=== PATIENT | male | born 1930 | race Caucasian/White ===

== ENCOUNTER → 2016-11-01 | Outpatient (CLI) | payer OTHER ==
[~2016-11-01] MED LIST: ADVIN10/60 INH; ALBUAER2 INH; AMOX1TAB43 PO; ASPI-435 PO; BACL10TA PO; BACL20TA PO; CHOL2000 PO; CLR/5 PO; CRD200 PO; CYCL10TA6 PO; DOCU-94 PO; FEXO3TAB PO; FIBER PO; FLM4 PO; FLUT0.15 NAE; FLUT1INH INH; FLX5 PO; FURO-85 PO; FURO40TA3 PO; GABA-112 PO; GABA-113 PO; GUAI1TAB75 PO; HYDR-5688 PO; LACT1TAB4 PO; LDDP5 TD; LIDO1PAD2 TD; LRS10 PO; MISCCAP80 PO; MOMLX PO; MULT-55 PO; NRN100 PO; OMEP40CA41 PO; OXYC1CAP5 PO; RXC5 PO; SENN-65 PO; SENN8.6T9 PO; SPRIN/30 INH; TIOTCAP INH; TRAM-10 PO; ULT50 PO; ULT50HP PO; VLTG EXT; VNTHFA/IN INH; WARF1TAB6 PO
--- NOTE | 2016-11-01 12:06 | DIAGNOSTIC IMAGING REPORT ---
BILATERAL LOWER EXTREMITY ARTERIAL DOPPLER STUDY CLINICAL HISTORY: Cold feet and legs. Smoking history COMPARISON STUDY: None. FINDINGS: The right ankle-brachial index measured with the posterior tibial artery was 1.25 and the dorsalis pedis artery was 1.14. The left ankle-brachial index measured with the posterior tibial artery was 1.14 and the dorsalis pedis artery was 1.13. Normal biphasic waveforms seen throughout the bilateral lower extremity arterial systems. No elevated velocities to suggest stenosis. No evidence for arterial occlusion. Mild calcified plaque within the right common femoral artery. IMPRESSION: No hemodynamically significant stenosis or arterial occlusion within the bilateral lower extremities. Electronically signed by: Tristen Kirkland M.D. 11/01/2016 12:05 PM Dictated Date/Time: 11/01/2016 12:01 PM
== END | disposition home or self-care (01) ==
LOC: C.ULTR 10:19
PROVIDERS: ATTEND Podiatrist
DX: I70.293 Other atherosclerosis of native arteries of extremities, bilateral legs (principal); M20.42 Other hammer toe(s) (acquired), left foot

== ENCOUNTER 2016-12-02 09:08 | Emergency (ER) | payer OTHER ==
[~2016-12-02] VITALS: Ht 177.8 cm; Wt 89.2 kg
[~2016-12-02 09:08] MED LIST changes: -ADVIN10/60 INH; -AMOX1TAB43 PO; -BACL10TA PO; -BACL20TA PO; -CHOL2000 PO; -CLR/5 PO; -CYCL10TA6 PO; -FIBER PO; -FLUT1INH INH; -FLX5 PO; -FURO-85 PO; -GABA-112 PO; -GABA-113 PO; -HYDR-5688 PO; -LDDP5 TD; -LIDO1PAD2 TD; -LRS10 PO; -MISCCAP80 PO; -MOMLX PO; -MULT-55 PO; -NRN100 PO; -OXYC1CAP5 PO; -RXC5 PO; -SENN8.6T9 PO; -SPRIN/30 INH; -TRAM-10 PO; -ULT50 PO; -VNTHFA/IN INH
[2016-12-02 09:11] VITALS: TEMP 36.5; Ht 177.8 cm; Wt 89.2 kg
[2016-12-02] MEDS ORDERED: VNTHFA/IN INH (09:34)
[2016-12-02] MEDS ORDERED: SPRIN/30 INH (09:34)
[2016-12-02] MEDS ORDERED: ULT50 PO (09:34)
[2016-12-02 10:40] LABS: BASO % 0.6 %; BASO ABS # 0.03 K/uL (0-0.2); COMPLETE YES; EOS % 4.8 %; HEMATOCRIT 37.9 % (42-52); IG% 0.2 %; LYMPH % 28.2 %; LYMPH ABS # 1.41 K/uL (1.2-3.4); MEAN CELL VOLUME 92.7 fL (80-100); MEAN CORPUSCULAR HEMOGLOBIN 30.3 pg (25-34); MEAN CORPUSCULAR HGB CONC 32.7 g/dl (32-36); MEAN PLATELET VOLUME 12.1 fL (7.4-10.4); MONO % 15.8 %; NEUT % 50.4 %; PLATELET COUNT 150 K/uL (130-400); RED BLOOD COUNT 4.09 M/uL (4.7-6.1)
[2016-12-02 10:53] LABS: INR 1.8 (0.9-1.1); PARTIAL THROMBOPLASTIN RATIO 1.5; PROTHROMBIN TIME (PATIENT) 19.3 SECONDS (9.0-12.0)
[2016-12-02 10:59] LABS: CALCIUM 8.7 mg/dl (8.5-10.1); CREATININE 1.1 mg/dl (0.60-1.40); POTASSIUM 4.2 mmol/L (3.5-5.1)
--- NOTE | 2016-12-02 11:04 | DIAGNOSTIC IMAGING REPORT ---
RIGHT RIBS UNILATERAL WITH PA CHEST CLINICAL HISTORY: eval for fx Right pain COMPARISON STUDY: 11/15/2015 FINDINGS: Old fractures anterior right 10th and 11th ribs. No acute bony abnormality. No evidence pneumothorax. IMPRESSION: Several old fractures. No acute bony abnormality. Negative chest. The above report was generated using voice recognition software. It may contain grammatical, syntax or spelling errors. Electronically signed by: Abelino Solis M.D. 12/02/2016 11:03 AM Dictated Date/Time: 12/02/2016 11:02 AM
[2016-12-02 11:09] VITALS: BP 131/65; PULSE 53; O2SAT 95
--- NOTE | 2016-12-02 16:24 | EMERGENCY ROOM VISIT NOTE ---
History Report prepared by Polly: Jessica Yoder Under the Supervision of: Dr. Pernell Arguello M.D. First contact with patient: 09:59 Chief Complaint: FALL Stated Complaint: FALL,HEAD INJURY History of Present Illness The patient is an 86 year old male who presents to the Emergency Room with complaints of a sudden fall that occurred . He currently rates his discomfort as a 10/10 in severity. The patient states that he missed a step going off of his back porch, stating that he fell onto his right shoulder. He states that he has been experiencing pain in his right chest since the fall. He denies any head trauma and denies any headache. The patient states that his pain is worsened with deep breathing and movement. He denies any abdominal pain, hematochezia, melena, or hematuria. The patient states that he is on Coumadin for a valve replacement and atrial fibrillation. He denies any abnormal weakness. Source of History: patient Onset: Position: other (global) Symptom Intensity: 10/10 Quality: other (fall) Timing: other (sudden) Modifying Factors (Worsening): breathing, movement Associated Symptoms: + chest pain (right sided), No abdominal pain, No melena, No hematochezia, No urinary symptoms, No weakness Review of Systems See HPI for pertinent positives & negatives. A total of 10 systems reviewed and were otherwise negative. Past Medical & Surgical Medical Problems: (1) A-fib (2) Arthritis (3) Asthma (4) Conductive hearing loss (5) COPD (chronic obstructive pulmonary disease) (6) GERD (gastroesophageal reflux disease) (7) Heart failure, diastolic (8) History of left heart catheterization (9) long-term current use of anticoagulant (10) Osteoarthritis (11) Peptic ulcer disease Surgical Problems: (1) H/O foot surgery (2) H/O mitral valve replacement (3) H/O removal of cyst (4) H/O tricuspid valve repair (5) Hx of total knee arthroplasty (6) S/P MVR (mitral valve replacement) Family History Cancer FH: heart disease Hypertension Stroke Social History Smoking Status: Never Smoker Alcohol Use: none Drug Use: none Marital Status: Housing Status: lives with family Occupation Status: retired Current/Historical Medications Scheduled Amiodarone HCl (Amiodarone HCl), 200 MG PO DAILY Docusate Sodium (Colace), 100 MG PO BID Furosemide (Lasix), 40 MG PO BID Lactobacillus (Floranex), 200 MG PO DAILY Omeprazole (Prilosec), 40 MG PO DAILY Senna/Docusate Sod (Senokot S), 1 TAB PO BID Tamsulosin HCl (Tamsulosin HCl), 0.4 MG PO HS Tiotropium [place] (Spiriva Handihaler), 1 CAP INH DAILY Warfarin Sod (Jantoven), 2 MG PO 5XWK Warfarin Sod (Jantoven), 3 MG PO 2XWK Scheduled PRN Albuterol Hfa (Ventolin Hfa), 2-4 PUFFS INH Q6H PRN for Wheezing Fluticasone Propionate (Nasal) (Flonase Allergy Relief), 2 SPRAY ALEJANDRO DAILY PRN for congestion Tramadol HCl (Tramadol HCl), 50 MG PO Q4H PRN for Pain Allergies Coded Allergies: Lansoprazole (Verified Allergy, Unknown, didn't work/dr determined pt was allergic, 12/02/16) Physical Exam Vital Signs Date Time Temp Pulse Resp B/P (MAP) Pulse Ox O2 Delivery O2 Flow Rate FiO2 12/02/16 11:09 53 20 131/65 95 Room Air 12/02/16 10:38 52 12/02/16 09:11 36.5 66 18 104/66 93 Room Air Physical Exam Constitutional: Vital signs reviewed. Eyes: Pupils are equal round reactive to light. Conjunctiva are noninjected. ENT: Pharynx is clear without erythema or exudate. Mucous membranes are moist. Neck supple without meningeal signs. No midline tenderness to cervical spine. Respiratory: Clear to auscultation bilaterally. Breath sounds are equal bilaterally. Cardiovascular: Regular rate and rhythm. No rubs or gallops. GI: Soft, nondistended and nontender. Bowel sounds are present. Musculoskeletal: Tenderness to the anterior right ribs without crepitus or flail segment. No tenderness to extremities, scattered abrasions to right leg. No peripheral edema. Integumentary: No cyanosis. Neurological: The patient is awake and alert. No focal deficits. Psychiatric: Normal affect. Medical Decision & Procedures ER Provider Diagnostic Interpretation: X-ray results as stated below per interpretation by me and the radiologist: RIGHT RIBS UNILATERAL WITH PA CHEST CLINICAL HISTORY: eval for fx Right pain COMPARISON STUDY: 11/15/2015 FINDINGS: Old fractures anterior right 10th and 11th ribs. No acute bony abnormality. No evidence pneumothorax. IMPRESSION: Several old fractures. No acute bony abnormality. Negative chest. The above report was generated using voice recognition software. It may contain grammatical, syntax or spelling errors. Electronically signed by: Abelino Solis M.D. 12/02/2016 11:03 AM Dictated Date/Time: 12/02/2016 11:02 AM Laboratory Results 12/02/16 10:20 Red Blood Count 4.09, Mean Corpuscular Volume 92.7, Mean Corpuscular Hemoglobin 30.3, Mean Corpuscular Hemoglobin Concent 32.7, Mean Platelet Volume 12.1, Neutrophils (%) (Auto) 50.4, Lymphocytes (%) (Auto) 28.2, Monocytes (%) (Auto) 15.8, Eosinophils (%) (Auto) 4.8, Basophils (%) (Auto) 0.6, Neutrophils # (Auto ) 2.52, Lymphocytes # (Auto) 1.41, Monocytes # (Auto) 0.79, Eosinophils # (Auto ) 0.24, Basophils # (Auto) 0.03 12/02/16 10:20 Test 12/02/16 10:20 White Blood Count 5.00 K/uL (4.8-10.8) Red Blood Count 4.09 M/uL (4.7-6.1) Hemoglobin 12.4 g/dL (14.0-18.0) Hematocrit 37.9 % (42-52) Mean Corpuscular Volume 92.7 fL (80-100) Mean Corpuscular Hemoglobin 30.3 pg (25-34) Mean Corpuscular Hemoglobin Concent 32.7 g/dl (32-36) Platelet Count 150 K/uL (130-400) Mean Platelet Volume 12.1 fL (7.4-10.4) Neutrophils (%) (Auto) 50.4 % Lymphocytes (%) (Auto) 28.2 % Monocytes (%) (Auto) 15.8 % Eosinophils (%) (Auto) 4.8 % Basophils (%) (Auto) 0.6 % Neutrophils # (Auto) 2.52 K/uL (1.4-6.5) Lymphocytes # (Auto) 1.41 K/uL (1.2-3.4) Monocytes # (Auto) 0.79 K/uL (0.11-0.59) Eosinophils # (Auto) 0.24 K/uL (0-0.5) Basophils # (Auto) 0.03 K/uL (0-0.2) RDW Standard Deviation 51.1 fL (36.4-46.3) RDW Coefficient of Variation 14.9 % (11.5-14.5) Immature Granulocyte % (Auto) 0.2 % Immature Granulocyte # (Auto) 0.01 K/uL (0.00-0.02) Prothrombin Time 19.3 SECONDS (9.0-12.0) Prothromb Time International Ratio 1.8 (0.9-1.1) Activated Partial Thromboplast Time 37.8 SECONDS (21.0-31.0) Partial Thromboplastin Ratio 1.5 Anion Gap 3.0 mmol/L (3-11) Est Creatinine Clear Calc Drug Dose 53.2 ml/min Estimated GFR () 69.6 Estimated GFR (Non- 60.0 BUN/Creatinine Ratio 14.0 (10-20) Calcium Level 8.7 mg/dl (8.5-10.1) Laboratory results as reviewed by me. ECG Indication: chest pain Rate (beats per minute): 50 Rhythm: sinus bradycardia Findings: 1st degree AV block, no acute ischemic change, no ectopy ED Course 1002: The patient was evaluated in room A11B. A complete history and physical exam was performed. 1130: I reevaluated the patient and he is resting comfortably. I discussed the exam findings with him and I discussed the treatment plan. He verbalized complete understanding and agreement. He is ready to go home. Medical Decision This is an 86-year-old male who presents with rib pain after a fall. Differential diagnosis includes rib fracture, contusion, pneumothorax, hemothorax, strain. I did perform a limited focused review of portions of the patient's old chart on the electronic medical record. The patient has had no recent pertinent visits to this hospital. Blood Pressure Screening: Patient was found to have normal blood pressure on screening and does not require follow-up. Medication Reconciliation: I attest that I have personally reviewed the patient' s current medication list. I did evaluate the patient as noted above. Patient developed right-sided rib pain after a mechanical fall several days ago. He is significantly tender over the right anterior chest in the lower ribs. There is no crepitus or flail segment. IV access was established. I did order and review the patient's blood work as noted in the electronic medical record. I did order x-rays of the chest and ribs. I did review the images myself as well as the radiology report as described above. The radiologist stated that he has old fractures but he is acutely tender over those ribs and denies having any prior fractures or falls. He likely has an acute fracture in the posterior ribs. He was given a incentive spirometer and states he will take his tramadol for pain. He states that his steel erector told him he could not take anything stronger. He does have a subtherapeutic INR and was told to take an extra Coumadin tonight and have his INR rechecked next week. He was discharged in good condition. He was given return instructions as outlined below. Impression Primary Impression: Fracture of rib of right side Additional Impressions: Fall Subtherapeutic international normalized ratio (INR) Scribe Attestation The scribe's documentation has been prepared under my direct and personally reviewed by me in its entirety. I confirm that the note above accurately reflects all work, treatment, procedures, and medical decision making performed by me. Departure Information Dispostion Home / Self-Care Referrals Frank Mahoney D.O. (PCP) Forms HOME CARE DOCUMENTATION FORM, IMPORTANT VISIT INFORMATION Patient Instructions Fx Rib, My [facility] Additional Instructions You have been examined and treated today on an emergency basis only. This is not a substitute for, or an effort to provide, complete comprehensive medical care. It is impossible to recognize and treat all injuries or illnesses in a single emergency department visit. It is therefore important that you follow up closely with your physician. Call as soon as possible for an appointment. Return immediately for worsening symptoms or if you develop shortness of breath , fever, vomiting, or any other concerning symptoms. Problem Qualifiers Primary Impression: Fracture of rib of right side Encounter type: initial encounter Rib fracture type: multiple ribs Fracture type: closed Qualified Codes: S22.41XA - Multiple fractures of ribs , right side, initial encounter for closed fracture Additional Impressions: Fall Encounter type: initial encounter Qualified Codes: W19.XXXA - Unspecified fall, initial encounter
== END 2016-12-02 11:38 | disposition home or self-care (01) ==
LOC: C.EDB 09:10 → C.EDA 11:38
DX: S22.41XA Multiple fractures of ribs, right side, initial encounter for closed fracture (principal); W10.9XXA Fall (on) (from) unspecified stairs and steps, initial encounter; W22.8XXA Striking against or struck by other objects, initial encounter; R79.1 Abnormal coagulation profile; M19.90 Unspecified osteoarthritis, unspecified site; J45.909 Unspecified asthma, uncomplicated; J44.9 Chronic obstructive pulmonary disease, unspecified; I48.91 Unspecified atrial fibrillation; I50.32 Chronic diastolic (congestive) heart failure; K21.9 Gastro-esophageal reflux disease without esophagitis; K27.7 Chronic peptic ulcer, site unspecified, without hemorrhage or perforation; Z95.2 Presence of prosthetic heart valve; Z96.659 Presence of unspecified artificial knee joint; Z98.890 Other specified postprocedural states; Z82.49 Family history of ischemic heart disease and other diseases of the circulatory system; Z82.3 Family history of stroke; Z79.01 Long term (current) use of anticoagulants; Z79.899 Other long term (current) drug therapy

== ENCOUNTER 2017-02-16 16:18 | Inpatient (IN) | payer OTHER ==
[~2017-02-16] VITALS: Ht 177.8 cm; Wt 86.7 kg
[~2017-02-16 16:18] MED LIST changes: -ALBUAER2 INH; -ASPI-435 PO; -FEXO3TAB PO; -GUAI1TAB75 PO; +SPRIN/30 INH; -TIOTCAP INH; +ULT50 PO; -ULT50HP PO; -VLTG EXT; +VNTHFA/IN INH
[2017-02-16] MEDS ORDERED: FENTANYL CITRATE INJ 50 MCG/1 ML 2 ML VIAL IV STA (17:18)
[2017-02-16 18:06] LABS: BASO % 0.3 %; BASO ABS # 0.03 K/uL (0-0.2); COMPLETE YES; EOS % 1.9 %; HEMATOCRIT 41.3 % (42-52); IG% 0.6 %; LYMPH ABS # 1.95 K/uL (1.2-3.4); MEAN CELL VOLUME 93.4 fL (80-100); MEAN CORPUSCULAR HGB CONC 33.2 g/dl (32-36); MONO % 12.4 %; NEUT % 66.8 %; PLATELET COUNT 197 K/uL (130-400); RED BLOOD COUNT 4.42 M/uL (4.7-6.1); WHITE BLOOD COUNT 10.81 K/uL (4.8-10.8)
[2017-02-16 18:28] LABS: CALCIUM 8.7 mg/dl (8.5-10.1); CREATININE 0.91 mg/dl (0.60-1.40); POTASSIUM 4.1 mmol/L (3.5-5.1)
--- NOTE | 2017-02-16 18:53 | DIAGNOSTIC IMAGING REPORT ---
ORBITS FOR MRI HISTORY: 86 years-old Male MRI clearance for MRI. 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 COMPARISON: CT head 04/16/2015 TECHNIQUE: 4 views of the orbits. FINDINGS: No opaque foreign body identified. The imaged paranasal sinuses appear generally clear. No acute fracture identified. IMPRESSION: No opaque foreign body identified. The above report was generated using voice recognition software. It may contain grammatical, syntax or spelling errors. Electronically signed by: Alireza Anand M.D. 02/16/2017 6:51 PM Dictated Date/Time: 02/16/2017 6:50 PM
[2017-02-16] MEDS ORDERED: FLUT1INH INH (19:41)
[2017-02-16] MEDS ORDERED: CLR/5 PO (19:41)
--- NOTE | 2017-02-16 20:14 | DIAGNOSTIC IMAGING REPORT ---
LUMBAR SPINE W/O CONTRAST CLINICAL HISTORY: 86 years-old Male with low back pain, urinary incontinence, left leg weakness/numbness. Acute left leg weakness with low back pain. No reported trauma. COMPARISON: None. TECHNIQUE: Multiplanar, multi sequence MRI of the lumbar spine was performed without intravenous contrast. FINDINGS: Large field view industrial education teacher localizer images demonstrate no gross abnormality of the abdomen, pelvis were paraspinal structures. Prostate appears enlarged. There is mild convex right curvature of the lumbar spine. There is severe bone marrow edema involving the entire L5 vertebral body with moderate bone marrow edema noted extending into the left pedicle at this level. There is a linear fracture line involving superior endplate with approximately 25% anterior endplate compression. No significant retropulsion. Additionally, there is linear fracture line involving the superior endplate of L4 as seen on image 11 of the sagittal T1 series with moderate associated bone marrow edema. No significant loss of vertebral body height. No retropulsion. Chronic compression deformity at L3 with multiple Schmorl nodes of the lumbar spine. Multilevel intervertebral disc space narrowing, facet arthropathy and spondylitic spurring as below. Signal within the cord is within normal limits. Conus medullaris terminates at L1. T12-L1: Mild intervertebral disc space narrowing and severe facet arthropathy without central canal or neural foraminal stenosis. L1-L2: Mild intervertebral disc space narrowing and severe facet arthropathy without central canal or neural foraminal stenosis. L2-L3: Moderate intervertebral disc space narrowing with posterior spondylitic spurring and circumferential annular disc bulge and severe facet arthropathy. There is moderate central canal, mild left and mild right foraminal narrowing. L3-L4: Moderate intervertebral disc space narrowing with posterior spondylitic spurring and small broad-based posterior disc bulge with severe facet arthropathy and ligamentum flavum thickening. There is mild central canal, moderate left and moderate to severe right foraminal narrowing. L4-L5: Moderate to severe intervertebral disc space narrowing with posterior spondylitic spurring and circumferential annular disc bulge along with severe facet arthropathy and ligamentum flavum redundancy. There is effacement of the ventral thecal sac without significant central canal narrowing. There is moderate right and mild to moderate left foraminal narrowing. Acute bony findings as above. L5-S1: Moderate posterior intervertebral disc space narrowing with posterior spondylitic spurring and broad-based posterior disc bulge with severe facet arthropathy. There is no significant central canal or foraminal narrowing IMPRESSION: 1. Acute 25% anterior endplate compression deformity of L5 without significant retropulsion. Extensive bone marrow edema seen within the L5 vertebral body extending into the left pedicle. There is no associated mass identified to suggest pathologic fracture, however intravenous contrast was not administered. This is likely secondary to insufficiency fracture. 2. Additional acute fracture involves the superior endplate L4 with moderate associated bone marrow edema. No significant endplate collapse or retropulsion. 3. Multilevel discogenic degenerative changes, spondylitic spurring and facet arthropathy as above, most pronounced at L2-L3 where there is moderate central canal and mild bilateral foraminal narrowing. The above report was generated using voice recognition software. It may contain grammatical, syntax or spelling errors. Electronically signed by: Alireza Anand M.D. 02/16/2017 8:12 PM Dictated Date/Time: 02/16/2017 8:03 PM
[2017-02-16 20:47] LABS: URINE APPEARANCE CLEAR (CLEAR); URINE BILIRUBIN NEG (NEG); URINE COLOR YELLOW; URINE NITRITE NEG (NEG); URINE PH 7.5 (4.5-7.5); URINE SPECIFIC GRAVITY 1.015 (1.000-1.030); UROBILINOGEN NEG (NEG); ZZUR CULT IF INDIC CLEAN CATCH NO
[2017-02-16 20:51] LABS: MANUAL MICROSCOPIC REQUIRED? NO; REVIEW REQ? NO
[2017-02-16] MEDS ORDERED: MoRPHine SULFATE 4 MG/ML 1 ML CARP\\VIAL IV STA (20:54)
--- NOTE | 2017-02-16 20:54 | EMERGENCY ROOM VISIT NOTE ---
ED Visit Note First contact with patient: 20:42 This Patient was discussed with the physician [place], Sheron Navarro PA-C. The pertinent historical and physical exam findings were confirmed. I agree with the studies ordered and with the interpretations of these studies. I agree with the disposition and care plan.
--- NOTE | 2017-02-16 22:04 | EMERGENCY ROOM VISIT NOTE ---
History First contact with patient: 16:59 Chief Complaint: BACK PAIN Stated Complaint: SEVERE BACK PAIN History of Present Illness The patient is a 86 year old male who presents to the Emergency Room with complaints of severe back pain. The patient states that he has had pain in the low back for greater than 1 month. He states that the pain began 01/08/17. At that time, he was standing up from a chair when he developed acute pain in the low back. He was seen by his primary care provider and had negative x-rays. He was prescribed a muscle relaxer and prednisone. He states that he had no improvement after one week and return to see his primary care provider again. They increased his prednisone dose and scheduled him with physical therapy. He was seeing a physical therapist 3 times a week and states this was initially helping. He reports that his pain increased significantly yesterday and he has had a hard time moving due to the pain. He reports the discomfort a 10/10 and is "unbearable." He has had some weakness of the legs, left greater than right. He reports intermittent numbness of the left leg as well. The patient has had some difficulties with his urinary stream for the past 2 months and is unsure if this is related. He states he is scheduled for an MRI on February 27. He denies any bowel/bladder incontinence or fevers. He denies any history of cancer. The patient reports a history of a valve replacement but states he is otherwise fairly healthy. Review of Systems A complete 10 point review of systems was reviewed with the patient with pertinent positives and negatives as per history of present illness. All else were negative. Past Medical/Surgical History Medical Problems: (1) A-fib (2) Arthritis (3) Asthma (4) Back pain (5) Conductive hearing loss (6) COPD (chronic obstructive pulmonary disease) (7) GERD (gastroesophageal reflux disease) (8) Heart failure, diastolic (9) History of left heart catheterization (10) correction current use of anticoagulant (11) Osteoarthritis (12) Peptic ulcer disease Surgical Problems: (1) H/O foot surgery (2) H/O mitral valve replacement (3) H/O removal of cyst (4) H/O tricuspid valve repair (5) Hx of total knee arthroplasty (6) S/P MVR (mitral valve replacement) Family History Cancer FH: heart disease Hypertension Stroke Social History Smoking Status: Former Smoker Alcohol Use: none Drug Use: none Marital Status: Housing Status: lives with family Occupation Status: retired Current/Historical Medications Scheduled Amiodarone HCl (Amiodarone HCl), 200 MG PO DAILY Desloratadine (Clarinex), 5 MG PO DAILY Docusate Sodium (Colace), 100 MG PO BID Fluticasone Furoate-Vilanterol (Breo Ellipta), 1 PUFF INH UD Furosemide (Lasix), 40 MG PO BID Lactobacillus (Floranex), 200 MG PO DAILY Omeprazole (Prilosec), 40 MG PO DAILY Senna/Docusate Sod (Senokot S), 1 TAB PO BID Tamsulosin HCl (Tamsulosin HCl), 0.4 MG PO HS Tiotropium [place] (Spiriva Handihaler), 1 CAP INH DAILY Warfarin Sod (Jantoven), 2 MG PO 5XWK Warfarin Sod (Jantoven), 3 MG PO 2XWK Scheduled PRN Albuterol Hfa (Ventolin Hfa), 2-4 PUFFS INH Q6H PRN for Wheezing Fluticasone Propionate (Nasal) (Flonase Allergy Relief), 2 SPRAY ALEJANDRO DAILY PRN for congestion Tramadol HCl (Tramadol HCl), 50 MG PO Q4H PRN for Pain Physical Exam Vital Signs Date Time Temp Pulse Resp B/P (MAP) Pulse Ox O2 Delivery O2 Flow Rate FiO2 02/16/17 21:17 70 18 131/69 93 Room Air 02/16/17 20:30 73 20 145/67 95 Room Air 02/16/17 16:28 36.5 78 18 117/65 94 Room Air Physical Exam VITALS: Vitals are noted on the nurse's note and reviewed by myself. Vital signs stable. GENERAL: This is an 86-year-old male, in no acute distress, nondiaphoretic, well -developed well-nourished. HEART: Regular rate and rhythm without murmurs gallops or rubs. LUNGS: Clear to auscultation bilaterally without wheezes, rales or rhonchi. ABDOMEN: Soft, nontender. MUSCULOSKELETAL: There is tenderness to palpation along the lumbar spine and of the right lumbar paraspinous muscles. NEURO: Patient was alert and oriented to person place and time. Normal sensation to light and sharp touch. Patellar reflexes decreased bilaterally. Medical Decision & Procedures ER Provider Diagnostic Interpretation: LUMBAR SPINE W/O CONTRAST CLINICAL HISTORY: 86 years-old Male with low back pain, urinary incontinence, left leg weakness/numbness. Acute left leg weakness with low back pain. No reported trauma. COMPARISON: None. TECHNIQUE: Multiplanar, multi sequence MRI of the lumbar spine was performed without intravenous contrast. FINDINGS: Large field view locomotive oiler localizer images demonstrate no gross abnormality of the abdomen, pelvis were paraspinal structures. Prostate appears enlarged. There is mild convex right curvature of the lumbar spine. There is severe bone marrow edema involving the entire L5 vertebral body with moderate bone marrow edema noted extending into the left pedicle at this level. There is a linear fracture line involving superior endplate with approximately 25% anterior endplate compression. No significant retropulsion. Additionally, there is linear fracture line involving the superior endplate of L4 as seen on image 11 of the sagittal T1 series with moderate associated bone marrow edema. No significant loss of vertebral body height. No retropulsion. Chronic compression deformity at L3 with multiple Schmorl nodes of the lumbar spine. Multilevel intervertebral disc space narrowing, facet arthropathy and spondylitic spurring as below. Signal within the cord is within normal limits. Conus medullaris terminates at L1. T12-L1: Mild intervertebral disc space narrowing and severe facet arthropathy without central canal or neural foraminal stenosis. L1-L2: Mild intervertebral disc space narrowing and severe facet arthropathy without central canal or neural foraminal stenosis. L2-L3: Moderate intervertebral disc space narrowing with posterior spondylitic spurring and circumferential annular disc bulge and severe facet arthropathy. There is moderate central canal, mild left and mild right foraminal narrowing. L3-L4: Moderate intervertebral disc space narrowing with posterior spondylitic spurring and small broad-based posterior disc bulge with severe facet arthropathy and ligamentum flavum thickening. There is mild central canal, moderate left and moderate to severe right foraminal narrowing. L4-L5: Moderate to severe intervertebral disc space narrowing with posterior spondylitic spurring and circumferential annular disc bulge along with severe facet arthropathy and ligamentum flavum redundancy. There is effacement of the ventral thecal sac without significant central canal narrowing. There is moderate right and mild to moderate left foraminal narrowing. Acute bony findings as above. L5-S1: Moderate posterior intervertebral disc space narrowing with posterior spondylitic spurring and broad-based posterior disc bulge with severe facet arthropathy. There is no significant central canal or foraminal narrowing IMPRESSION: 1. Acute 25% anterior endplate compression deformity of L5 without significant retropulsion. Extensive bone marrow edema seen within the L5 vertebral body extending into the left pedicle. There is no associated mass identified to suggest pathologic fracture, however intravenous contrast was not administered. This is likely secondary to insufficiency fracture. 2. Additional acute fracture involves the superior endplate L4 with moderate associated bone marrow edema. No significant endplate collapse or retropulsion. 3. Multilevel discogenic degenerative changes, spondylitic spurring and facet arthropathy as above, most pronounced at L2-L3 where there is moderate central canal and mild bilateral foraminal narrowing. Laboratory Results 02/16/17 17:30 Test 02/16/17 17:30 02/16/17 20:30 Anion Gap 5.0 mmol/L (3-11) Est Creatinine Clear Calc Drug Dose 59.1 ml/min Estimated GFR () 87.5 Estimated GFR (Non- 75.5 BUN/Creatinine Ratio 18.0 (10-20) Calcium Level 8.7 mg/dl (8.5-10.1) Magnesium Level 2.2 mg/dl (1.8-2.4) Total Bilirubin 0.4 mg/dl (0.2-1) Direct Bilirubin 0.1 mg/dl (0-0.2) Aspartate Amino Transf (AST/SGOT) 13 U/L (15-37) Alanine Aminotransferase (ALT/SGPT) 19 U/L (12-78) Alkaline Phosphatase 103 U/L (45-117) Total Protein 7.1 gm/dl (6.4-8.2) Albumin 3.6 gm/dl (3.4-5.0) Lipase 191 U/L (73-393) Urine Color YELLOW Urine Appearance CLEAR (CLEAR) Urine pH 7.5 (4.5-7.5) Urine Specific [place] 1.015 (1.000-1.030) Urine Protein NEG (NEG) Urine Glucose (UA) NEG (NEG) Urine Ketones NEG (NEG) Urine Occult Blood NEG (NEG) Urine Nitrite NEG (NEG) Urine Bilirubin NEG (NEG) Urine Urobilinogen NEG (NEG) Urine Leukocyte Esterase NEG (NEG) Medications Administered Medications (Trade) Dose Ordered Sig/Baldomero Route Start Time Stop Time Status Last Admin Dose Admin Fentanyl Citrate (Fentanyl Inj) 50 mcg NOW STAT IV 02/16/17 17:18 02/16/17 17:20 DC 02/16/17 17:39 50 MCG Morphine Sulfate (MoRPHine SULFATE INJ) 4 mg NOW STAT IV 02/16/17 20:54 02/16/17 20:55 DC 02/16/17 21:16 4 MG ED Course The patient was evaluated as above. Labs were drawn and IV access was obtained. Patient was medicated with 50 g fentanyl for pain. MRI of the lumbar spine was performed and read by radiology as above. Patient was reevaluated and findings were discussed. He was given 4 mg morphine for pain. Patient was reevaluated and states that he does feel somewhat better after the morphine, however when he attempts to move or pull himself up he has excruciating pain. [facility]. They agreed to evaluate the patient for admission. Medical Decision Differential diagnosis includes cauda equina syndrome, cord compression, disc herniation, muscle spasm, lumbar strain, epidural abscess, malignancy, transverse myelitis, urinary tract infection, colitis, diverticulitis, kidney stone, among others. The patient is a 86-year-old male who presents today complaining of progressively worsening back pain. His pain has now progressed to include some intermittent left leg numbness and weakness. An MRI of the lumbar spine was performed and showed an acute compression fracture with findings concerning for possible underlying malignancy. Labs revealed a mild leukocytosis and were otherwise unremarkable. Patient does not have a history of malignancy. Patient was given 2 doses of pain medication but was still having significant pain and I do not feel he is safe to be discharged home, as his is not comfortable taking care of him. I feel that the best plan of care is to admit the patient so that he can have evaluation by an orthopedic spine surgeon and possible placement in a rehabilitation facility if needed. The patient and his are both agreeable to this plan. [facility] and care. The patient was independently evaluated by Dr. Kim, ED attending physician, who agreed with my assessment and treatment plan. Medication Reconcilliation Current Medication List: was personally reviewed by me Blood Pressure Screening Patient's blood pressure: Elevated blood pressure Blood pressure disposition: Elevated BP felt to be situational Impression Primary Impression: Lumbar compression fracture Departure Information Referrals Frank Mahoney D.O. (PCP) Patient Instructions My [facility]
[2017-02-16 22:29] LABS: INR 2.4 (0.9-1.1); PROTHROMBIN TIME (PATIENT) 26.7 SECONDS (9.0-12.0)
[2017-02-16] MEDS ORDERED: IV FLUIDS COMPLETED PRN (22:45)
[2017-02-16] MEDS ORDERED: LIDODERM (LIDOCAINE) PATCH 5% TD STA (22:58)
[2017-02-16] MEDS ORDERED: ACETAMINOPHEN 325 MG TAB PO PRN (23:00)
[2017-02-16] MEDS ORDERED: TRAMADOL HCL 50 MG TAB PO PRN (23:00)
[2017-02-16] MEDS ORDERED: POLYETHYLENE (MIRALAX) 17 GM PACK PO PRN (23:00)
[2017-02-16] MEDS ORDERED: IBUPROFEN 200 MG TAB PO PRN (23:00)
[2017-02-16] MEDS ORDERED: ONDANSETRON INJ 2 MG/ML 2 ML VIAL IV PRN ×2 (23:00)
[2017-02-16 23:01] LABS: MAGNESIUM 2.2 mg/dl (1.8-2.4)
[2017-02-17 00:15] VITALS: BP 134/71; PULSE 74; TEMP 36.9; Ht 177.8 cm; Wt 86.7 kg
--- NOTE | 2017-02-17 03:17 | HISTORY & PHYSICAL EXAMINATION ---
DATE OF ADMISSION: 02/16/2017 PRIMARY CARE DOCTOR: Dr. Mahoney. CHIEF COMPLAINT: Back pain. HISTORY OF PRESENT ILLNESS: History obtained from patient and records. Medical history significant for chronic diastolic heart failure, paroxysmal AFib on anticoagulation, hx severe MR status post MVR, severe TR status post tricuspid repair (2016) COPD, past tobacco abuse, GERD, chronic anemia (baseline hemoglobin of 13), BPH Recent confinement August 2015 for right-sided hydropneumothorax. Last month, patient got up from a chair, subsequently fell fell down after experiencing sudden jolt of achy localized low back pain worsened with falling down. Over the next few days, patient noted occasional numbness on the L lower extremity, worse with walking. No bowel, no bladder incontinence. No fever, no chills. Seen at PCP's office. Impression was low back pain. Patient was prescribed prednisone course and muscle relaxant, analgesics. No improvement. Had PCP followup 2 weeks ago. Concern for sciatica. LS spine x-ray showed : Nonacute L3 vertebral compression deformity, grossly unchanged compared to earlier (2006) study. Additional slight vertebral height loss at the remaining visualized lower thoracic and lumbar vertebral levels, also grossly unchanged. Multilevel thoracolumbosacral spine degenerative disc disease, with some progression compared to earlier (2006) study. MRI contemplated next week. Patient was put on new course of prednisone, additional pain medicine prescribed. Outpatient PT recommended. Patient actually felt some improvement with back pain over the next few weeks. Yesterday he was at a picnic, some lifting done . He noted worsening of achy back pain, trouble walking. Px came to the Emergency Room with intractable pain. MEDICAL HISTORY: As above. SURGICAL HISTORY: MVR, tricuspid valve repair, cataract surgery, skin cancer surgery. HOME MEDICATIONS: Include Ventolin, amiodarone, Clarinex, Colace, Lipitor, Lasix, Flonase, Floranex, Prilosec, Senokot, Spiriva, tamsulosin, tramadol, Coumadin. ALLERGIES: LANSOPRAZOLE. FAMILY HISTORY: Heart disease, hypertension, stroke. PERSONAL AND SOCIAL HISTORY: Past tobacco use. No chronic intake of alcoholic beverages. REVIEW OF SYSTEMS: As per HPI, all other ROS negative. PHYSICAL EXAMINATION: VITAL SIGNS: Blood pressure was noted to be 130/67, pulse rate 70, RR 18, temperature 36.5, and sats 98 on room air. GENERAL: Slightly uncomfortable, no respiratory distress. SKIN: Pallor, dry. HEENT: Pale palpebral conjunctivae. Dry mucosa. Partial alopecia. NECK: Supple, midline trachea, nontender. CHEST: Decreased effort. No anterior chest tenderness. CV: Regular rate and rhythm. Palpable lower extremity pulses. ABDOMEN: Some distention, nontender. BACK: Tenderness on the low back. Straight leg raise test abnormal (left greater than right.) NEUROLOGIC: No gross focality, coherent. Gait and stance not assessed. LABORATORY DATA: Hemoglobin was noted to be 13.7, hematocrit 41.0, white cells 9.8, platelets 197. Sodium 142, potassium 4.1, chloride 105, CO2 of 29, BUN 16, creatinine 0.9, glucose was noted to be 90. LFTs: Lipase normal. INR was 2.4. Lumbar spine MRI showed 25% anterior endplate compression deformity of L5 without significant retropulsion, extensive bone marrow edema . No associated mass identified. Acute fracture superior endplate L4 with moderate associated bone marrow edema. Multilevel degenerative changes, most pronounced at L2-L3. Moderate central canal and mild bilateral foraminal narrowing. ASSESSMENT: 1. Intractable back pain compression deformities, degenerative changes with bone marrow edema on MRI month long duration symptoms with worsening yesterday ff exertion 2. Hypertension, stable 3. Chronic diastolic heart failure, patient euvolemic 4. paroxysmal atrial fibrillation, normal sinus rhythm. INR therapeutic. 5. History of mitral valve replacement and tricuspid valve repair. 6. COPD, past tobacco abuse pulmo status at baseline 7. Chronic anemia, hemoglobin baseline. PLAN: OBS GMF analgesia. Lidoderm patch trial. Orthopedics Spine consult. PT/OT evaluation. DVT prophylaxis, Coumadin, INR 2-3, if no intervention from Orthopedics. Full code. MTDD
[2017-02-17] MEDS: HYDROmorphone INJ 0.5 MG/0.5 ML SYR IV PRN ×3 (04:40→23:43)
[2017-02-17] MEDS: CLARINEX~ORDER AWAITING ACTION SCH ×3 (07:07→23:44)
[2017-02-17 07:10] LABS: BASO % 0.5 %; BASO ABS # 0.04 K/uL (0-0.2); COMPLETE YES; EOS % 2.7 %; HEMATOCRIT 40.4 % (42-52); IG% 0.5 %; LYMPH % 24.7 %; MEAN CELL VOLUME 93.1 fL (80-100); MEAN CORPUSCULAR HGB CONC 31.2 g/dl (32-36); MEAN PLATELET VOLUME 11.7 fL (7.4-10.4); MONO % 13.8 %; NEUT % 57.8 %; PLATELET COUNT 159 K/uL (130-400); RED BLOOD COUNT 4.34 M/uL (4.7-6.1)
[2017-02-17 07:20] LABS: INR 1.9 (0.9-1.1)
[2017-02-17 08:05] VITALS: BP 134/71; PULSE 61; TEMP 36.7; O2SAT 97
[2017-02-17] MEDS: KETOROLAC TROMETHAMINE 15 MG/ML VIAL IV. PRN (08:40)
[2017-02-17] MEDS: OXYCODONE/ACETAMINOPHEN 5-325 TAB PO PRN ×3 (08:41→21:52)
[2017-02-17] MEDS: TIOTROPIUM BROMIDE 5 PUFF/90 MCG INH INH SCH (08:42)
[2017-02-17] MEDS: PANTOprazole SOD 40 MG TAB PO SCH (08:43)
[2017-02-17] MEDS: DOCUSATE SODIUM/SENNA 50/8.6MG TAB PO SCH ×2 (08:43→21:34)
[2017-02-17] MEDS: AMIODARONE 200 MG TAB PO SCH (08:43)
--- NOTE | 2017-02-17 09:25 | Orthopedic Consultation ---
Orthopedic Consultation Date of Consultation: Feb 17, 2017. Attending Physician: Ivory Cruz M.D. Reason for Consultation: Back pain History of Present Illness This is a very pleasant 86-year-old male that presents with a marked decline in status secondary to acute severe back pain. He states he symptoms began approximately 2 weeks ago. Denies any specific trauma fall or event. He had been treated with oral steroids and a course of physical therapy but unfortunately declined rapidly on . The pain is described as involving the lumbosacral junction. He denies any radicular component of his pain describes some modest sensory deficits or numbness to left lower extremity with weightbearing. This is very modest in nature. Past Medical/Surgical History Medical Problems: (1) Bilateral pleural effusion Status: Acute (2) CHF (congestive heart failure) Status: Acute (3) Congestive heart failure Status: Acute (4) COPD exacerbation Status: Acute (5) COPD exacerbation Status: Acute (6) New onset atrial fibrillation Status: Acute (7) Pleural effusion Status: Acute (8) Pleuritic chest pain Status: Acute (9) Pneumothorax, right Status: Acute Family History Cancer FH: heart disease Hypertension Stroke Social History Smoking Status: Never Smoker Drug Use: none Marital Status: Housing Status: lives with family Occupation Status: retired Allergies Coded Allergies: Lansoprazole (Verified Allergy, Unknown, didn't work/dr determined pt was allergic, 02/16/17) Home Medications Scheduled Amiodarone HCl (Amiodarone HCl), 200 MG PO DAILY Desloratadine (Clarinex), 5 MG PO DAILY Docusate Sodium (Colace), 100 MG PO BID Fluticasone Furoate-Vilanterol (Breo Ellipta), 1 PUFF INH UD Furosemide (Lasix), 40 MG PO BID Lactobacillus (Floranex), 200 MG PO DAILY Omeprazole (Prilosec), 40 MG PO DAILY Senna/Docusate Sod (Senokot S), 1 TAB PO BID Tamsulosin HCl (Tamsulosin HCl), 0.4 MG PO HS Tiotropium [place] (Spiriva Handihaler), 1 CAP INH DAILY Warfarin Sod (Jantoven), 2 MG PO 5XWK Warfarin Sod (Jantoven), 3 MG PO 2XWK Scheduled PRN Albuterol Hfa (Ventolin Hfa), 2-4 PUFFS INH Q6H PRN for Wheezing Fluticasone Propionate (Nasal) (Flonase Allergy Relief), 2 SPRAY ALEJANDRO DAILY PRN for congestion Tramadol HCl (Tramadol HCl), 50 MG PO Q4H PRN for Pain Current Inpatient Medications Current Inpatient Medications Medications (Trade) Dose Ordered Sig/Baldomero Route Start Time Stop Time Status Last Admin Dose Admin Lidocaine (Lidoderm Patch 5%) 1 patch HS TD 02/17/17 21:00 03/19/17 20:59 Miscellaneous (Remove Lidoderm Patch) 1 ea DAILY@0900 N/A 02/17/17 11:00 03/19/17 10:59 Miscellaneous (Iv Fluids Completed) 1 ea PRN PRN N/A 02/16/17 22:45 02/16/18 22:44 Acetaminophen (Tylenol Tab) 650 mg Q4H PRN PO 02/16/17 23:00 03/18/17 22:59 Hydromorphone HCl (Dilaudid Inj) 0.5 mg Q3H PRN IV 02/16/17 23:00 03/02/17 22:59 02/17/17 04:40 0.5 MG Ketorolac Tromethamine (Toradol Inj) 15 mg Q6H PRN IV. 02/16/17 23:00 02/21/17 22:59 02/17/17 08:40 15 MG Ibuprofen (Advil Tab) 400 mg Q6H PRN PO 02/16/17 23:00 03/18/17 22:59 Ondansetron HCl (Zofran Inj) 4 mg Q6H PRN IV 02/16/17 23:00 03/18/17 22:59 Tramadol HCl (Ultram Tab) not relieved by tylenol @ Q6H PRN PO 02/16/17 23:00 03/18/17 22:59 Oxycodone/ Acetaminophen (Percocet 5-325mg Tab) 1 tab Q6H PRN PO 02/16/17 23:00 03/02/17 22:59 02/17/17 08:41 1 TAB Amiodarone HCl (Cordarone Tab) 200 mg DAILY PO 02/17/17 09:00 03/19/17 08:59 02/17/17 08:43 200 MG Senna/Docusate Sodium (Senokot S Tab) 2 tab BID PO 02/17/17 09:00 03/19/17 08:59 02/17/17 08:43 2 TAB Tamsulosin HCl (Flomax Cap) 0.4 mg HS PO 02/17/17 21:00 03/19/17 20:59 Tiotropium [place] (Spiriva Handihaler Inhaler) 1 puff DAILY INH 02/17/17 09:00 03/19/17 08:59 02/17/17 08:42 1 PUFF Miscellaneous Information (Order Awaiting Action) 1 ea QS N/A 02/17/17 08:00 03/19/17 07:59 Miscellaneous Information (Order Awaiting Action) 1 ea QS N/A 02/17/17 08:00 03/19/17 07:59 Pantoprazole Sodium (Protonix Tab) 40 mg QAM PO 02/17/17 09:00 03/19/17 08:59 02/17/17 08:43 40 MG Polyethylene (Miralax Powder Packet) 17 gm DAILY PRN PO 02/16/17 23:00 03/18/17 22:59 Physical Exam Date Time Temp Pulse Resp B/P (MAP) Pulse Ox O2 Delivery O2 Flow Rate FiO2 02/17/17 08:05 36.7 61 16 134/71 (92) 97 Room Air 02/17/17 00:15 Room Air 02/17/17 00:15 36.9 74 16 134/71 Room Air 02/16/17 23:37 68 18 147/82 93 02/16/17 21:17 70 18 131/69 93 Room Air 02/16/17 20:30 73 20 145/67 95 Room Air 02/16/17 16:28 36.5 78 18 117/65 94 Room Air On physical exam he exhibits excellent strength plantar flexion dorsiflexion quadriceps bilaterally. Sensory is intact. He does have difficulty with motion in the bed rolling over sitting up secondary to excruciating low back pain. Laboratory Results Last 24 Hours Test 02/16/17 17:30 02/16/17 20:30 02/17/17 06:37 White Blood Count 10.81 K/uL 7.70 K/uL Red Blood Count 4.42 M/uL 4.34 M/uL Hemoglobin 13.7 g/dL 12.6 g/dL Hematocrit 41.3 % 40.4 % Mean Corpuscular Volume 93.4 fL 93.1 fL Mean Corpuscular Hemoglobin 31.0 pg 29.0 pg Mean Corpuscular Hemoglobin Concent 33.2 g/dl 31.2 g/dl Platelet Count 197 K/uL 159 K/uL Mean Platelet Volume 12.0 fL 11.7 fL Neutrophils (%) (Auto) 66.8 % 57.8 % Lymphocytes (%) (Auto) 18.0 % 24.7 % Monocytes (%) (Auto) 12.4 % 13.8 % Eosinophils (%) (Auto) 1.9 % 2.7 % Basophils (%) (Auto) 0.3 % 0.5 % Neutrophils # (Auto) 7.22 K/uL 4.45 K/uL Lymphocytes # (Auto) 1.95 K/uL 1.90 K/uL Monocytes # (Auto) 1.34 K/uL 1.06 K/uL Eosinophils # (Auto) 0.21 K/uL 0.21 K/uL Basophils # (Auto) 0.03 K/uL 0.04 K/uL RDW Standard Deviation 54.4 fL 53.8 fL RDW Coefficient of Variation 15.8 % 15.7 % Immature Granulocyte % (Auto) 0.6 % 0.5 % Immature Granulocyte # (Auto) 0.06 K/uL 0.04 K/uL Prothrombin Time 26.7 SECONDS 21.0 SECONDS Prothromb Time International Ratio 2.4 1.9 Sodium Level 139 mmol/L Potassium Level 4.1 mmol/L Chloride Level 105 mmol/L Carbon Dioxide Level 29 mmol/L Anion Gap 5.0 mmol/L Blood Urea Nitrogen 16 mg/dl Creatinine 0.91 mg/dl Est Creatinine Clear Calc Drug Dose 59.1 ml/min Estimated GFR () 87.5 Estimated GFR (Non- 75.5 BUN/Creatinine Ratio 18.0 Random Glucose 90 mg/dl Calcium Level 8.7 mg/dl Magnesium Level 2.2 mg/dl Total Bilirubin 0.4 mg/dl Direct Bilirubin 0.1 mg/dl Aspartate Amino Transf (AST/SGOT) 13 U/L Alanine Aminotransferase (ALT/SGPT) 19 U/L Alkaline Phosphatase 103 U/L Total Protein 7.1 gm/dl Albumin 3.6 gm/dl Lipase 191 U/L Urine Color YELLOW Urine Appearance CLEAR Urine pH 7.5 Urine Specific [place] 1.015 Urine Protein NEG Urine Glucose (UA) NEG Urine Ketones NEG Urine Occult Blood NEG Urine Nitrite NEG Urine Bilirubin NEG Urine Urobilinogen NEG Urine Leukocyte Esterase NEG Assessment & Plan Assessment L4 and L5 compression fractures that appear to be nonpathologic in nature. Plan at this time in light of the findings at the L4 and L5 vertebral bodies consistent with acute compression fracture I would recommend continued pain management and LSO brace. We did discuss possible kyphoplasty. If he fails to improve the next 24-48 hours this may be very reasonable. Surgery would of course allow us to obtain a bone biopsy and rule out any pathologic process... Would also hope that kyphoplasty provides significant relief of his back pain. We will assess on a daily basis. However he does express interest in surgery if he fails to improve in the near future. We most likely medial to do something as soon as Sunday.
--- NOTE | 2017-02-17 11:31 | DIAGNOSTIC IMAGING REPORT ---
LUMBAR SPINE 2 OR 3 VIEWS CLINICAL HISTORY: 86 years-old Male presenting with back pain . TECHNIQUE: Frontal, lateral, and coned in lateral views of the lumbar spine were obtained in standing position. COMPARISON: MR of the lumbar spine performed the previous day. FINDINGS: Osteopenia noted. Slight straightening of normal lumbar lordosis. Superior and incompletely inferior endplate concavity of L3. Mild concavity of the superior endplate of L4 correlates with the acute fracture noted on MR. The acute compression fracture of L5 with anterior vertebral body height loss is not appreciated on this radiograph possibly due to positioning. No gross evidence of retropulsion of fracture fragments. Mild stool burden. Atherosclerosis.. IMPRESSION: 1. Osteopenia. 2. Acute compression deformity of L5 seen on MR from yesterday is not appreciated on the current radiograph. 3. Acute fracture of the superior endplate of L4 correlates to the concavity noted on radiograph. 4. Chronic compression deformity of L3. Electronically signed by: Mil Summers M.D. 02/17/2017 11:30 AM Dictated Date/Time: 02/17/2017 11:26 AM
[2017-02-17 15:00] VITALS: BP 131/65; PULSE 59; TEMP 36.9; O2SAT 95
--- NOTE | 2017-02-17 18:10 | Progress Note ---
Internal Med Progress Note Date of Service: Feb 17, 2017. Provider Documentation: SUBJECTIVE: mentions of minimum pain at rest , back pain gets progressively worse with movement at present comfortable with current pain regimen OBJECTIVE: Vital Signs-as noted below Exam: General-pleasant , no sign of distress Eyes-sclera non icteric ENT-NAD Neck-no JVD Lungs-CTA Heart-regular S1/S2 Abdomen-soft,. non tender Extremities- no lower ext edema Neuro-AAO x3, no focal deficit Lab data as noted below. ASSESSMENT & PLAN: LOW BACK PAIN /COMPRESSION FX OF LUMBER L4/L5 : presented with severe low back pain MRI of lumber spine shows L4 and L5 compression fractures appreciate input form Spinal surgery Dr Walker recommend continued pain management and LSO brace. may need kyphoplasty. If he fails to improve the next 24-48 hours . 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) stable ECHO ordered as pre op eval COPD -respiratory status at baseline no wheeze or SOB Cxray ordered for Pre op anesthesia DVT PROPHYLAXIS scd and teds DISPOSITION to be determined Vital Signs: Date Time Temp Pulse Resp B/P (MAP) Pulse Ox O2 Delivery O2 Flow Rate FiO2 02/17/17 16:00 Room Air 02/17/17 15:00 36.9 59 20 131/65 (87) 95 Room Air 02/17/17 08:05 36.7 61 16 134/71 (92) 97 Room Air 02/17/17 08:00 Room Air 02/17/17 00:15 Room Air 02/17/17 00:15 36.9 74 16 134/71 Room Air 02/16/17 23:37 68 18 147/82 93 02/16/17 21:17 70 18 131/69 93 Room Air 02/16/17 20:30 73 20 145/67 95 Room Air Lab Results: Results Past 24 Hours Test 02/16/17 20:30 02/17/17 06:37 Range/Units Urine Color YELLOW Urine Appearance CLEAR CLEAR Urine pH 7.5 4.5-7.5 Urine Specific [place] 1.015 1.000-1.030 Urine Protein NEG NEG Urine Glucose (UA) NEG NEG Urine Ketones NEG NEG Urine Occult Blood NEG NEG Urine Nitrite NEG NEG Urine Bilirubin NEG NEG Urine Urobilinogen NEG NEG Urine Leukocyte Esterase NEG NEG White Blood Count 7.70 4.8-10.8 K/uL Red Blood Count 4.34 4.7-6.1 M/uL Hemoglobin 12.6 14.0-18.0 g/dL Hematocrit 40.4 42-52 % Mean Corpuscular Volume 93.1 80-100 fL Mean Corpuscular Hemoglobin 29.0 25-34 pg Mean Corpuscular Hemoglobin Concent 31.2 32-36 g/dl Platelet Count 159 130-400 K/uL Mean Platelet Volume 11.7 7.4-10.4 fL Neutrophils (%) (Auto) 57.8 % Lymphocytes (%) (Auto) 24.7 % Monocytes (%) (Auto) 13.8 % Eosinophils (%) (Auto) 2.7 % Basophils (%) (Auto) 0.5 % Neutrophils # (Auto) 4.45 1.4-6.5 K/uL Lymphocytes # (Auto) 1.90 1.2-3.4 K/uL Monocytes # (Auto) 1.06 0.11-0.59 K/uL Eosinophils # (Auto) 0.21 0-0.5 K/uL Basophils # (Auto) 0.04 0-0.2 K/uL RDW Standard Deviation 53.8 36.4-46.3 fL RDW Coefficient of Variation 15.7 11.5-14.5 % Immature Granulocyte % (Auto) 0.5 % Immature Granulocyte # (Auto) 0.04 0.00-0.02 K/uL Prothrombin Time 21.0 9.0-12.0 SECONDS Prothromb Time International Ratio 1.9 0.9-1.1
[2017-02-17] MEDS: TAMSULOSIN HCL 0.4 MG CAP PO SCH (21:34)
[2017-02-17] MEDS: LIDODERM (LIDOCAINE) PATCH 5% TD SCH (21:34)
[2017-02-17 23:21] VITALS: BP 146/75; PULSE 60; TEMP 36.4; O2SAT 94
[2017-02-18] MEDS: OXYCODONE/ACETAMINOPHEN 5-325 TAB PO PRN (04:21)
[2017-02-18 06:07] LABS: INR 1.5 (0.9-1.1); PROTHROMBIN TIME (PATIENT) 16.3 SECONDS (9.0-12.0)
[2017-02-18] MEDS: CLARINEX~ORDER AWAITING ACTION SCH ×2 (07:11→16:00)
--- NOTE | 2017-02-18 07:25 | DIAGNOSTIC IMAGING REPORT ---
CHEST ONE VIEW PORTABLE HISTORY: 86 years-old Male pre op preoperative exam without acute chest complaints. Initial exam. COMPARISON: Chest radiograph 11/15/2015 TECHNIQUE: Portable upright AP view of the chest FINDINGS: Cardiomediastinal and hilar silhouettes are within normal limits. Prior median sternotomy. There is a calcified granuloma of the left midlung, unchanged. Biapical pleural-parenchymal scarring is noted without pneumothorax or pleural effusion. Subsegmental right basilar opacities are noted with mild blunting of the right costophrenic angle, new from prior. Background emphysema. The bones are grossly intact. IMPRESSION: 1. Subsegmental right basilar opacities suggest atelectasis or pneumonia. 2. Background emphysema. The above report was generated using voice recognition software. It may contain grammatical, syntax or spelling errors. Electronically signed by: Alireza Anand M.D. 02/18/2017 7:23 AM Dictated Date/Time: 02/18/2017 7:22 AM
[2017-02-18] MEDS ORDERED: PERFLUTREN LIPID MICROSPHERE (DEFINITY) IV ONE (08:19)
[2017-02-18 08:25] VITALS: BP 117/69; PULSE 61; TEMP 36.6; O2SAT 93
[2017-02-18] MEDS: AMIODARONE 200 MG TAB PO SCH (08:35)
[2017-02-18] MEDS: PANTOprazole SOD 40 MG TAB PO SCH (08:35)
[2017-02-18] MEDS: TIOTROPIUM BROMIDE 5 PUFF/90 MCG INH INH SCH (08:35)
[2017-02-18] MEDS: DOCUSATE SODIUM/SENNA 50/8.6MG TAB PO SCH ×2 (08:35→20:48)
[2017-02-18] MEDS: LORATADINE 10 MG TAB PO SCH (08:38)
--- NOTE | 2017-02-18 09:30 | ECHOCARDIOGRAM REPORT ---
*NOTICE TO RECEIVING REPUBLICAN AGENCY This information is strictly Confidential and protected under [place] law. [place] law prohibits you from making any further disclosure of this information unless further disclosure is expressly permitted by the written consent of the person to whom it pertains or is authorized by law. A general authorization for the release of medical or other information is not sufficient for this purpose. Hospital accepts no responsibility if the information is made available to any other person, INCLUDING THE PATIENT. Interpretation Summary * Name: JOHNNY ESCOBAR Study Date: 02/18/2017 07:24 AM BP: 146/75 mmHg * Patient Location: C.MSN\S\N386\S\2 HR: 60 * : 1930 (M/d/yyyy) Gender: Male Height: 70 in * Age: 86 yrs Ethnicity: [place] Weight: 191 lb * Ordering Physician: Ivory Cruz * Referring Physician: UNKNOWN * Performed By: Eduardo Perkins RDCS * * Reason For Study: CHF, Pre-Op * BSA: 2.0 m2 * -- Conclusions -- * The study was technically difficult. * The left ventricle is normal in size. * There is borderline concentric left ventricular hypertrophy. * Septal motion is consistent with post-operative state. * No regional wall motion abnormalities noted. * Ejection Fraction = 60-65%. * Aortic valve sclerosis moderate, without significant aortic valvular stenosis. * There is a bioprosthetic mitral valve. * The prosthetic mitral valve is well-seated. * Prosthetic mitral valve peak and/or mean gradients are normal. * There is mild to moderate tricuspid regurgitation. * Right ventricular systolic pressure is elevated at 30-40mmHg. Procedure Details * A complete two-dimensional transthoracic echocardiogram was performed (2D, M-mode, Doppler and color flow Doppler). * The study was technically difficult. * The study was technically difficult, but visualization was adequate with the administration of Definity ultrasound contrast. * A contrast injection of Definity was performed to improve assessment of LV function. * Contrast was injected into an intravenous site in the right arm. * One vial of Definity ultrasound contrast was diluted in normal saline to a total volume of 10 ml. A total of '5' ml of solution was administered during imaging. * Lot # [id number] of Definity utilized for procedure. * Expiration date . * The attending nurse who injected the contrast agent was PASTORA Collazo. Left Ventricle * The left ventricle is normal in size. * There is borderline concentric left ventricular hypertrophy. * Left ventricular systolic function is normal. * Ejection Fraction = 60-65%. * Septal motion is consistent with post-operative state. * No regional wall motion abnormalities noted. Right Ventricle * The right ventricle is normal in size and function. Atria * The left atrium is mildly dilated. * Borderline right atrial enlargement. * No ASD detected; PFO is not assessed. Mitral Valve * There is no mitral valve stenosis. * There is trace mitral regurgitation. * There is a bioprosthetic mitral valve. * The prosthetic mitral valve is well-seated. * Prosthetic mitral valve peak and/or mean gradients are normal. Tricuspid Valve * The tricuspid valve anatomy is normal. * There is no tricuspid stenosis. * There is mild to moderate tricuspid regurgitation. * Right ventricular systolic pressure is elevated at 30-40mmHg. Aortic Valve * The aortic valve is trileaflet. * Aortic valve sclerosis moderate, without significant aortic valvular stenosis. * No aortic regurgitation is present. Pulmonic Valve * The pulmonic valve is not well visualized. Great Vessels * The aortic root is normal size. Pericardium/Pleural * There is no pericardial effusion. Great Vessels * Normal inferior vena cava diameter and respiratory variation suggests normal central venous pressure. Left Ventricular Diastolic Function * Grade I diastolic dysfunction, (abnormal relaxation pattern). MMode 2D Measurements and Calculations IVSd 1.1 cm IVSs 1.4 cm LVIDd 4.7 cm LVIDs 2.5 cm LVPWd 0.99 cm LVPWs 1.3 cm IVS/LVPW 1.1 FS 47.5 % EDV(Teich) 102.3 ml ESV(Teich) 21.6 ml EF(Teich) 78.9 % EDV(cubed) 103.7 ml ESV(cubed) 15.0 ml EF(cubed) 85.5 % % IVS thick 33.2 % % LVPW thick 32.5 % LV mass(C)d 172.8 grams LV mass(C)dI 84.4 grams/m\S\2 LV mass(C)s 106.8 grams LV mass(C)sI 52.2 grams/m\S\2 SV(Teich) 80.6 ml SI(Teich) 39.4 ml/m\S\2 SV(cubed) 88.7 ml SI(cubed) 43.3 ml/m\S\2 Ao root diam 3.1 cm Ao root area 7.4 cm\S\2 ACS 1.6 cm LA dimension 4.5 cm asc Aorta Diam 4.1 cm LA/Ao 1.5 LVOT diam 1.9 cm LVOT area 2.8 cm\S\2 LVAd ap4 34.1 cm\S\2 LVLd ap4 8.7 cm EDV(MOD-sp4) 108.0 ml LVAs ap4 16.1 cm\S\2 LVLs ap4 6.3 cm ESV(MOD-sp4) 33.4 ml EF(MOD-sp4) 69.1 % LVAd ap2 27.4 cm\S\2 LVLd ap2 7.5 cm EDV(MOD-sp2) 83.0 ml LVAs ap2 13.1 cm\S\2 LVLs ap2 6.0 cm ESV(MOD-sp2) 23.7 ml EF(MOD-sp2) 71.4 % SV(MOD-sp4) 74.6 ml SI(MOD-sp4) 36.4 ml/m\S\2 SV(MOD-sp2) 59.3 ml SI(MOD-sp2) 29.0 ml/m\S\2 Doppler Measurements and Calculations MV E max shan 125.9 cm/sec MV A max shan 147.0 cm/sec MV E/A 0.86 MV V2 max 162.9 cm/sec MV max PG 10.6 mmHg MV V2 mean 96.8 cm/sec MV mean PG 4.2 mmHg MV V2 VTI 52.8 cm MVA(VTI) 1.8 cm\S\2 MV dec time 0.34 sec Ao V2 max 190.0 cm/sec Ao max PG 14.4 mmHg Ao max PG (full) 4.0 mmHg SAM(V,A) 2.3 cm\S\2 SAM(V,D) 2.3 cm\S\2 LV V1 max PG 10.4 mmHg LV V1 mean PG 5.8 mmHg LV V1 max 161.3 cm/sec LV V1 mean 111.8 cm/sec LV V1 VTI 33.9 cm SV(LVOT) 93.2 ml SI(LVOT) 45.5 ml/m\S\2 PA V2 max 149.3 cm/sec PA max PG 8.9 mmHg PA acc slope 783.8 cm/sec\S\2 PA acc time 0.10 sec PI end-d shan 97.7 cm/sec PA pr(Accel) 33.1 mmHg
[2017-02-18] MEDS: KETOROLAC TROMETHAMINE 15 MG/ML VIAL IV. PRN (10:56)
[2017-02-18] MEDS: HYDROmorphone INJ 0.5 MG/0.5 ML SYR IV PRN ×2 (10:56→18:21)
[2017-02-18 15:00] VITALS: BP 121/72; PULSE 61; TEMP 36.5; O2SAT 94
--- NOTE | 2017-02-18 18:20 | Progress Note ---
Internal Med Progress Note Date of Service: Feb 18, 2017. Provider Documentation: SUBJECTIVE: has back pain no complain of SOB , no chest discomfort no fever or chills OBJECTIVE: Vital Signs-as noted below Exam: General-pleasant , no sign of distress Eyes-sclera non icteric ENT-NAD Neck-no JVD Lungs-CTA Heart-regular S1/S2 Abdomen-soft,. non tender Extremities- no lower ext edema Neuro-AAO x3, no focal deficit Lab data as noted below. ASSESSMENT & PLAN: LOW BACK PAIN /COMPRESSION FX OF LUMBER L4/L5 : presented with severe low back pain MRI of lumber spine shows L4 and L5 compression fractures appreciate input form Spinal surgery Dr Walker recommend continued pain management and LSO brace. will need kyphoplasty. pt's INR needs to be drifted down prior to surgery Coumadin on hold Cardiology consulted for per op eval -appreciate input no medical contra indication for spinal surgery ECHO shows stable finding , no new changes no further cardiac work up needed ok to hold Coumadin to allow INR to drift down for spinal decompression surgery pt remains high risk for stroke -chronic Afib /valvular heart disease pt may need IV heparin bridge if spinal surgery is not planned in next 2 days cont pain control CHRONIC DIASTOLIC HEART FAILURE stable no evidence of vol overload ECHO : The left ventricle is normal in size. There is borderline concentric left ventricular hypertrophy. Septal motion is consistent with post-operative state. No regional wall motion abnormalities noted. Ejection Fraction = 60-65%. PAROXYSMAL AFIB : on Amiodarone Coumadin on hold for possible spinal surgery pt follows with [facility] Cardiology Abelino Ramirez PA-C Cardiology consulted for pre op oval and risk stratification-appreciate input stable for spinal surgery VALVULAR HEART DISEASE : hx severe MR status post MVR severe TR status post tricuspid repair (2016) stable ECHO : The left ventricle is normal in size. There is borderline concentric left ventricular hypertrophy. Septal motion is consistent with post-operative state. No regional wall motion abnormalities noted. Ejection Fraction = 60-65%. Aortic valve sclerosis moderate, without significant aortic valvular stenosis. There is a bioprosthetic mitral valve. The prosthetic mitral valve is well-seated. Prosthetic mitral valve peak and/or mean gradients are normal. There is mild to moderate tricuspid regurgitation. Right ventricular systolic pressure is elevated at 30-40mmHg. COPD -respiratory status at baseline no wheeze or SOB Cxray ordered for Pre op anesthesia DVT PROPHYLAXIS scd and teds Coumadin on hold for possible spinal surgery DISPOSITION to be determined may need rehab post spinal surgery social service consulted for discharge planning Vital Signs: Date Time Temp Pulse Resp B/P (MAP) Pulse Ox O2 Delivery O2 Flow Rate FiO2 02/19/17 07:15 36.5 63 17 126/67 (86) 93 Room Air 02/19/17 00:05 Room Air 02/18/17 23:33 36.7 64 16 131/71 (91) 95 Room Air 02/18/17 16:00 Room Air 02/18/17 15:00 36.5 61 20 121/72 (88) 94 Room Air 02/18/17 08:25 36.6 61 16 117/69 (85) 93 Room Air Lab Results: Results Past 24 Hours Test 02/19/17 06:12 Range/Units Prothrombin Time 12.9 9.0-12.0 SECONDS Prothromb Time International Ratio 1.2 0.9-1.1
[2017-02-18] MEDS: TAMSULOSIN HCL 0.4 MG CAP PO SCH (20:48)
[2017-02-18] MEDS: TRAMADOL HCL 50 MG TAB PO PRN (20:48)
[2017-02-18] MEDS: LIDODERM (LIDOCAINE) PATCH 5% TD SCH (20:49)
[2017-02-18 23:33] VITALS: BP 131/71; PULSE 64; TEMP 36.7; O2SAT 95
[2017-02-19] VITALS (7 sets, daily range): BP systolic 102–132; BP diastolic 58–74; PULSE 63–83; TEMP 34.7–36.8; O2SAT 93–96
[2017-02-19] MEDS: OXYCODONE/ACETAMINOPHEN 5-325 TAB PO PRN (00:11)
--- NOTE | 2017-02-19 00:43 | CARDIOLOGY CONSULTATION ---
DATE OF CONSULTATION: 02/18/2017 REFERRING: Dr. Cruz and Dr. Walker. INDICATIONS: Severe back pain, history of cardiac disease. HISTORY OF PRESENT ILLNESS: The patient is an 86-year-old male whose cardiac history is notable for hospitalization with acute pulmonary edema in March 2015 with subsequent evaluation demonstrating flail mitral valve leaflet. He ultimately underwent diagnostic cardiac catheterization with normal coronaries in May 2015 and subsequent mitral valve replacement with a [address] [employer] bioprosthesis and tricuspid valve repair with a 34 mm Medtronic triad ring, without complication other than atrial fibrillation. He remains in chronic atrial fibrillation. Underlying medical problems include dyslipidemia, history of peptic ulcer disease, and chronic obstructive lung disease presents now having had severe back pain since January 08 without specific inciting cause. He is anticipating possible surgical fixation and is referred now for preoperative assessment. He remains on chronic anticoagulation for atrial fibrillation. No medications have been held and INR is trending downward. He denies any fevers, chills or productive cough. Notes no melena, hematochezia, dysuria or hematuria. Notes no rash or arthritic complaint other than as described severe back pain and now with some "clumsiness" of his left leg since back pain began. He notes no sleep disruption, does wear oxygen occasionally at night. Weight and appetite have been stable. REVIEW OF SYSTEMS: Otherwise negative. ALLERGIES: NOTED TO BE PREVACID WITH GI UPSET AND DIARRHEA. MEDICATIONS: Prior to hospitalization were albuterol 2 puffs q. 6 hours, amiodarone 200 mg p.o. daily, Clarinex 5 mg p.o. daily, Colace 100 mg b.i.d., furosemide 40 mg b.i.d., omeprazole 40 mg daily, tamsulosin 0.4 mg at bedtime, Senokot 1 tablet b.i.d.; tramadol p.r.n. pain, warfarin 2 mg all days, but Sunday and Fridays when he takes 3 mg. PAST SURGICAL HISTORY: Notable as described for mitral valve replacement and tricuspid valve repair in May 2015, past inguinal herniorrhaphy, and cataract extraction. FAMILY HISTORY: Noncontributory. SOCIAL HISTORY: The patient is a prior history of tobacco user. discontinued in the remote past 1962. Uses no significant alcoholic beverages. 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 PHYSICAL EXAMINATION: GENERAL: The patient is a pleasant, age appropriate male, lying supine in bed. Notes pain with movement. VITAL SIGNS: Reveal a heart rate of 61, blood pressure is 117/69. HEENT: Normocephalic, atraumatic. Nares without discharge. Throat was clear. NECK: Supple without thyromegaly, lymphadenopathy, JVD or bruit. LUNGS: Clear to auscultation. CARDIOVASCULAR: Regular. There is a less than right over 2/6 systolic murmur. There is no diastolic murmur. ABDOMEN: Soft, nontender, without hepatosplenomegaly. EXTREMITIES: Without cyanosis or clubbing. There is no peripheral edema. There are intact distal pulses. LABORATORY DATA: Echocardiogram performed today demonstrates normal left ventricular size, borderline left ventricular hypertrophy with septal motion consistent with postoperative state, EF 60-65%. There is normally functioning bioprosthesis in the mitral valve position. There is mild elevation in right heart pressures. INR on presentation was 2.4, this morning is 1.5. IMAGING DATA: Chest x-ray reveals no infiltrate or edema. Background emphysematous changes. IMPRESSION AND PLAN: An 86-year-old male referred for preoperative evaluation prior to planned potential back surgery of uncertain type, has no absolute contraindications to proceeding with surgery as planned. Valve structures are functioning normal, left ventricular systolic function is normal. He is known to have no coronary disease by prior histories and sinus rhythm and he is maintaining sinus rhythm with use of chronic amiodarone dose therapy. Would continue all medications perioperatively and the Coumadin has been held. If surgery is significantly delayed, would consider resumption of anticoagulation. I discussed this in detail with the patient and specifically notes no history of angina, congestive heart failure, ongoing valvular heart disease or uncontrolled hypertension, diabetes, or arrhythmias. AIRAM
[2017-02-19 06:55] LABS: INR 1.2 (0.9-1.1); PROTHROMBIN TIME (PATIENT) 12.9 SECONDS (9.0-12.0)
[2017-02-19] MEDS: CLARINEX~ORDER AWAITING ACTION SCH ×3 (07:48→15:35)
[2017-02-19] MEDS: HYDROmorphone INJ 0.5 MG/0.5 ML SYR IV PRN (08:46)
[2017-02-19] MEDS: TIOTROPIUM BROMIDE 5 PUFF/90 MCG INH INH SCH (08:49)
[2017-02-19] MEDS: AMIODARONE 200 MG TAB PO SCH (08:50)
[2017-02-19] MEDS: LORATADINE 10 MG TAB PO SCH (08:50)
[2017-02-19] MEDS: DOCUSATE SODIUM/SENNA 50/8.6MG TAB PO SCH (08:50)
[2017-02-19] MEDS: PANTOprazole SOD 40 MG TAB PO SCH (08:50)
--- NOTE | 2017-02-19 09:30 | Cardiology Follow-Up ---
Subjective General Date of Service: Feb 19, 2017. Chief Complaint: Preop Pt evaluation today including: conversation w/ patient, physical exam, chart review, lab review, review of studies, review of inpatient medication list History of Present Illness Patient seen and examined. Four weeks of intractable back pain, progressive on . L4 and L5 compression fractures For OR by Dr. Walker this afternoon February 18, 2017 TTE Interpretation Summary ([facility], Dr. Williamson): The study was technically difficult. The left ventricle is normal in size. There is borderline concentric left ventricular hypertrophy. Septal motion is consistent with post-operative state. No regional wall motion abnormalities noted. Ejection Fraction = 60-65%. Aortic valve sclerosis moderate, without significant aortic valvular stenosis. There is a bioprosthetic mitral valve. The prosthetic mitral valve is well-seated. Prosthetic mitral valve peak and/or mean gradients are normal.There is mild to moderate tricuspid regurgitation. Right ventricular systolic pressure is elevated at 30-40mmHg. Telemetry: Nonmonitored bed. EKG dated and timed 17-FEB-2017 @ 19:58:09: Sinus bradycardia with 1st degree A- V block (274 ms). When compared with ECG of 02-DEC-2016 10:18, no significant change was found. QTc: 416 ms. Allergies Coded Allergies: Lansoprazole (Verified Allergy, Unknown, didn't work/dr determined pt was allergic, 02/16/17) Social History Smoking Status: Never Smoker Hx Tobacco Use In Past Year?: No Hx Alcohol Use - Type And Amou: No Hx Substance Use - Type And Am: No Problem List Medical Problems: (1) Bilateral pleural effusion Status: Acute (2) CHF (congestive heart failure) Status: Acute (3) Congestive heart failure Status: Acute (4) COPD exacerbation Status: Acute (5) COPD exacerbation Status: Acute (6) Lumbar compression fracture Status: Acute (7) New onset atrial fibrillation Status: Acute (8) Pleural effusion Status: Acute (9) Pleuritic chest pain Status: Acute (10) Pneumothorax, right Status: Acute Physical Exam Vital Signs Last Vital Signs Documentation Date Time Temp Pulse Resp B/P (MAP) Pulse Ox O2 Delivery O2 Flow Rate FiO2 02/19/17 08:00 Room Air 02/19/17 07:15 36.5 63 17 126/67 (86) 93 Physical Exam Constitutional: Level of Distress: NAD (Examined nearl supine in bed) Psychiatric: Mental Status: active & alert Orientation: to time, to place, to person Memory: recent memory normal, remote memory normal Head: normocephalic, atraumatic Eyes: Pupils: PERRLA Neck: pertinent finding (No JVD. ) Lungs: Auscultation: no wheezing, no rales/crackles, no rhonchi, deminished air movement, decreased breath sounds Cardiovascular: Heart Auscultation: RRR (60 bpm), normal S1, normal S2, no rubs, murmur ( soft systolic ejection murmur) Peripheral Pulses: Dorsalis Pedis Pulse: decreased on the left, decreased on the right Extremities: no cyanosis, no edema Neurologic: Cranial Nerves: grossly intact Assessment and Plan Assessment and Plan 86-year-old male admitted with severe intractable back pain. Imaging demonstrates L4 & L5 compression fractures with plans for kyphoplasty later today. Perioperative risks discussed. I see no overt cardiac contraindications to surgery as planned. He is aware of the increased risk of perioperative atrial arrhythmias. Amiodarone should be continued without perioperative interruption. Coumadin anticoagulation to be resumed when safe. Will follow. Patient seen and examined preoperatively. Note as above Nito Williamson MD Laboratory Results Last 24 Hours Test 02/19/17 06:12 Prothrombin Time 12.9 SECONDS Prothromb Time International Ratio 1.2
[2017-02-19] MEDS ORDERED: ONDANSETRON INJ 2 MG/ML 2 ML VIAL IV PRN (13:30)
[2017-02-19] MEDS ORDERED: EpHEDrine SULFATE INJ 50 MG/ML AMP IV PRN (13:30)
[2017-02-19] MEDS ORDERED: PHENYLEPHRINE 100MCG/ML 5ML SYR IV PRN (13:30)
[2017-02-19] MEDS ORDERED: ATROPINE SULFATE 0.1 MG/ML 5ML SYR IV PRN (13:30)
--- NOTE | 2017-02-19 13:55 | History & Physical Bridge Note ---
H&P Re-Evaluation Bridge Note: I have examined the patient, reviewed the History & Physical and in the interval since the performance of the History & Physical I have noted the following changes of clinical significance: No changes noted
[2017-02-19] MEDS ORDERED: FENTANYL CITRATE INJ 50 MCG/1 ML 2 ML VIAL ONE (14:10)
[2017-02-19] MEDS ORDERED: MIDAZOLAM HCL 1 MG/ML 2ML VIAL ONE (14:10)
[2017-02-19] MEDS ORDERED: BUPIVACAINE/EPINEPHRINE 0.5% MPF 1:200,000 30 ML VIAL ONE (14:19)
[2017-02-19] MEDS ORDERED: CONRAY 60% 50 ML VIAL ONE (14:20)
[2017-02-19] MEDS ORDERED: HYDROmorphone INJ 2 MG/ML SYR/VIAL ONE (15:07)
[2017-02-19] MEDS ORDERED: ROCURONIUM BROMIDE 10 MG/ML 5 ML VIAL IV ONE (15:08)
[2017-02-19] MEDS ORDERED: NEOSTIGMINE METHYLSULFATE 1 MG/ML 10ML VIAL ONE (15:08)
[2017-02-19] MEDS ORDERED: EpHEDrine SULFATE 50MG/5ML SYR ONE (15:08)
[2017-02-19] MEDS ORDERED: LIDOCAINE HCL 2% 2 ML VIAL (20MG/ML) ONE (15:08)
[2017-02-19] MEDS ORDERED: PROPOFOL IV EMULSION 10 MG/ML 20 ML VIAL IV ONE (15:08)
[2017-02-19] MEDS ORDERED: PHENYLEPHRINE 100MCG/ML 5ML SYR ONE (15:08)
[2017-02-19] MEDS ORDERED: GLYCOPYRROLATE INJ 0.2 MG/ML VIAL ONE (15:08)
[2017-02-19] MEDS ORDERED: KETOROLAC TROMETHAMINE 30 MG/ML VIAL ONE (15:08)
[2017-02-19] MEDS ORDERED: DEXAMETHASONE SOD INJ 4 MG/ML VIAL ONE (15:08)
[2017-02-19] MEDS ORDERED: ONDANSETRON INJ 2 MG/ML 2 ML VIAL ONE (15:08)
--- NOTE | 2017-02-19 15:42 | [facility] Operative Report ---
Operative Report Operative Date Feb 19, 2017. Pre-Operative Diagnosis L4-L5 Compression Fractures Post-Operative Diagnosis Same as preoperative Procedure(s) Performed L4-L5 Kyphoplasty with Biopsy Surgeon Dr. Manuel Walker Screwhead Stoner And Polisher Surgeon(s) None per surgeon Estimated Blood Loss 15ML Findings None Specimens A.) L5 Vertebral Body B.) L4 Vertebral Body Description of Procedure Patient was met with preoperatively case discussed all questions are dressed. After informed consent was obtained patient was taken to the operative suite and intubated and placed in a prone position the Darron table with chest pads and hip bolsters. The thoracal lumbar spines and prepped and draped sterile fashion. With the assistance of fluoroscopy in AP and lateral planes and identified the L5 sacral body. 2 small incisions were placed just lateral to the pedicles. Kyphon working cannulas were then placed by way of a transpedicular approach into the L5 vertebral body. 2 core biopsies were then obtained. Then placed 20 mm Kyphon balloons within the vertebral body. These were sequentially inflated. They were removed and a partially 6 mL of Kyphon cement was injected under fluoroscopic visualization. A demonstrated excellent interdigitation placement. Then removed the working cannulas proceeded to the L4 vertebral body. 2 small incisions were created working cannulas were then placed by way of a transpedicular approach into the L4 vertebral body. A core biopsies were obtained. 20 mm balloons were then inserted. There were sequentially inflated. This after removal of balloons approximately 9 mL of Kyphon cement was injected under fluoroscopic visualization. Again a demonstrated excellent interdigitation and fill of the vertebral body. They working cannulas were removed. The small incisions were closed with subcutaneous Vicryl and a sterile dressing was placed. The patient was then awakened and taken to PACU in stable condition. I attest to the content of the Intraoperative Record and any orders documented therein. Any exceptions are noted below.
[2017-02-19] MEDS ORDERED: HYDROmorphone INJ 1 MG/ML SYR IV PRN (15:45)
[2017-02-19] MEDS ORDERED: MAGNESIUM HYDROXIDE SUSP 30 ML UDC PO PRN (15:45)
[2017-02-19] MEDS ORDERED: ACETAMINOPHEN 500 MG TAB PO PRN (15:45)
[2017-02-19] MEDS: HYDROmorphone INJ 2 MG/ML SYR/VIAL IV PRN ×2 (16:01→16:06)
--- NOTE | 2017-02-19 16:12 | DIAGNOSTIC IMAGING REPORT ---
LUMBAR SPINE 2 OR 3 VIEW HISTORY: 86 years-old Male L4-L5 KYPHOPLASTY status post L4-L5 surgery. COMPARISON: Lumbar spine radiographs 02/17/2017 TECHNIQUE: 2 spot fluoroscopic images of the lumbar spine were obtained utilizing a total of 259.8 seconds of fluoroscopy time. FINDINGS: There has been interval placement of radiopaque cement material into the L4 and L5 vertebral bodies status post vertebroplasty. No significant change in vertebral body height. Chronic L3 compression deformity noted with background bone demineralization. No comp location identified on these images. IMPRESSION: Status post L4 and L5 vertebroplasty. Please see procedural report for further details. The above report was generated using voice recognition software. It may contain grammatical, syntax or spelling errors. Electronically signed by: Alireza Anand M.D. 02/19/2017 4:10 PM Dictated Date/Time: 02/19/2017 4:07 PM
--- NOTE | 2017-02-19 16:26 | Anesthesiology Progress Note ---
Anesthesia Post Op Note Date & Time Feb 19, 2017 at 16:25 Vital Signs Pain Intensity: 2 Vital Signs Past 12 Hours Date Time Temp Pulse Resp B/P (MAP) Pulse Ox O2 Delivery O2 Flow Rate FiO2 02/19/17 16:20 36.6 69 16 123/56 97 Nasal Cannula 2 02/19/17 16:10 68 16 131/59 97 Oxymask 3 02/19/17 16:00 81 16 122/52 97 Oxymask 5 02/19/17 15:50 36.7 81 16 137/78 97 Oxymask 10 02/19/17 12:57 36.8 73 20 132/61 (84) 94 Room Air 02/19/17 08:00 Room Air 02/19/17 07:15 36.5 63 17 126/67 (86) 93 Room Air Notes Mental Status: alert / awake / arousable, participated in evaluation Pt Amnestic to Procedure: Yes Nausea / Vomiting: adequately controlled Pain: adequately controlled Airway Patency, RR, SpO2: stable & adequate BP & HR: stable & adequate Hydration State: stable & adequate Anesthetic Complications: no major complications apparent
[2017-02-19] MEDS: SODIUM CHLORIDE 0.9% 1000ML 1,000 ML IV SCH (16:47)
[2017-02-19] MEDS: OXYCODONE HCL IR 5 MG TAB (IMMEDIATE RELEASE) PO PRN (16:50)
[2017-02-19] MEDS ORDERED: NURSING DECISION MEDICATION ORDER SCH (19:00)
[2017-02-19] MEDS ORDERED: COUGH DROP (SUGAR FREE) LOZ 24 LOZ/1 BOX PO PRN (19:15)
[2017-02-19] MEDS: DOCUSATE SODIUM 100 MG CAP PO SCH (20:53)
[2017-02-19] MEDS: LIDODERM (LIDOCAINE) PATCH 5% TD SCH (20:53)
[2017-02-19] MEDS: TAMSULOSIN HCL 0.4 MG CAP PO SCH (20:54)
--- NOTE | 2017-02-19 21:38 | Progress Note ---
Internal Med Progress Note Date of Service: Feb 19, 2017. Provider Documentation: SUBJECTIVE: s/p spinal decompression surgery no complain of chest pain or SOB OBJECTIVE: Vital Signs-as noted below Exam: General-pleasant , no sign of distress Eyes-sclera non icteric ENT-NAD Neck-no JVD Lungs-CTA Heart-regular S1/S2 Abdomen-soft,. non tender Extremities- no lower ext edema ; s/p lumber spinal decompression surgery ; drain present Neuro-AAO x3, no focal deficit Lab data as noted below. ASSESSMENT & PLAN: LOW BACK PAIN /COMPRESSION FX OF LUMBER L4/L5 : s/p spinal decompression /kyphoplasty today presented with severe low back pain MRI of lumber spine shows L4 and L5 compression fractures appreciate input form Spinal surgery Dr Walker CHRONIC DIASTOLIC HEART FAILURE stable no evidence of vol overload ECHO : The left ventricle is normal in size. There is borderline concentric left ventricular hypertrophy. Septal motion is consistent with post-operative state. No regional wall motion abnormalities noted. Ejection Fraction = 60-65%. 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 There is borderline concentric left ventricular hypertrophy. Septal motion is consistent with post-operative state. No regional wall motion abnormalities noted. Ejection Fraction = 60-65%. Aortic valve sclerosis moderate, without significant aortic valvular stenosis. There is a bioprosthetic mitral valve. The prosthetic mitral valve is well-seated. Prosthetic mitral valve peak and/or mean gradients are normal. There is mild to moderate tricuspid regurgitation. Right ventricular systolic pressure is elevated at 30-40mmHg. COPD -respiratory status at baseline no wheeze or SOB DVT PROPHYLAXIS scd and teds Coumadin on hold for spinal surgery DISPOSITION may need rehab post spinal surgery social service consulted for discharge planning Vital Signs: Date Time Temp Pulse Resp B/P (MAP) Pulse Ox O2 Delivery O2 Flow Rate FiO2 02/19/17 19:44 75 16 110/61 (77) 93 Nasal Cannula 2.0 02/19/17 18:43 36.3 83 16 128/74 (92) 94 Room Air 02/19/17 17:40 34.8 72 18 132/61 (84) 93 Nasal Cannula 2.0 02/19/17 17:11 34.7 66 18 126/63 (84) 96 Nasal Cannula 3.0 02/19/17 16:40 93 Nasal Cannula 2.0 02/19/17 16:40 36.8 68 16 117/67 (84) 93 Nasal Cannula 2.0 02/19/17 16:40 93 Nasal Cannula 2.0 02/19/17 16:30 61 16 121/57 98 Nasal Cannula 2 02/19/17 16:20 36.6 69 16 123/56 97 Nasal Cannula 2 02/19/17 16:10 68 16 131/59 97 Oxymask 3 02/19/17 16:00 81 16 122/52 97 Oxymask 5 02/19/17 15:50 36.7 81 16 137/78 97 Oxymask 10 02/19/17 12:57 36.8 73 20 132/61 (84) 94 Room Air 02/19/17 08:00 Room Air 02/19/17 07:15 36.5 63 17 126/67 (86) 93 Room Air 02/19/17 00:05 Room Air 02/18/17 23:33 36.7 64 16 131/71 (91) 95 Room Air Lab Results: Results Past 24 Hours Test 02/19/17 06:12 Range/Units Prothrombin Time 12.9 9.0-12.0 SECONDS Prothromb Time International Ratio 1.2 0.9-1.1
[2017-02-19] MEDS: CEFAZOLIN IV 1,000 MG in DEXTROSE 5% 50ML 50 ML IV SCH (21:47)
[2017-02-20 03:33] VITALS: BP 108/64; PULSE 60; TEMP 36.4; O2SAT 95
[2017-02-20] MEDS: SODIUM CHLORIDE 0.9% 1000ML 1,000 ML IV SCH (03:34)
[2017-02-20] MEDS: OXYCODONE HCL IR 5 MG TAB (IMMEDIATE RELEASE) PO PRN ×5 (03:44→21:27)
[2017-02-20 06:08] LABS: HEMATOCRIT 36.1 % (42-52); MEAN CELL VOLUME 92.1 fL (80-100); MEAN CORPUSCULAR HEMOGLOBIN 29.8 pg (25-34); MEAN CORPUSCULAR HGB CONC 32.4 g/dl (32-36); MEAN PLATELET VOLUME 11.7 fL (7.4-10.4); PLATELET COUNT 150 K/uL (130-400); RED BLOOD COUNT 3.92 M/uL (4.7-6.1)
[2017-02-20] MEDS: CEFAZOLIN IV 1,000 MG in DEXTROSE 5% 50ML 50 ML IV SCH ×2 (06:11→14:48)
[2017-02-20 06:15] LABS: INR 1.1 (0.9-1.1); PROTHROMBIN TIME (PATIENT) 11.5 SECONDS (9.0-12.0)
[2017-02-20 06:46] LABS: BUN/CREATININE RATIO 16.8 (10-20); CALCIUM 8.3 mg/dl (8.5-10.1); CREATININE 0.96 mg/dl (0.60-1.40); POTASSIUM 4.3 mmol/L (3.5-5.1)
[2017-02-20 06:56] VITALS: BP 107/60; PULSE 62; TEMP 36.4; O2SAT 92
[2017-02-20 08:00] VITALS: BP 106/62; PULSE 62; TEMP 36.4; O2SAT 92
[2017-02-20] MEDS: CLARINEX~ORDER AWAITING ACTION SCH ×4 (08:56→23:30)
[2017-02-20] MEDS: TIOTROPIUM BROMIDE 5 PUFF/90 MCG INH INH SCH (09:01)
[2017-02-20] MEDS: DOCUSATE SODIUM 100 MG CAP PO SCH ×2 (09:09→21:29)
[2017-02-20] MEDS: LORATADINE 10 MG TAB PO SCH (09:09)
[2017-02-20] MEDS: PANTOprazole SOD 40 MG TAB PO SCH (09:12)
[2017-02-20] MEDS: AMIODARONE 200 MG TAB PO SCH (09:12)
--- NOTE | 2017-02-20 09:43 | Progress Note ---
Progress Note Date of Service Feb 20, 2017. Progress Note Patient is up and amatory today. He does over continued complaining of back pain with certain motions. He is overall more comfortable certainly when sitting in a chair. On exam he is ambulating with a walker. His good strength testing lower extremity's. Assessment status post kyphoplasty. Plan at this time he certainly has component of muscular pain in association with fracture pain. Would be accounting for his continued pain patterns. We will move forward with an LSO brace to be worn when up and ambulatory.
--- NOTE | 2017-02-20 09:44 | Cardiology Follow-Up ---
Subjective General Date of Service: Feb 20, 2017. Chief Complaint: Preop Pt evaluation today including: conversation w/ patient, physical exam, chart review, lab review, review of studies, review of inpatient medication list History of Present Illness Status post 02/19/2017 L4-L5 Kyphoplasty with biopsy by Dr. Walker Patient seen and examined in the midst of Physical Therapy + Sore throat, cough, chest congestion No subjective fevers or chills. No chest pain, palpitations, or dyspnea. No orthopnea, PND, or peripheral edema. Allergies Coded Allergies: Lansoprazole (Verified Allergy, Unknown, didn't work/dr determined pt was allergic, 02/16/17) Social History Smoking Status: Never Smoker Hx Tobacco Use In Past Year?: No Hx Alcohol Use - Type And Amou: No Hx Substance Use - Type And Am: No Problem List Medical Problems: (1) Bilateral pleural effusion Status: Acute (2) CHF (congestive heart failure) Status: Acute (3) Congestive heart failure Status: Acute (4) COPD exacerbation Status: Acute (5) COPD exacerbation Status: Acute (6) Lumbar compression fracture Status: Acute (7) New onset atrial fibrillation Status: Acute (8) Pleural effusion Status: Acute (9) Pleuritic chest pain Status: Acute (10) Pneumothorax, right Status: Acute Physical Exam Vital Signs Last Vital Signs Documentation Date Time Temp Pulse Resp B/P (MAP) Pulse Ox O2 Delivery O2 Flow Rate FiO2 02/20/17 08:00 36.4 62 16 02/20/17 08:00 106/62 (77) 92 Room Air 02/19/17 19:44 2.0 Physical Exam Constitutional: Level of Distress: NAD Psychiatric: Mental Status: active & alert Orientation: to time, to place, to person Memory: recent memory normal, remote memory normal Head: normocephalic, atraumatic Eyes: Pupils: PERRLA Neck: pertinent finding (No JVD. ) Lungs: Auscultation: deminished air movement, decreased breath sounds, rhonchi, rales/crackles on the left, rales/crackles on the right Cardiovascular: Heart Auscultation: RRR (60 bpm), normal S1, normal S2, no rubs, murmur ( soft systolic ejection murmur) Peripheral Pulses: Dorsalis Pedis Pulse: decreased on the left, decreased on the right Extremities: no cyanosis, no edema Neurologic: Cranial Nerves: grossly intact Assessment and Plan Assessment and Plan 86-year-old male admitted with severe intractable back pain, status post 2016 L4-L5 Kyphoplasty with biopsy by Dr. Walker without cardiac complication(s) . RECOMMENDATIONS/PLAN: Chest x-ray Pulmonary hygiene Continue Amiodarone Resume Coumadin when safe. Activity/Therapy as per Spine Surgery Patient seen and examined. Cough mild dyshagia this am now improved. No fever , WBC elevation CXRY noted Full PA and LT study ordered Nito Williamson MD Laboratory Results Last 24 Hours Test 02/20/17 05:33 White Blood Count 9.70 K/uL Red Blood Count 3.92 M/uL Hemoglobin 11.7 g/dL Hematocrit 36.1 % Mean Corpuscular Volume 92.1 fL Mean Corpuscular Hemoglobin 29.8 pg Mean Corpuscular Hemoglobin Concent 32.4 g/dl RDW Standard Deviation 51.9 fL RDW Coefficient of Variation 15.6 % Platelet Count 150 K/uL Mean Platelet Volume 11.7 fL Prothrombin Time 11.5 SECONDS Prothromb Time International Ratio 1.1 Sodium Level 137 mmol/L Potassium Level 4.3 mmol/L Chloride Level 105 mmol/L Carbon Dioxide Level 27 mmol/L Anion Gap 5.0 mmol/L Blood Urea Nitrogen 16 mg/dl Creatinine 0.96 mg/dl Est Creatinine Clear Calc Drug Dose 56.0 ml/min Estimated GFR () 82.0 Estimated GFR (Non- 70.8 BUN/Creatinine Ratio 16.8 Random Glucose 114 mg/dl Calcium Level 8.3 mg/dl
--- NOTE | 2017-02-20 10:56 | DIAGNOSTIC IMAGING REPORT ---
CHEST ONE VIEW PORTABLE CLINICAL HISTORY: 86 years-old Male presenting with chest congestion. TECHNIQUE: Portable upright AP view of the chest was obtained. COMPARISON: 02/18/2017. FINDINGS: Median sternotomy wires intact. Prosthetic tricuspid valve again noted. Atherosclerosis of aortic arch. Hyperinflation. Calcified granuloma in the left mid lung. Lungs otherwise clear. No large effusion. Displacement of the pleura along the right superior mediastinal contour could suggest pneumomediastinum versus anterior right pneumothorax. Osseous structures normal. IMPRESSION: 1. Hyperinflation could suggest underlying emphysema. No focal infiltrate. 2. Displacement of the pleura along the right superior mediastinal contour could suggest small pneumomediastinum versus anterior right pneumothorax. Electronically signed by: Mil Summers M.D. 02/20/2017 10:55 AM Dictated Date/Time: 02/20/2017 10:51 AM
[2017-02-20 11:07] VITALS: BP 114/57; PULSE 64; TEMP 36.7; O2SAT 93
[2017-02-20] MEDS: KETOROLAC TROMETHAMINE 15 MG/ML VIAL IV. PRN (12:04)
--- NOTE | 2017-02-20 14:52 | DIAGNOSTIC IMAGING REPORT ---
CHEST 2 VIEWS ROUTINE HISTORY: 86 years-old Male abnormal portable study follow-up study to assess possible pneumothorax or pneumomediastinum. COMPARISON: Chest radiograph of same day at 10:45 AM TECHNIQUE: Frontal and lateral views of the chest. FINDINGS: Cardiac silhouette is within normal limits. Prior median sternotomy. There is atherosclerosis of the aorta. Cardiac valvular prosthesis noted. There is mild biapical pleural parenchymal scarring. Calcified granuloma the left midlung is noted. There is chronic blunting of the costophrenic angles. No pneumothorax, pleural effusion or focal airspace consolidation. There is mild biapical and bibasilar fibrotic change redemonstrated. No evidence of pneumomediastinum. Lungs are hyperinflated with emphysematous changes. The bones are grossly intact. Small hiatal hernia with partially intrathoracic stomach. IMPRESSION: 1. No evidence of pneumothorax or pneumomediastinum. 2. Emphysema with mild fibrotic changes of the upper lobes. 3. Small hiatal hernia with partially intrathoracic stomach. The above report was generated using voice recognition software. It may contain grammatical, syntax or spelling errors. Electronically signed by: Alireza Anand M.D. 02/20/2017 2:50 PM Dictated Date/Time: 02/20/2017 2:47 PM
[2017-02-20 15:00] VITALS: BP 121/69; PULSE 63; TEMP 36.5; O2SAT 93
[2017-02-20] MEDS ORDERED: FLUTICASONE PROPIONATE NA SPR 16 GM BTL NAE PRN (17:15)
[2017-02-20] MEDS ORDERED: ALBUTEROL HFA 8 GM INHALER INH PRN (17:15)
--- NOTE | 2017-02-20 17:43 | Progress Note ---
Internal Med Progress Note Date of Service: Feb 20, 2017. Provider Documentation: SUBJECTIVE: continues to have intractable back pain , getting muscle spasm with minimum movement no pain if stays still disappointed with the out come of spinal surgery thought his pain will be much better mentions yesterday after surgery -his back pain was almost resolved today this AM pain back pain returned 10/10 with some movements having pain radiating to sacral area with numbness on left leg Brace placed , pt mentions of no improvement of symptoms OBJECTIVE: Vital Signs-as noted below Exam: General-in distress due to pain Eyes-sclera non icteric ENT-NAD Neck-no JVD Lungs-CTA Heart-regular S1/S2 Abdomen-soft,. non tender Extremities- no lower ext edema ; s/p lumber kyphoplasty , Neuro-AAO x3, no focal deficit Lab data as noted below. ASSESSMENT & PLAN: LOW BACK PAIN /COMPRESSION FX OF LUMBER L4/L5 : s/p lumber spinal kyphoplasty by Dr Walker POD #1 pt mentions of having back pain with movement and intermittent spasm ordered for Flexeril /muscle relaxant TLSO lumber brace applied by Orthotics pt does not feel any improvement Ortho -Dr Walker following -will update him CHRONIC DIASTOLIC HEART FAILURE stable no evidence of vol overload ECHO : The left ventricle is normal in size. There is borderline concentric left ventricular hypertrophy. Septal motion is consistent with post-operative state. No regional wall motion abnormalities noted. Ejection Fraction = 60-65%. 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 There is borderline concentric left ventricular hypertrophy. Septal motion is consistent with post-operative state. No regional wall motion abnormalities noted. Ejection Fraction = 60-65%. Aortic valve sclerosis moderate, without significant aortic valvular stenosis. There is a bioprosthetic mitral valve. The prosthetic mitral valve is well-seated. Prosthetic mitral valve peak and/or mean gradients are normal. There is mild to moderate tricuspid regurgitation. Right ventricular systolic pressure is elevated at 30-40mmHg. Coumadin resumed follow Daily INR COPD -respiratory status at baseline no wheeze or SOB Cxray shows emphysematous change DVT PROPHYLAXIS scd and teds Coumadin resumed DISPOSITION may need rehab post spinal surgery as pt still having significant pain with ambulation social service consulted for discharge planning Daughter updated at bedside Vital Signs: Date Time Temp Pulse Resp B/P (MAP) Pulse Ox O2 Delivery O2 Flow Rate FiO2 02/20/17 15:00 36.5 63 18 121/69 (86) 93 Room Air 02/20/17 11:07 36.7 64 16 114/57 (76) 93 Room Air 02/20/17 08:00 Room Air 02/20/17 08:00 36.4 62 16 02/20/17 08:00 36.4 62 16 106/62 (77) 92 Room Air 02/20/17 06:56 36.4 62 16 107/60 (76) 92 Room Air 02/20/17 03:33 36.4 60 18 108/64 (79) 95 Room Air 02/20/17 00:20 Room Air 02/19/17 23:11 36.2 66 18 102/58 (73) 93 Room Air 02/19/17 19:44 75 16 110/61 (77) 93 Nasal Cannula 2.0 02/19/17 18:43 36.3 83 16 128/74 (92) 94 Room Air Lab Results: Results Past 24 Hours Test 02/20/17 05:33 Range/Units White Blood Count 9.70 4.8-10.8 K/uL Red Blood Count 3.92 4.7-6.1 M/uL Hemoglobin 11.7 14.0-18.0 g/dL Hematocrit 36.1 42-52 % Mean Corpuscular Volume 92.1 80-100 fL Mean Corpuscular Hemoglobin 29.8 25-34 pg Mean Corpuscular Hemoglobin Concent 32.4 32-36 g/dl RDW Standard Deviation 51.9 36.4-46.3 fL RDW Coefficient of Variation 15.6 11.5-14.5 % Platelet Count 150 130-400 K/uL Mean Platelet Volume 11.7 7.4-10.4 fL Prothrombin Time 11.5 9.0-12.0 SECONDS Prothromb Time International Ratio 1.1 0.9-1.1 Sodium Level 137 136-145 mmol/L Potassium Level 4.3 3.5-5.1 mmol/L Chloride Level 105 98-107 mmol/L Carbon Dioxide Level 27 21-32 mmol/L Anion Gap 5.0 3-11 mmol/L Blood Urea Nitrogen 16 7-18 mg/dl Creatinine 0.96 0.60-1.40 mg/dl Est Creatinine Clear Calc Drug Dose 56.0 ml/min Estimated GFR () 82.0 Estimated GFR (Non- 70.8 BUN/Creatinine Ratio 16.8 10-20 Random Glucose 114 70-99 mg/dl Calcium Level 8.3 8.5-10.1 mg/dl
[2017-02-20] MEDS: POLYETHYLENE (MIRALAX) 17 GM PACK PO SCH ×2 (18:12→21:27)
[2017-02-20] MEDS: FUROSEMIDE 40 MG TAB PO SCH (18:14)
[2017-02-20] MEDS: WARFARIN SOD 2 MG TAB PO SCH (18:14)
[2017-02-20] MEDS: BISACODYL 5 MG TABEC PO SCH (18:17)
[2017-02-20] MEDS ORDERED: NURSING VERBAL MED ORDER ONE ×2 (18:30→18:45)
[2017-02-20] MEDS: CYCLOBENZAPRINE HCL 5 MG TAB PO SCH ×2 (18:47→22:29)
[2017-02-20] MEDS ORDERED: DOCUSATE SODIUM 100 MG CAP PO SCH (21:00)
[2017-02-20] MEDS: TAMSULOSIN HCL 0.4 MG CAP PO SCH (21:28)
[2017-02-20] MEDS: LIDODERM (LIDOCAINE) PATCH 5% TD SCH (21:29)
[2017-02-20 22:57] VITALS: BP 136/72; PULSE 64; TEMP 36.8; O2SAT 94
[2017-02-21] MEDS: KETOROLAC TROMETHAMINE 15 MG/ML VIAL IV. PRN ×3 (01:43→20:24)
[2017-02-21] MEDS ORDERED: BISACODYL 5 MG TABEC PO PRN (06:00)
[2017-02-21] MEDS ORDERED: BISACODYL 10 MG SUPP PR PRN (06:00)
[2017-02-21 06:49] VITALS: BP 115/67; PULSE 65; TEMP 36.5; O2SAT 93
[2017-02-21 07:04] LABS: INR 1.1 (0.9-1.1); PROTHROMBIN TIME (PATIENT) 11.4 SECONDS (9.0-12.0)
[2017-02-21] MEDS: CLARINEX~ORDER AWAITING ACTION SCH ×3 (08:00→23:13)
[2017-02-21] MEDS: TIOTROPIUM BROMIDE 5 PUFF/90 MCG INH INH SCH (08:11)
[2017-02-21] MEDS: LORATADINE 10 MG TAB PO SCH (08:12)
[2017-02-21] MEDS: DOCUSATE SODIUM 100 MG CAP PO SCH ×2 (08:12→20:36)
[2017-02-21] MEDS: PANTOprazole SOD 40 MG TAB PO SCH (08:12)
[2017-02-21] MEDS: AMIODARONE 200 MG TAB PO SCH (08:12)
[2017-02-21] MEDS: CYCLOBENZAPRINE HCL 5 MG TAB PO SCH ×3 (08:13→20:36)
[2017-02-21] MEDS: POLYETHYLENE (MIRALAX) 17 GM PACK PO SCH ×4 (08:13→20:36)
[2017-02-21] MEDS: LACTOBACILLUS ACIDOPHILUS (FLORANEX) TAB PO SCH (08:14)
[2017-02-21] MEDS: FUROSEMIDE 40 MG TAB PO SCH ×2 (08:14→16:18)
[2017-02-21] MEDS: BISACODYL 5 MG TABEC PO SCH (08:37)
--- NOTE | 2017-02-21 09:05 | Cardiology Follow-Up ---
Subjective General Date of Service: Feb 21, 2017. Chief Complaint: Follow-up Pt evaluation today including: conversation w/ patient, physical exam, chart review, lab review, review of studies, review of inpatient medication list History of Present Illness Patient seen and examined. Ongoing back pain "when I move east or west." Mild sore throat. Constipation Denies cardiac complaints, "I have no concerns with my heart." Denies chest pain , palpitations, dyspnea, orthopnea or PND. Coumadin restarted 02/20/2017. Allergies Coded Allergies: Lansoprazole (Verified Allergy, Unknown, didn't work/dr determined pt was allergic, 02/16/17) Social History Smoking Status: Never Smoker Hx Tobacco Use In Past Year?: No Hx Alcohol Use - Type And Amou: No Hx Substance Use - Type And Am: No Problem List Medical Problems: (1) Bilateral pleural effusion Status: Acute (2) CHF (congestive heart failure) Status: Acute (3) Congestive heart failure Status: Acute (4) COPD exacerbation Status: Acute (5) COPD exacerbation Status: Acute (6) Lumbar compression fracture Status: Acute (7) New onset atrial fibrillation Status: Acute (8) Pleural effusion Status: Acute (9) Pleuritic chest pain Status: Acute (10) Pneumothorax, right Status: Acute Physical Exam Vital Signs Last Vital Signs Documentation Date Time Temp Pulse Resp B/P (MAP) Pulse Ox O2 Delivery O2 Flow Rate FiO2 02/21/17 08:00 Room Air 02/21/17 06:49 36.5 65 16 115/67 (83) 93 02/19/17 19:44 2.0 Physical Exam Constitutional: Level of Distress: NAD Psychiatric: Mental Status: active & alert Orientation: to time, to place, to person Memory: recent memory normal, remote memory normal Head: normocephalic, atraumatic Eyes: Pupils: PERRLA Neck: pertinent finding (No JVD. ) Lungs: Auscultation: no wheezing, no rales/crackles, no rhonchi, deminished air movement, decreased breath sounds Cardiovascular: Heart Auscultation: RRR (60 bpm), normal S1, normal S2, no rubs, murmur ( soft systolic ejection murmur) Peripheral Pulses: Dorsalis Pedis Pulse: decreased on the left, decreased on the right Extremities: no cyanosis, no edema Neurologic: Cranial Nerves: grossly intact Assessment and Plan Assessment and Plan 86-year-old male admitted with severe intractable back pain, status post 2016 L4-L5 Kyphoplasty with biopsy by Dr. Walker No cardiac complication(s). No evidence of cardiac decompensation. Sinus rhythm maintained with amiodarone Anticoagulation resumed 02/20/2017. Will sign off. Please call with any questions or concerns. Laboratory Results Last 24 Hours Test 02/21/17 06:16 Prothrombin Time 11.4 SECONDS Prothromb Time International Ratio 1.1
--- NOTE | 2017-02-21 13:41 | Progress Note ---
Progress Note Date of Service Feb 21, 2017. Progress Note Patient still complaining of back pain with rotation or side bending. He states that in standing straight or lie supine and sitting is relatively tolerable and improved. On exam is inflating halls of the very brisk steady gait. Assessment status post kyphoplasty. Planned this time is clearly a candidate for rehabilitation. Hopefully we'll have this arranged and plan for discharge tomorrow.
[2017-02-21 15:47] VITALS: BP 102/61; PULSE 73; TEMP 36.8; O2SAT 94
[2017-02-21] MEDS: WARFARIN SOD 2 MG TAB PO SCH (16:17)
--- NOTE | 2017-02-21 16:20 | Progress Note ---
Internal Med Progress Note Date of Service: Feb 21, 2017. Provider Documentation: SUBJECTIVE: feels frustrated as back pain seems the same does not have any discomfort while standing or lying still but movement , turning make it worse fitted with LSO Brace yesterday does not feel it is giving any benefit OBJECTIVE: Vital Signs-as noted below Exam: General-in distress due to pain Eyes-sclera non icteric ENT-NAD Neck-no JVD Lungs-CTA Heart-regular S1/S2 Abdomen-soft,. non tender Extremities- no lower ext edema ; s/p lumber kyphoplasty , incisions healing well Neuro-AAO x3, no focal deficit Lab data as noted below. ASSESSMENT & PLAN: LOW BACK PAIN /COMPRESSION FX OF LUMBER L4/L5 : s/p lumber spinal kyphoplasty by Dr aWlker POD #2 pt mentions of having back pain with movement and intermittent spasm cont for Flexeril /muscle relaxant TLSO lumber brace applied by Orthotics pt does not feel any improvement Ortho -Dr Walker following closely cont PT/OT and pain control pt will benefit with Rehab after discharge from Hospital CHRONIC DIASTOLIC HEART FAILURE stable no evidence of vol overload ECHO : The left ventricle is normal in size. There is borderline concentric left ventricular hypertrophy. Septal motion is consistent with post-operative state. No regional wall motion abnormalities noted. Ejection Fraction = 60-65%. 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 There is borderline concentric left ventricular hypertrophy. Septal motion is consistent with post-operative state. No regional wall motion abnormalities noted. Ejection Fraction = 60-65%. Aortic valve sclerosis moderate, without significant aortic valvular stenosis. There is a bioprosthetic mitral valve. The prosthetic mitral valve is well-seated. Prosthetic mitral valve peak and/or mean gradients are normal. There is mild to moderate tricuspid regurgitation. Right ventricular systolic pressure is elevated at 30-40mmHg. Coumadin resumed follow Daily INR COPD -respiratory status at baseline no wheeze or SOB Cxray shows emphysematous change DVT PROPHYLAXIS scd and teds Coumadin resumed DISPOSITION will benefit form rehab post spinal surgery as pt still having significant pain with ambulation social service consulted for discharge planning Vital Signs: Date Time Temp Pulse Resp B/P (MAP) Pulse Ox O2 Delivery O2 Flow Rate FiO2 02/21/17 15:47 36.8 73 16 102/61 (75) 94 Room Air 02/21/17 15:45 Room Air 02/21/17 08:00 Room Air 02/21/17 06:49 36.5 65 16 115/67 (83) 93 Room Air 02/21/17 00:15 Room Air 02/20/17 22:57 36.8 64 18 136/72 (93) 94 Room Air Lab Results: Results Past 24 Hours Test 02/21/17 06:16 Range/Units Prothrombin Time 11.4 9.0-12.0 SECONDS Prothromb Time International Ratio 1.1 0.9-1.1
[2017-02-21] MEDS: TAMSULOSIN HCL 0.4 MG CAP PO SCH (20:36)
[2017-02-21] MEDS: LIDODERM (LIDOCAINE) PATCH 5% TD SCH (20:37)
[2017-02-22 00:04] VITALS: BP 121/69; PULSE 66; TEMP 36.7; O2SAT 95
[2017-02-22] MEDS: TRAMADOL HCL 50 MG TAB PO PRN (04:12)
[2017-02-22 06:43] LABS: INR 1.1 (0.9-1.1); PROTHROMBIN TIME (PATIENT) 11.4 SECONDS (9.0-12.0)
[2017-02-22 07:30] VITALS: BP 129/68; PULSE 63; TEMP 36.5; O2SAT 92
[2017-02-22] MEDS: CLARINEX~ORDER AWAITING ACTION SCH ×3 (08:00→23:14)
[2017-02-22] MEDS: DOCUSATE SODIUM 100 MG CAP PO SCH ×2 (08:47→21:39)
[2017-02-22] MEDS: FUROSEMIDE 40 MG TAB PO SCH ×2 (08:48→17:40)
[2017-02-22] MEDS: AMIODARONE 200 MG TAB PO SCH (08:48)
[2017-02-22] MEDS: LORATADINE 10 MG TAB PO SCH (08:48)
[2017-02-22] MEDS: POLYETHYLENE (MIRALAX) 17 GM PACK PO SCH ×2 (08:48→14:01)
[2017-02-22] MEDS: PANTOprazole SOD 40 MG TAB PO SCH (08:48)
[2017-02-22] MEDS: CYCLOBENZAPRINE HCL 5 MG TAB PO SCH ×3 (08:49→21:40)
[2017-02-22] MEDS: LACTOBACILLUS ACIDOPHILUS (FLORANEX) TAB PO SCH (08:49)
[2017-02-22] MEDS: BISACODYL 5 MG TABEC PO SCH (08:52)
--- NOTE | 2017-02-22 08:59 | Discharge Instructions ---
Discharge Instructions Date of Service Feb 22, 2017. Admission Reason for Admission: Back Pain Discharge Discharge Diagnosis / Problem: compression fractures L4 and L5 Discharge Goals Goal(s): Improve function Activity Recommendations Activity Limitations: per Instructions/Follow-up section Patient is to avoid lifting greater than 5-10 pounds. May ambulate as tolerated. Wear the LSO brace for pain control only. The brace is not mandatory. . Instructions / Follow-Up Instructions / Follow-Up Follow-up in the office in 2 weeks for updated x-rays lumbar spine. Current Hospital Diet Patient's current hospital diet: AHA Diet (Heart Healthy) Discharge Diet Recommended Diet: Regular Diet Procedures Procedures Performed: L4-L5 Kyphoplasty with Biopsy Pending Studies Studies pending at discharge: no Medical Emergencies . Who to Call and When: Medical Emergencies: If at any time you feel your situation is an emergency, please call 911 immediately. . Non-Emergent Contact Non-Emergency issues call your: Primary Care Provider . "Provider Documentation" section prepared by Manuel Walker. . VTE Core Measure Inpt VTE Proph given/why not?: Esteban Alvarenga, SCD's
[2017-02-22] MEDS ORDERED: POLYETHYLENE (MIRALAX) 17 GM PACK PO SCH (09:00)
[2017-02-22] MEDS: TIOTROPIUM BROMIDE 5 PUFF/90 MCG INH INH SCH (09:00)
[2017-02-22] MEDS: OXYCODONE HCL IR 5 MG TAB (IMMEDIATE RELEASE) PO PRN ×2 (11:38→22:17)
[2017-02-22] MEDS ORDERED: POLYETHYLENE (MIRALAX) 17 GM PACK PO ONE (13:30)
[2017-02-22 15:00] VITALS: BP 119/71; PULSE 68; TEMP 36.5; O2SAT 93
[2017-02-22] MEDS: GABAPENTIN 100 MG CAP PO SCH ×2 (15:12→21:40)
[2017-02-22] MEDS: WARFARIN SOD 2 MG TAB PO SCH (17:41)
[2017-02-22] MEDS ORDERED: NURSING VERBAL MED ORDER ONE (18:00)
--- NOTE | 2017-02-22 18:28 | Progress Note ---
Internal Med Progress Note Date of Service: Feb 22, 2017. Provider Documentation: SUBJECTIVE: having ongoing back pain with movement , turning no pain at rest , or walking straight OBJECTIVE: Vital Signs-as noted below Exam: General-in distress due to pain Eyes-sclera non icteric ENT-NAD Neck-no JVD Lungs-CTA Heart-regular S1/S2 Abdomen-soft,. non tender Extremities- no lower ext edema ; s/p lumber kyphoplasty , incisions healing well Neuro-AAO x3, no focal deficit Lab data as noted below. ASSESSMENT & PLAN: LOW BACK PAIN /COMPRESSION FX OF LUMBER L4/L5 : s/p lumber spinal kyphoplasty by Dr Walker POD # 3 pt mentions of having back pain with movement and intermittent spasm cont for Flexeril /muscle relaxant TLSO lumber brace applied by Orthotics pt does not feel any improvement Ortho -Dr Walker updated recommend possible rehab social service consulted, referral made for [facility] CHRONIC DIASTOLIC HEART FAILURE stable no evidence of vol overload ECHO : The left ventricle is normal in size. There is borderline concentric left ventricular hypertrophy. Septal motion is consistent with post-operative state. No regional wall motion abnormalities noted. Ejection Fraction = 60-65%. 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 There is borderline concentric left ventricular hypertrophy. Septal motion is consistent with post-operative state. No regional wall motion abnormalities noted. Ejection Fraction = 60-65%. Aortic valve sclerosis moderate, without significant aortic valvular stenosis. There is a bioprosthetic mitral valve. The prosthetic mitral valve is well-seated. Prosthetic mitral valve peak and/or mean gradients are normal. There is mild to moderate tricuspid regurgitation. Right ventricular systolic pressure is elevated at 30-40mmHg. Coumadin resumed follow Daily INR COPD -respiratory status at baseline no wheeze or SOB Cxray shows emphysematous change DVT PROPHYLAXIS scd and teds Coumadin resumed DISPOSITION will benefit form rehab post spinal surgery as pt still having significant pain with ambulation referral made to [facility] updated at bedside social service consulted for discharge planning Vital Signs: Date Time Temp Pulse Resp B/P (MAP) Pulse Ox O2 Delivery O2 Flow Rate FiO2 02/23/17 08:59 78 02/23/17 08:23 Room Air 02/23/17 07:35 36.4 64 16 115/68 (84) 91 Room Air 02/23/17 03:42 36.7 70 15 124/68 (86) 95 Room Air 02/22/17 23:45 Room Air 02/22/17 23:40 36.5 77 20 135/66 (89) 92 Room Air 02/22/17 16:00 Room Air 02/22/17 15:00 36.5 68 20 119/71 (87) 93 Room Air Lab Results: Results Past 24 Hours Test 02/23/17 06:33 Range/Units Prothrombin Time 11.7 9.0-12.0 SECONDS Prothromb Time International Ratio 1.1 0.9-1.1
[2017-02-22] MEDS: TAMSULOSIN HCL 0.4 MG CAP PO SCH (21:40)
[2017-02-22] MEDS: LIDODERM (LIDOCAINE) PATCH 5% TD SCH (21:46)
[2017-02-22 23:40] VITALS: BP 135/66; PULSE 77; TEMP 36.5; O2SAT 92
[2017-02-23] MEDS: ACETAMINOPHEN 325 MG TAB PO PRN (01:11)
[2017-02-23 03:42] VITALS: BP 124/68; PULSE 70; TEMP 36.7; O2SAT 95
[2017-02-23] MEDS: CLARINEX~ORDER AWAITING ACTION SCH ×3 (07:09→23:38)
[2017-02-23 07:14] LABS: INR 1.1 (0.9-1.1); PROTHROMBIN TIME (PATIENT) 11.7 SECONDS (9.0-12.0)
[2017-02-23 07:35] VITALS: BP 115/68; PULSE 64; TEMP 36.4; O2SAT 91
[2017-02-23] MEDS: BISACODYL 5 MG TABEC PO SCH (08:52)
[2017-02-23] MEDS: DOCUSATE SODIUM 100 MG CAP PO SCH ×2 (08:52→21:00)
[2017-02-23] MEDS: CYCLOBENZAPRINE HCL 5 MG TAB PO SCH ×3 (08:55→21:28)
[2017-02-23] MEDS: GABAPENTIN 100 MG CAP PO SCH ×2 (08:55→21:29)
[2017-02-23] MEDS: LACTOBACILLUS ACIDOPHILUS (FLORANEX) TAB PO SCH (08:55)
[2017-02-23] MEDS: PANTOprazole SOD 40 MG TAB PO SCH (08:56)
[2017-02-23] MEDS: AMIODARONE 200 MG TAB PO SCH (08:56)
[2017-02-23] MEDS: OXYCODONE HCL IR 5 MG TAB (IMMEDIATE RELEASE) PO PRN ×2 (08:56→17:00)
[2017-02-23] MEDS: LORATADINE 10 MG TAB PO SCH (08:57)
[2017-02-23 08:59] VITALS: PULSE 78
[2017-02-23] MEDS: TIOTROPIUM BROMIDE 5 PUFF/90 MCG INH INH SCH (08:59)
[2017-02-23] MEDS: FUROSEMIDE 40 MG TAB PO SCH ×2 (09:41→16:59)
--- NOTE | 2017-02-23 14:02 | Progress Note ---
Internal Med Progress Note Date of Service: Feb 23, 2017. Provider Documentation: SUBJECTIVE: pt managed to walk on hallway with walker complains of having back pain with turning does not want to go to rehab until " the doctor figure out what is wrong in my back " willing to have a repeat surgery if needed but wants to feel better than this does not feel the back surgery made any improvement in his back pain OBJECTIVE: Vital Signs-as noted below Exam: General-sitting up on chair , no apparent distress Eyes-sclera non icteric ENT-NAD Neck-no JVD Lungs-CTA Heart-regular S1/S2 Abdomen-soft,. non tender Extremities- no lower ext edema ; s/p lumber kyphoplasty , incisions healing well Neuro-AAO x3, no focal deficit Lab data as noted below. ASSESSMENT & PLAN: LOW BACK PAIN /COMPRESSION FX OF LUMBER L4/L5 : MRI OF LUMBER SPINE: 1. Acute 25% anterior endplate compression deformity of L5 without significant retropulsion. Extensive bone marrow edema seen within the L5 vertebral body extending into the left pedicle. There is no associated mass identified to suggest pathologic fracture, however intravenous contrast was not administered. This is likely secondary to insufficiency fracture. 2. Additional acute fracture involves the superior endplate L4 with moderate associated bone marrow edema. No significant endplate collapse or retropulsion. 3. Multilevel discogenic degenerative changes, spondylitic spurring and facet arthropathy as above, most pronounced at L2-L3 where there is moderate central canal and mild bilateral foraminal narrowing. s/p lumber spinal kyphoplasty by Dr Walker POD # 4 pt mentions of having back pain with movement and intermittent spasm cont Flexeril /muscle relaxant TLSO lumber brace applied by Orthotics pt does not feel any improvement Ortho -Dr Walker updated ; had multiple d/w pt , does not require any further spinal intervention recommend possible rehab pain management consulted for ongoing back pain postop social service consulted, referral made for [facility] pt wants to hold off rehab , until he experiences better pain control CHRONIC DIASTOLIC HEART FAILURE stable no evidence of vol overload ECHO : The left ventricle is normal in size. There is borderline concentric left ventricular hypertrophy. Septal motion is consistent with post-operative state. No regional wall motion abnormalities noted. Ejection Fraction = 60-65%. resumed out pt dose of Lasix PAROXYSMAL AFIB : on Amiodarone Coumadin resumed post spinal surgery follow INR Goal 2-3 no need for IV heparin bridge therapy pt follows with [facility] Cardiology Abelino Ramirez PA-C Cardiology consulted -appreciate input VALVULAR HEART DISEASE : hx severe MR status post MVR severe TR status post tricuspid repair (2016) stable ECHO : The left ventricle is normal in size. There is borderline concentric left ventricular hypertrophy. Septal motion is consistent with post-operative state. No regional wall motion abnormalities noted. Ejection Fraction = 60-65%. Aortic valve sclerosis moderate, without significant aortic valvular stenosis. There is a bioprosthetic mitral valve. The prosthetic mitral valve is well-seated. Prosthetic mitral valve peak and/or mean gradients are normal. There is mild to moderate tricuspid regurgitation. Right ventricular systolic pressure is elevated at 30-40mmHg. Coumadin resumed follow Daily INR CONSTIPATION : due to post op -pain medication /Narcotic induced has chronic constipation usually take multiple stool softener at home ordered for increased Laxative -Miralax 119 gm had bowel movement with added Miralax cont daily stool softener COPD -respiratory status at baseline no wheeze or SOB Cxray shows emphysematous change DVT PROPHYLAXIS scd and teds Coumadin resumed DISPOSITION will benefit form rehab post spinal surgery as pt still having significant pain with ambulation referral made to [facility] -pt wants to hold off going to rehab till back pain much improved updated at bedside social service consulted for discharge planning Vital Signs: Date Time Temp Pulse Resp B/P (MAP) Pulse Ox O2 Delivery O2 Flow Rate FiO2 02/23/17 08:59 78 02/23/17 08:23 Room Air 02/23/17 07:35 36.4 64 16 115/68 (84) 91 Room Air 02/23/17 03:42 36.7 70 15 124/68 (86) 95 Room Air 02/22/17 23:45 Room Air 02/22/17 23:40 36.5 77 20 135/66 (89) 92 Room Air 02/22/17 16:00 Room Air 02/22/17 15:00 36.5 68 20 119/71 (87) 93 Room Air Lab Results: Results Past 24 Hours Test 02/23/17 06:33 Range/Units Prothrombin Time 11.7 9.0-12.0 SECONDS Prothromb Time International Ratio 1.1 0.9-1.1
[2017-02-23 16:00] VITALS: O2SAT 91
[2017-02-23] MEDS ORDERED: WARFARIN SOD 3 MG TAB PO SCH (16:00)
[2017-02-23] MEDS ORDERED: WARFARIN SOD 1 MG TAB PO SCH (16:00)
[2017-02-23 16:04] VITALS: BP 98/58; PULSE 69; TEMP 36.4; O2SAT 94
--- NOTE | 2017-02-23 16:25 | Pain Management Consultation ---
Pain Management Consultation Date of Consultation Feb 23, 2017. Reason for Consultation Assistance with pain management. Pain Location 1 - Pain over left SI joint. 2 - Radiation to distal thigh intermittently with ambulation. History Mr. Magallanes is a 86-year-old male admitted to [facility] for experiencing axial low back pain for 5 weeks duration. He reports that without any specific traumatic or inciting event, 5 weeks ago he started experiencing axial low back pain as he attempted to get up from a lawn chair. The pain persisted and despite physical therapy, oral prednisone, and use of muscle relaxant, continue to progressively get worse. He then underwent imaging and subsequent L4 and L5 kyphoplasty. Today, he reports continued left-sided distal lumbar spine pain. Pain is present when he attempts to move from supine position or with ambulation. He rates the pain as 8/10 when severe and 2/10 when minimal. He reports being packed with pain-free in supine, immobile position. Although he denies any true radicular pain, he does experience pain that radiates into the posterior aspect of his thigh with movement of his thoracolumbar spine. He denies any bowel bladder incontinence, saddle anesthesia, with a gross weakness in lower extremities. He is currently receiving oxycodone and is anticoagulated for history of stroke. He informs me that he is scheduled to go to [facility] discharge from [facility]. Past Surgical: Status post kyphoplasty. Past Medical/Surgical History (1) Asthma (2) Peptic ulcer disease (3) COPD (chronic obstructive pulmonary disease) (4) Osteoarthritis (5) detention current use of anticoagulant (6) Heart failure, diastolic (7) H/O removal of cyst (8) History of left heart catheterization Family History Cancer FH: heart disease Hypertension Stroke Social / Work History Marital Status: Occupation: retired Allergies Coded Allergies: Lansoprazole (Verified Allergy, Unknown, didn't work/dr determined pt was allergic, 02/16/17) Medications Current Inpatient Medications Medications (Trade) Dose Ordered Sig/Baldomero Route Start Time Stop Time Status Last Admin Dose Admin Lidocaine (Lidoderm Patch 5%) 1 patch HS TD 02/17/17 21:00 03/19/17 20:59 02/22/17 21:46 1 PATCH Miscellaneous (Remove Lidoderm Patch) 1 ea DAILY@0900 N/A 02/17/17 11:00 03/19/17 10:59 02/23/17 08:59 1 EA Miscellaneous (Iv Fluids Completed) 1 ea PRN PRN N/A 02/16/17 22:45 02/16/18 22:44 Ibuprofen (Advil Tab) 400 mg Q6H PRN PO 02/16/17 23:00 03/18/17 22:59 Ondansetron HCl (Zofran Inj) 4 mg Q6H PRN IV 02/16/17 23:00 03/18/17 22:59 Amiodarone HCl (Cordarone Tab) 200 mg DAILY PO 02/17/17 09:00 03/19/17 08:59 02/23/17 08:56 200 MG Tamsulosin HCl (Flomax Cap) 0.4 mg HS PO 02/17/17 21:00 03/19/17 20:59 02/22/17 21:40 0.4 MG Tiotropium [place] (Spiriva Handihaler Inhaler) 1 puff DAILY INH 02/17/17 09:00 03/19/17 08:59 02/21/17 08:11 1 PUFF Miscellaneous Information (Order Awaiting Action) 1 ea QS N/A 02/17/17 08:00 03/19/17 07:59 Miscellaneous Information (Order Awaiting Action) 1 ea QS N/A 02/17/17 08:00 03/19/17 07:59 Pantoprazole Sodium (Protonix Tab) 40 mg QAM PO 02/17/17 09:00 03/19/17 08:59 02/23/17 08:56 40 MG Loratadine (Claritin Tab) 10 mg QAM PO 02/18/17 09:00 03/20/17 08:59 02/23/17 08:57 10 MG Docusate Sodium (coLACE CAP) 100 mg BID PO 02/19/17 21:00 03/21/17 20:59 02/22/17 21:39 100 MG Acetaminophen (Tylenol Tab) 650 mg Q6H PRN PO 02/19/17 15:45 03/21/17 15:44 02/23/17 01:11 650 MG Oxycodone HCl (Roxicodone Immediate Rel Tab) 5 mg Q4H PRN PO 02/19/17 15:45 03/05/17 15:44 02/23/17 08:56 5 MG Bisacodyl (Dulcolax Supp) 10 mg DAILY PRN GA 02/21/17 06:00 03/23/17 05:59 Menthol (Nice Edvin) 1 edvin PRN PRN PO 02/19/17 19:15 03/21/17 19:14 Magnesium Hydroxide (Milk Of Magnesia Susp) 30 ml Q6 PRN PO 02/20/17 17:15 03/21/17 15:44 Albuterol (Ventolin Hfa Inhaler) 2 puffs Q6H PRN INH 02/20/17 17:15 03/22/17 17:14 Fluticasone Propionate (Flonase Nasal [place]) 2 sprays DAILY PRN ALEJANDRO 02/20/17 17:15 03/22/17 17:14 Furosemide (Lasix Tab) 40 mg BID17 PO 02/20/17 18:00 03/22/17 17:59 02/23/17 09:41 40 MG Lactobacillus Acidophilus (Floranex Tab) 4 tab DAILY PO 02/21/17 09:00 03/23/17 08:59 02/23/17 08:55 4 TAB Warfarin Sodium (Coumadin Tab) 2 mg SuTuWeThSa@1600 PO 02/20/17 18:00 03/22/17 17:59 02/22/17 17:41 2 MG Warfarin Sodium (Coumadin Tab) 3 mg MoFr@1600 PO 02/23/17 16:00 03/25/17 15:59 Cyclobenzaprine HCl (Flexeril Tab) 10 mg TID PO 02/20/17 18:00 03/22/17 17:59 02/23/17 14:03 10 MG Gabapentin (Neurontin Cap) 100 mg BID PO 02/22/17 14:30 03/24/17 14:29 02/23/17 08:55 100 MG Bisacodyl (Dulcolax Tab) 10 mg DAILY PRN PO 02/24/17 09:00 03/22/17 17:59 Review of Systems Denies any recent history of fever, night sweats, unexplained weight loss, or constitutional symptoms. Otherwise, 8 point review of system has been reported to be negative. Physical Exam Height & Weight: Height 5 feet, 10.00 inches. Weight 86.700 (Kilograms) 191 (Pounds) Last Vital Signs Documentation Date Time Temp Pulse Resp B/P (MAP) Pulse Ox O2 Delivery O2 Flow Rate FiO2 02/23/17 08:59 78 02/23/17 08:23 Room Air 02/23/17 07:35 36.4 16 115/68 (84) 91 02/19/17 19:44 2.0 Exam: Mr. Rogers is awake, alert, oriented times, place and person and demonstrates normal and clear sensorium. His cognition and his memory are intact. He appears to be pain free in supine, immobile position, but when he attempts to set up a log roll, he appears to be significant pain. Inspection lumbar spine demonstrated loss of lumbar lordosis with decreased range of motion in all planes due to pain. He has dressing over his distal lumbar spine bilaterally. Palpation over the SI joints bilaterally produces significant pain which is reproductive of his typical pain over the left SI joint. Provocative testing of the SI joint similar produces pain in the left side. There is moderate myofascial tightness over the entire distal lumbar spine. Neurologically, he demonstrates leg raising to be negative bilaterally past 45 and no changes noted with Achilles stretch. No pathologic reflexes noted lower extremity. Laboratory Laboratory Results (Last CBC): 02/20/17 05:33 Imaging MRI: non enhanced MRI Findings IMPRESSION: 1. Acute 25% anterior endplate compression deformity of L5 without significant retropulsion. Extensive bone marrow edema seen within the L5 vertebral body extending into the left pedicle. There is no associated mass identified to suggest pathologic fracture, however intravenous contrast was not administered. This is likely secondary to insufficiency fracture. 2. Additional acute fracture involves the superior endplate L4 with moderate associated bone marrow edema. No significant endplate collapse or retropulsion. 3. Multilevel discogenic degenerative changes, spondylitic spurring and facet arthropathy as above, most pronounced at L2-L3 where there is moderate central canal and mild bilateral foraminal narrowing. Assessment 1. Status post L4 and L5 kyphoplasty for vertebral fractures. 2. Left SI joint pain. 3. [] 4. [] 5. [] Recommendations 1. Recommend diagnostic/therapeutic SI joint injection fluoroscopic guidance. This requires Coumadin to be held and his INR normalized. This patient is being transferred to [facility], we will check with his health services administrator to make sure he can stop the Coumadin and then schedule him is an outpatient to undergo the injection at the [facility]. 2. In the meantime, recommend patient be continued on oxycodone as prescribed as he reports moderate efficacy from it.
[2017-02-23] MEDS: TAMSULOSIN HCL 0.4 MG CAP PO SCH (21:28)
[2017-02-23] MEDS: LIDODERM (LIDOCAINE) PATCH 5% TD SCH (21:44)
[2017-02-23 23:39] VITALS: BP 115/68; PULSE 67; TEMP 36.3; O2SAT 91
[2017-02-24] MEDS: CLARINEX~ORDER AWAITING ACTION SCH ×2 (07:35→15:31)
[2017-02-24 07:41] VITALS: BP 103/68; PULSE 72; TEMP 36.6; O2SAT 91
[2017-02-24] MEDS ORDERED: BISACODYL 5 MG TABEC PO PRN (09:00)
[2017-02-24] MEDS: DOCUSATE SODIUM 100 MG CAP PO SCH ×2 (09:03→21:27)
[2017-02-24] MEDS: AMIODARONE 200 MG TAB PO SCH (09:03)
[2017-02-24] MEDS: TIOTROPIUM BROMIDE 5 PUFF/90 MCG INH INH SCH (09:03)
[2017-02-24] MEDS: CYCLOBENZAPRINE HCL 5 MG TAB PO SCH ×3 (09:04→21:27)
[2017-02-24] MEDS: LORATADINE 10 MG TAB PO SCH (09:04)
[2017-02-24] MEDS: GABAPENTIN 100 MG CAP PO SCH ×2 (09:04→21:27)
[2017-02-24] MEDS: PANTOprazole SOD 40 MG TAB PO SCH (09:05)
[2017-02-24] MEDS: LACTOBACILLUS ACIDOPHILUS (FLORANEX) TAB PO SCH (09:05)
[2017-02-24] MEDS: FUROSEMIDE 40 MG TAB PO SCH ×2 (09:05→17:19)
[2017-02-24] MEDS: OXYCODONE HCL IR 5 MG TAB (IMMEDIATE RELEASE) PO PRN ×3 (13:17→21:38)
[2017-02-24] MEDS: WARFARIN SOD 2 MG TAB PO SCH (15:33)
[2017-02-24 15:49] VITALS: BP 109/65; PULSE 67; TEMP 36.5; O2SAT 92
--- NOTE | 2017-02-24 17:02 | Progress Note ---
Internal Med Progress Note Date of Service: Feb 24, 2017. Provider Documentation: SUBJECTIVE: mentions not much improvement of back pain although managed to ambulate in hallway with walker twice today evaluated by pain management plan to do SI joint as out pt OBJECTIVE: Vital Signs-as noted below Exam: General-no apparent distress Eyes-sclera non icteric ENT-NAD Neck-no JVD Lungs-CTA Heart-regular S1/S2 Abdomen-soft,. non tender Extremities- no lower ext edema ; s/p lumber kyphoplasty , incisions healing well Neuro-AAO x3, no focal deficit Lab data as noted below. ASSESSMENT & PLAN: LOW BACK PAIN /COMPRESSION FX OF LUMBER L4/L5 : MRI OF LUMBER SPINE: 1. Acute 25% anterior endplate compression deformity of L5 without significant retropulsion. Extensive bone marrow edema seen within the L5 vertebral body extending into the left pedicle. There is no associated mass identified to suggest pathologic fracture, however intravenous contrast was not administered. This is likely secondary to insufficiency fracture. 2. Additional acute fracture involves the superior endplate L4 with moderate associated bone marrow edema. No significant endplate collapse or retropulsion. 3. Multilevel discogenic degenerative changes, spondylitic spurring and facet arthropathy as above, most pronounced at L2-L3 where there is moderate central canal and mild bilateral foraminal narrowing. s/p lumber spinal kyphoplasty by Dr Walker POD # 5 pt mentions of having back pain with movement and intermittent spasm cont Flexeril /muscle relaxant TLSO lumber brace applied by Orthotics pt does not feel any improvement Ortho -Dr Walker updated ; had multiple d/w pt , does not require any further spinal intervention recommend possible rehab pain management consulted for ongoing back pain postop social service consulted, referral made for [facility] input form pain management pt's pain is on lower region to the sacroiliac joint possible sacroiliitis causing ongoing discomfort will benefit form SI joint steroid injection -preferably as out pt pt will need Coumadin to be on hold prior to steroid injection need to co ordinate with Cardiology to safely with hold anticoagulation CHRONIC DIASTOLIC HEART FAILURE stable no evidence of vol overload ECHO : The left ventricle is normal in size. There is borderline concentric left ventricular hypertrophy. Septal motion is consistent with post-operative state. No regional wall motion abnormalities noted. Ejection Fraction = 60-65%. cont out pt dose of Lasix PAROXYSMAL AFIB : on Amiodarone Coumadin resumed post spinal surgery follow INR Goal 2-3 no need for IV heparin bridge therapy pt follows with [facility] Cardiology Abelino Ramirez PA-C Cardiology consulted -appreciate input VALVULAR HEART DISEASE : hx severe MR status post MVR severe TR status post tricuspid repair (2016) stable ECHO : The left ventricle is normal in size. There is borderline concentric left ventricular hypertrophy. Septal motion is consistent with post-operative state. No regional wall motion abnormalities noted. Ejection Fraction = 60-65%. Aortic valve sclerosis moderate, without significant aortic valvular stenosis. There is a bioprosthetic mitral valve. The prosthetic mitral valve is well-seated. Prosthetic mitral valve peak and/or mean gradients are normal. There is mild to moderate tricuspid regurgitation. Right ventricular systolic pressure is elevated at 30-40mmHg. Coumadin resumed follow Daily INR CONSTIPATION : due to post op -pain medication /Narcotic induced has chronic constipation usually take multiple stool softener at home ordered for increased Laxative -Miralax 119 gm had bowel movement with added Miralax cont daily stool softener COPD -respiratory status at baseline no wheeze or SOB Cxray shows emphysematous change DVT PROPHYLAXIS scd and teds Coumadin resumed DISPOSITION will benefit form rehab post spinal surgery referral made to [facility] possible transfer to [facility] on Sunday will need out pt follow up with pain management Dr Fowler social service consulted for discharge planning Vital Signs: Date Time Temp Pulse Resp B/P (MAP) Pulse Ox O2 Delivery O2 Flow Rate FiO2 02/24/17 15:49 36.5 67 16 109/65 (80) 92 Room Air 02/24/17 15:40 Room Air 02/24/17 09:52 Room Air 02/24/17 07:41 36.6 72 19 103/68 (80) 91 Room Air 02/23/17 23:39 36.3 67 20 115/68 (84) 91 Room Air 02/23/17 19:30 Room Air
[2017-02-24] MEDS ORDERED: FLX5 PO (17:06)
[2017-02-24] MEDS ORDERED: NRN100 PO (17:06)
[2017-02-24] MEDS ORDERED: RXC5 PO (17:06)
[2017-02-24 17:18] VITALS: BP 112/68
[2017-02-24] MEDS: TAMSULOSIN HCL 0.4 MG CAP PO SCH (21:27)
[2017-02-24] MEDS: LIDODERM (LIDOCAINE) PATCH 5% TD SCH (21:28)
[2017-02-24 23:11] VITALS: BP 98/64; PULSE 69; TEMP 36.8; O2SAT 95
[2017-02-25 07:26] VITALS: BP 113/67; PULSE 66; TEMP 36.9; O2SAT 92
[2017-02-25] MEDS: CLARINEX~ORDER AWAITING ACTION SCH ×3 (07:34→16:56)
[2017-02-25] MEDS: OXYCODONE HCL IR 5 MG TAB (IMMEDIATE RELEASE) PO PRN ×2 (08:02→16:58)
[2017-02-25] MEDS: GABAPENTIN 100 MG CAP PO SCH ×2 (09:01→19:55)
[2017-02-25] MEDS: TIOTROPIUM BROMIDE 5 PUFF/90 MCG INH INH SCH (09:01)
[2017-02-25] MEDS: DOCUSATE SODIUM 100 MG CAP PO SCH ×2 (09:01→19:54)
[2017-02-25] MEDS: LACTOBACILLUS ACIDOPHILUS (FLORANEX) TAB PO SCH (09:01)
[2017-02-25] MEDS: PANTOprazole SOD 40 MG TAB PO SCH (09:01)
[2017-02-25] MEDS: LORATADINE 10 MG TAB PO SCH (09:01)
[2017-02-25] MEDS: AMIODARONE 200 MG TAB PO SCH (09:02)
[2017-02-25] MEDS: FUROSEMIDE 40 MG TAB PO SCH ×2 (09:02→16:55)
[2017-02-25] MEDS: CYCLOBENZAPRINE HCL 5 MG TAB PO SCH ×3 (09:02→19:55)
[2017-02-25 15:36] VITALS: BP 102/57; PULSE 61; TEMP 36.5; O2SAT 94
[2017-02-25] MEDS: WARFARIN SOD 2 MG TAB PO SCH (16:56)
[2017-02-25] MEDS: TAMSULOSIN HCL 0.4 MG CAP PO SCH (19:54)
[2017-02-25] MEDS: LIDODERM (LIDOCAINE) PATCH 5% TD SCH (19:56)
--- NOTE | 2017-02-25 19:59 | Progress Note ---
Medicine Progress Note Date & Time of Visit: Feb 25, 2017 at 19:59. Subjective Pt was seen and examined Sitting in chair with no distress Pt said that his back pain was doing better but he said that he was using the pulling to help himself get out of the bed he said that he is no longer using the puling and since them he is back pain seems to get worst Denies any chest pain, palpitation, dizziness and SOB Objective Last 8 Hrs Date Time Temp Pulse Resp B/P (MAP) Pulse Ox O2 Delivery O2 Flow Rate FiO2 02/25/17 15:44 Room Air 02/25/17 15:36 36.5 61 17 102/57 (72) 94 Room Air Physical Exam: General- No acute distress Head- atraumatic Eyes- PERRL, EOMI ENT- oropharynx clear Neck- supple, no JVD Lungs-No acute distress Heart- regular rhythm Abdomen- normal bowel sounds Extremities- no calf tenderness Neuro- alert, oriented x 3; PERRL, EOMI Skin- warm & dry Assessment & Plan LOW BACK PAIN /COMPRESSION FX OF LUMBER L4/L5 s/p day 6 lumber spinal kyphoplasty by Dr Walker continue to have back pain cont Flexeril /muscle relaxant TLSO lumber brace applied by Orthotics Pain management on board Plan to get SI joint steroid injection, but his coumadin need to be on hold will discuss that with cardiology Waiting for rehab MRI OF LUMBER SPINE: 1. Acute 25% anterior endplate compression deformity of L5 without significant retropulsion. Extensive bone marrow edema seen within the L5 vertebral body extending into the left pedicle. There is no associated mass identified to suggest pathologic fracture, however intravenous contrast was not administered. This is likely secondary to insufficiency fracture. 2. Additional acute fracture involves the superior endplate L4 with moderate associated bone marrow edema. No significant endplate collapse or retropulsion. 3. Multilevel discogenic degenerative changes, spondylitic spurring and facet arthropathy as above, most pronounced at L2-L3 where there is moderate central canal and mild bilateral foraminal narrowing. CHRONIC DIASTOLIC HEART FAILURE no evidence of vol overload Continue lasix ECHO done The left ventricle is normal in size. There is borderline concentric left ventricular hypertrophy. Septal motion is consistent with post-operative state. No regional wall motion abnormalities noted. Ejection Fraction = 60-65%. 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) On Coumadin Stable CONSTIPATION due to post op -pain medication /Narcotic induced has chronic constipation cont daily stool softener COPD respiratory status at baseline no wheeze or SOB stable DVT PROPHYLAXIS scd and teds On Coumadin DISPOSITION Referral made to [facility] will need out pt follow up with pain management Dr Fowler Current Inpatient Medications: Current Inpatient Medications Medications (Trade) Dose Ordered Sig/Baldomero Route Start Time Stop Time Status Last Admin Dose Admin Lidocaine (Lidoderm Patch 5%) 1 patch HS TD 02/17/17 21:00 03/19/17 20:59 02/24/17 21:28 1 PATCH Miscellaneous (Remove Lidoderm Patch) 1 ea DAILY@0900 N/A 02/17/17 11:00 03/19/17 10:59 02/25/17 07:40 1 EA Miscellaneous (Iv Fluids Completed) 1 ea PRN PRN N/A 02/16/17 22:45 02/16/18 22:44 Ibuprofen (Advil Tab) 400 mg Q6H PRN PO 02/16/17 23:00 03/18/17 22:59 Ondansetron HCl (Zofran Inj) 4 mg Q6H PRN IV 02/16/17 23:00 03/18/17 22:59 Amiodarone HCl (Cordarone Tab) 200 mg DAILY PO 02/17/17 09:00 03/19/17 08:59 02/25/17 09:02 200 MG Tamsulosin HCl (Flomax Cap) 0.4 mg HS PO 02/17/17 21:00 03/19/17 20:59 02/24/17 21:27 0.4 MG Tiotropium [place] (Spiriva Handihaler Inhaler) 1 puff DAILY INH 02/17/17 09:00 03/19/17 08:59 02/25/17 09:01 1 PUFF Miscellaneous Information (Order Awaiting Action) 1 ea QS N/A 02/17/17 08:00 03/19/17 07:59 Miscellaneous Information (Order Awaiting Action) 1 ea QS N/A 02/17/17 08:00 03/19/17 07:59 Pantoprazole Sodium (Protonix Tab) 40 mg QAM PO 02/17/17 09:00 03/19/17 08:59 02/25/17 09:01 40 MG Loratadine (Claritin Tab) 10 mg QAM PO 02/18/17 09:00 03/20/17 08:59 02/25/17 09:01 10 MG Docusate Sodium (coLACE CAP) 100 mg BID PO 02/19/17 21:00 03/21/17 20:59 02/25/17 09:01 100 MG Acetaminophen (Tylenol Tab) 650 mg Q6H PRN PO 02/19/17 15:45 03/21/17 15:44 02/23/17 01:11 650 MG Oxycodone HCl (Roxicodone Immediate Rel Tab) 5 mg Q4H PRN PO 02/19/17 15:45 03/05/17 15:44 02/25/17 16:58 5 MG Bisacodyl (Dulcolax Supp) 10 mg DAILY PRN [place] 02/21/17 06:00 03/23/17 05:59 Menthol (Nice Edvin) 1 edvin PRN PRN PO 02/19/17 19:15 03/21/17 19:14 Magnesium Hydroxide (Milk Of Magnesia Susp) 30 ml Q6 PRN PO 02/20/17 17:15 03/21/17 15:44 Albuterol (Ventolin Hfa Inhaler) 2 puffs Q6H PRN INH 02/20/17 17:15 03/22/17 17:14 Fluticasone Propionate (Flonase Nasal [place]) 2 sprays DAILY PRN ALEJANDRO 02/20/17 17:15 03/22/17 17:14 Furosemide (Lasix Tab) 40 mg BID17 PO 02/20/17 18:00 03/22/17 17:59 02/25/17 16:55 40 MG Lactobacillus Acidophilus (Floranex Tab) 4 tab DAILY PO 02/21/17 09:00 03/23/17 08:59 02/25/17 09:01 4 TAB Warfarin Sodium (Coumadin Tab) 2 mg SuTuWeThSa@1600 PO 02/20/17 18:00 03/22/17 17:59 02/25/17 16:56 2 MG Warfarin Sodium (Coumadin Tab) 3 mg MoFr@1600 PO 02/23/17 16:00 03/25/17 15:59 02/23/17 17:00 3 MG Cyclobenzaprine HCl (Flexeril Tab) 10 mg TID PO 02/20/17 18:00 03/22/17 17:59 02/25/17 13:39 10 MG Gabapentin (Neurontin Cap) 100 mg BID PO 02/22/17 14:30 03/24/17 14:29 02/25/17 09:01 100 MG Bisacodyl (Dulcolax Tab) 10 mg DAILY PRN PO 02/24/17 09:00 03/22/17 17:59
[2017-02-25] MEDS: MAGNESIUM HYDROXIDE SUSP 30 ML UDC PO PRN (20:05)
[2017-02-25 23:18] VITALS: BP 113/66; PULSE 63; TEMP 36.3; O2SAT 92
[2017-02-26] MEDS: OXYCODONE HCL IR 5 MG TAB (IMMEDIATE RELEASE) PO PRN ×4 (04:28→21:35)
[2017-02-26 07:04] VITALS: BP 108/68; PULSE 66; TEMP 36.5; O2SAT 93
[2017-02-26] MEDS: CLARINEX~ORDER AWAITING ACTION SCH ×3 (09:57→15:28)
[2017-02-26] MEDS: TIOTROPIUM BROMIDE 5 PUFF/90 MCG INH INH SCH (09:58)
[2017-02-26] MEDS: LORATADINE 10 MG TAB PO SCH (09:59)
[2017-02-26] MEDS: DOCUSATE SODIUM 100 MG CAP PO SCH ×2 (09:59→21:16)
[2017-02-26] MEDS: CYCLOBENZAPRINE HCL 5 MG TAB PO SCH ×3 (10:01→21:16)
[2017-02-26] MEDS: LACTOBACILLUS ACIDOPHILUS (FLORANEX) TAB PO SCH (10:01)
[2017-02-26 10:02] VITALS: BP 119/73; PULSE 71
[2017-02-26] MEDS: PANTOprazole SOD 40 MG TAB PO SCH (10:03)
[2017-02-26] MEDS: GABAPENTIN 100 MG CAP PO SCH ×2 (10:03→21:16)
--- NOTE | 2017-02-26 10:03 | Pain Management Progress Note ---
Pain Management Progress Note Date of Service Feb 26, 2017. Subjective Mr. Cuello continues experience his typical pain and left low back. Pain occurs with activity including lateral rotation of his lumbar spine. He is pain -free when he is supine position. He reports is awaiting transfer to [facility]. Pain Location 1 - Objective Vital Signs: Last Vital Signs Documentation Date Time Temp Pulse Resp B/P (MAP) Pulse Ox O2 Delivery O2 Flow Rate FiO2 02/26/17 07:04 36.5 66 17 108/68 (81) 93 Room Air 02/19/17 19:44 2.0 Physical Exam: Mr. Rogers is awake and alert and oriented times place and person. He is sitting in his recliner upright. He appears to be pain-free. Provocative testing of the left SI joint reproduces his pain. Laboratory Laboratory Findings 02/20/17 05:33 Assessment 1. Status post kyphoplasty for vertebral fractures. 2. Left SI joint pain. Recommendations 1. Recommend coordinating holding his Coumadin with cardiology and letting his INR go down to 1.4 below. He can then undergo a left SI joint injection whether he still an inpatient or if he gets transferred to [facility], as an outpatient in the pain clinic. Only did he cannot undergo injection as an outpatient at the clinic is not this Sunday.
[2017-02-26] MEDS: AMIODARONE 200 MG TAB PO SCH (10:04)
[2017-02-26] MEDS: FUROSEMIDE 40 MG TAB PO SCH ×2 (10:05→16:31)
[2017-02-26 10:40] LABS: INR 1.4 (0.9-1.1); PROTHROMBIN TIME (PATIENT) 15.5 SECONDS (9.0-12.0)
[2017-02-26] MEDS: MAGNESIUM HYDROXIDE SUSP 30 ML UDC PO PRN (11:15)
[2017-02-26 15:13] VITALS: BP 109/60; PULSE 65; TEMP 36.3; O2SAT 95
--- NOTE | 2017-02-26 17:57 | Progress Note ---
Medicine Progress Note Date & Time of Visit: Feb 26, 2017 at 17:42. Subjective Pt was seen and examined Sitting in chair with no distress with daughter present Pt said that he is still having back pain he said that his pain improves when sitting, but worst when lying on his back he said that he thinks he did ok with physical therapy denies any chest pain, palpitation, dizziness and sob Objective Last 8 Hrs Date Time Temp Pulse Resp B/P (MAP) Pulse Ox O2 Delivery O2 Flow Rate FiO2 02/26/17 15:13 36.3 65 18 109/60 (76) 95 Room Air 02/26/17 10:02 71 119/73 (88) Physical Exam: General- No acute distress Head- atraumatic Eyes- PERRL, EOMI ENT- oropharynx clear Neck- supple, no JVD Lungs-No acute distress Heart- regular rhythm Abdomen- normal bowel sounds Extremities- no calf tenderness Neuro- alert, oriented x 3; PERRL, EOMI Skin- warm & dry Laboratory Results: Last 24 Hours Test 02/26/17 10:11 Prothrombin Time 15.5 SECONDS Prothromb Time International Ratio 1.4 Assessment & Plan LOW BACK PAIN /COMPRESSION FX OF LUMBER L4/L5 s/p day 6 lumber spinal kyphoplasty by Dr Walker continue to have back pain cont Flexeril /muscle relaxant TLSO lumber brace applied by Orthotics Pain management on board Plan to get SI joint steroid injection, but his coumadin need to be on hold will discuss that with cardiology Waiting for rehab 02/26 Case discussed today with Dr. Fowler about the SI joint injection Case discussed with Cardiology, ok to hold coumadin for the SI joint injection as per cardio Dr. Fowler would like the coumadin to be less than 1.4 for the procedure Coumadin today 1.4 Will try to get it to schedule it for Wed for the SI Joint MRI OF LUMBER SPINE: 1. Acute 25% anterior endplate compression deformity of L5 without significant retropulsion. Extensive bone marrow edema seen within the L5 vertebral body extending into the left pedicle. There is no associated mass identified to suggest pathologic fracture, however intravenous contrast was not administered. This is likely secondary to insufficiency fracture. 2. Additional acute fracture involves the superior endplate L4 with moderate associated bone marrow edema. No significant endplate collapse or retropulsion. 3. Multilevel discogenic degenerative changes, spondylitic spurring and facet arthropathy as above, most pronounced at L2-L3 where there is moderate central canal and mild bilateral foraminal narrowing. CHRONIC DIASTOLIC HEART FAILURE no evidence of volume overload Continue lasix ECHO done The left ventricle is normal in size. There is borderline concentric left ventricular hypertrophy. Septal motion is consistent with post-operative state. No regional wall motion abnormalities noted. Ejection Fraction = 60-65%. 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) On Coumadin Stable CONSTIPATION due to post op -pain medication /Narcotic induced has chronic constipation cont daily stool softener COPD respiratory status at baseline no wheeze or SOB stable DVT PROPHYLAXIS scd and teds On Coumadin DISPOSITION Referral made to [facility] pending will need out pt follow up with pain management Dr Fowler Current Inpatient Medications: Current Inpatient Medications Medications (Trade) Dose Ordered Sig/Baldomero Route Start Time Stop Time Status Last Admin Dose Admin Lidocaine (Lidoderm Patch 5%) 1 patch HS TD 02/17/17 21:00 03/19/17 20:59 02/25/17 19:56 1 PATCH Miscellaneous (Remove Lidoderm Patch) 1 ea DAILY@0900 N/A 02/17/17 11:00 03/19/17 10:59 02/26/17 09:57 1 EA Miscellaneous (Iv Fluids Completed) 1 ea PRN PRN N/A 02/16/17 22:45 02/16/18 22:44 Ibuprofen (Advil Tab) 400 mg Q6H PRN PO 02/16/17 23:00 03/18/17 22:59 Ondansetron HCl (Zofran Inj) 4 mg Q6H PRN IV 02/16/17 23:00 03/18/17 22:59 Amiodarone HCl (Cordarone Tab) 200 mg DAILY PO 02/17/17 09:00 03/19/17 08:59 02/26/17 10:04 200 MG Tamsulosin HCl (Flomax Cap) 0.4 mg HS PO 02/17/17 21:00 03/19/17 20:59 02/25/17 19:54 0.4 MG Tiotropium [place] (Spiriva Handihaler Inhaler) 1 puff DAILY INH 02/17/17 09:00 03/19/17 08:59 02/26/17 09:58 1 PUFF Miscellaneous Information (Order Awaiting Action) 1 ea QS N/A 02/17/17 08:00 03/19/17 07:59 Miscellaneous Information (Order Awaiting Action) 1 ea QS N/A 02/17/17 08:00 03/19/17 07:59 Pantoprazole Sodium (Protonix Tab) 40 mg QAM PO 02/17/17 09:00 03/19/17 08:59 02/26/17 10:03 40 MG Loratadine (Claritin Tab) 10 mg QAM PO 02/18/17 09:00 03/20/17 08:59 02/26/17 09:59 10 MG Docusate Sodium (coLACE CAP) 100 mg BID PO 02/19/17 21:00 03/21/17 20:59 02/26/17 09:59 100 MG Acetaminophen (Tylenol Tab) 650 mg Q6H PRN PO 02/19/17 15:45 03/21/17 15:44 02/23/17 01:11 650 MG Oxycodone HCl (Roxicodone Immediate Rel Tab) 5 mg Q4H PRN PO 02/19/17 15:45 03/05/17 15:44 02/26/17 16:42 5 MG Bisacodyl (Dulcolax Supp) 10 mg DAILY PRN [place] 02/21/17 06:00 03/23/17 05:59 Menthol (Nice Edvin) 1 edvin PRN PRN PO 02/19/17 19:15 03/21/17 19:14 Magnesium Hydroxide (Milk Of Magnesia Susp) 30 ml Q6 PRN PO 02/20/17 17:15 03/21/17 15:44 02/26/17 11:15 30 ML Albuterol (Ventolin Hfa Inhaler) 2 puffs Q6H PRN INH 02/20/17 17:15 03/22/17 17:14 Fluticasone Propionate (Flonase Nasal [place]) 2 sprays DAILY PRN ALEJANDRO 02/20/17 17:15 03/22/17 17:14 Furosemide (Lasix Tab) 40 mg BID17 PO 02/20/17 18:00 03/22/17 17:59 02/26/17 16:31 40 MG Lactobacillus Acidophilus (Floranex Tab) 4 tab DAILY PO 02/21/17 09:00 03/23/17 08:59 02/26/17 10:01 4 TAB Warfarin Sodium (Coumadin Tab) 2 mg SuTuWeThSa@1600 PO 02/20/17 18:00 03/22/17 17:59 Future Hold 02/25/17 16:56 2 MG Warfarin Sodium (Coumadin Tab) 3 mg MoFr@1600 PO 02/23/17 16:00 03/25/17 15:59 Future Hold 02/23/17 17:00 3 MG Cyclobenzaprine HCl (Flexeril Tab) 10 mg TID PO 02/20/17 18:00 03/22/17 17:59 02/26/17 13:46 10 MG Gabapentin (Neurontin Cap) 100 mg BID PO 02/22/17 14:30 03/24/17 14:29 02/26/17 10:03 100 MG Bisacodyl (Dulcolax Tab) 10 mg DAILY PRN PO 02/24/17 09:00 03/22/17 17:59
[2017-02-26] MEDS: TAMSULOSIN HCL 0.4 MG CAP PO SCH (21:16)
[2017-02-26] MEDS: LIDODERM (LIDOCAINE) PATCH 5% TD SCH (21:17)
[2017-02-26 23:14] VITALS: BP 117/72; PULSE 64; TEMP 36.4; O2SAT 95
[2017-02-27] MEDS: OXYCODONE HCL IR 5 MG TAB (IMMEDIATE RELEASE) PO PRN ×3 (03:17→23:18)
[2017-02-27] MEDS: ACETAMINOPHEN 325 MG TAB PO PRN (05:53)
[2017-02-27 07:02] VITALS: BP 119/72; PULSE 64; TEMP 36.4; O2SAT 94
[2017-02-27 07:14] LABS: INR 1.5 (0.9-1.1); PROTHROMBIN TIME (PATIENT) 16.2 SECONDS (9.0-12.0)
[2017-02-27 07:45] VITALS: O2SAT 94
[2017-02-27 07:55] LABS: CALCIUM 8.5 mg/dl (8.5-10.1); CREATININE 0.93 mg/dl (0.60-1.40)
[2017-02-27] MEDS: CLARINEX~ORDER AWAITING ACTION SCH ×4 (08:00→23:14)
[2017-02-27] MEDS: TIOTROPIUM BROMIDE 5 PUFF/90 MCG INH INH SCH (09:54)
[2017-02-27] MEDS: DOCUSATE SODIUM 100 MG CAP PO SCH ×2 (09:55→21:31)
[2017-02-27] MEDS: AMIODARONE 200 MG TAB PO SCH (09:55)
[2017-02-27] MEDS: LORATADINE 10 MG TAB PO SCH (09:55)
[2017-02-27] MEDS: LACTOBACILLUS ACIDOPHILUS (FLORANEX) TAB PO SCH (09:55)
[2017-02-27] MEDS: FUROSEMIDE 40 MG TAB PO SCH ×2 (09:56→17:19)
[2017-02-27] MEDS: PANTOprazole SOD 40 MG TAB PO SCH (09:56)
[2017-02-27] MEDS: GABAPENTIN 100 MG CAP PO SCH ×2 (09:56→21:31)
[2017-02-27] MEDS: CYCLOBENZAPRINE HCL 5 MG TAB PO SCH ×3 (09:56→21:32)
[2017-02-27 15:29] VITALS: BP 124/64; PULSE 63; TEMP 36.3; O2SAT 92
--- NOTE | 2017-02-27 19:05 | Progress Note ---
Medicine Progress Note Date & Time of Visit: Feb 27, 2017 at 19:01. Subjective Pt was seen and examined Lying in bed with no distress continue to have back pain Objective Last 8 Hrs Date Time Temp Pulse Resp B/P (MAP) Pulse Ox O2 Delivery O2 Flow Rate FiO2 02/27/17 15:29 36.3 63 17 124/64 (84) 92 Room Air Physical Exam: General- No acute distress Head- atraumatic Eyes- PERRL, EOMI ENT- oropharynx clear Neck- supple, no JVD Lungs-No acute distress Heart- regular rhythm Abdomen- normal bowel sounds Extremities- no calf tenderness Neuro- alert, oriented x 3; PERRL, EOMI Skin- warm & dry Laboratory Results: Last 24 Hours Test 02/27/17 06:47 Prothrombin Time 16.2 SECONDS Prothromb Time International Ratio 1.5 Sodium Level 138 mmol/L Potassium Level 4.0 mmol/L Chloride Level 104 mmol/L Carbon Dioxide Level 27 mmol/L Anion Gap 7.0 mmol/L Blood Urea Nitrogen 24 mg/dl Creatinine 0.93 mg/dl Est Creatinine Clear Calc Drug Dose 57.8 ml/min Estimated GFR () 85.2 Estimated GFR (Non- 73.6 BUN/Creatinine Ratio 26.0 Random Glucose 89 mg/dl Calcium Level 8.5 mg/dl Assessment & Plan LOW BACK PAIN /COMPRESSION FX OF LUMBER L4/L5 s/p day 6 lumber spinal kyphoplasty by Dr Walker continue to have back pain cont Flexeril /muscle relaxant TLSO lumber brace applied by [facility] Pain management on board Plan to get SI joint steroid injection, but his coumadin need to be on hold will discuss that with cardiology Waiting for rehab 02/26 Case discussed today with Dr. Fowler about the SI joint injection Case discussed with Cardiology, ok to hold coumadin for the SI joint injection as per cardio Dr. Fowler would like the coumadin to be less than 1.4 for the procedure Coumadin today 1.4 Schedule for SI Joint injection NPO after midnight MRI OF LUMBER SPINE: 1. Acute 25% anterior endplate compression deformity of L5 without significant retropulsion. Extensive bone marrow edema seen within the L5 vertebral body extending into the left pedicle. There is no associated mass identified to suggest pathologic fracture, however intravenous contrast was not administered. This is likely secondary to insufficiency fracture. 2. Additional acute fracture involves the superior endplate L4 with moderate associated bone marrow edema. No significant endplate collapse or retropulsion. 3. Multilevel discogenic degenerative changes, spondylitic spurring and facet arthropathy as above, most pronounced at L2-L3 where there is moderate central canal and mild bilateral foraminal narrowing. CHRONIC DIASTOLIC HEART FAILURE no evidence of volume overload Continue lasix ECHO done The left ventricle is normal in size. There is borderline concentric left ventricular hypertrophy. Septal motion is consistent with post-operative state. No regional wall motion abnormalities noted. Ejection Fraction = 60-65%. PAROXYSMAL AFIB rate controlled on Amiodarone no need for IV heparin bridge therapy pt follows with [facility] Cardiology Abelino Ramirez PA-C cardio on board case discussed with cardiology, OK to hold the coumadin for the SI joint injection Coumadin on hold for the SI joint injection INR 1.5 today check INR in am VALVULAR HEART DISEASE : hx severe MR status post MVR severe TR status post tricuspid repair (2015) On Coumadin Stable CONSTIPATION due to post op -pain medication /Narcotic induced has chronic constipation cont daily stool softener COPD respiratory status at baseline no wheeze or SOB stable DVT PROPHYLAXIS scd and teds On Coumadin DISPOSITION Schedule for SI joint in am will need out pt follow up with pain management Dr Fowler Consultants: Pain management Current Inpatient Medications: Current Inpatient Medications Medications (Trade) Dose Ordered Sig/Baldomero Route Start Time Stop Time Status Last Admin Dose Admin Lidocaine (Lidoderm Patch 5%) 1 patch HS TD 02/17/17 21:00 03/19/17 20:59 02/26/17 21:17 1 PATCH Miscellaneous (Remove Lidoderm Patch) 1 ea DAILY@0900 N/A 02/17/17 11:00 03/19/17 10:59 02/27/17 09:54 1 EA Miscellaneous (Iv Fluids Completed) 1 ea PRN PRN N/A 02/16/17 22:45 02/16/18 22:44 Ibuprofen (Advil Tab) 400 mg Q6H PRN PO 02/16/17 23:00 03/18/17 22:59 Ondansetron HCl (Zofran Inj) 4 mg Q6H PRN IV 02/16/17 23:00 03/18/17 22:59 Amiodarone HCl (Cordarone Tab) 200 mg DAILY PO 02/17/17 09:00 03/19/17 08:59 02/27/17 09:55 200 MG Tamsulosin HCl (Flomax Cap) 0.4 mg HS PO 02/17/17 21:00 03/19/17 20:59 02/26/17 21:16 0.4 MG Tiotropium [place] (Spiriva Handihaler Inhaler) 1 puff DAILY INH 02/17/17 09:00 03/19/17 08:59 02/27/17 09:54 1 PUFF Miscellaneous Information (Order Awaiting Action) 1 ea QS N/A 02/17/17 08:00 03/19/17 07:59 Miscellaneous Information (Order Awaiting Action) 1 ea QS N/A 02/17/17 08:00 03/19/17 07:59 Pantoprazole Sodium (Protonix Tab) 40 mg QAM PO 02/17/17 09:00 03/19/17 08:59 02/27/17 09:56 40 MG Loratadine (Claritin Tab) 10 mg QAM PO 02/18/17 09:00 03/20/17 08:59 02/27/17 09:55 10 MG Docusate Sodium (coLACE CAP) 100 mg BID PO 02/19/17 21:00 03/21/17 20:59 02/27/17 09:55 100 MG Acetaminophen (Tylenol Tab) 650 mg Q6H PRN PO 02/19/17 15:45 03/21/17 15:44 02/27/17 05:53 650 MG Oxycodone HCl (Roxicodone Immediate Rel Tab) 5 mg Q4H PRN PO 02/19/17 15:45 03/05/17 15:44 02/27/17 17:45 5 MG Bisacodyl (Dulcolax Supp) 10 mg DAILY PRN [place] 02/21/17 06:00 03/23/17 05:59 Menthol (Nice Edvin) 1 edivn PRN PRN PO 02/19/17 19:15 03/21/17 19:14 Magnesium Hydroxide (Milk Of Magnesia Susp) 30 ml Q6 PRN PO 02/20/17 17:15 03/21/17 15:44 02/26/17 11:15 30 ML Albuterol (Ventolin Hfa Inhaler) 2 puffs Q6H PRN INH 02/20/17 17:15 03/22/17 17:14 Fluticasone Propionate (Flonase Nasal [place]) 2 sprays DAILY PRN ALEJANDRO 02/20/17 17:15 03/22/17 17:14 Furosemide (Lasix Tab) 40 mg BID17 PO 02/20/17 18:00 03/22/17 17:59 02/27/17 17:19 40 MG Lactobacillus Acidophilus (Floranex Tab) 4 tab DAILY PO 02/21/17 09:00 03/23/17 08:59 02/27/17 09:55 4 TAB Warfarin Sodium (Coumadin Tab) 2 mg SuTuWeThSa@1600 PO 02/20/17 18:00 03/22/17 17:59 Future Hold 02/25/17 16:56 2 MG Warfarin Sodium (Coumadin Tab) 3 mg MoFr@1600 PO 02/23/17 16:00 03/25/17 15:59 Future Hold 02/23/17 17:00 3 MG Cyclobenzaprine HCl (Flexeril Tab) 10 mg TID PO 02/20/17 18:00 03/22/17 17:59 02/27/17 14:01 10 MG Gabapentin (Neurontin Cap) 100 mg BID PO 02/22/17 14:30 03/24/17 14:29 02/27/17 09:56 100 MG Bisacodyl (Dulcolax Tab) 10 mg DAILY PRN PO 02/24/17 09:00 03/22/17 17:59
[2017-02-27] MEDS: TAMSULOSIN HCL 0.4 MG CAP PO SCH (21:31)
[2017-02-27] MEDS: LIDODERM (LIDOCAINE) PATCH 5% TD SCH (21:32)
[2017-02-27 22:54] VITALS: BP 99/62; PULSE 67; TEMP 36.4; O2SAT 94
[2017-02-28 06:27] LABS: INR 1.4 (0.9-1.1); PROTHROMBIN TIME (PATIENT) 15.7 SECONDS (9.0-12.0)
[2017-02-28 07:30] VITALS: BP 108/63; PULSE 64; TEMP 36.5; O2SAT 92
[2017-02-28] MEDS: CLARINEX~ORDER AWAITING ACTION SCH ×3 (08:00→23:07)
[2017-02-28] MEDS ORDERED: TRIAMCINOLONE ACET 40 MG/ML VIAL ONE (08:10)
[2017-02-28] MEDS ORDERED: BUPIVACAINE 0.5 % 5 MG/1 ML MPF 30ML VIAL ONE (08:10)
[2017-02-28] MEDS: LORATADINE 10 MG TAB PO SCH (09:02)
[2017-02-28] MEDS: TIOTROPIUM BROMIDE 5 PUFF/90 MCG INH INH SCH (09:02)
[2017-02-28] MEDS: AMIODARONE 200 MG TAB PO SCH (09:03)
[2017-02-28] MEDS: DOCUSATE SODIUM 100 MG CAP PO SCH ×2 (09:03→20:32)
[2017-02-28] MEDS: PANTOprazole SOD 40 MG TAB PO SCH (09:05)
[2017-02-28] MEDS: CYCLOBENZAPRINE HCL 5 MG TAB PO SCH ×3 (09:05→20:31)
[2017-02-28] MEDS: GABAPENTIN 100 MG CAP PO SCH ×2 (09:05→20:32)
[2017-02-28] MEDS: FUROSEMIDE 40 MG TAB PO SCH ×2 (09:05→17:26)
[2017-02-28] MEDS: LACTOBACILLUS ACIDOPHILUS (FLORANEX) TAB PO SCH (09:05)
[2017-02-28] MEDS: OXYCODONE HCL IR 5 MG TAB (IMMEDIATE RELEASE) PO PRN ×3 (09:10→22:47)
--- NOTE | 2017-02-28 09:45 | Pain Management Progress Note ---
Pain Management Progress Note Date of Service Feb 28, 2017. Subjective Still continues to experience left low back pain. Stopped Coumadin..INR 1.4 today. Objective Vital Signs: Last Vital Signs Documentation Date Time Temp Pulse Resp B/P (MAP) Pulse Ox O2 Delivery O2 Flow Rate FiO2 02/28/17 07:40 Room Air 02/28/17 07:30 36.5 64 18 108/63 (78) 92 02/19/17 19:44 2.0 Physical Exam: Pain with provocative testing of the left SIJ. Laboratory Laboratory Findings 02/20/17 05:33 Assessment 1. Left SIJ pain. Recommendations 1. SIJ injection performed this am. 2. Can resume Coumadin today. 3. Regular diet ordered.
[2017-02-28] MEDS: ACETAMINOPHEN 325 MG TAB PO PRN (12:43)
[2017-02-28 15:23] VITALS: BP 106/68; PULSE 69; TEMP 36.2; O2SAT 91
--- NOTE | 2017-02-28 16:39 | Progress Note ---
Medicine Progress Note Date & Time of Visit: Feb 28, 2017 at 16:24. Subjective Pt was seen and examined Lying in bed with no distress with at bedside Pt said that he continue to have pain in his back He had the SI joint done this morning He did not find any relief yet Pt said that he would like to go to [facility] for rehab denies any chest pain, palpitation, dizziness and SOB Objective Last 8 Hrs Date Time Temp Pulse Resp B/P (MAP) Pulse Ox O2 Delivery O2 Flow Rate FiO2 02/28/17 15:23 36.2 69 18 106/68 (81) 91 Room Air Physical Exam: General- No acute distress Head- atraumatic Eyes- PERRL, EOMI ENT- oropharynx clear Neck- supple, no JVD Lungs-No acute distress Heart- regular rhythm Abdomen- normal bowel sounds Extremities- no calf tenderness Neuro- alert, oriented x 3; PERRL, EOMI Skin- warm & dry Laboratory Results: Last 24 Hours Test 02/28/17 05:59 Prothrombin Time 15.7 SECONDS Prothromb Time International Ratio 1.4 Assessment & Plan LOW BACK PAIN /COMPRESSION FX OF LUMBER L4/L5 s/p day 9 lumber L4-L5 spinal kyphoplasty by Dr Walker continue to have back pain cont Flexeril /muscle relaxant TLSO lumber brace applied by [facility] Pain management on board Plan to get SI joint steroid injection, but his coumadin need to be on hold will discuss that with cardiology Waiting for rehab 02/27 Case discussed today with Dr. Fowler about the SI joint injection Case discussed with Cardiology, ok to hold coumadin for the SI joint injection as per cardio Dr. Fowler would like the coumadin to be less than 1.4 for the procedure Coumadin today 1.4 Schedule for SI Joint injection NPO after midnight 02/28 S/P SI joint injection done this morning Continue to have back pain has been denies placement to [facility] Will try to do a peer to peer review Continue pain control Pain management on board MRI OF LUMBER SPINE: 1. Acute 25% anterior endplate compression deformity of L5 without significant retropulsion. Extensive bone marrow edema seen within the L5 vertebral body extending into the left pedicle. There is no associated mass identified to suggest pathologic fracture, however intravenous contrast was not administered. This is likely secondary to insufficiency fracture. 2. Additional acute fracture involves the superior endplate L4 with moderate associated bone marrow edema. No significant endplate collapse or retropulsion. 3. Multilevel discogenic degenerative changes, spondylitic spurring and facet arthropathy as above, most pronounced at L2-L3 where there is moderate central canal and mild bilateral foraminal narrowing. CHRONIC DIASTOLIC HEART FAILURE no evidence of volume overload Continue lasix Stable ECHO done The left ventricle is normal in size. There is borderline concentric left ventricular hypertrophy. Septal motion is consistent with post-operative state. No regional wall motion abnormalities noted. Ejection Fraction = 60-65%. 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) On Coumadin Stable CONSTIPATION due to post op -pain medication /Narcotic induced has chronic constipation cont daily stool softener COPD respiratory status at baseline no wheeze or SOB stable DVT PROPHYLAXIS scd and teds On Coumadin DISPOSITION will need out pt follow up with pain management Dr Fowler Waiting for placement Consultants: Pain management Procedures: SI joint injection L4-L5 Kyphoplasty Current Inpatient Medications: Current Inpatient Medications Medications (Trade) Dose Ordered Sig/Baldomero Route Start Time Stop Time Status Last Admin Dose Admin Lidocaine (Lidoderm Patch 5%) 1 patch HS TD 02/17/17 21:00 03/19/17 20:59 02/27/17 21:32 1 PATCH Miscellaneous (Remove Lidoderm Patch) 1 ea DAILY@0900 N/A 02/17/17 11:00 03/19/17 10:59 02/28/17 09:02 1 EA Miscellaneous (Iv Fluids Completed) 1 ea PRN PRN N/A 02/16/17 22:45 02/16/18 22:44 Ibuprofen (Advil Tab) 400 mg Q6H PRN PO 02/16/17 23:00 03/18/17 22:59 Ondansetron HCl (Zofran Inj) 4 mg Q6H PRN IV 02/16/17 23:00 03/18/17 22:59 Amiodarone HCl (Cordarone Tab) 200 mg DAILY PO 02/17/17 09:00 03/19/17 08:59 02/28/17 09:03 200 MG Tamsulosin HCl (Flomax Cap) 0.4 mg HS PO 02/17/17 21:00 03/19/17 20:59 02/27/17 21:31 0.4 MG Tiotropium [place] (Spiriva Handihaler Inhaler) 1 puff DAILY INH 02/17/17 09:00 03/19/17 08:59 02/28/17 09:02 1 PUFF Miscellaneous Information (Order Awaiting Action) 1 ea QS N/A 02/17/17 08:00 03/19/17 07:59 Miscellaneous Information (Order Awaiting Action) 1 ea QS N/A 02/17/17 08:00 03/19/17 07:59 Pantoprazole Sodium (Protonix Tab) 40 mg QAM PO 02/17/17 09:00 03/19/17 08:59 02/28/17 09:05 40 MG Loratadine (Claritin Tab) 10 mg QAM PO 02/18/17 09:00 03/20/17 08:59 02/28/17 09:02 10 MG Docusate Sodium (coLACE CAP) 100 mg BID PO 02/19/17 21:00 03/21/17 20:59 02/28/17 09:03 100 MG Acetaminophen (Tylenol Tab) 650 mg Q6H PRN PO 02/19/17 15:45 03/21/17 15:44 02/28/17 12:43 650 MG Oxycodone HCl (Roxicodone Immediate Rel Tab) 5 mg Q4H PRN PO 02/19/17 15:45 03/05/17 15:44 02/28/17 14:34 5 MG Bisacodyl (Dulcolax Supp) 10 mg DAILY PRN [place] 02/21/17 06:00 03/23/17 05:59 Menthol (Nice Edvin) 1 edvin PRN PRN PO 02/19/17 19:15 03/21/17 19:14 Magnesium Hydroxide (Milk Of Magnesia Susp) 30 ml Q6 PRN PO 02/20/17 17:15 03/21/17 15:44 02/26/17 11:15 30 ML Albuterol (Ventolin Hfa Inhaler) 2 puffs Q6H PRN INH 02/20/17 17:15 03/22/17 17:14 Fluticasone Propionate (Flonase Nasal [place]) 2 sprays DAILY PRN ALEJANDRO 02/20/17 17:15 03/22/17 17:14 Furosemide (Lasix Tab) 40 mg BID17 PO 02/20/17 18:00 03/22/17 17:59 02/28/17 09:05 40 MG Lactobacillus Acidophilus (Floranex Tab) 4 tab DAILY PO 02/21/17 09:00 03/23/17 08:59 02/28/17 09:05 4 TAB Cyclobenzaprine HCl (Flexeril Tab) 10 mg TID PO 02/20/17 18:00 03/22/17 17:59 02/28/17 14:32 10 MG Gabapentin (Neurontin Cap) 100 mg BID PO 02/22/17 14:30 03/24/17 14:29 02/28/17 09:05 100 MG Bisacodyl (Dulcolax Tab) 10 mg DAILY PRN PO 02/24/17 09:00 03/22/17 17:59 Warfarin Sodium (Coumadin Tab) 3 mg DAILY@16 PO 02/28/17 16:00 03/30/17 15:59
[2017-02-28] MEDS: WARFARIN SOD 3 MG TAB PO SCH (19:04)
[2017-02-28] MEDS: TAMSULOSIN HCL 0.4 MG CAP PO SCH (20:32)
[2017-02-28] MEDS: LIDODERM (LIDOCAINE) PATCH 5% TD SCH (20:32)
[2017-02-28] MEDS: MAGNESIUM HYDROXIDE SUSP 30 ML UDC PO PRN (22:46)
[2017-02-28 23:07] VITALS: BP 116/67; PULSE 62; TEMP 36.3; O2SAT 94
[2017-03-01] MEDS: OXYCODONE HCL IR 5 MG TAB (IMMEDIATE RELEASE) PO PRN ×3 (07:08→20:50)
[2017-03-01 07:12] VITALS: BP 114/71; PULSE 64; TEMP 36.3; O2SAT 91
[2017-03-01 07:51] LABS: INR 1.4 (0.9-1.1); PROTHROMBIN TIME (PATIENT) 14.7 SECONDS (9.0-12.0)
[2017-03-01] MEDS: CLARINEX~ORDER AWAITING ACTION SCH ×2 (08:00→15:53)
[2017-03-01] MEDS: TIOTROPIUM BROMIDE 5 PUFF/90 MCG INH INH SCH (08:56)
[2017-03-01] MEDS: PANTOprazole SOD 40 MG TAB PO SCH (08:57)
[2017-03-01] MEDS: LACTOBACILLUS ACIDOPHILUS (FLORANEX) TAB PO SCH (08:57)
[2017-03-01] MEDS: LORATADINE 10 MG TAB PO SCH (08:57)
[2017-03-01] MEDS: DOCUSATE SODIUM 100 MG CAP PO SCH ×2 (08:57→20:47)
[2017-03-01] MEDS: AMIODARONE 200 MG TAB PO SCH (08:57)
[2017-03-01] MEDS: GABAPENTIN 100 MG CAP PO SCH ×2 (08:58→20:47)
[2017-03-01] MEDS: FUROSEMIDE 40 MG TAB PO SCH ×2 (08:58→17:10)
[2017-03-01] MEDS: CYCLOBENZAPRINE HCL 5 MG TAB PO SCH (08:58)
--- NOTE | 2017-03-01 09:59 | Pain Management Progress Note ---
Pain Management Progress Note Date of Service Mar 01, 2017. Subjective Mr. Rogers is an 86 year old white male that is status post L4, L5 kyphoplasty on 02/19/17 and a left SI joint injection which was performed on 02/28/17. Patient denies any relief from the left SI joint injection that was performed yesterday. He continues to report low back pain without radiation. Pain is rated 2/10 currently. Pain is increased when going from a sitting to standing position. He does continue physical therapy and reports improvement. Patient is tolerating Oxycodone 5mg x 4 hours PRN pain. He has been experiencing moderate constipation since starting the medication. No BM in 3 days. He is also taking Flexeril 10mg TID and unsure of it's efficacy. Case discussed with Dr. Fowler Objective Vital Signs: Last Vital Signs Documentation Date Time Temp Pulse Resp B/P (MAP) Pulse Ox O2 Delivery O2 Flow Rate FiO2 03/01/17 07:30 Room Air 03/01/17 07:12 36.3 64 17 114/71 (85) 91 02/19/17 19:44 2.0 Physical Exam: GENERAL: Mr. Rogers is an 86 y/o white male. Speech and cognition is intact. Mood and affect is appropriate. He is sitting quietly in a chair, in no acute distress. BACK: Loss of lumbar lordosis. There is mild diffuse lumbosacral tenderness. No focal SI joint tenderness. NEURO: Patient is able to ambulate with the use of a wheeled walker. Awake, alert, and oriented x 3. SKIN: No erythema, edema, or drainage of the injection site Laboratory Laboratory Findings 02/20/17 05:33 Assessment 1. Status post L4, L5 kyphoplasty 2. Status post Left SI joint injection 3. Lumbago Recommendations 1. Will change the Flexeril to Baclofen as the patient appears to be experiencing the anticholinergic effects from the medication including dry mouth and may be contributing to his constipation. 2. Current bowel regimen includes Colace, milk of magnesia, and Dulcolax. Should the regimen not be effective by tomorrow, would consider Relistor injection for opioid induced constipation. 3. Patient will continue with PT/OT.
--- NOTE | 2017-03-01 11:56 | Progress Note ---
Medicine Progress Note Date & Time of Visit: Mar 01, 2017 at 11:43. Subjective Pt was seen and examined continue to have back pain has not had a BM for about 3 days denies any chest pain, palpitation and sob Objective Last 8 Hrs Date Time Temp Pulse Resp B/P (MAP) Pulse Ox O2 Delivery O2 Flow Rate FiO2 03/01/17 07:30 Room Air 03/01/17 07:12 36.3 64 17 114/71 (85) 91 Room Air Physical Exam: General- No acute distress Head- atraumatic Eyes- PERRL, EOMI ENT- oropharynx clear Neck- supple, no JVD Lungs-No acute distress Heart- regular rhythm Abdomen- normal bowel sounds Extremities- no calf tenderness Neuro- alert, oriented x 3; PERRL, EOMI Skin- warm & dry Laboratory Results: Last 24 Hours Test 03/01/17 07:21 Prothrombin Time 14.7 SECONDS Prothromb Time International Ratio 1.4 Assessment & Plan LOW BACK PAIN /COMPRESSION FX OF LUMBER L4/L5 s/p day 9 lumber L4-L5 spinal kyphoplasty by Dr Walker continue to have back pain cont Flexeril /muscle relaxant TLSO lumber brace applied by [facility] Pain management on board Plan to get SI joint steroid injection, but his coumadin need to be on hold will discuss that with cardiology Waiting for rehab 02/27 Case discussed today with Dr. Fowler about the SI joint injection Case discussed with Cardiology, ok to hold coumadin for the SI joint injection as per cardio Dr. Fowler would like the coumadin to be less than 1.4 for the procedure Coumadin today 1.4 Schedule for SI Joint injection NPO after midnight 03/01 S/P SI joint injection done on 04/01 Continue to have back pain has been denies placement to [facility] Peer to peer review done today Pt is approved for subacute rehab business office manager was notified Continue pain control Pain management on board MRI OF LUMBER SPINE: 1. Acute 25% anterior endplate compression deformity of L5 without significant retropulsion. Extensive bone marrow edema seen within the L5 vertebral body extending into the left pedicle. There is no associated mass identified to suggest pathologic fracture, however intravenous contrast was not administered. This is likely secondary to insufficiency fracture. 2. Additional acute fracture involves the superior endplate L4 with moderate associated bone marrow edema. No significant endplate collapse or retropulsion. 3. Multilevel discogenic degenerative changes, spondylitic spurring and facet arthropathy as above, most pronounced at L2-L3 where there is moderate central canal and mild bilateral foraminal narrowing. CHRONIC DIASTOLIC HEART FAILURE no evidence of volume overload Continue lasix Stable ECHO done The left ventricle is normal in size. There is borderline concentric left ventricular hypertrophy. Septal motion is consistent with post-operative state. No regional wall motion abnormalities noted. Ejection Fraction = 60-65%. PAROXYSMAL AFIB rate controlled on Amiodarone no need for IV heparin bridge therapy pt follows with [facility] Cardiology Abelino Ramirez PA-C cardio on board case discussed with cardiology, OK to hold the coumadin for the SI joint injection Coumadin on hold for the SI joint injection INR 1.4 Coumadin resume check INR in am VALVULAR HEART DISEASE : hx severe MR status post MVR severe TR status post tricuspid repair (2015) On Coumadin Stable CONSTIPATION due to post op -pain medication /Narcotic induced has chronic constipation No cont daily stool softener COPD respiratory status at baseline no wheeze or SOB stable DVT PROPHYLAXIS scd and teds On Coumadin DISPOSITION will need out pt follow up with pain management Dr Fowler Waiting for placement for rehab Consultants: Pain management Procedures: SI joint injection L4-L5 Kyphoplasty Current Inpatient Medications: Current Inpatient Medications Medications (Trade) Dose Ordered Sig/Baldomero Route Start Time Stop Time Status Last Admin Dose Admin Lidocaine (Lidoderm Patch 5%) 1 patch HS TD 02/17/17 21:00 03/19/17 20:59 02/28/17 20:32 1 PATCH Miscellaneous (Remove Lidoderm Patch) 1 ea DAILY@0900 N/A 02/17/17 11:00 03/19/17 10:59 03/01/17 09:00 1 EA Miscellaneous (Iv Fluids Completed) 1 ea PRN PRN N/A 02/16/17 22:45 02/16/18 22:44 Ibuprofen (Advil Tab) 400 mg Q6H PRN PO 02/16/17 23:00 03/18/17 22:59 Ondansetron HCl (Zofran Inj) 4 mg Q6H PRN IV 02/16/17 23:00 03/18/17 22:59 Amiodarone HCl (Cordarone Tab) 200 mg DAILY PO 02/17/17 09:00 03/19/17 08:59 03/01/17 08:57 200 MG Tamsulosin HCl (Flomax Cap) 0.4 mg HS PO 02/17/17 21:00 03/19/17 20:59 02/28/17 20:32 0.4 MG Tiotropium [place] (Spiriva Handihaler Inhaler) 1 puff DAILY INH 02/17/17 09:00 03/19/17 08:59 03/01/17 08:56 1 PUFF Miscellaneous Information (Order Awaiting Action) 1 ea QS N/A 02/17/17 08:00 03/19/17 07:59 Miscellaneous Information (Order Awaiting Action) 1 ea QS N/A 02/17/17 08:00 03/19/17 07:59 Pantoprazole Sodium (Protonix Tab) 40 mg QAM PO 02/17/17 09:00 03/19/17 08:59 03/01/17 08:57 40 MG Loratadine (Claritin Tab) 10 mg QAM PO 02/18/17 09:00 03/20/17 08:59 03/01/17 08:57 10 MG Docusate Sodium (coLACE CAP) 100 mg BID PO 02/19/17 21:00 03/21/17 20:59 03/01/17 08:57 100 MG Acetaminophen (Tylenol Tab) 650 mg Q6H PRN PO 02/19/17 15:45 03/21/17 15:44 02/28/17 12:43 650 MG Oxycodone HCl (Roxicodone Immediate Rel Tab) 5 mg Q4H PRN PO 02/19/17 15:45 03/05/17 15:44 03/01/17 07:08 5 MG Bisacodyl (Dulcolax Supp) 10 mg DAILY PRN [place] 02/21/17 06:00 03/23/17 05:59 Menthol (Nice Edvin) 1 edvin PRN PRN PO 02/19/17 19:15 03/21/17 19:14 Magnesium Hydroxide (Milk Of Magnesia Susp) 30 ml Q6 PRN PO 02/20/17 17:15 03/21/17 15:44 02/28/17 22:46 30 ML Albuterol (Ventolin Hfa Inhaler) 2 puffs Q6H PRN INH 02/20/17 17:15 03/22/17 17:14 Fluticasone Propionate (Flonase Nasal [place]) 2 sprays DAILY PRN ALEJANDRO 02/20/17 17:15 03/22/17 17:14 Furosemide (Lasix Tab) 40 mg BID17 PO 02/20/17 18:00 03/22/17 17:59 03/01/17 08:58 40 MG Lactobacillus Acidophilus (Floranex Tab) 4 tab DAILY PO 02/21/17 09:00 03/23/17 08:59 03/01/17 08:57 4 TAB Gabapentin (Neurontin Cap) 100 mg BID PO 02/22/17 14:30 03/24/17 14:29 03/01/17 08:58 100 MG Bisacodyl (Dulcolax Tab) 10 mg DAILY PRN PO 02/24/17 09:00 03/22/17 17:59 Warfarin Sodium (Coumadin Tab) 3 mg DAILY@16 PO 02/28/17 16:00 03/30/17 15:59 02/28/17 19:04 3 MG Baclofen (Lioresal Tab) 5 mg TID PO 03/01/17 14:00 03/31/17 13:59
[2017-03-01] MEDS ORDERED: POLYETHYLENE (MIRALAX) 17 GM PACK PO ONE (12:45)
[2017-03-01] MEDS: BACLOFEN 10 MG TAB PO SCH ×2 (13:33→20:48)
[2017-03-01 15:00] VITALS: BP 113/70; PULSE 64; TEMP 36.5; O2SAT 93
[2017-03-01] MEDS: WARFARIN SOD 3 MG TAB PO SCH (15:52)
[2017-03-01] MEDS: LIDODERM (LIDOCAINE) PATCH 5% TD SCH (20:46)
[2017-03-01] MEDS: TAMSULOSIN HCL 0.4 MG CAP PO SCH (20:47)
[2017-03-01] MEDS: MAGNESIUM HYDROXIDE SUSP 30 ML UDC PO PRN (20:50)
[2017-03-01 23:20] VITALS: BP 114/65; PULSE 64; TEMP 36.4; O2SAT 93
[2017-03-02] MEDS: OXYCODONE HCL IR 5 MG TAB (IMMEDIATE RELEASE) PO PRN ×2 (01:24→12:56)
[2017-03-02 06:55] VITALS: BP 120/62; PULSE 73; TEMP 36.5; O2SAT 93
[2017-03-02 06:56] LABS: INR 1.7 (0.9-1.1); PROTHROMBIN TIME (PATIENT) 18.5 SECONDS (9.0-12.0)
[2017-03-02] MEDS: CLARINEX~ORDER AWAITING ACTION SCH ×2 (08:44)
[2017-03-02] MEDS: LORATADINE 10 MG TAB PO SCH (08:46)
[2017-03-02] MEDS: DOCUSATE SODIUM 100 MG CAP PO SCH (08:47)
[2017-03-02] MEDS: LACTOBACILLUS ACIDOPHILUS (FLORANEX) TAB PO SCH (08:47)
[2017-03-02] MEDS: GABAPENTIN 100 MG CAP PO SCH (08:47)
[2017-03-02] MEDS: PANTOprazole SOD 40 MG TAB PO SCH (08:47)
[2017-03-02] MEDS: AMIODARONE 200 MG TAB PO SCH (08:47)
[2017-03-02] MEDS: FUROSEMIDE 40 MG TAB PO SCH (08:47)
[2017-03-02] MEDS: BACLOFEN 10 MG TAB PO SCH (08:49)
--- NOTE | 2017-03-02 09:24 | Pain Management Progress Note ---
Pain Management Progress Note Date of Service Mar 02, 2017. Subjective Mr. Rogers reports mild improvement since yesterday. he does not have any low back pain when laying supine or sitting. Pain is only with positional changes. He is taking Oxycodone 5mg for pain which is effective but causing constipation. He did have a small BM last night and reports mild abdominal bloating. Patient is unsure if switching Flexeril to Baclofen was at all efficacious. Patient states that the LSO back brace is worsening his pain when he wears it. He does require assistance going from sitting to standing position but once he is standing, he can walk with a walker. Patient is ready to go to a rehab facility to continue to improve. Patient denies nay radicular symptoms, leg weakness, bowel/bladder incontinence, or saddle anesthesia. Case discussed with Dr. Fowler Objective Vital Signs: Last Vital Signs Documentation Date Time Temp Pulse Resp B/P (MAP) Pulse Ox O2 Delivery O2 Flow Rate FiO2 03/02/17 07:50 Room Air 03/02/17 06:55 36.5 73 20 120/62 (81) 93 02/19/17 19:44 2.0 Physical Exam: GENERAL: Mr. Rogers is an 86 y/o white male. Speech and cognition is intact. Mood and affect is appropriate. He is sitting quietly in a chair, in no acute distress. BACK: Loss of lumbar lordosis. There is mild diffuse lumbosacral tenderness. No focal SI joint tenderness. NEURO: Patient is able to ambulate with the use of a wheeled walker. Awake, alert, and oriented x 3. SKIN: No erythema, edema, or drainage of the injection site Laboratory Laboratory Findings 02/20/17 05:33 Assessment 1. Status post L4, L5 kyphoplasty 2. Status post Left SI joint injection 3. Lumbago Recommendations 1. Patient expresses his frustration as he has not improved as quickly as he would like to. He is understanding that there are compression fractures in the back and associated edema which will take time to heal. 2. He does with to be discharged to a rehab facility soon. 3. Continue Oxycodone, Baclofen, and Gabapentin.
--- NOTE | 2017-03-02 11:17 | Progress Note ---
Medicine Progress Note Date & Time of Visit: Mar 02, 2017 at 11:06. Subjective Pt was seen and examined Sitting in bed with no distress Pt said that there is no change in his pain He said that when he is lying flat he does not have any pain He requested the report of the imaging of his back He has no bowel or bladder loss Denies any chest pain, palpitation, dizziness and SOB Objective Last 8 Hrs Date Time Temp Pulse Resp B/P (MAP) Pulse Ox O2 Delivery O2 Flow Rate FiO2 03/02/17 07:50 Room Air 03/02/17 06:55 36.5 73 20 120/62 (81) 93 Room Air Physical Exam: General- No acute distress Head- atraumatic Eyes- PERRL, EOMI ENT- oropharynx clear Neck- supple, no JVD Lungs-No acute distress Heart- regular rhythm Abdomen- normal bowel sounds Extremities- no calf tenderness Neuro- alert, oriented x 3; PERRL, EOMI Skin- warm & dry Laboratory Results: Last 24 Hours Test 03/02/17 06:23 Prothrombin Time 18.5 SECONDS Prothromb Time International Ratio 1.7 Assessment & Plan LOW BACK PAIN /COMPRESSION FX OF LUMBER L4/L5 s/p day 9 lumber L4-L5 spinal kyphoplasty by Dr Walker continue to have back pain cont Flexeril /muscle relaxant TLSO lumber brace applied by Orthotics Pain management on board Plan to get SI joint steroid injection, but his coumadin need to be on hold will discuss that with cardiology Waiting for rehab 02/27 Case discussed today with Dr. Fowler about the SI joint injection Case discussed with Cardiology, ok to hold coumadin for the SI joint injection as per cardio Dr. Fowler would like the coumadin to be less than 1.4 for the procedure Coumadin today 1.4 Schedule for SI Joint injection NPO after midnight 03/02 S/P SI joint injection done on 04/01 Continue to have back pain has been denies placement to [facility] Peer to peer review done today Pt is approved for subacute rehab exhibitions and collections manager was notified Continue pain control Pain management on board continue oxycodone, baclofen, gabapentin has been accepted to [facility] follow up with pain management once discharge from rehab MRI OF LUMBER SPINE: 1. Acute 25% anterior endplate compression deformity of L5 without significant retropulsion. Extensive bone marrow edema seen within the L5 vertebral body extending into the left pedicle. There is no associated mass identified to suggest pathologic fracture, however intravenous contrast was not administered. This is likely secondary to insufficiency fracture. 2. Additional acute fracture involves the superior endplate L4 with moderate associated bone marrow edema. No significant endplate collapse or retropulsion. 3. Multilevel discogenic degenerative changes, spondylitic spurring and facet arthropathy as above, most pronounced at L2-L3 where there is moderate central canal and mild bilateral foraminal narrowing. CHRONIC DIASTOLIC HEART FAILURE no evidence of volume overload Continue lasix Stable ECHO done The left ventricle is normal in size. There is borderline concentric left ventricular hypertrophy. Septal motion is consistent with post-operative state. No regional wall motion abnormalities noted. Ejection Fraction = 60-65%. PAROXYSMAL AFIB rate controlled on Amiodarone no need for IV heparin bridge therapy pt follows with [facility] Cardiology Abelino Ramirez PA-C cardio on board case discussed with cardiologyLOREN to hold the coumadin for the SI joint injection Coumadin on hold for the SI joint injection INR 1.7 Continue coumadin Continue monitor INR VALVULAR HEART DISEASE : hx severe MR status post MVR severe TR status post tricuspid repair (2015) On Coumadin Stable CONSTIPATION due to post op -pain medication /Narcotic induced has chronic constipation cont daily stool softener has a BM yesterday COPD respiratory status at baseline no wheeze or SOB stable DVT PROPHYLAXIS scd and teds On Coumadin INR 1.7 today DISPOSITION Follow up appointment with pain management Dr Fowler once discharge from rehab Follow up with your PCP once discharge from rehab Discharge to [facility] today for rehab Consultants: Pain management Procedures: SI joint injection L4-L5 Kyphoplasty Current Inpatient Medications: Current Inpatient Medications Medications (Trade) Dose Ordered Sig/Baldomero Route Start Time Stop Time Status Last Admin Dose Admin Lidocaine (Lidoderm Patch 5%) 1 patch HS TD 02/17/17 21:00 03/19/17 20:59 03/01/17 20:46 1 PATCH Miscellaneous (Remove Lidoderm Patch) 1 ea DAILY@0900 N/A 02/17/17 11:00 03/19/17 10:59 03/02/17 08:44 1 EA Miscellaneous (Iv Fluids Completed) 1 ea PRN PRN N/A 02/16/17 22:45 02/16/18 22:44 Ibuprofen (Advil Tab) 400 mg Q6H PRN PO 02/16/17 23:00 03/18/17 22:59 Ondansetron HCl (Zofran Inj) 4 mg Q6H PRN IV 02/16/17 23:00 03/18/17 22:59 Amiodarone HCl (Cordarone Tab) 200 mg DAILY PO 02/17/17 09:00 03/19/17 08:59 03/02/17 08:47 200 MG Tamsulosin HCl (Flomax Cap) 0.4 mg HS PO 02/17/17 21:00 03/19/17 20:59 03/01/17 20:47 0.4 MG Tiotropium [place] (Spiriva Handihaler Inhaler) 1 puff DAILY INH 02/17/17 09:00 03/19/17 08:59 03/01/17 08:56 1 PUFF Miscellaneous Information (Order Awaiting Action) 1 ea QS N/A 02/17/17 08:00 03/19/17 07:59 Miscellaneous Information (Order Awaiting Action) 1 ea QS N/A 02/17/17 08:00 03/19/17 07:59 Pantoprazole Sodium (Protonix Tab) 40 mg QAM PO 02/17/17 09:00 03/19/17 08:59 03/02/17 08:47 40 MG Loratadine (Claritin Tab) 10 mg QAM PO 02/18/17 09:00 03/20/17 08:59 03/02/17 08:46 10 MG Docusate Sodium (coLACE CAP) 100 mg BID PO 02/19/17 21:00 03/21/17 20:59 03/02/17 08:47 100 MG Acetaminophen (Tylenol Tab) 650 mg Q6H PRN PO 02/19/17 15:45 03/21/17 15:44 02/28/17 12:43 650 MG Oxycodone HCl (Roxicodone Immediate Rel Tab) 5 mg Q4H PRN PO 02/19/17 15:45 03/05/17 15:44 03/02/17 01:24 5 MG Bisacodyl (Dulcolax Supp) 10 mg DAILY PRN IA 02/21/17 06:00 03/23/17 05:59 Menthol (Nice Edvin) 1 edvin PRN PRN PO 02/19/17 19:15 03/21/17 19:14 Magnesium Hydroxide (Milk Of Magnesia Susp) 30 ml Q6 PRN PO 02/20/17 17:15 03/21/17 15:44 03/01/17 20:50 30 ML Albuterol (Ventolin Hfa Inhaler) 2 puffs Q6H PRN INH 02/20/17 17:15 03/22/17 17:14 Fluticasone Propionate (Flonase Nasal [place]) 2 sprays DAILY PRN ALEJANDRO 02/20/17 17:15 03/22/17 17:14 Furosemide (Lasix Tab) 40 mg BID17 PO 02/20/17 18:00 03/22/17 17:59 03/02/17 08:47 40 MG Lactobacillus Acidophilus (Floranex Tab) 4 tab DAILY PO 02/21/17 09:00 03/23/17 08:59 03/02/17 08:47 4 TAB Gabapentin (Neurontin Cap) 100 mg BID PO 02/22/17 14:30 03/24/17 14:29 03/02/17 08:47 100 MG Bisacodyl (Dulcolax Tab) 10 mg DAILY PRN PO 02/24/17 09:00 03/22/17 17:59 03/01/17 15:59 10 MG Warfarin Sodium (Coumadin Tab) 3 mg DAILY@16 PO 02/28/17 16:00 03/30/17 15:59 03/01/17 15:52 3 MG Baclofen (Lioresal Tab) 5 mg TID PO 03/01/17 14:00 03/31/17 13:59 03/02/17 08:49 5 MG
[2017-03-02] MEDS ORDERED: MOMLX PO (11:22)
[2017-03-02] MEDS ORDERED: LRS10 PO ×2 (11:22→13:39)
--- NOTE | 2017-03-02 11:41 | Discharge Summary ---
Discharge Summary Date of Service Mar 02, 2017. Discharge Summary Admission Date: Feb 19, 2017 at 08:06 Discharge Date: Mar 02, 2017 Discharge Disposition: Rehab Principal Diagnosis: LOW BACK PAIN /COMPRESSION FX OF LUMBER L4/L5 Secondary Diagnoses/Problems: CHRONIC DIASTOLIC HEART FAILURE PAROXYSMAL AFIB VALVULAR HEART DISEASE COPD CONSTIPATION Procedures: SI joint injection L4-L5 Kyphoplasty Consultations: Pain management Ortho Medication Reconciliation New Medications: Baclofen (Baclofen) 10 Mg Tab 5 MG PO TID for 7 Days, #11 TAB Gabapentin (Gabapentin) 100 Mg Cap 100 MG PO TID for 30 Days, #90 CAP Magnesium Hydroxide (Milk of Magnesia) 30 Ml Susp 30 ML PO Q6 PRN for Constipation for 5 Days Oxycodone HCl (Oxycodone HCl) 5 Mg Tab 5 MG PO Q4H PRN for moderate pain (pain scale 4-6), #14 TAB Continued Medications: Albuterol Hfa (Ventolin Hfa) 200 Puffs/03019 Mcg Aers 2-4 PUFFS INH Q6H PRN for Wheezing, #1 INHALER Amiodarone HCl (Amiodarone HCl) 200 Mg Tab 200 MG PO DAILY, #64 Desloratadine (Clarinex) 5 Mg Tab 5 MG PO DAILY, TAB Docusate Sodium (Colace) 100 Mg Cap 100 MG PO BID Fluticasone Furoate-Vilanterol (Breo Ellipta) 1 Inh Inh 1 PUFF INH UD Fluticasone Propionate (Nasal) (Flonase Allergy Relief) 50 Mcg/Act Spr 2 SPRAY ALEJANDRO DAILY PRN for congestion Furosemide (Lasix) 40 Mg Tab 40 MG PO BID, TAB Lactobacillus (Floranex) 1 Tab Tab 200 MG PO DAILY Omeprazole (Prilosec) 40 Mg Cap 40 MG PO DAILY, #30 Senna/Docusate Sod (Senokot S) 1 Tab Tab 1 TAB PO BID, TAB Tamsulosin HCl (Tamsulosin HCl) 0.4 Mg Cap 0.4 MG PO HS, #90 Tiotropium [place] (Spiriva Handihaler) 30 Puff/540 Mcg Aerp 1 CAP INH DAILY, INHALER Warfarin Sod (Jantoven) 1 Mg Tab 2 MG PO 5XWK EVERY DAY BUT SUNDAY AND SUNDAY Warfarin Sod (Jantoven) 1 Mg Tab 3 MG PO 2XWK, TAB TAKES ONLY SUNDAY AND SUNDAY Discontinued Medications: Tramadol HCl (Tramadol HCl) 50 Mg Tab 50 MG PO Q4H PRN for Pain Admission Information HPI (per Admitting provider): CHIEF COMPLAINT: Back pain. HISTORY OF PRESENT ILLNESS: History obtained from patient and records. Medical history significant for chronic diastolic heart failure, paroxysmal AFib on anticoagulation, hx severe MR status post MVR, severe TR status post tricuspid repair (2015) COPD, past tobacco abuse, GERD, chronic anemia (baseline hemoglobin of 13), BPH Recent confinement August 2015 for right-sided hydropneumothorax. Last month, patient got up from a chair, subsequently fell fell down after experiencing sudden jolt of achy localized low back pain worsened with falling down. Over the next few days, patient noted occasional numbness on the L lower extremity, worse with walking. No bowel, no bladder incontinence. No fever, no chills. Seen at PCP's office. Impression was low back pain. Patient was prescribed prednisone course and muscle relaxant, analgesics. No improvement. Had PCP followup 2 weeks ago. Concern for sciatica. LS spine x-ray showed : Nonacute L3 vertebral compression deformity, grossly unchanged compared to earlier (2006) study. Additional slight vertebral height loss at the remaining visualized lower thoracic and lumbar vertebral levels, also grossly unchanged. Multilevel thoracolumbosacral spine degenerative disc disease, with some progression compared to earlier (2006) study. MRI contemplated next week. Patient was put on new course of prednisone, additional pain medicine prescribed. Outpatient PT recommended. Patient actually felt some improvement with back pain over the next few weeks. Yesterday he was at a picnic, some lifting done . He noted worsening of achy back pain, trouble walking. Px came to the Emergency Room with intractable pain. Physical Exam (per Admitting): PHYSICAL EXAMINATION: VITAL SIGNS: Blood pressure was noted to be 130/67, pulse rate 70, RR 18, temperature 36.5, and sat 98 on room air. GENERAL: Slightly uncomfortable, no respiratory distress. SKIN: Pallor, dry. HEENT: Pale palpebral conjunctivae. Dry mucosa. Partial alopecia. NECK: Supple, midline trachea, nontender. CHEST: Decreased effort. No anterior chest tenderness. CV: Regular rate and rhythm. Palpable lower extremity pulses. ABDOMEN: Some distention, nontender. BACK: Tenderness on the low back. Straight leg raise test abnormal (left greater than right.) NEUROLOGIC: No gross focality, coherent. Gait and stance not assessed. Hospital Course LOW BACK PAIN /COMPRESSION FX OF LUMBER L4/L5 s/p day 9 lumber L4-L5 spinal kyphoplasty by Dr Walker continue to have back pain cont Flexeril /muscle relaxant TLSO lumber brace applied by Orthotics Pain management on board Plan to get SI joint steroid injection, but his coumadin need to be on hold will discuss that with cardiology Waiting for rehab 02/27 Case discussed today with Dr. Fowler about the SI joint injection Case discussed with Cardiology, ok to hold coumadin for the SI joint injection as per cardio Dr. Fowler would like the coumadin to be less than 1.4 for the procedure Coumadin today 1.4 Schedule for SI Joint injection NPO after midnight 03/02 S/P SI joint injection done on 04/01 Continue to have back pain has been denies placement to [facility] Peer to peer review done today Pt is approved for subacute rehab [place] manager was notified Continue pain control Pain management on board continue oxycodone, baclofen, gabapentin [facility] follow up with pain management once discharge from rehab MRI OF LUMBER SPINE: 1. Acute 25% anterior endplate compression deformity of L5 without significant retropulsion. Extensive bone marrow edema seen within the L5 vertebral body extending into the left pedicle. There is no associated mass identified to suggest pathologic fracture, however intravenous contrast was not administered. This is likely secondary to insufficiency fracture. 2. Additional acute fracture involves the superior endplate L4 with moderate associated bone marrow edema. No significant endplate collapse or retropulsion. 3. Multilevel discogenic degenerative changes, spondylitic spurring and facet arthropathy as above, most pronounced at L2-L3 where there is moderate central canal and mild bilateral foraminal narrowing. CHRONIC DIASTOLIC HEART FAILURE no evidence of volume overload Continue lasix Stable ECHO done The left ventricle is normal in size. There is borderline concentric left ventricular hypertrophy. Septal motion is consistent with post-operative state. No regional wall motion abnormalities noted. Ejection Fraction = 60-65%. PAROXYSMAL AFIB rate controlled on Amiodarone no need for IV heparin bridge therapy pt follows with [facility] Cardiology Abelino Ramirez PA-C cardio on board case discussed with cardiology, OK to hold the coumadin for the SI joint injection Coumadin on hold for the SI joint injection INR 1.7 Continue coumadin Continue monitor INR VALVULAR HEART DISEASE hx severe MR status post MVR severe TR status post tricuspid repair (2016) On Coumadin Stable CONSTIPATION due to post op -pain medication /Narcotic induced has chronic constipation cont daily stool softener has a BM yesterday COPD respiratory status at baseline no wheeze or SOB stable DVT PROPHYLAXIS scd and teds On Coumadin INR 1.7 today DISPOSITION Follow up appointment with pain management Dr Fowler once discharge from rehab Follow up with your PCP once discharge from rehab Discharge to [facility] for rehab Total time spent on discharge = 35 minutes This includes examination of the patient, discharge planning, medication reconciliation, and communication with other providers. Discharge Instructions Discharge Instructions Date of Service Feb 22, 2017. Admission Reason for Admission: Back Pain Discharge Discharge Diagnosis / Problem: compression fractures L4 and L5 Discharge Goals Goal(s): Improve function Activity Recommendations Activity Limitations: per Instructions/Follow-up section Patient is to avoid lifting greater than 5-10 pounds. May ambulate as tolerated. Wear the LSO brace for pain control only. The brace is not mandatory. . Instructions / Follow-Up Instructions / Follow-Up Follow-up in the office in 2 weeks for updated x-rays lumbar spine. Current Hospital Diet Patient's current hospital diet: AHA Diet (Heart Healthy) Discharge Diet Recommended Diet: Regular Diet Procedures Procedures Performed: L4-L5 Kyphoplasty with Biopsy by Dr. Walker SI Joint Injection by Dr. Marcial Pending Studies Studies pending at discharge: no Medical Emergencies . Who to Call and When: Medical Emergencies: If at any time you feel your situation is an emergency, please call 911 immediately. . Non-Emergent Contact Non-Emergency issues call your: Primary Care Provider . "Provider Documentation" section prepared by Manuel Walker. . VTE Core Measure Inpt VTE Proph given/why not?: Esteban Alvarenga, SCD's Addendum: Renee Lam M.D. on 03/02/17 @ 11:32 Discharge Inst - Addendum Addendum Notes: Follow up with your primary care provider once discharge from rehab Follow up with pain management once discharge from rehab Follow orthopedic recommendation Follow up with ortho in 1 week Continue PT/OT Fall precaution Continue monitor INR (Check INR in 2-3 days) Addendum Provider: Addendum Notes were documented by provider Renee Lam. Additional Copies To Frank Mahoney D.O. Dipak, Jose
[2017-03-02] MEDS ORDERED: NRN100 PO (13:39)
[2017-03-02] MEDS ORDERED: RXC5 PO (13:41)
== END 2017-03-02 13:40 | DRG 478 ==
LOC: C.EDB 16:19 → C.MSN 22:25 → ENRESERV 23:19 → OBSVTOIN 02-19 08:06
PROVIDERS: ADMIT Family Medicine; ATTEND Internal Medicine
PROC: 0QU03JZ Supplement Lumbar Vertebra with Synthetic Substitute, Percutaneous Approach (ICD-10-PCS; principal; 2017-02-19 13:45)
PROC: 0QS03ZZ Reposition Lumbar Vertebra, Percutaneous Approach (ICD-10-PCS; principal; 2017-02-19 13:45)
PROC: 0QB03ZX Excision of Lumbar Vertebra, Percutaneous Approach, Diagnostic (ICD-10-PCS; principal; 2017-02-19 13:45)
DX: S32.048A Other fracture of fourth lumbar vertebra, initial encounter for closed fracture (principal); I50.32 Chronic diastolic (congestive) heart failure; I48.91 Unspecified atrial fibrillation; J45.909 Unspecified asthma, uncomplicated; J44.9 Chronic obstructive pulmonary disease, unspecified; K21.9 Gastro-esophageal reflux disease without esophagitis; Z79.01 Long term (current) use of anticoagulants; M19.90 Unspecified osteoarthritis, unspecified site; Z95.2 Presence of prosthetic heart valve; I34.0 Nonrheumatic mitral (valve) insufficiency; I10 Essential (primary) hypertension; D64.9 Anemia, unspecified; Z87.11 Personal history of peptic ulcer disease; Z87.891 Personal history of nicotine dependence; Z96.653 Presence of artificial knee joint, bilateral; X58.XXXA Exposure to other specified factors, initial encounter; Z80.9 Family history of malignant neoplasm, unspecified; Z82.49 Family history of ischemic heart disease and other diseases of the circulatory system; Z82.3 Family history of stroke

== ENCOUNTER 2017-04-27 15:57 | Inpatient (IN) | payer OTHER ==
[~2017-04-27] VITALS: Ht 177.8 cm; Wt 85.0 kg
[~2017-04-27 15:57] MED LIST changes: +ADVIN10/60 INH; +AMOX1TAB43 PO; +FIBER PO; +FLUT1INH INH; +FURO-85 PO; +GABA-112 PO; +LDDP5 TD; +MISCCAP80 PO; +MOMLX PO; +MULT-55 PO; -SENN-65 PO; +TRAM-10 PO; -ULT50 PO; -VNTHFA/IN INH
[2017-04-27 16:06] VITALS: Ht 177.8 cm; Wt 85.0 kg
[2017-04-27] MEDS ORDERED: ACETAMINOPHEN 500 MG TAB PO STA (16:12)
--- NOTE | 2017-04-27 16:18 | EMERGENCY ROOM VISIT NOTE ---
History Report prepared by Polly: Eddie Sharma Under the Supervision of: Dr. Corey Chowdhury M.D. First contact with patient: 15:58 Stated Complaint: back pain History of Present Illness The patient is an 86 year old white male with a past medical history of a replaced and repaired heart valve, arthritis, asthma, COPD, GERD, a-fib, and a kyphoplasty who presents to the ED with a cc of intermittent back spasms beginning yesterday. He currently states he is not in pain, and his kyphoplasty was 3 weeks ago. Positive falling twice yesterday and today due to back spasms, throbbing sensation, being on Coumadin. Yesterday he fell onto the floor striking his right shoulder. When the patient fell onto his bed today and could not get up. Pt was given 50 Fentanyl and his pain went away. Negative tobacco use, alcohol use, changes in medication, hitting his head, LOC. Review of EMR states the patient has a kyphoplasty for secondary compression fractures. Source of History: patient Onset: yesterday Position: back Symptom Intensity: none Quality: other (spasm and throbbing) Timing: intermittent Modifying Factors (Relieving): other (Fentanyl) Associated Symptoms: No LOC Note: Associated symptoms: right shoulder discomfort Review of Systems See HPI for pertinent positives and negatives. A total of ten systems were reviewed and were otherwise negative. Past Medical & Surgical Medical Problems: (1) A-fib (2) Arthritis (3) Asthma (4) Back pain (5) Conductive hearing loss (6) COPD (chronic obstructive pulmonary disease) (7) GERD (gastroesophageal reflux disease) (8) Heart failure, diastolic (9) History of left heart catheterization (10) shelter current use of anticoagulant (11) Osteoarthritis (12) Peptic ulcer disease Surgical Problems: (1) H/O foot surgery (2) H/O mitral valve replacement (3) H/O removal of cyst (4) H/O tricuspid valve repair (5) Hx of total knee arthroplasty (6) S/P MVR (mitral valve replacement) Family History Cancer FH: heart disease Hypertension Stroke Social History Smoking Status: Former Smoker Smokeless Tobacco Use: No Alcohol Use: none Drug Use: none Marital Status: Housing Status: lives with family Occupation Status: retired Current/Historical Medications Scheduled Albuterol Hfa (Ventolin Hfa), 2-4 PUFFS INH Q6H Amiodarone HCl (Amiodarone HCl), 200 MG PO DAILY Cholecalciferol (Vitamin D3), 1 CAP PO DAILY Cyclobenzaprine Hcl (Flexeril), 20 MG PO TID Desloratadine (Clarinex), 5 MG PO HS Fluticasone Furoate-Vilanterol (Breo Ellipta), 1 PUFF INH UD Furosemide (Lasix), 40 MG PO QAM Furosemide (Lasix), 20 MG PO QPM Gabapentin (Neurontin), 300 MG PO TID Lidocaine (Lidocaine), 1 PATCH TD DAILY Multiple Vitamins W/ Minerals (Vision Vitamins), 1 TAB PO QAM Omeprazole (Prilosec), 40 MG PO QAM Probiotic Product (Probiotic), 1 CAP PO QAM Sennosides ([place]), 1 TAB PO HS Tamsulosin HCl (Tamsulosin HCl), 0.4 MG PO HS Tiotropium [place] (Spiriva Handihaler), 1 CAP INH DAILY Warfarin Sod (Jantoven), 2 MG PO MWF Warfarin Sod (Jantoven), 3 MG PO 4XWK Scheduled PRN Hydrocodone/Acetaminophen 5MG/325MG ([place] 5MG/325MG), 1-2 TABLETS PO Q6H PRN for Pain Allergies Coded Allergies: Lansoprazole (Verified Allergy, Unknown, didn't work/dr determined pt was allergic, 04/27/17) Physical Exam Vital Signs Date Time Temp Pulse Resp B/P (MAP) Pulse Ox O2 Delivery O2 Flow Rate FiO2 04/27/17 19:12 62 18 144/74 93 Room Air 04/27/17 16:25 93 Room Air 04/27/17 16:06 36.7 76 20 126/58 92 Room Air Physical Exam GENERAL: Awake, alert, well-appearing, NAD HENT: Normocephalic, atraumatic. EYES: Normal conjunctiva. Sclera non-icteric. NECK: Supple. No nuchal rigidity. FROM. No midline c-spine tenderness RESPIRATORY: CTAB, no rhonchi, wheezing, crackles CARDIAC: RRR, no MRG ABDOMEN: Soft, NTND, BS+ MSK: No chest wall TTP, no LE edema. No pain to abdomen, bilateral upper extremities, and bilateral lower extremities. Lumbar midline TTP NEURO: GCS 15, CN 2-12 intact, moves all 4s on command. 4/5 strength symmetrical to the bilateral lower extremities secondary to pain/weakness. NVI distally in bilateral lower extremities. SKIN: No rash or jaundice noted. Medical Decision & Procedures ER Provider Diagnostic Interpretation: Radiology results as stated below per my review and radiologist interpretation: L-SPINE MIN 4 VIEWS ROUTINE HISTORY: 86 years-old Male Back pain acute back pain COMPARISON: Lumbar spine radiographs 03/18/2017, lumbar spine MR 03/20/2017 TECHNIQUE: 5 views of the lumbar spine FINDINGS: The bones are severely demineralized which limits evaluation for acute nondisplaced fracture. Prior vertebral plasty is again seen at L4 and L5. There has been progressive loss of the anterior endplate vertebral body height at the L2 vertebral body without retropulsion identified. Remote compression deformity of L3 is again seen. Schmorl's nodes at the L1 and T12 levels again noted. No acute subluxation identified. Multilevel spondylitic spurring and advanced facet arthropathy with intervertebral disc space narrowing. 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 Progressive compression deformity at L2 which has progressed from comparison study MRI 03/20/2017 which showed acute on chronic compression deformity at this level. These findings would suggest acute or subacute injury. No retropulsion. 2. Remote compression deformities at the L3, L4 and L5 levels with prior vertebroplasty at L4 and L5. 3. Severely demineralized appearance of the bones with degenerative changes as above. The above report was generated using voice recognition software. It may contain grammatical, syntax or spelling errors. Electronically signed by: Alireza Anand M.D. 04/27/2017 5:57 PM Dictated Date/Time: 04/27/2017 5:51 PM L-SPINE MIN 4 VIEWS ROUTINE HISTORY: 86 years-old Male Back pain acute back pain COMPARISON: Lumbar spine radiographs 03/18/2017, lumbar spine MR 03/20/2017 TECHNIQUE: 5 views of the lumbar spine FINDINGS: The bones are severely demineralized which limits evaluation for acute nondisplaced fracture. Prior vertebral plasty is again seen at L4 and L5. There has been progressive loss of the anterior endplate vertebral body height at the L2 vertebral body without retropulsion identified. Remote compression deformity of L3 is again seen. Schmorl's nodes at the L1 and T12 levels again noted. No acute subluxation identified. Multilevel spondylitic spurring and advanced facet arthropathy with intervertebral disc space narrowing. 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 Progressive compression deformity at L2 which has progressed from comparison study MRI 03/20/2017 which showed acute on chronic compression deformity at this level. These findings would suggest acute or subacute injury. No retropulsion. 2. Remote compression deformities at the L3, L4 and L5 levels with prior vertebroplasty at L4 and L5. 3. Severely demineralized appearance of the bones with degenerative changes as above. The above report was generated using voice recognition software. It may contain grammatical, syntax or spelling errors. Electronically signed by: Alireza Anand M.D. 04/27/2017 5:57 PM Dictated Date/Time: 04/27/2017 5:51 PM Laboratory Results 04/27/17 16:35 Red Blood Count 3.93, Mean Corpuscular Volume 92.1, Mean Corpuscular Hemoglobin 30.3, Mean Corpuscular Hemoglobin Concent 32.9, Mean Platelet Volume 11.5, Neutrophils (%) (Auto) 59.8, Lymphocytes (%) (Auto) 20.9, Monocytes (%) (Auto) 15.2, Eosinophils (%) (Auto) 2.8, Basophils (%) (Auto) 1.2, Neutrophils # (Auto ) 4.08, Lymphocytes # (Auto) 1.43, Monocytes # (Auto) 1.04, Eosinophils # (Auto ) 0.19, Basophils # (Auto) 0.08 04/27/17 16:35 Test 04/27/17 16:35 White Blood Count 6.83 K/uL (4.8-10.8) Red Blood Count 3.93 M/uL (4.7-6.1) Hemoglobin 11.9 g/dL (14.0-18.0) Hematocrit 36.2 % (42-52) Mean Corpuscular Volume 92.1 fL (80-100) Mean Corpuscular Hemoglobin 30.3 pg (25-34) Mean Corpuscular Hemoglobin Concent 32.9 g/dl (32-36) Platelet Count 203 K/uL (130-400) Mean Platelet Volume 11.5 fL (7.4-10.4) Neutrophils (%) (Auto) 59.8 % Lymphocytes (%) (Auto) 20.9 % Monocytes (%) (Auto) 15.2 % Eosinophils (%) (Auto) 2.8 % Basophils (%) (Auto) 1.2 % Neutrophils # (Auto) 4.08 K/uL (1.4-6.5) Lymphocytes # (Auto) 1.43 K/uL (1.2-3.4) Monocytes # (Auto) 1.04 K/uL (0.11-0.59) Eosinophils # (Auto) 0.19 K/uL (0-0.5) Basophils # (Auto) 0.08 K/uL (0-0.2) RDW Standard Deviation 50.3 fL (36.4-46.3) RDW Coefficient of Variation 14.9 % (11.5-14.5) Immature Granulocyte % (Auto) 0.1 % Immature Granulocyte # (Auto) 0.01 K/uL (0.00-0.02) Prothrombin Time 17.5 SECONDS (9.0-12.0) Prothromb Time International Ratio 1.7 (0.9-1.1) Activated Partial Thromboplast Time 34.7 SECONDS (21.0-31.0) Partial Thromboplastin Ratio 1.3 Anion Gap 6.0 mmol/L (3-11) Est Creatinine Clear Calc Drug Dose 55.4 ml/min Estimated GFR () 81.0 Estimated GFR (Non- 69.9 BUN/Creatinine Ratio 14.8 (10-20) Calcium Level 8.6 mg/dl (8.5-10.1) Laboratory results reviewed by me Medications Administered Medications (Trade) Dose Ordered Sig/Baldomero Route Start Time Stop Time Status Last Admin Dose Admin Acetaminophen (Tylenol Tab) 1,000 mg NOW STAT PO 04/27/17 16:12 04/27/17 16:13 DC 04/27/17 16:36 1,000 MG ECG Indication: weakness Rate (beats per minute): 63 Rhythm: sinus rhythm Findings: 1st degree AV block, other (Prolonged QR, normal axis, no other STS changes or TWI) ED Course 160: The patient was evaluated in room A12A. A complete history and physical exam was performed. 1752: I reevaluated the patient. His daughter is to come and discuss rehabilitation options. 8: I discussed the patients case with Dr. Walker, [facility]. He agrees with the treatment plan. Return to office if worsened. 1854: I reevaluated the patient and discussed the current results. The patient' s daughter is still not here. 1927: I reevaluated the patient and had a very long discussion with the family. 1958: Case management informed me the patient would like to be observed under the hospitalist's care. 2002: I discussed the patient's case with Dr. Patiño, [facility] Hospitalist. The patient will be evaluated for further management and care. Medical Decision The patient is an 86 year old white male with a past medical history of a MVR and TR s/p repair on Coumadin, arthritis, asthma, COPD, GERD, and a kyphoplasty who presents to the ED with a cc of intermittent back spasms beginning yesterday. Differential diagnosis: Etiologies such as musculoskeletal, disc herniation, fracture, aortic disease, metastatic disease, cord compression, discitis, infection, renal colic, gastrointestinal, acute exacerbation of chronic back pain, sciatica, cauda equina, as well as others were entertained. Patient was seen and evaluated at the bedside. Patient had been complaining of some back pains been ongoing. Patient states that he had a kyphoplasty completed by Dr. Walker approximately 3 weeks ago. Patient states that he did have 2 falls one yesterday that result resulted after getting up from an armchair when she fell onto his right shoulder. Patient denies any LOC. Patient did have a fall today where he got up at than just fell back onto his bed. Patient has no lower extremity deficits. His back does have some mild pain but there is no erythema or fluctuance or calor. The patient did have blood work completed, EKG, CT of the brain. He also had plain films completed in lumbar spine. Patient is subtherapeutic on his INR 1.7. Patient's CT of the brain is negative acute. I did have a prolonged discussion with the family as well as the patient to discuss the ability of the hospital for further treatment as the patient currently does not have a medical reason for admission. We did discuss possibility of PT and OT and possible placement with rehabilitation. Patient is amenable to staying in the hospital for further evaluation treatment. I discussed the hospitalist who agreed to further evaluate and treat the patient. Head Trauma GCS Score: 15 Medication Reconcilliation Current Medication List: was personally reviewed by me Blood Pressure Screening Patient's blood pressure: Elevated blood pressure Monitored by hospitalist. Consults Time Called: 1806 Consulting Physician: Dr. Walker [facility] Returned Call: [phone] I discussed the patients case with Dr. Walker [facility]. He agrees with the treatment plan. Return to office if worsened. Additional Consults: Time Called: 1999 Consulted Physician: Yvonne Colby Hospitalist Returned Call: 2002 Additional Comments: I discussed the patient's case with [facility]von[facility] Colby [facility]. The patient will be evaluated for further management and care. Impression Primary Impression: S/P MVR (mitral valve replacement) Additional Impressions: H/O tricuspid valve repair Back pain Fall Scribe Attestation The scribe's documentation has been prepared under my direction and personally reviewed by me in its entirety. I confirm that the note above accurately reflects all work, treatment, procedures, and medical decision making performed by me. Departure Information Dispostion Being Evaluated By Hospitalist Referrals Frank Mahoney D.ONando (PCP) Problem Qualifiers Additional Impressions: Back pain Back pain location: low back pain Chronicity: chronic Back pain laterality : midline Sciatica presence: without sciatica Qualified Codes: M54.5 - Low back pain; G89.29 - Other chronic pain Fall Encounter type: initial encounter Qualified Codes: W19.XXXA - Unspecified fall, initial encounter
[2017-04-27 16:50] LABS: BASO % 1.2 %; BASO ABS # 0.08 K/uL (0-0.2); COMPLETE YES; EOS % 2.8 %; HEMATOCRIT 36.2 % (42-52); IG% 0.1 %; LYMPH % 20.9 %; LYMPH ABS # 1.43 K/uL (1.2-3.4); MEAN CELL VOLUME 92.1 fL (80-100); MEAN CORPUSCULAR HEMOGLOBIN 30.3 pg (25-34); MEAN CORPUSCULAR HGB CONC 32.9 g/dl (32-36); MEAN PLATELET VOLUME 11.5 fL (7.4-10.4); MONO % 15.2 %; NEUT % 59.8 %; PLATELET COUNT 203 K/uL (130-400); RED BLOOD COUNT 3.93 M/uL (4.7-6.1); WHITE BLOOD COUNT 6.83 K/uL (4.8-10.8)
[2017-04-27] MEDS ORDERED: CLR/5 PO (16:53)
[2017-04-27] MEDS ORDERED: HYDR-5688 PO (16:53)
[2017-04-27] MEDS ORDERED: GABA-113 PO (16:53)
[2017-04-27] MEDS ORDERED: CHOL2000 PO (16:53)
[2017-04-27] MEDS ORDERED: CYCL10TA6 PO (16:53)
[2017-04-27] MEDS ORDERED: VNTHFA/IN INH (16:53)
[2017-04-27] MEDS ORDERED: LIDO1PAD2 TD (16:53)
[2017-04-27] MEDS ORDERED: SENN8.6T9 PO (16:53)
--- NOTE | 2017-04-27 16:56 | DIAGNOSTIC IMAGING REPORT ---
HEAD WITHOUT CONTRAST (CT) CLINICAL HISTORY: 86 years-old Male with s/p fall, on coumadin. Acute fall while on anticoagulant therapy TECHNIQUE: Multiple axial CT images of the head were obtained without contrast. A dose lowering technique was utilized adhering to the principles of ALARA. CT DOSE: 537.48 mGy.cm COMPARISON: CT head 03/24/2017. FINDINGS: No acute intracranial hemorrhage, midline shift, intracranial mass, hydrocephalus, territorial ischemia or abnormal extra-axial collection. Moderate atrophy with chronic microvascular ischemic changes mild ex vacuo ventriculomegaly. The calvarium is intact. Trace left mastoid effusion. Scalp soft tissues are unremarkable. Bilateral rolando bullosa. Mild ethmoid mucosal thickening. Postsurgical changes of the bilateral globes. IMPRESSION: No acute intracranial abnormality. No calvarial fracture. The above report was generated using voice recognition software. It may contain grammatical, syntax or spelling errors. Electronically signed by: Alireza Anand M.D. 04/27/2017 4:55 PM Dictated Date/Time: 04/27/2017 4:51 PM
[2017-04-27 17:00] LABS: INR 1.7 (0.9-1.1); PARTIAL THROMBOPLASTIN RATIO 1.3; PROTHROMBIN TIME (PATIENT) 17.5 SECONDS (9.0-12.0)
[2017-04-27 17:08] LABS: BUN/CREATININE RATIO 14.8 (10-20); CALCIUM 8.6 mg/dl (8.5-10.1); CREATININE 0.97 mg/dl (0.60-1.40); POTASSIUM 3.8 mmol/L (3.5-5.1)
--- NOTE | 2017-04-27 17:59 | DIAGNOSTIC IMAGING REPORT ---
L-SPINE MIN 4 VIEWS ROUTINE HISTORY: 86 years-old Male Back pain acute back pain COMPARISON: Lumbar spine radiographs 03/18/2017, lumbar spine MR 03/20/2017 TECHNIQUE: 5 views of the lumbar spine FINDINGS: The bones are severely demineralized which limits evaluation for acute nondisplaced fracture. Prior vertebral plasty is again seen at L4 and L5. There has been progressive loss of the anterior endplate vertebral body height at the L2 vertebral body without retropulsion identified. Remote compression deformity of L3 is again seen. Schmorl's nodes at the L1 and T12 levels again noted. No acute subluxation identified. Multilevel spondylitic spurring and advanced facet arthropathy with intervertebral disc space narrowing. 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 Progressive compression deformity at L2 which has progressed from comparison study MRI 03/20/2017 which showed acute on chronic compression deformity at this level. These findings would suggest acute or subacute injury. No retropulsion. 2. Remote compression deformities at the L3, L4 and L5 levels with prior vertebroplasty at L4 and L5. 3. Severely demineralized appearance of the bones with degenerative changes as above. The above report was generated using voice recognition software. It may contain grammatical, syntax or spelling errors. Electronically signed by: Alireza Anand M.D. 04/27/2017 5:57 PM Dictated Date/Time: 04/27/2017 5:51 PM
[2017-04-27] MEDS ORDERED: ONDANSETRON INJ 2 MG/ML 2 ML VIAL IV PRN (21:15)
[2017-04-27] MEDS ORDERED: DOCU-94 PO (21:20)
[2017-04-27] MEDS ORDERED: BACL20TA PO (21:20)
[2017-04-27] MEDS ORDERED: DOCUSATE SODIUM 100 MG CAP PO PRN (21:30)
--- NOTE | 2017-04-27 22:03 | History and Physical ---
History & Physical Date & Time of Service: Apr 27, 2017 at 21:28 Chief Complaint: back pain Primary Care Physician: Frank Mahoney D.ONando History of Present Illness Source: patient, family (daughter Manjula at bedside), clinic records, hospital records This is a 86yo M with a PMH of chronic back pain, chronic diastolic HF, COPD, paroxysmal A Fib (on coumadin), severe MR s/p MVR, severe TP s/p repair, GERD and BPH who presents with worsening spasmodic back pain. Patient underwent a Lumbar L4-L5 spinal Kyphoplasty for compression fractures by on 02/19 and completed rehab at [facility]. Was readmitted to [facility] [place] from 03/18-03/27 for spasmodic back pain and received an SI joint injection under fluoroscopy. Developed hospital acquired MSSA PNA and was discharged to [facility] on antibiotics. Continued to participate in PT/OT until discharge home on 04/12. Patient has continued to participate in out-patient rehab and has been following with Dr. Fowler in pain management. Has not been wearing back brace 2/ 2 discomfort. Early this morning, around 3am, patient reports attempting to get out of his recliner to use the restroom when he slid to the floor. Denies any proceeding lightheadedness, CP or SOB but does state that he "feels confused" on his pain medication and thinks that it made him unbalanced. Denies hitting his head or LOC. Reports that his found him a few hours later. Requested help of neighbor to get patient into bed. Later in the day, patient was trying to get out of his bed with his 's assistance and fell back onto bed. At this point, was instructed to call EMS for patient to receive further evaluation in the ER. Endorses severe, 10/10 sharp spasms of pain that last for ~1 minute at a time. Pain is associated with intermittent weakness in bilateral legs. Also states worsening shakiness in hands. Denies bowel or bladder incontinence. Denies fever , chills, CP, SOB, abdominal pain, nausea, vomiting, dysuria, constipation or numbness/tingling in extremities. Past Medical/Surgical History Medical Problems: (1) Arthritis Status: Chronic (2) Asthma Status: Resolved (3) Conductive hearing loss Status: Chronic (4) COPD (chronic obstructive pulmonary disease) Status: Chronic (5) GERD (gastroesophageal reflux disease) Status: Chronic (6) Heart failure, diastolic Status: Chronic (7) History of left heart catheterization Status: Chronic (8) group home current use of anticoagulant Status: Chronic (9) Osteoarthritis Status: Chronic (10) Peptic ulcer disease Status: Chronic Surgical Problems: (1) H/O foot surgery Status: Chronic (2) H/O mitral valve replacement Status: Chronic (3) H/O removal of cyst Status: Resolved (4) H/O tricuspid valve repair Status: Chronic (5) Hx of total knee arthroplasty Status: Chronic (6) S/P MVR (mitral valve replacement) Status: Chronic Family History Cancer FH: heart disease Hypertension Stroke Social History Smoking Status: Former Smoker Smokeless Tobacco Use: No Drug Use: none Marital Status: Housing status: lives with significant other Occupational Status: retired Immunizations History of Influenza Vaccine: Yes History of Tetanus Vaccine?: Unknown History of Pneumococcal: Yes History of Hepatitis B Vaccine: Unknown Multi-Drug Resistant Organisms History of MDRO: No Allergies Coded Allergies: Lansoprazole (Verified Allergy, Unknown, didn't work/dr determined pt was allergic, 04/27/17) Home Medications Scheduled Albuterol Hfa (Ventolin Hfa), 2-4 PUFFS INH Q6H Amiodarone HCl (Amiodarone HCl), 200 MG PO DAILY Baclofen (Lioresal), 1 TAB PO TID Cholecalciferol (Vitamin D3), 1 CAP PO DAILY Desloratadine (Clarinex), 5 MG PO HS Fluticasone Furoate-Vilanterol (Breo Ellipta), 1 PUFF INH UD Furosemide (Lasix), 40 MG PO QAM Furosemide (Lasix), 20 MG PO QPM Gabapentin (Neurontin), 300 MG PO TID Lidocaine (Lidocaine), 1 PATCH TD DAILY Multiple Vitamins W/ Minerals (Vision Vitamins), 1 TAB PO QAM Omeprazole (Prilosec), 40 MG PO QAM Probiotic Product (Probiotic), 1 CAP PO QAM Tamsulosin HCl (Tamsulosin HCl), 0.4 MG PO HS Tiotropium [place] (Spiriva Handihaler), 1 CAP INH DAILY Warfarin Sod (Jantoven), 2 MG PO MWF Warfarin Sod (Jantoven), 3 MG PO SuTuThSa Scheduled PRN Docusate Sodium (Colace), 1 CAP PO BID PRN for Constipation Hydrocodone/Acetaminophen 5MG/325MG ([place] 5MG/325MG), 1-2 TABLETS PO Q6H PRN for Pain Review of Systems Ten systems reviewed and negative except as noted in the HPI. Physical Exam Vital Signs Date Time Temp Pulse Resp B/P (MAP) Pulse Ox O2 Delivery O2 Flow Rate FiO2 04/27/17 19:12 62 18 144/74 93 Room Air 04/27/17 16:25 93 Room Air 04/27/17 16:06 36.7 76 20 126/58 92 Room Air General Appearance: no apparent distress, + pertinent finding (Frail appearing) Head: normocephalic, atraumatic Eyes: normal inspection, PERRL, sclerae normal ENT: normal ENT inspection, hearing grossly normal, pharynx normal (moist mucous membranes ) Neck: supple, no adenopathy, trachea midline Respiratory/Chest: chest non-tender, no respiratory distress, no accessory muscle use, + decreased breath sounds (no crackles, wheezing ) Cardiovascular: regular rate, rhythm, normal peripheral pulses, + systolic murmur (faint) Abdomen/GI: non tender, soft, no organomegaly Back: normal inspection Extremities/Musculoskelatal: normal inspection, no calf tenderness, no pedal edema, normal range of motion Neurologic/Psych: no motor/sensory deficits (5/5 KASSIE in all 4 extremities. Did not assess gait 2/2 generalized weakness. ), alert, normal mood/affect, oriented x 3 Skin: normal color, warm/dry Diagnostics Laboratory Results Results Past 24 Hours Test 04/27/17 16:35 Range/Units White Blood Count 6.83 4.8-10.8 K/uL Red Blood Count 3.93 4.7-6.1 M/uL Hemoglobin 11.9 14.0-18.0 g/dL Hematocrit 36.2 42-52 % Mean Corpuscular Volume 92.1 80-100 fL Mean Corpuscular Hemoglobin 30.3 25-34 pg Mean Corpuscular Hemoglobin Concent 32.9 32-36 g/dl Platelet Count 203 130-400 K/uL Mean Platelet Volume 11.5 7.4-10.4 fL Neutrophils (%) (Auto) 59.8 % Lymphocytes (%) (Auto) 20.9 % Monocytes (%) (Auto) 15.2 % Eosinophils (%) (Auto) 2.8 % Basophils (%) (Auto) 1.2 % Neutrophils # (Auto) 4.08 1.4-6.5 K/uL Lymphocytes # (Auto) 1.43 1.2-3.4 K/uL Monocytes # (Auto) 1.04 0.11-0.59 K/uL Eosinophils # (Auto) 0.19 0-0.5 K/uL Basophils # (Auto) 0.08 0-0.2 K/uL RDW Standard Deviation 50.3 36.4-46.3 fL RDW Coefficient of Variation 14.9 11.5-14.5 % Immature Granulocyte % (Auto) 0.1 % Immature Granulocyte # (Auto) 0.01 0.00-0.02 K/uL Prothrombin Time 17.5 9.0-12.0 SECONDS Prothromb Time International Ratio 1.7 0.9-1.1 Activated Partial Thromboplast Time 34.7 21.0-31.0 SECONDS Partial Thromboplastin Ratio 1.3 Sodium Level 140 136-145 mmol/L Potassium Level 3.8 3.5-5.1 mmol/L Chloride Level 105 98-107 mmol/L Carbon Dioxide Level 29 21-32 mmol/L Anion Gap 6.0 3-11 mmol/L Blood Urea Nitrogen 14 7-18 mg/dl Creatinine 0.97 0.60-1.40 mg/dl Est Creatinine Clear Calc Drug Dose 55.4 ml/min Estimated GFR () 81.0 Estimated GFR (Non- 69.9 BUN/Creatinine Ratio 14.8 10-20 Random Glucose 92 70-99 mg/dl Calcium Level 8.6 8.5-10.1 mg/dl Diagnostic Radiology CT head: IMPRESSION: No acute intracranial abnormality. No calvarial fracture. Lumbar spine XR: IMPRESSION: 1. Progressive compression deformity at L2 which has progressed from comparison study MRI 03/20/2017 which showed acute on chronic compression deformity at this level. These findings would suggest acute or subacute injury. No retropulsion. 2. Remote compression deformities at the L3, L4 and L5 levels with prior vertebroplasty at L4 and L5. 3. Severely demineralized appearance of the bones with degenerative changes as above. Impression Assessment and Plan This is a 86yo M with a PMH of chronic back pain, chronic diastolic HF, COPD, paroxysmal A Fib (on coumadin), severe MR s/p MVR, severe TP s/p repair, GERD and BPH who presents with worsening spasmodic back pain. Spasmodic back pain: -S/p lumbar L4-L5 spinal Kyphoplasty for compression fractures by on 02/19 -Readmitted 03/18-03/27 for continued pain; s/p SI joint injection -Discharged from rehab on 04/12 -Lumbar spine XR shows progressive compression deformity at L2 which has progressed from comparison study MRI 03/20/2017 which showed acute on chronic compression deformity at this level. These findings would suggest acute or subacute injury. No retropulsion. -ER discussed with Dr. Walker, who recommended conservative mgmt -Continue home dose [place], baclofen, lidocaine patch for now -Ortho spine consult Mechanical fall: -Multifactorial 2/2 pain, confusion on narcotics, deconditioning -Denies LOC, CT head without acute intracranial abnormalities -Avoid IV narcotics -Fall precautions -PT/OT eval Paroxysmal A Fib: -Sinus rhythm on EKG -Continue home dose anticoagulation -Cont amiodarone -INR 1.7 today -Recheck in AM -SCDs COPD: -Stable -Denies CP, SOB -Continue home inhalers Diastolic HF: -Compensated -Feb 2017 echo with normal LV size, borderline LVH, EF 60-65% -Cont home lasix H/o PNA: -Recently completed abx course from [facility] -Repeat CXR at PCP was clear -Denies any residual symptoms BPH: -Cont tamsulosin Dispo: -Family has had recent discussions with CM regarding patient requiring more care than elderly can provide -Both patient and family interested in extended care in assisted living -[facility] is first choice DVT Ppx: Continue warfarin, SCDs Code status: FULL per discussion with patient and family PCP: Shonna Mahoney Dispo: Observation medsurg. Discharge planning ordered. Patient seen in collaboration with Dr. Patiño. Please see addendum. Attending Note: Patient is an 86 yr male with chronic back pain secondary to multiple compression fractures and other comorbidities who has recently undergone L4-5 Kyphoplasty by and follows with for pain management, had multiple admissions for management of back pain and SI joint pain presents with history of fall and worsening spasmodic back pain. Denies any dizziness, LOC, head trauma, Incontinence. He has been requiring Pain medications/antispasmodics as prescribed to control his back pain but has been having more sleepy lately secondary to the pain medications. Patient lives with his who is unable to take care of him at home currently. Also reports having leg weakness and is having balance issues secondary to spasms. X ray of spine showed progressive compression deformity at L2 which has progressed from comparison study MRI 03/20/2017. CT head showed no acute process. Patient is on Coumadin for P.afib, denies any bleeding issues. 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, no erythema Extremities/Musculoskelatal:normal inspection, no edema Neurologic/Psych:AAOX3, grossly no focal neurological deficits Skin:normal color,warm Assessment and Plan: Multiple Falls/Ambulatory dysfunction Chronic back pain secondary to multiple compressions fractures S/p L4-L5 Kyphoplasty in Feb, 2017 Pain control, PT/OT May benefit from ferry terminal agent SNF/Rehab placement Consulted Orthopedics Fall precautions cautious use of sedatives meds P.Afib/Subtherapeutic INR: On chronic anticoagulation May need to assess risks/benefit regarding anticoagulation if patient has recurrence of falls I personally reviewed the record. Patient is interviewed and examined at bedside. Patient's care is coordinated with Adele Rios PA-C. Please refer to the documentation above for details of patient's presentation and for discussion of other issues. Level of Care Med/Surg Resuscitation Status FULL RESUSCITATION VTE Prophylaxis VTE Risk Assessment Done? Y/N: Yes Risk Level: Moderate Given or contraindicated: Warfarin (Coumadin) Social Service Consult Receiving Home Health
[2017-04-27 22:50] VITALS: BP 132/68; PULSE 65; TEMP 36.5; O2SAT 91
[2017-04-27] MEDS ORDERED: WARFARIN SOD 2 MG TAB PO SCH (23:30)
[2017-04-28] MEDS: ALBUTEROL HFA 8 GM INHALER INH SCH ×4 (00:30→17:53)
[2017-04-28] MEDS ORDERED: IV FLUIDS COMPLETED PRN (01:00)
[2017-04-28] MEDS: HYDROCODONE/ACETAMOPHEN 5/325MG TAB PO PRN (02:56)
[2017-04-28 06:27] LABS: HEMATOCRIT 36.3 % (42-52); MEAN CELL VOLUME 91.2 fL (80-100); MEAN CORPUSCULAR HEMOGLOBIN 30.4 pg (25-34); MEAN CORPUSCULAR HGB CONC 33.3 g/dl (32-36); MEAN PLATELET VOLUME 11.8 fL (7.4-10.4); PLATELET COUNT 211 K/uL (130-400); RED BLOOD COUNT 3.98 M/uL (4.7-6.1); WHITE BLOOD COUNT 5.69 K/uL (4.8-10.8)
[2017-04-28 06:36] LABS: INR 1.7 (0.9-1.1); PROTHROMBIN TIME (PATIENT) 17.3 SECONDS (9.0-12.0)
[2017-04-28 07:05] LABS: BUN/CREATININE RATIO 12.8 (10-20); CALCIUM 8.8 mg/dl (8.5-10.1); CREATININE 0.88 mg/dl (0.60-1.40); POTASSIUM 3.8 mmol/L (3.5-5.1)
[2017-04-28 08:02] VITALS: BP 118/72; PULSE 62; TEMP 36.5; O2SAT 93
[2017-04-28] MEDS: TIOTROPIUM BROMIDE 5 PUFF/90 MCG INH INH SCH (08:58)
[2017-04-28] MEDS: FUROSEMIDE 40 MG TAB PO SCH (08:59)
[2017-04-28] MEDS: GABAPENTIN 300 MG CAP PO SCH ×3 (08:59→21:42)
[2017-04-28] MEDS: PANTOprazole SOD 40 MG TAB PO SCH (08:59)
[2017-04-28] MEDS: CHOLECALCIFEROL 1000 INTER.UNIT TAB PO SCH (08:59)
[2017-04-28] MEDS: BACLOFEN TAB 20 MG TAB PO SCH ×3 (08:59→21:40)
[2017-04-28] MEDS: AMIODARONE 200 MG TAB PO SCH (09:00)
[2017-04-28] MEDS: LIDODERM (LIDOCAINE) PATCH 5% TD SCH (09:02)
--- NOTE | 2017-04-28 10:45 | Orthopedic Consultation ---
Orthopedic Consultation Date of Consultation: Apr 28, 2017. Attending Physician: Mike Huertas M.D. Reason for Consultation: Back pain History of Present Illness This is an 86-year-old male well-known to me the presents with worsening back pain and spasms. He states he had a fall out of his recliner at home in the past day. His back pain became severe with accompanying spasms. Symptoms were strong enough that he was unable to ambulate and was subsequently brought to the emergency room. This morning he describes mostly back spasms. He denies any leg pain for discussion this morning. Denies any numbness or tingling. He does over describe significant weakness in his lower extremities when he tries to ambulate. No other new changes noted. Again he is status post kyphoplasty L4 and L5 after which she progressed appropriately. Past Medical/Surgical History Medical Problems: (1) Bilateral pleural effusion Status: Acute (2) CHF (congestive heart failure) Status: Acute (3) Congestive heart failure Status: Acute (4) COPD exacerbation Status: Acute (5) COPD exacerbation Status: Acute (6) Fall Status: Acute (7) Lumbar compression fracture Status: Acute (8) Lumbosacral radiculopathy Status: Acute (9) New onset atrial fibrillation Status: Acute (10) Pleural effusion Status: Acute (11) Pleuritic chest pain Status: Acute (12) Pneumothorax, right Status: Acute Surgical Problems: (1) H/O tricuspid valve repair Status: Chronic (2) S/P MVR (mitral valve replacement) Status: Chronic Family History Cancer FH: heart disease Hypertension Stroke Social History Smoking Status: Former Smoker Smokeless Tobacco Use: No Drug Use: none Marital Status: Housing Status: lives with family Occupation Status: retired Allergies Coded Allergies: Lansoprazole (Verified Allergy, Unknown, didn't work/dr determined pt was allergic, 04/27/17) Home Medications Scheduled Albuterol Hfa (Ventolin Hfa), 2-4 PUFFS INH Q6H Amiodarone HCl (Amiodarone HCl), 200 MG PO DAILY Baclofen (Lioresal), 1 TAB PO TID Cholecalciferol (Vitamin D3), 1 CAP PO DAILY Desloratadine (Clarinex), 5 MG PO HS Fluticasone Furoate-Vilanterol (Breo Ellipta), 1 PUFF INH UD Furosemide (Lasix), 40 MG PO QAM Furosemide (Lasix), 20 MG PO QPM Gabapentin (Neurontin), 300 MG PO TID Lidocaine (Lidocaine), 1 PATCH TD DAILY Multiple Vitamins W/ Minerals (Vision Vitamins), 1 TAB PO QAM Omeprazole (Prilosec), 40 MG PO QAM Probiotic Product (Probiotic), 1 CAP PO QAM Tamsulosin HCl (Tamsulosin HCl), 0.4 MG PO HS Tiotropium [place] (Spiriva Handihaler), 1 CAP INH DAILY Warfarin Sod (Jantoven), 2 MG PO MWF Warfarin Sod (Jantoven), 3 MG PO SuTuThSa Scheduled PRN Docusate Sodium (Colace), 1 CAP PO BID PRN for Constipation Hydrocodone/Acetaminophen 5MG/325MG ([place] 5MG/325MG), 1-2 TABLETS PO Q6H PRN for Pain Current Inpatient Medications Current Inpatient Medications Medications (Trade) Dose Ordered Sig/Baldomero Route Start Time Stop Time Status Last Admin Dose Admin Ondansetron HCl (Zofran Inj) 4 mg Q6H PRN IV 04/27/17 21:15 05/27/17 21:14 Albuterol (Ventolin Hfa Inhaler) 2 puffs Q6HWA INH 04/28/17 00:00 05/28/17 00:00 04/28/17 00:30 2 PUFFS Amiodarone HCl (Cordarone Tab) 200 mg DAILY PO 04/28/17 09:00 05/28/17 08:59 04/28/17 09:00 200 MG Baclofen (Lioresal Tab) 20 mg TID PO 04/28/17 09:00 05/28/17 08:59 04/28/17 08:59 20 MG Docusate Sodium (coLACE CAP) 100 mg BID PRN PO 04/27/17 21:30 05/27/17 21:29 Furosemide (Lasix Tab) 20 mg QPM PO 04/28/17 21:00 05/28/17 20:59 Furosemide (Lasix Tab) 40 mg QAM PO 04/28/17 09:00 05/28/17 08:59 04/28/17 08:59 40 MG Gabapentin (Neurontin Cap) 300 mg TID PO 04/28/17 09:00 05/28/17 08:59 04/28/17 08:59 300 MG Acetaminophen/ Hydrocodone Bitart ([place] 5/325 Tab) 1 tab Q6H PRN PO 04/27/17 21:30 05/11/17 21:29 04/28/17 02:56 1 TAB Lidocaine (Lidoderm Patch 5%) 1 patch DAILY TD 04/28/17 09:00 05/28/17 08:59 04/28/17 09:02 1 PATCH Tamsulosin HCl (Flomax Cap) 0.4 mg HS PO 04/28/17 21:00 05/28/17 20:59 Tiotropium [place] (Spiriva Handihaler Inhaler) 30 puff DAILY INH 04/28/17 09:00 05/28/17 08:59 04/28/17 08:58 5 PUFF Warfarin Sodium (Coumadin Tab) 2 mg MoWeFr@1600 PO 04/27/17 23:30 05/27/17 23:29 04/27/17 23:39 2 MG Warfarin Sodium (Coumadin Tab) 3 mg SuTuThSa@1600 PO 04/28/17 16:00 05/28/17 15:59 Cholecalciferol (Vitamin D Tab) 1,000 inter.unit DAILY PO 04/28/17 09:00 05/28/17 08:59 04/28/17 08:59 1,000 INTER.UNIT Miscellaneous Information (Order Awaiting Action) 1 ea QS N/A 04/28/17 00:00 05/28/17 00:00 Miscellaneous Information (Order Awaiting Action) 1 ea QS N/A 04/28/17 00:00 05/28/17 00:00 Pantoprazole Sodium (Protonix Tab) 40 mg QAM PO 04/28/17 09:00 05/28/17 08:59 04/28/17 08:59 40 MG Miscellaneous (Remove Lidoderm Patch) 1 ea DAILY@21 N/A 04/28/17 21:00 05/28/17 20:59 Miscellaneous (Iv Fluids Completed) 1 ea PRN PRN N/A 04/28/17 01:00 04/28/18 00:59 Physical Exam Date Time Temp Pulse Resp B/P (MAP) Pulse Ox O2 Delivery O2 Flow Rate FiO2 04/28/17 08:20 Room Air 04/28/17 08:02 36.5 62 17 118/72 (87) 93 Room Air 04/28/17 00:20 Room Air 04/27/17 22:50 36.5 65 18 132/68 (89) 91 Room Air 04/27/17 21:48 61 18 122/62 93 Room Air 04/27/17 19:12 62 18 144/74 93 Room Air 04/27/17 16:25 93 Room Air 04/27/17 16:06 36.7 76 20 126/58 92 Room Air Laboratory Results Last 24 Hours Test 04/27/17 16:35 04/28/17 05:53 White Blood Count 6.83 K/uL 5.69 K/uL Red Blood Count 3.93 M/uL 3.98 M/uL Hemoglobin 11.9 g/dL 12.1 g/dL Hematocrit 36.2 % 36.3 % Mean Corpuscular Volume 92.1 fL 91.2 fL Mean Corpuscular Hemoglobin 30.3 pg 30.4 pg Mean Corpuscular Hemoglobin Concent 32.9 g/dl 33.3 g/dl Platelet Count 203 K/uL 211 K/uL Mean Platelet Volume 11.5 fL 11.8 fL Neutrophils (%) (Auto) 59.8 % Lymphocytes (%) (Auto) 20.9 % Monocytes (%) (Auto) 15.2 % Eosinophils (%) (Auto) 2.8 % Basophils (%) (Auto) 1.2 % Neutrophils # (Auto) 4.08 K/uL Lymphocytes # (Auto) 1.43 K/uL Monocytes # (Auto) 1.04 K/uL Eosinophils # (Auto) 0.19 K/uL Basophils # (Auto) 0.08 K/uL RDW Standard Deviation 50.3 fL 49.7 fL RDW Coefficient of Variation 14.9 % 14.8 % Immature Granulocyte % (Auto) 0.1 % Immature Granulocyte # (Auto) 0.01 K/uL Prothrombin Time 17.5 SECONDS 17.3 SECONDS Prothromb Time International Ratio 1.7 1.7 Activated Partial Thromboplast Time 34.7 SECONDS Partial Thromboplastin Ratio 1.3 Sodium Level 140 mmol/L 139 mmol/L Potassium Level 3.8 mmol/L 3.8 mmol/L Chloride Level 105 mmol/L 106 mmol/L Carbon Dioxide Level 29 mmol/L 28 mmol/L Anion Gap 6.0 mmol/L 5.0 mmol/L Blood Urea Nitrogen 14 mg/dl 11 mg/dl Creatinine 0.97 mg/dl 0.88 mg/dl Est Creatinine Clear Calc Drug Dose 55.4 ml/min 61.1 ml/min Estimated GFR () 81.0 89.5 Estimated GFR (Non- 69.9 77.2 BUN/Creatinine Ratio 14.8 12.8 Random Glucose 92 mg/dl 82 mg/dl Calcium Level 8.6 mg/dl 8.8 mg/dl Assessment & Plan Assessment progressive L2 compression fracture. Planned this time we will update an MRI of the lumbar spine for further detail regarding the fracture site. We'll also assess the spinal canal for any neural encroachment that could account for his weakness. Pending these results we may consider further stabilization with a kyphoplasty. His daughter was in the room with the patient and understands our plan.
--- NOTE | 2017-04-28 12:18 | DIAGNOSTIC IMAGING REPORT ---
MRI OF THE LUMBAR SPINE WITHOUT CONTRAST CLINICAL HISTORY: Severe low back pain and leg weakness. Fall. COMPARISON STUDY: MRI of the lumbar spine March 20, 2017 and lumbar spine radiographs April 27, 2017. TECHNIQUE: Utilizing a 1.5 Sara magnet and dedicated coil, multiplanar, multiecho imaging of the lumbar spine was performed without IV contrast. FINDINGS: For purposes of numbering on this exam, the L5-S1 disc space is assigned to axial image 27 of 30. No intracanalicular mass or fluid collection is present. Conus terminates at the upper L1 level. Paravertebral soft tissues are unremarkable. The patient is status post L4 and L5 vertebroplasty. Compression fractures of L4 and L5 are unchanged since prior MRI of March 20, 2017 with the exception of interval improvement in marrow edema within these vertebral bodies. There is moderate marrow edema within L2 and L3 vertebral bodies suggestive of acute on chronic compression fractures. There is progressive loss of height of these 2 vertebral bodies with minimal retropulsion of 3 mm at the L2 level. There is approximate 80% loss of height of the L3 vertebral body centrally and 70% loss of the L2 vertebral body height centrally. L1-2: Central canal and neural foramen are patent. L2-3: There is disc space narrowing with ligamentous hypertrophy. There is mild narrowing of the central canal and neural foramen. L3-4: There is facet arthrosis. Central canal is patent. There is moderate narrowing of both neural foramen. L4-5: There is mild disc bulge. Central canal is patent. There is mild left and moderate right neural foraminal stenosis. L5-S1: Central canal and neural foramen are patent. IMPRESSION: 1. Moderate to severe L2 and L3 compression fractures with marrow edema which suggest acute on chronic compression fractures. Minimal retropulsion at the L2 level. 2. Old L4 and L5 compression fractures. Status post L4 and L5 kyphoplasties. 3. Multilevel degenerative disc disease and facet arthrosis, as described above. Electronically signed by: Chuck Barrow M.D. 04/28/2017 12:16 PM Dictated Date/Time: 04/28/2017 11:53 AM
[2017-04-28 15:15] VITALS: BP 123/69; PULSE 62; TEMP 36.4; O2SAT 92
[2017-04-28] MEDS ORDERED: WARFARIN SOD 3 MG TAB PO SCH (16:00)
--- NOTE | 2017-04-28 18:32 | Progress Note ---
Medicine Progress Note Date & Time of Visit: Apr 28, 2017 at 15:30 . Subjective Persistent low back pain. No chest pain. No cough or dyspnea. No nausea or vomiting. . Objective Last 8 Hrs Date Time Temp Pulse Resp B/P (MAP) Pulse Ox O2 Delivery O2 Flow Rate FiO2 04/28/17 15:25 Room Air 04/28/17 15:15 36.4 62 16 123/69 (87) 92 Physical Exam: General- no acute distress Lungs- clear; no respiratory distress Heart- RRR, I/ sys murmur LSB; or gallop appreciated Abdomen- + BS, soft, nontender Back- lumbar tenderness; back pain with left SLR 30 degrees Extremities- no pretibial edema or calf tenderness Skin- warm & dry Neuro- alert; motor strength lower extremities grossly intact . Laboratory Results: Last 24 Hours Test 04/28/17 05:53 White Blood Count 5.69 K/uL Red Blood Count 3.98 M/uL Hemoglobin 12.1 g/dL Hematocrit 36.3 % Mean Corpuscular Volume 91.2 fL Mean Corpuscular Hemoglobin 30.4 pg Mean Corpuscular Hemoglobin Concent 33.3 g/dl RDW Standard Deviation 49.7 fL RDW Coefficient of Variation 14.8 % Platelet Count 211 K/uL Mean Platelet Volume 11.8 fL Prothrombin Time 17.3 SECONDS Prothromb Time International Ratio 1.7 Sodium Level 139 mmol/L Potassium Level 3.8 mmol/L Chloride Level 106 mmol/L Carbon Dioxide Level 28 mmol/L Anion Gap 5.0 mmol/L Blood Urea Nitrogen 11 mg/dl Creatinine 0.88 mg/dl Est Creatinine Clear Calc Drug Dose 61.1 ml/min Estimated GFR () 89.5 Estimated GFR (Non- 77.2 BUN/Creatinine Ratio 12.8 Random Glucose 82 mg/dl Calcium Level 8.8 mg/dl Assessment & Plan LOW BACK PAIN History L2 compression fracture, s/p kyphoplasty. Now with recurrent / worsening pain. Ortho consulted. MRI: IMPRESSION: 1. Moderate to severe L2 and L3 compression fractures with marrow edema which suggest acute on chronic compression fractures. Minimal retropulsion at the L2 level. 2. Old L4 and L5 compression fractures. Status post L4 and L5 kyphoplasties. 3. Multilevel degenerative disc disease and facet arthrosis, as described above. Electronically signed by: Chuck Barrow M.D. 04/28/2017 12:16 PM Further management per Ortho. Pt requesting follow-up with Pain Management as well. CHF Chronic left ventricular diastolic heart failure. Compensated. Continue furosemide. PAROXYSMAL AF Continue amiodarone and warfarin. COPD Stable. Continue tiotropium + albuterol PRN. BPH Continue tamsulosin. VTE PROPHYLAXIS Warfarin. SCD's. DISPOSITION To be determined. Family Medicine follow-up with Dr. Frank Mahoney. . Current Inpatient Medications: Current Inpatient Medications Medications (Trade) Dose Ordered Sig/Baldomero Route Start Time Stop Time Status Last Admin Dose Admin Ondansetron HCl (Zofran Inj) 4 mg Q6H PRN IV 04/27/17 21:15 05/27/17 21:14 Albuterol (Ventolin Hfa Inhaler) 2 puffs Q6HWA INH 04/28/17 00:00 05/28/17 00:00 04/28/17 17:53 2 PUFFS Amiodarone HCl (Cordarone Tab) 200 mg DAILY PO 04/28/17 09:00 05/28/17 08:59 04/28/17 09:00 200 MG Baclofen (Lioresal Tab) 20 mg TID PO 04/28/17 09:00 05/28/17 08:59 04/28/17 13:58 20 MG Docusate Sodium (coLACE CAP) 100 mg BID PRN PO 04/27/17 21:30 05/27/17 21:29 Furosemide (Lasix Tab) 20 mg QPM PO 04/28/17 21:00 05/28/17 20:59 Furosemide (Lasix Tab) 40 mg QAM PO 04/28/17 09:00 05/28/17 08:59 04/28/17 08:59 40 MG Gabapentin (Neurontin Cap) 300 mg TID PO 04/28/17 09:00 05/28/17 08:59 04/28/17 13:57 300 MG Acetaminophen/ Hydrocodone Bitart ([place] 5/325 Tab) 1 tab Q6H PRN PO 04/27/17 21:30 05/11/17 21:29 04/28/17 02:56 1 TAB Lidocaine (Lidoderm Patch 5%) 1 patch DAILY TD 04/28/17 09:00 05/28/17 08:59 04/28/17 09:02 1 PATCH Tamsulosin HCl (Flomax Cap) 0.4 mg HS PO 04/28/17 21:00 05/28/17 20:59 Tiotropium [place] (Spiriva Handihaler Inhaler) 30 puff DAILY INH 04/28/17 09:00 05/28/17 08:59 04/28/17 08:58 5 PUFF Warfarin Sodium (Coumadin Tab) 2 mg MoWeFr@1600 PO 04/27/17 23:30 05/27/17 23:29 04/27/17 23:39 2 MG Warfarin Sodium (Coumadin Tab) 3 mg SuTuThSa@1600 PO 04/28/17 16:00 05/28/17 15:59 04/28/17 15:38 3 MG Cholecalciferol (Vitamin D Tab) 1,000 inter.unit DAILY PO 04/28/17 09:00 05/28/17 08:59 04/28/17 08:59 1,000 INTER.UNIT Miscellaneous Information (Order Awaiting Action) 1 ea QS N/A 04/28/17 00:00 05/28/17 00:00 Miscellaneous Information (Order Awaiting Action) 1 ea QS N/A 04/28/17 00:00 05/28/17 00:00 Pantoprazole Sodium (Protonix Tab) 40 mg QAM PO 04/28/17 09:00 05/28/17 08:59 04/28/17 08:59 40 MG Miscellaneous (Remove Lidoderm Patch) 1 ea DAILY@21 N/A 04/28/17 21:00 05/28/17 20:59 Miscellaneous (Iv Fluids Completed) 1 ea PRN PRN N/A 04/28/17 01:00 04/28/18 00:59
[2017-04-28] MEDS: TAMSULOSIN HCL 0.4 MG CAP PO SCH (21:41)
[2017-04-28] MEDS: FUROSEMIDE 20 MG TAB PO SCH (21:41)
[2017-04-28 22:50] VITALS: BP 115/66; PULSE 63; TEMP 36.4; O2SAT 93
[2017-04-29] MEDS: ALBUTEROL HFA 8 GM INHALER INH SCH ×5 (05:54→23:23)
[2017-04-29 07:00] LABS: INR 1.9 (0.9-1.1)
[2017-04-29 07:28] VITALS: BP 118/76; PULSE 64; TEMP 36.2; O2SAT 91
[2017-04-29] MEDS: FUROSEMIDE 40 MG TAB PO SCH (08:10)
[2017-04-29] MEDS: TIOTROPIUM BROMIDE 5 PUFF/90 MCG INH INH SCH (08:10)
[2017-04-29] MEDS: GABAPENTIN 300 MG CAP PO SCH ×3 (08:10→21:33)
[2017-04-29] MEDS: BACLOFEN TAB 20 MG TAB PO SCH ×3 (08:10→21:35)
[2017-04-29] MEDS: CHOLECALCIFEROL 1000 INTER.UNIT TAB PO SCH (08:11)
[2017-04-29] MEDS: AMIODARONE 200 MG TAB PO SCH (08:11)
[2017-04-29] MEDS: PANTOprazole SOD 40 MG TAB PO SCH (08:11)
[2017-04-29] MEDS: LIDODERM (LIDOCAINE) PATCH 5% TD SCH (08:16)
[2017-04-29] MEDS: FLUTICASONE FUROATE-VILANTEROL 60 PUFFS INH INH SCH (12:00)
[2017-04-29] MEDS ORDERED: NURSING VERBAL MED ORDER ONE (13:30)
--- NOTE | 2017-04-29 13:40 | Progress Note ---
Progress Note Date of Service Apr 29, 2017. Progress Note Admitted today with the patient and his daughter. We've reviewed the results of his MRI and clinical course. He would like to pursue kyphoplasty of the L2 and L3 levels. We will withhold his Coumadin today monitor his INR hopefully have him below 1.5 by Sunday for surgery. He understands agrees.
[2017-04-29 15:15] VITALS: BP 95/58; PULSE 66; TEMP 36.4; O2SAT 91
--- NOTE | 2017-04-29 19:01 | Progress Note ---
Medicine Progress Note Date & Time of Visit: Apr 29, 2017 at 15:40 . Subjective Ongoing back pain. No chest pain. No cough or dyspnea. No nausea or vomiting. Moved bowels yesterday. . Objective Last 8 Hrs Date Time Temp Pulse Resp B/P (MAP) Pulse Ox O2 Delivery O2 Flow Rate FiO2 04/29/17 15:20 Room Air 04/29/17 15:15 36.4 66 18 95/58 (70) 91 Room Air Physical Exam: General- lying in bed; no distress Lungs- clear; no respiratory distress Heart- RRR, I/ sys murmur LSB; or gallop appreciated Abdomen- + BS, soft, nontender Extremities- no pretibial edema or calf tenderness; SCD's applied Skin- warm & dry Neuro- alert . Laboratory Results: Last 24 Hours Test 04/29/17 06:13 Prothrombin Time 20.0 SECONDS Prothromb Time International Ratio 1.9 Assessment & Plan LOW BACK PAIN History L2 compression fracture, s/p kyphoplasty. Now with recurrent / worsening pain. Ortho consulted. MRI: IMPRESSION: 1. Moderate to severe L2 and L3 compression fractures with marrow edema which suggest acute on chronic compression fractures. Minimal retropulsion at the L2 level. 2. Old L4 and L5 compression fractures. Status post L4 and L5 kyphoplasties. 3. Multilevel degenerative disc disease and facet arthrosis, as described above. Electronically signed by: Chuck Barrow M.D. 04/28/2017 12:16 PM Ortho consulted. L2 / L3 kyphoplasty recommended. CHF Chronic left ventricular diastolic heart failure. Compensated. Continue furosemide. PAROXYSMAL AF Continue amiodarone. Hold warfarin for anticipated kyphoplasty. COPD Stable. Continue tiotropium + albuterol PRN. BPH Continue tamsulosin. VTE PROPHYLAXIS Hold warfarin for anticipated kyphoplasty. SCD's. DISPOSITION To be determined. Family Medicine follow-up with Dr. Frank Mahoney. . Current Inpatient Medications: Current Inpatient Medications Medications (Trade) Dose Ordered Sig/Baldomero Route Start Time Stop Time Status Last Admin Dose Admin Ondansetron HCl (Zofran Inj) 4 mg Q6H PRN IV 04/27/17 21:15 05/27/17 21:14 Albuterol (Ventolin Hfa Inhaler) 2 puffs Q6HWA INH 04/28/17 00:00 1/8/18 00:00 04/29/17 18:18 2 PUFFS Amiodarone HCl (Cordarone Tab) 200 mg DAILY PO 04/28/17 09:00 05/28/17 08:59 04/29/17 08:11 200 MG Baclofen (Lioresal Tab) 20 mg TID PO 04/28/17 09:00 05/28/17 08:59 04/29/17 13:47 20 MG Docusate Sodium (coLACE CAP) 100 mg BID PRN PO 04/27/17 21:30 05/27/17 21:29 Furosemide (Lasix Tab) 20 mg QPM PO 04/28/17 21:00 05/28/17 20:59 04/28/17 21:41 20 MG Furosemide (Lasix Tab) 40 mg QAM PO 04/28/17 09:00 05/28/17 08:59 04/29/17 08:10 40 MG Gabapentin (Neurontin Cap) 300 mg TID PO 04/28/17 09:00 05/28/17 08:59 04/29/17 13:47 300 MG Acetaminophen/ Hydrocodone Bitart ([place] 5/325 Tab) 1 tab Q6H PRN PO 04/27/17 21:30 05/11/17 21:29 04/28/17 02:56 1 TAB Lidocaine (Lidoderm Patch 5%) 1 patch DAILY TD 04/28/17 09:00 05/28/17 08:59 04/29/17 08:16 1 PATCH Tamsulosin HCl (Flomax Cap) 0.4 mg HS PO 04/28/17 21:00 05/28/17 20:59 04/28/17 21:41 0.4 MG Tiotropium [place] (Spiriva Handihaler Inhaler) 30 puff DAILY INH 04/28/17 09:00 05/28/17 08:59 04/29/17 08:10 5 PUFF Cholecalciferol (Vitamin D Tab) 1,000 inter.unit DAILY PO 04/28/17 09:00 05/28/17 08:59 04/29/17 08:11 1,000 INTER.UNIT Miscellaneous Information (Order Awaiting Action) 1 ea QS N/A 04/28/17 00:00 05/28/17 00:00 Pantoprazole Sodium (Protonix Tab) 40 mg QAM PO 04/28/17 09:00 05/28/17 08:59 04/29/17 08:11 40 MG Miscellaneous (Remove Lidoderm Patch) 1 ea DAILY@21 N/A 04/28/17 21:00 05/28/17 20:59 04/28/17 21:00 1 EA Miscellaneous (Iv Fluids Completed) 1 ea PRN PRN N/A 04/28/17 01:00 04/28/18 00:59 Fluticasone/ Vilanterol (Breo Ellipta 100-25 Mcg/Inh) 1 puffs DAILY INH 04/29/17 12:00 05/29/17 11:59
[2017-04-29] MEDS: FUROSEMIDE 20 MG TAB PO SCH ×2 (21:00→21:34)
[2017-04-29] MEDS: TAMSULOSIN HCL 0.4 MG CAP PO SCH (21:34)
[2017-04-29 21:35] VITALS: BP 93/54
[2017-04-29 23:00] VITALS: BP 102/61; PULSE 57; TEMP 36.3; O2SAT 95
[2017-04-30] MEDS: ALBUTEROL HFA 8 GM INHALER INH SCH ×4 (06:00→23:49)
[2017-04-30 06:23] LABS: INR 1.8 (0.9-1.1); PROTHROMBIN TIME (PATIENT) 19.1 SECONDS (9.0-12.0)
[2017-04-30 07:47] VITALS: BP 100/60; PULSE 62; TEMP 36.3; O2SAT 92
[2017-04-30 07:49] VITALS: O2SAT 92
[2017-04-30] MEDS ORDERED: POM~FLUTICASONE FUROATE-VILANTEROL 30 PUFFS/INHALER INH INH SCH (09:00)
[2017-04-30] MEDS: FLUTICASONE FUROATE-VILANTEROL 60 PUFFS INH INH SCH (09:58)
[2017-04-30] MEDS: TIOTROPIUM BROMIDE 5 PUFF/90 MCG INH INH SCH (09:59)
[2017-04-30] MEDS: FUROSEMIDE 40 MG TAB PO SCH (10:00)
[2017-04-30] MEDS: BACLOFEN TAB 20 MG TAB PO SCH ×3 (10:00→20:48)
[2017-04-30] MEDS: CHOLECALCIFEROL 1000 INTER.UNIT TAB PO SCH (10:01)
[2017-04-30] MEDS: AMIODARONE 200 MG TAB PO SCH (10:01)
[2017-04-30] MEDS: PANTOprazole SOD 40 MG TAB PO SCH (10:01)
[2017-04-30] MEDS: GABAPENTIN 300 MG CAP PO SCH ×3 (10:01→20:48)
[2017-04-30] MEDS: LIDODERM (LIDOCAINE) PATCH 5% TD SCH (10:02)
--- NOTE | 2017-04-30 10:18 | Progress Note ---
Progress Note Date of Service Apr 30, 2017. Progress Note Admitted today with the patient and his . We discussed surgical plan. We will make him nothing by mouth after midnight for possible kyphoplasty L2 and L3 with biopsy tomorrow. All questions are dressed.
--- NOTE | 2017-04-30 13:16 | Anesthesiology Progress Note ---
Anesthesia Progress Note Date of Service Apr 30, 2017. Progress Notes The patient is an 86 y/o male who is to undergo a kyphoplasty. The patient fell out of his chair several days ago and was found to have an L2/3 compression fractures with significant back spasms. He had a L4/5 kyphoplasty two months ago. He was noted to have a Grade 4 view with a Mac 3 blade at the time. Other PMH includes COPD, afib, mitral and tricuspid valve replacement, diastolic CHF, GERD, peptic ulcers, arthritis, a hx of pneumothorax, and hearing loss. The patient had a head CT that showed NAD. His EKG shows SR with first degree AV block. His labs are significant for INR 1.8. On exam he has a MP 1 airway with good neck ROM. Teeth are intact. Lungs are clear. Heart is difficult to auscultate with a 2/6 systolic murmur. His carotids are negative for bruits. He was consented for general anesthesia. The patient was counseled to remain NPO except for sips of water with pills. The medicine team and Dr. Walker do not want to reverse the INR with vitamin K at this time. His INR will be checked tomorrow prior to the procedure to make sure that it is acceptable for Dr. Walker to proceed.
[2017-04-30 15:38] VITALS: BP 104/57; PULSE 63; TEMP 36.4; O2SAT 94
[2017-04-30 19:40] VITALS: O2SAT 99
--- NOTE | 2017-04-30 20:17 | Progress Note ---
Medicine Progress Note Date & Time of Visit: Apr 30, 2017 at 19:20 . Subjective Ongoing back pain. Kyphoplasty planned for tomorrow. No fever. No chest pain. No cough or SOB. No nausea, vomiting, diarrhea. . Objective Last 8 Hrs Date Time Temp Pulse Resp B/P (MAP) Pulse Ox O2 Delivery O2 Flow Rate FiO2 04/30/17 19:40 99 Room Air 04/30/17 15:38 36.4 63 18 104/57 (73) 94 Room Air 04/30/17 15:35 Room Air Physical Exam: General- lying in bed; no distress Lungs- clear; no respiratory distress Heart- RRR, I/ sys murmur LSB; or gallop appreciated Abdomen- + BS, soft, nontender Extremities- no pretibial edema or calf tenderness; TEDS and SCD's applied Skin- warm & dry Neuro- alert . Laboratory Results: Last 24 Hours Test 04/30/17 05:27 Prothrombin Time 19.1 SECONDS Prothromb Time International Ratio 1.8 Assessment & Plan LOW BACK PAIN History compression fractures, s/p kyphoplasty. Now with recurrent / worsening pain. Ortho consulted. MRI: IMPRESSION: 1. Moderate to severe L2 and L3 compression fractures with marrow edema which suggest acute on chronic compression fractures. Minimal retropulsion at the L2 level. 2. Old L4 and L5 compression fractures. Status post L4 and L5 kyphoplasties. 3. Multilevel degenerative disc disease and facet arthrosis, as described above. Electronically signed by: Chuck Barrow M.D. 04/28/2017 12:16 PM Ortho consulted. L2 / L3 kyphoplasty recommended; tentatively 05/01 if INR low enough. CHF Chronic left ventricular diastolic heart failure. Compensated. Continue furosemide. PAROXYSMAL AF Continue amiodarone. Hold warfarin for anticipated kyphoplasty. Vitamin K 5 mg this evening x 1. Resume warfarin postop when OK from surgical perspective. COPD Stable. Continue tiotropium + albuterol PRN. BPH Continue tamsulosin. VTE PROPHYLAXIS Holding warfarin for anticipated kyphoplasty. SCD's. DISPOSITION To be determined. Anticipate need for skilled care (has been at [facility] before). Family Medicine follow-up with Dr. Frank Mahoney. . Current Inpatient Medications: Current Inpatient Medications Medications (Trade) Dose Ordered Sig/Baldomero Route Start Time Stop Time Status Last Admin Dose Admin Ondansetron HCl (Zofran Inj) 4 mg Q6H PRN IV 04/27/17 21:15 05/27/17 21:14 Albuterol (Ventolin Hfa Inhaler) 2 puffs Q6HWA INH 04/28/17 00:00 05/28/17 00:00 04/29/17 18:18 2 PUFFS Amiodarone HCl (Cordarone Tab) 200 mg DAILY PO 04/28/17 09:00 05/28/17 08:59 04/30/17 10:01 200 MG Baclofen (Lioresal Tab) 20 mg TID PO 04/28/17 09:00 05/28/17 08:59 04/30/17 15:01 20 MG Docusate Sodium (coLACE CAP) 100 mg BID PRN PO 04/27/17 21:30 05/27/17 21:29 Furosemide (Lasix Tab) 20 mg QPM PO 04/28/17 21:00 05/28/17 20:59 04/28/17 21:41 20 MG Furosemide (Lasix Tab) 40 mg QAM PO 04/28/17 09:00 05/28/17 08:59 04/30/17 10:00 40 MG Gabapentin (Neurontin Cap) 300 mg TID PO 04/28/17 09:00 05/28/17 08:59 04/30/17 15:01 300 MG Acetaminophen/ Hydrocodone Bitart ([place] 5/325 Tab) 1 tab Q6H PRN PO 04/27/17 21:30 05/11/17 21:29 04/28/17 02:56 1 TAB Lidocaine (Lidoderm Patch 5%) 1 patch DAILY TD 04/28/17 09:00 05/28/17 08:59 04/30/17 10:02 1 PATCH Tamsulosin HCl (Flomax Cap) 0.4 mg HS PO 04/28/17 21:00 05/28/17 20:59 04/29/17 21:34 0.4 MG Tiotropium [place] (Spiriva Handihaler Inhaler) 30 puff DAILY INH 04/28/17 09:00 05/28/17 08:59 04/30/17 09:59 1 PUFF Cholecalciferol (Vitamin D Tab) 1,000 inter.unit DAILY PO 04/28/17 09:00 05/28/17 08:59 04/30/17 10:01 1,000 INTER.UNIT Miscellaneous Information (Order Awaiting Action) 1 ea QS N/A 04/28/17 00:00 05/28/17 00:00 Pantoprazole Sodium (Protonix Tab) 40 mg QAM PO 04/28/17 09:00 05/28/17 08:59 04/30/17 10:01 40 MG Miscellaneous (Remove Lidoderm Patch) 1 ea DAILY@21 N/A 04/28/17 21:00 05/28/17 20:59 04/29/17 21:00 1 EA Miscellaneous (Iv Fluids Completed) 1 ea PRN PRN N/A 04/28/17 01:00 04/28/18 00:59 Fluticasone/ Vilanterol (Breo Ellipta 100-25 Mcg/Inh) 1 puffs DAILY INH 04/29/17 12:00 05/29/17 11:59 04/30/17 09:58 1 PUFFS
[2017-04-30] MEDS ORDERED: PHYTONADIONE 5 MG TAB PO ONE (20:30)
[2017-04-30] MEDS: FUROSEMIDE 20 MG TAB PO SCH (20:48)
[2017-04-30] MEDS: TAMSULOSIN HCL 0.4 MG CAP PO SCH (20:48)
[2017-04-30] MEDS: HYDROCODONE/ACETAMOPHEN 5/325MG TAB PO PRN (22:28)
[2017-04-30 22:54] VITALS: BP 97/58; PULSE 60; TEMP 36.3; O2SAT 92
[2017-05-01] VITALS (8 sets, daily range): BP systolic 103–130; BP diastolic 65–74; PULSE 60–75; TEMP 36.2–36.6; O2SAT 88–93
[2017-05-01] MEDS: ALBUTEROL HFA 8 GM INHALER INH SCH (05:37)
[2017-05-01 06:05] LABS: INR 1.4 (0.9-1.1); PROTHROMBIN TIME (PATIENT) 14.8 SECONDS (9.0-12.0)
[2017-05-01] MEDS: TIOTROPIUM BROMIDE 5 PUFF/90 MCG INH INH SCH (08:55)
[2017-05-01] MEDS: LIDODERM (LIDOCAINE) PATCH 5% TD SCH (08:56)
[2017-05-01] MEDS: FLUTICASONE FUROATE-VILANTEROL 60 PUFFS INH INH SCH (08:56)
[2017-05-01] MEDS: FUROSEMIDE 40 MG TAB PO SCH (09:00)
[2017-05-01] MEDS: PANTOprazole SOD 40 MG TAB PO SCH (09:00)
[2017-05-01] MEDS: AMIODARONE 200 MG TAB PO SCH (09:00)
[2017-05-01] MEDS: GABAPENTIN 300 MG CAP PO SCH ×3 (09:00→20:27)
[2017-05-01] MEDS: CHOLECALCIFEROL 1000 INTER.UNIT TAB PO SCH (09:00)
[2017-05-01] MEDS: BACLOFEN TAB 20 MG TAB PO SCH ×3 (09:00→20:26)
--- NOTE | 2017-05-01 13:14 | Progress Note ---
Medicine Progress Note Date & Time of Visit: May 01, 2017 at 13:05. Subjective 86 yo M s/p traumatic fall at home with subsequent back pain 2/2 acute L2, L3 VB compression fracture. Awaiting L2-3 kyphoplasty later today. pt states that pain is controlled denies CP, SOB or any other symptom at this time aside from some shakiness in his hands. Objective Last 8 Hrs Date Time Temp Pulse Resp B/P (MAP) Pulse Ox O2 Delivery O2 Flow Rate FiO2 05/01/17 07:57 Room Air 05/01/17 07:12 36.5 60 16 107/65 (79) 92 Room Air Physical Exam: GEN: WNWD, in no acute distress, alert and appropriate HEENT: NC/AT, normal sclerae, MMM CARDIO: irreg rate, S1/2 heard without m/g/r LUNGS: CTA bilaterally, no crackles, rales or wheezes, good diaphragmatic excursion ABD: soft, non-tender, non-distended, no rebound or guarding, +BS EXTREMITY: RP and DP palpable 2+ bilat, no LE swelling or edema, extremities are warm and well-perfused NEURO: CN 2-12 grossly intact, sensation intact throughout MUSC: 5/5 upper extremities, lowers could not be assessed 2/2 back pain. SKIN: warm and dry Laboratory Results: 04/28/17 05:53 04/28/17 05:53 Test 04/27/17 16:35 04/28/17 05:53 05/01/17 05:44 Immature Granulocyte % (Auto) 0.1 % White Blood Count 6.83 K/uL (4.8-10.8) Red Blood Count 3.93 M/uL (4.7-6.1) 3.98 M/uL (4.7-6.1) Hemoglobin 11.9 g/dL (14.0-18.0) Hematocrit 36.2 % (42-52) Mean Corpuscular Volume 92.1 fL (80-100) 91.2 fL (80-100) Mean Corpuscular Hemoglobin 30.3 pg (25-34) 30.4 pg (25-34) Mean Corpuscular Hemoglobin Concent 32.9 g/dl (32-36) 33.3 g/dl (32-36) Platelet Count 203 K/uL (130-400) Mean Platelet Volume 11.5 fL (7.4-10.4) 11.8 fL (7.4-10.4) Neutrophils (%) (Auto) 59.8 % Lymphocytes (%) (Auto) 20.9 % Monocytes (%) (Auto) 15.2 % Eosinophils (%) (Auto) 2.8 % Basophils (%) (Auto) 1.2 % Neutrophils # (Auto) 4.08 K/uL (1.4-6.5) Lymphocytes # (Auto) 1.43 K/uL (1.2-3.4) Monocytes # (Auto) 1.04 K/uL (0.11-0.59) Eosinophils # (Auto) 0.19 K/uL (0-0.5) Basophils # (Auto) 0.08 K/uL (0-0.2) Immature Granulocyte # (Auto) 0.01 K/uL (0.00-0.02) Activated Partial Thromboplast Time 34.7 SECONDS (21.0-31.0) Partial Thromboplastin Ratio 1.3 RDW Standard Deviation 49.7 fL (36.4-46.3) RDW Coefficient of Variation 14.8 % (11.5-14.5) Anion Gap 5.0 mmol/L (3-11) Est Creatinine Clear Calc Drug Dose 61.1 ml/min Estimated GFR () 89.5 Estimated GFR (Non- 77.2 BUN/Creatinine Ratio 12.8 (10-20) Calcium Level 8.8 mg/dl (8.5-10.1) Prothrombin Time 14.8 SECONDS (9.0-12.0) Prothromb Time International Ratio 1.4 (0.9-1.1) Last 24 Hours Test 05/01/17 05:44 Prothrombin Time 14.8 SECONDS Prothromb Time International Ratio 1.4 Assessment & Plan 86 yo M s/p traumatic fall at home with subsequent back pain 2/2 acute L2, L3 VB compression fracture. Awaiting L2-3 kyphoplasty later today. 1. [facility] 2/2 chronic lower back pain per patient-awaiting kyphoplasty later today. Currently, pain is well controlled while supine and not moving much. Recs per Dr. Walker. 2. Chronic diastolic heart failure-compensated, cont home furosemide. 3. PAF-controlled, cont amio, warfarin being held for kyphoplasty. Plan to resume warfarin when ok per Ortho 4. COPD-cont home inhalers including Breo, Spiriva and albulterol (changed to PRN with reports of some hand tremors). 5. BPH-cont tamsulosin DVT proph-SCDs, held warfarin for surgery today Full Code Dispo-uncertain, depends on recovery. May need SNF and likely [facility]. Nubia Beck DO [facility] Hospitalist Consultants: Ortho Spine-Dr. Aftab Walker Current Inpatient Medications: Current Inpatient Medications Medications (Trade) Dose Ordered Sig/Baldomero Route Start Time Stop Time Status Last Admin Dose Admin Ondansetron HCl (Zofran Inj) 4 mg Q6H PRN IV 04/27/17 21:15 05/27/17 21:14 Albuterol (Ventolin Hfa Inhaler) 2 puffs Q6HWA INH 04/28/17 00:00 05/28/17 00:00 04/29/17 18:18 2 PUFFS Amiodarone HCl (Cordarone Tab) 200 mg DAILY PO 04/28/17 09:00 05/28/17 08:59 04/30/17 10:01 200 MG Baclofen (Lioresal Tab) 20 mg TID PO 04/28/17 09:00 05/28/17 08:59 04/30/17 20:48 20 MG Docusate Sodium (coLACE CAP) 100 mg BID PRN PO 04/27/17 21:30 05/27/17 21:29 Furosemide (Lasix Tab) 20 mg QPM PO 04/28/17 21:00 05/28/17 20:59 04/30/17 20:48 20 MG Furosemide (Lasix Tab) 40 mg QAM PO 04/28/17 09:00 05/28/17 08:59 04/30/17 10:00 40 MG Gabapentin (Neurontin Cap) 300 mg TID PO 04/28/17 09:00 05/28/17 08:59 04/30/17 20:48 300 MG Acetaminophen/ Hydrocodone Bitart ([place] 5/325 Tab) 1 tab Q6H PRN PO 04/27/17 21:30 05/11/17 21:29 04/30/17 22:28 1 TAB Lidocaine (Lidoderm Patch 5%) 1 patch DAILY TD 04/28/17 09:00 05/28/17 08:59 05/01/17 08:56 1 PATCH Tamsulosin HCl (Flomax Cap) 0.4 mg HS PO 04/28/17 21:00 05/28/17 20:59 04/30/17 20:48 0.4 MG Cholecalciferol (Vitamin D Tab) 1,000 inter.unit DAILY PO 04/28/17 09:00 05/28/17 08:59 04/30/17 10:01 1,000 INTER.UNIT Miscellaneous Information (Order Awaiting Action) 1 ea QS N/A 04/28/17 00:00 05/28/17 00:00 Pantoprazole Sodium (Protonix Tab) 40 mg QAM PO 04/28/17 09:00 05/28/17 08:59 04/30/17 10:01 40 MG Miscellaneous (Remove Lidoderm Patch) 1 ea DAILY@21 N/A 04/28/17 21:00 05/28/17 20:59 04/30/17 20:48 1 EA Miscellaneous (Iv Fluids Completed) 1 ea PRN PRN N/A 04/28/17 01:00 04/28/18 00:59 Fluticasone/ Vilanterol (Breo Ellipta 100-25 Mcg/Inh) 1 puffs DAILY INH 04/29/17 12:00 05/29/17 11:59 05/01/17 08:56 1 PUFFS Tiotropium [place] (Spiriva Handihaler Inhaler) 1 puff DAILY INH 05/01/17 09:00 05/28/17 08:59 05/01/17 08:55 1 PUFF
[2017-05-01] MEDS ORDERED: ROCURONIUM BROMIDE 10 MG/ML 5 ML VIAL IV ONE (15:13)
[2017-05-01] MEDS ORDERED: PROPOFOL IV EMULSION 10 MG/ML 20 ML VIAL IV ONE (15:13)
[2017-05-01] MEDS ORDERED: FENTANYL CITRATE INJ 50 MCG/1 ML 2 ML VIAL ONE ×2 (15:13→16:50)
[2017-05-01] MEDS ORDERED: LIDOCAINE HCL 2% 2 ML VIAL (20MG/ML) ONE (15:13)
[2017-05-01] MEDS ORDERED: ONDANSETRON INJ 2 MG/ML 2 ML VIAL ONE (15:13)
[2017-05-01] MEDS ORDERED: DEXAMETHASONE SOD INJ 4 MG/ML VIAL ONE (15:13)
[2017-05-01] MEDS ORDERED: FLUMAZENIL 0.1 MG/1 ML 10 ML VIAL IV PRN (15:15)
[2017-05-01] MEDS ORDERED: HYDROmorphone INJ 2 MG/ML SYR/VIAL IV PRN (15:15)
[2017-05-01] MEDS ORDERED: MEPERIDINE HCL 25 MG/ML CARP IV PRN (15:15)
[2017-05-01] MEDS ORDERED: LABETALOL HCL IV 5 MG/ML 20ML IV PRN (15:15)
[2017-05-01] MEDS ORDERED: EpHEDrine SULFATE INJ 50 MG/ML AMP IV PRN (15:15)
[2017-05-01] MEDS ORDERED: ATROPINE SULFATE 0.1 MG/ML 5ML SYR IV PRN (15:15)
[2017-05-01] MEDS ORDERED: NALOXONE HCL 0.4 MG/1 ML VIAL/CARP IV PRN (15:15)
[2017-05-01] MEDS ORDERED: PHENYLEPHRINE 100MCG/ML 5ML SYR IV PRN (15:15)
[2017-05-01] MEDS ORDERED: FENTANYL CITRATE INJ 50 MCG/1 ML 2 ML VIAL IV PRN (15:15)
[2017-05-01] MEDS ORDERED: ONDANSETRON INJ 2 MG/ML 2 ML VIAL IV PRN (15:15)
[2017-05-01] MEDS ORDERED: CEFAZOLIN SOD 2000MG/10 ML IV PUSH IV ONE (15:25)
[2017-05-01] MEDS ORDERED: CONRAY 60% 50 ML VIAL ONE (15:36)
[2017-05-01] MEDS ORDERED: BUPIVACAINE/EPINEPHRINE 0.5% MPF 1:200,000 30 ML VIAL ONE (15:36)
[2017-05-01] MEDS ORDERED: EpHEDrine SULFATE 50MG/5ML SYR ONE (15:58)
[2017-05-01] MEDS ORDERED: GLYCOPYRROLATE INJ 0.2 MG/ML VIAL ONE (16:30)
[2017-05-01] MEDS ORDERED: NEOSTIGMINE METHYLSULFATE 1 MG/ML 10ML VIAL ONE (16:30)
--- NOTE | 2017-05-01 16:41 | [facility] Operative Report ---
Operative Report Operative Date May 01, 2017. Pre-Operative Diagnosis L2 and L3 compression fractures Post-Operative Diagnosis L2 and L3 compression fractures Procedure(s) Performed #1 L2 and L3 kyphoplasty. #2 L2 and L3 biopsy Surgeon Dr. Walker Findings None Description of Procedure Patient was met with preoperatively case discussed all questions addressed. After informed consent obtained patient was taken to the operative suite underwent intubation and placed in a prone position the Darron table chest pads and hip bolsters. All bony prominences well-padded eyes inspected to ensure no external pressure placed upon them. This point the thoracal lumbar spine was prepped and draped in the normal sterile fashion. The assistance of fluoroscopy in AP and lateral planes and identified the pedicles of L3. 2 small incisions were made and the Kyphon working cannulas placed by way of a transverse pedicular approach into the vertebral body. 2 core biopsies were then obtained of the L3 vertebral body. The Kyphon 20 mm balloons were inserted and sequentially inflated with direct fluoroscopic visualization. There were subsequently removed and a partially 6 mL of Kyphon cement injected with fluoroscopic visualization. A demonstrated excellent interdigitation and fill of the vertebral body. After this was complete the apparatus was removed and I proceeded L2. 2 small incisions again created and the Kyphon working cannulas placed by way of a transpedicular approach into the vertebral body. Again core biopsies of the L2 vertebral body were obtained. The balloons inserted. There were sequentially inflated socially removed and a partially 4 mL of Kyphon cement injected with fluoroscopic visualization. Again excellent interdigitation and fill of the vertebral body was noted. All working apparatus was then removed the incisions were closed the subcutaneous Monocryl and sterile dressing placed. Patient we can take PACU stable condition. I attest to the content of the Intraoperative Record and any orders documented therein. Any exceptions are noted below.
--- NOTE | 2017-05-01 17:29 | Anesthesiology Progress Note ---
Anesthesia Post Op Note Date & Time May 01, 2017 at 17:29 Vital Signs Pain Intensity: 1.0 Vital Signs Past 12 Hours Date Time Temp Pulse Resp B/P (MAP) Pulse Ox O2 Delivery O2 Flow Rate FiO2 05/01/17 17:20 75 16 122/65 94 Nasal Cannula 4 05/01/17 17:10 76 16 130/66 99 Oxymask 10 05/01/17 17:00 77 16 144/75 99 Oxymask 10 05/01/17 16:56 36.1 73 18 147/70 99 Oxymask 10 05/01/17 07:57 Room Air 05/01/17 07:12 36.5 60 16 107/65 (79) 92 Room Air Notes Mental Status: alert / awake / arousable, participated in evaluation Pt Amnestic to Procedure: Yes Nausea / Vomiting: adequately controlled Pain: adequately controlled Airway Patency, RR, SpO2: stable & adequate BP & HR: stable & adequate Hydration State: stable & adequate Anesthetic Complications: no major complications apparent
[2017-05-01] MEDS ORDERED: ALBUTEROL HFA 8 GM INHALER INH PRN (18:00)
[2017-05-01] MEDS: HYDROCODONE/ACETAMOPHEN 5/325MG TAB PO PRN (20:08)
[2017-05-01] MEDS: TAMSULOSIN HCL 0.4 MG CAP PO SCH (20:25)
[2017-05-01] MEDS: FUROSEMIDE 20 MG TAB PO SCH (20:26)
--- NOTE | 2017-05-01 20:53 | DIAGNOSTIC IMAGING REPORT ---
LUMBAR SPINE 2 OR 3 VIEW CLINICAL HISTORY: L2-3 KYPHOPLASTY COMPARISON STUDY: Lumbar spine MRI April 28, 2017. Fluoroscopy time: 3 minutes and 42 seconds. FINDINGS: 3 fluoroscopic images demonstrate interval L2 and L3 kyphoplasties with a previous L4 kyphoplasty. Previous L5 kyphoplasty is not imaged on this exam. IMPRESSION: Fluoroscopic images demonstrating interval L2 and L3 kyphoplasties. Electronically signed by: Chuck Barrow M.D. 05/01/2017 8:52 PM Dictated Date/Time: 05/01/2017 8:49 PM
[2017-05-02] VITALS (7 sets, daily range): BP systolic 92–132; BP diastolic 55–78; PULSE 66–77; TEMP 36.2–36.4; O2SAT 89–96
[2017-05-02] MEDS: PANTOprazole SOD 40 MG TAB PO SCH (04:45)
[2017-05-02] MEDS ORDERED: CEFAZOLIN SOD 2000MG/10 ML IV PUSH IV ONE (06:00)
[2017-05-02 06:22] LABS: HEMATOCRIT 38.2 % (42-52); MEAN CELL VOLUME 91.2 fL (80-100); MEAN CORPUSCULAR HEMOGLOBIN 30.8 pg (25-34); MEAN CORPUSCULAR HGB CONC 33.8 g/dl (32-36); MEAN PLATELET VOLUME 12.3 fL (7.4-10.4); PLATELET COUNT 225 K/uL (130-400); RED BLOOD COUNT 4.19 M/uL (4.7-6.1); WHITE BLOOD COUNT 10.83 K/uL (4.8-10.8)
[2017-05-02 06:55] LABS: BUN/CREATININE RATIO 21.6 (10-20); CALCIUM 8.8 mg/dl (8.5-10.1); CREATININE 1.03 mg/dl (0.60-1.40); POTASSIUM 4.6 mmol/L (3.5-5.1)
--- NOTE | 2017-05-02 09:10 | Progress Note ---
Progress Note Date of Service May 02, 2017. Progress Note Patient states his back pain is improved today. He no longer has back spasms. Still quite concerned regarding his lower extremity weakness and deconditioning. On exam today he is sitting upright appears comfortable. Neurologically intact. Assessment status post kyphoplasty. Planned this time consider possible rehabilitation placement versus home health the next few days.
[2017-05-02] MEDS: FLUTICASONE FUROATE-VILANTEROL 60 PUFFS INH INH SCH (09:40)
[2017-05-02] MEDS: TIOTROPIUM BROMIDE 5 PUFF/90 MCG INH INH SCH (09:40)
[2017-05-02] MEDS: HYDROCODONE/ACETAMOPHEN 5/325MG TAB PO PRN ×2 (09:41→21:25)
[2017-05-02] MEDS: FUROSEMIDE 40 MG TAB PO SCH (09:42)
[2017-05-02] MEDS: CHOLECALCIFEROL 1000 INTER.UNIT TAB PO SCH (09:42)
[2017-05-02] MEDS: LIDODERM (LIDOCAINE) PATCH 5% TD SCH (09:42)
[2017-05-02] MEDS: GABAPENTIN 300 MG CAP PO SCH ×3 (09:42→21:20)
[2017-05-02] MEDS: AMIODARONE 200 MG TAB PO SCH (09:42)
[2017-05-02] MEDS: BACLOFEN TAB 20 MG TAB PO SCH ×3 (09:43→21:20)
--- NOTE | 2017-05-02 13:06 | Anesthesiology Progress Note ---
Anesthesia Post Op Note Date & Time May 02, 2017 at 13:06 Vital Signs Pain Intensity: 0.0 Vital Signs Past 12 Hours Date Time Temp Pulse Resp B/P (MAP) Pulse Ox O2 Delivery O2 Flow Rate FiO2 05/02/17 12:06 36.4 76 16 132/78 (96) 89 Room Air 05/02/17 10:49 91 Room Air 05/02/17 08:15 Nasal Cannula 1.0 05/02/17 08:08 36.4 71 18 128/68 (88) 91 Room Air 05/02/17 03:07 36.3 77 18 131/70 (90) 95 Nasal Cannula 2.0 Notes Mental Status: alert / awake / arousable, participated in evaluation Pt Amnestic to Procedure: Yes Nausea / Vomiting: adequately controlled Pain: adequately controlled Airway Patency, RR, SpO2: stable & adequate BP & HR: stable & adequate Hydration State: stable & adequate Anesthetic Complications: no major complications apparent
--- NOTE | 2017-05-02 19:51 | Progress Note ---
Medicine Progress Note Date & Time of Visit: May 02, 2017 at 13:06. Subjective 86 yo M s/p traumatic fall at home with subsequent back pain 2/2 acute L2, L3 VB compression fracture. s/p L2-3 kyphoplasty on 05/01. Pt reports less pain today with some expected postop discomfort. He has been more ambulatory today and moving better than when admitted. Continues to work with PT. Reports that his pain is well-controlled at this time. Tolerating PO. Objective Last 8 Hrs Date Time Temp Pulse Resp B/P (MAP) Pulse Ox O2 Delivery O2 Flow Rate FiO2 05/02/17 12:06 36.4 76 16 132/78 (96) 89 Room Air 05/02/17 10:49 91 Room Air 05/02/17 08:15 Nasal Cannula 1.0 05/02/17 08:08 36.4 71 18 128/68 (88) 91 Room Air Physical Exam: GEN: WNWD, in no acute distress, alert and appropriate HEENT: NC/AT, normal sclerae, MMM CARDIO: irreg rate, S1/2 heard without m/g/r LUNGS: CTA bilaterally, no crackles, rales or wheezes, good diaphragmatic excursion ABD: soft, non-tender, non-distended, no rebound or guarding, +BS EXTREMITY: RP and DP palpable 2+ bilat, no LE swelling or edema, extremities are warm and well-perfused NEURO: CN 2-12 grossly intact, sensation intact throughout MUSC: moves all extremities equally SKIN: warm and dry, lower back incision covered with bandage that is c/d/i. Laboratory Results: 05/02/17 05:57 05/02/17 05:57 Test 04/27/17 16:35 05/01/17 05:44 05/02/17 05:57 Immature Granulocyte % (Auto) 0.1 % White Blood Count 6.83 K/uL (4.8-10.8) Red Blood Count 3.93 M/uL (4.7-6.1) 4.19 M/uL (4.7-6.1) Hemoglobin 11.9 g/dL (14.0-18.0) Hematocrit 36.2 % (42-52) Mean Corpuscular Volume 92.1 fL (80-100) 91.2 fL (80-100) Mean Corpuscular Hemoglobin 30.3 pg (25-34) 30.8 pg (25-34) Mean Corpuscular Hemoglobin Concent 32.9 g/dl (32-36) 33.8 g/dl (32-36) Platelet Count 203 K/uL (130-400) Mean Platelet Volume 11.5 fL (7.4-10.4) 12.3 fL (7.4-10.4) Neutrophils (%) (Auto) 59.8 % Lymphocytes (%) (Auto) 20.9 % Monocytes (%) (Auto) 15.2 % Eosinophils (%) (Auto) 2.8 % Basophils (%) (Auto) 1.2 % Neutrophils # (Auto) 4.08 K/uL (1.4-6.5) Lymphocytes # (Auto) 1.43 K/uL (1.2-3.4) Monocytes # (Auto) 1.04 K/uL (0.11-0.59) Eosinophils # (Auto) 0.19 K/uL (0-0.5) Basophils # (Auto) 0.08 K/uL (0-0.2) Immature Granulocyte # (Auto) 0.01 K/uL (0.00-0.02) Activated Partial Thromboplast Time 34.7 SECONDS (21.0-31.0) Partial Thromboplastin Ratio 1.3 Prothrombin Time 14.8 SECONDS (9.0-12.0) Prothromb Time International Ratio 1.4 (0.9-1.1) RDW Standard Deviation 49.4 fL (36.4-46.3) RDW Coefficient of Variation 14.9 % (11.5-14.5) Anion Gap 6.0 mmol/L (3-11) Est Creatinine Clear Calc Drug Dose 52.2 ml/min Estimated GFR () 75.3 Estimated GFR (Non- 65.0 BUN/Creatinine Ratio 21.6 (10-20) Calcium Level 8.8 mg/dl (8.5-10.1) Last 24 Hours Test 05/02/17 05:57 White Blood Count 10.83 K/uL Red Blood Count 4.19 M/uL Hemoglobin 12.9 g/dL Hematocrit 38.2 % Mean Corpuscular Volume 91.2 fL Mean Corpuscular Hemoglobin 30.8 pg Mean Corpuscular Hemoglobin Concent 33.8 g/dl RDW Standard Deviation 49.4 fL RDW Coefficient of Variation 14.9 % Platelet Count 225 K/uL Mean Platelet Volume 12.3 fL Sodium Level 134 mmol/L Potassium Level 4.6 mmol/L Chloride Level 99 mmol/L Carbon Dioxide Level 29 mmol/L Anion Gap 6.0 mmol/L Blood Urea Nitrogen 22 mg/dl Creatinine 1.03 mg/dl Est Creatinine Clear Calc Drug Dose 52.2 ml/min Estimated GFR () 75.3 Estimated GFR (Non- 65.0 BUN/Creatinine Ratio 21.6 Random Glucose 125 mg/dl Calcium Level 8.8 mg/dl Assessment & Plan 86 yo M s/p traumatic fall at home with subsequent back pain 2/2 acute L2, L3 VB compression fracture. s/p L2-3 kyphoplasty on 05/01. Pt reports less pain today with some expected postop discomfort. He has been more ambulatory today and moving better than when admitted. Continues to work with PT. Reports that his pain is well-controlled at this time. Tolerating PO. 1. L-spine compression fracture s/p mech fall at home 2/2 chronic lower back pain s/p back surgery 05/01. Currently, pain is well controlled while supine and not moving much. Recs per Dr. Walker. PT/OT per Dr. Walker. 2. Chronic diastolic heart failure-compensated, cont home furosemide. 3. PAF-controlled, cont amio, warfarin being held for kyphoplasty. Plan to resume warfarin when ok per Ortho 4. COPD-cont home inhalers including Breo, Spiriva and albulterol 5. BPH-cont tamsulosin DVT proph-SCDs, held warfarin for surgery Full Code Dispo-uncertain, depends on recovery. May need SNF and likely [facility]. Nubia Beck DO [facility] Hospitalist Consultants: Ortho Spine-Dr. Aftab Walker Current Inpatient Medications: Current Inpatient Medications Medications (Trade) Dose Ordered Sig/Baldomero Route Start Time Stop Time Status Last Admin Dose Admin Ondansetron HCl (Zofran Inj) 4 mg Q6H PRN IV 04/27/17 21:15 05/27/17 21:14 Amiodarone HCl (Cordarone Tab) 200 mg DAILY PO 04/28/17 09:00 05/28/17 08:59 05/02/17 09:42 200 MG Baclofen (Lioresal Tab) 20 mg TID PO 04/28/17 09:00 05/28/17 08:59 05/02/17 09:43 20 MG Docusate Sodium (coLACE CAP) 100 mg BID PRN PO 04/27/17 21:30 05/27/17 21:29 Furosemide (Lasix Tab) 20 mg QPM PO 04/28/17 21:00 05/28/17 20:59 05/01/17 20:26 20 MG Furosemide (Lasix Tab) 40 mg QAM PO 04/28/17 09:00 05/28/17 08:59 05/02/17 09:42 40 MG Gabapentin (Neurontin Cap) 300 mg TID PO 04/28/17 09:00 05/28/17 08:59 05/02/17 09:42 300 MG Acetaminophen/ Hydrocodone Bitart ([place] 5/325 Tab) 1 tab Q6H PRN PO 04/27/17 21:30 05/11/17 21:29 05/02/17 09:41 1 TAB Lidocaine (Lidoderm Patch 5%) 1 patch DAILY TD 04/28/17 09:00 05/28/17 08:59 05/02/17 09:42 1 PATCH Tamsulosin HCl (Flomax Cap) 0.4 mg HS PO 04/28/17 21:00 05/28/17 20:59 05/01/17 20:25 0.4 MG Cholecalciferol (Vitamin D Tab) 1,000 inter.unit DAILY PO 04/28/17 09:00 05/28/17 08:59 05/02/17 09:42 1,000 INTER.UNIT Miscellaneous Information (Order Awaiting Action) 1 ea QS N/A 04/28/17 00:00 05/28/17 00:00 Pantoprazole Sodium (Protonix Tab) 40 mg QAM PO 04/28/17 09:00 05/28/17 08:59 05/02/17 04:45 40 MG Miscellaneous (Remove Lidoderm Patch) 1 ea DAILY@21 N/A 04/28/17 21:00 05/28/17 20:59 05/01/17 20:28 1 EA Miscellaneous (Iv Fluids Completed) 1 ea PRN PRN N/A 04/28/17 01:00 04/28/18 00:59 Fluticasone/ Vilanterol (Breo Ellipta 100-25 Mcg/Inh) 1 puffs DAILY INH 04/29/17 12:00 05/29/17 11:59 05/02/17 09:40 1 PUFFS Tiotropium [place] (Spiriva Handihaler Inhaler) 1 puff DAILY INH 05/01/17 09:00 05/28/17 08:59 05/02/17 09:40 1 PUFF Albuterol (Ventolin Hfa Inhaler) 2 puffs Q6 PRN INH 05/01/17 18:00 05/28/17 00:00
[2017-05-02] MEDS: FUROSEMIDE 20 MG TAB PO SCH (21:20)
[2017-05-02] MEDS: TAMSULOSIN HCL 0.4 MG CAP PO SCH (21:20)
[2017-05-03 03:52] VITALS: BP 106/61; PULSE 64; O2SAT 94
[2017-05-03] MEDS: HYDROCODONE/ACETAMOPHEN 5/325MG TAB PO PRN (05:45)
[2017-05-03 07:22] VITALS: BP 106/59; PULSE 64; TEMP 36.2; O2SAT 96
[2017-05-03] MEDS: FLUTICASONE FUROATE-VILANTEROL 60 PUFFS INH INH SCH (08:58)
[2017-05-03] MEDS: GABAPENTIN 300 MG CAP PO SCH ×2 (08:59→13:40)
[2017-05-03] MEDS: BACLOFEN TAB 20 MG TAB PO SCH ×2 (08:59→13:40)
[2017-05-03] MEDS: AMIODARONE 200 MG TAB PO SCH (09:00)
[2017-05-03] MEDS: PANTOprazole SOD 40 MG TAB PO SCH (09:00)
[2017-05-03] MEDS: CHOLECALCIFEROL 1000 INTER.UNIT TAB PO SCH (09:00)
[2017-05-03] MEDS: LIDODERM (LIDOCAINE) PATCH 5% TD SCH (09:00)
[2017-05-03] MEDS: FUROSEMIDE 40 MG TAB PO SCH (09:00)
--- NOTE | 2017-05-03 09:04 | Progress Note ---
Progress Note Date of Service May 03, 2017. Progress Note Patient's states his back pain is markedly improved from his preoperative status. He's having some difficulty swallowing today. He did struggle with some delirium last evening. On exam he is in chair at bedside. He is alert and oriented. His good strength testing. Assessment status post kyphoplasty. Planned this time we are hoping to arrange discharge to rehabilitation facility as soon as he is cleared.
[2017-05-03] MEDS: TIOTROPIUM BROMIDE 5 PUFF/90 MCG INH INH SCH (09:33)
[2017-05-03] MEDS ORDERED: HYDR-5688 PO (13:55)
--- NOTE | 2017-05-03 13:55 | Discharge Instructions ---
Discharge Instructions Date of Service May 03, 2017. Admission Reason for Admission: Back Pain, Fall Discharge Discharge Diagnosis / Problem: vertebral fracture s/p L2-3 kyphoplasty Discharge Goals Goal(s): Improve function, Increase independence, Prevent Disease Progression Activity Recommendations Activity Limitations: per Instructions/Follow-up section . Instructions / Follow-Up Instructions / Follow-Up Please continue all medications as listed above. Please follow all post-operative instructions given by Dr. Walker and follow-up per their instructions. It is recommended to follow-up with you primary care physician within one week of discharge from [facility] as a follow-up from this hospitalization. You will need frequent (daily or every other day) INR checks while at [facility] to monitor your response after restarting your coumadin. Goal INR is 2- 3. It was a pleasure taking care of you! Call if you have any questions or problems. You can reach a [facility] hospitalist on duty at [facility] 24 hours a day by calling [phone]. Take care of yourself. Nubia Beck DO [facility] Hospitalist Current Hospital Diet Patient's current hospital diet: AHA Diet (Heart Healthy) Discharge Diet Recommended Diet: AHA Diet (Heart Healthy) Procedures Procedures Performed: L2-L3 Kyphoplasty with Biopsy Pending Studies Studies pending at discharge: no Medical Emergencies . Who to Call and When: Medical Emergencies: If at any time you feel your situation is an emergency, please call 911 immediately. . Non-Emergent Contact Non-Emergency issues call your: Primary Care Provider . . "Provider Documentation" section prepared by Nubia Beck. . VTE Core Measure Inpt VTE Proph given/why not?: Warfarin (Coumadin)
[2017-05-03 15:19] VITALS: BP 91/55; PULSE 67; TEMP 36.4; O2SAT 95
[2017-05-03 15:59] VITALS: BP 91/55; PULSE 67; TEMP 36.4; O2SAT 95
[2017-05-03] MEDS ORDERED: WARFARIN SOD 3 MG TAB PO SCH (16:00)
[2017-05-04] MEDS ORDERED: WARFARIN SOD 2 MG TAB PO SCH (16:00)
--- NOTE | 2017-05-07 21:20 | Discharge Summary ---
Discharge Summary Date of Service May 07, 2017. Discharge Summary Admission Date: Apr 30, 2017 at 11:40 Discharge Date: May 03, 2017 Discharge Disposition: residential facility Principal Diagnosis: L-spine compression fracture s/p mech fall at home 2/2 chronic lower back pain s/p kyphoplasty Chronic diastolic heart failure PAF COPD BPH Ambulatory dysfunction Procedures: 1) L2 and L3 kyphoplasty. 2) L2 and L3 biopsy Vaccinations: None. Consultations: Ortho Spine-Dr. Aftab Walker Pending Studies/Follow-Up: see instructions below. Medication Reconciliation Changed Medications: Hydrocodone/Acetaminophen 5MG/325MG ([place] 5MG/325MG) Tab 1 TAB PO Q6H PRN for Pain for 7 Days, #20 TAB (Changed from: 1-2 TABLETS) PRN PAIN Continued Medications: Albuterol Hfa (Ventolin Hfa) 200 Puffs/80168 Mcg Aers 2-4 PUFFS INH Q6H, INHALER Amiodarone HCl (Amiodarone HCl) 200 Mg Tab 200 MG PO DAILY Baclofen (Lioresal) 20 Mg Tab 1 TAB PO TID for 30 Days, #90 TAB 2 Refills Cholecalciferol (Vitamin D3) 2,000 Unit Cap 1 CAP PO DAILY, CAP Desloratadine (Clarinex) 5 Mg Tab 5 MG PO HS, TAB Docusate Sodium (Colace) 100 Mg Cap 1 CAP PO BID PRN for Constipation for 15 Days, #30 CAP Fluticasone Furoate-Vilanterol (Breo Ellipta) 1 Inh Inh 1 PUFF INH UD Furosemide (Lasix) 40 Mg Tab 40 MG PO QAM, TAB Furosemide (Lasix) 20 Mg Tab 20 MG PO QPM, TAB Gabapentin (Neurontin) 300 Mg Cap 300 MG PO TID, CAP Lidocaine (Lidocaine) 5 % Pad 1 PATCH TD DAILY Multiple Vitamins W/ Minerals (Vision Vitamins) 1 Tab Tab 1 TAB PO QAM Omeprazole (Prilosec) 40 Mg Cap 40 MG PO QAM Probiotic Product (Probiotic) 1 Cap Cap 1 CAP PO QAM Tamsulosin HCl (Tamsulosin HCl) 0.4 Mg Cap 0.4 MG PO HS Tiotropium [place] (Spiriva Handihaler) 30 Puff/540 Mcg Aerp 1 CAP INH DAILY, INHALER Warfarin Sod (Jantoven) 1 Mg Tab 2 MG PO MWF Warfarin Sod (Jantoven) 1 Mg Tab 3 MG PO SuTuThSa, TAB Admission Information HPI (per Admitting provider): This is a 86yo M with a PMH of chronic back pain, chronic diastolic HF, COPD, paroxysmal A Fib (on coumadin), severe MR s/p MVR, severe TP s/p repair, GERD and BPH who presents with worsening spasmodic back pain. Patient underwent a Lumbar L4-L5 spinal Kyphoplasty for compression fractures by on 02/19 and completed rehab at [facility]. Was readmitted to [facility] from 03/18-03/27 for spasmodic back pain and received an SI joint injection under fluoroscopy. Developed hospital acquired MSSA PNA and was discharged to [facility] on antibiotics. Continued to participate in PT/OT until discharge home on 04/12. Patient has continued to participate in out-patient rehab and has been following with Dr. Fowler in pain management. Has not been wearing back brace 2/ 2 discomfort. Early this morning, around 3am, patient reports attempting to get out of his recliner to use the restroom when he slid to the floor. Denies any proceeding lightheadedness, CP or SOB but does state that he "feels confused" on his pain medication and thinks that it made him unbalanced. Denies hitting his head or LOC. Reports that his found him a few hours later. Requested help of neighbor to get patient into bed. Later in the day, patient was trying to get out of his bed with his 's assistance and fell back onto bed. At this point, was instructed to call EMS for patient to receive further evaluation in the ER. Endorses severe, 10/10 sharp spasms of pain that last for ~1 minute at a time. Pain is associated with intermittent weakness in bilateral legs. Also states worsening shakiness in hands. Denies bowel or bladder incontinence. Denies fever , chills, CP, SOB, abdominal pain, nausea, vomiting, dysuria, constipation or numbness/tingling in extremities. Physical Exam (per Admitting): General Appearance: no apparent distress, + pertinent finding (Frail appearing) Head: normocephalic, atraumatic Eyes: normal inspection, PERRL, sclerae normal ENT: normal ENT inspection, hearing grossly normal, pharynx normal (moist mucous membranes ) Neck: supple, no adenopathy, trachea midline Respiratory/Chest: chest non-tender, no respiratory distress, no accessory muscle use, + decreased breath sounds (no crackles, wheezing ) Cardiovascular: regular rate, rhythm, normal peripheral pulses, + systolic murmur (faint) Abdomen/GI: non tender, soft, no organomegaly Back: normal inspection Extremities/Musculoskelatal: normal inspection, no calf tenderness, no pedal edema, normal range of motion Neurologic/Psych: no motor/sensory deficits (5/5 KASSIE in all 4 extremities. Did not assess gait 2/2 generalized weakness. ), alert, normal mood/affect, oriented x 3 Skin: normal color, warm/dry Hospital Course 86 yo M s/p traumatic fall at home with subsequent back pain 2/2 acute L2, L3 VB compression fracture. s/p L2-3 kyphoplasty on 05/01. Pt reports less pain today with some expected postop discomfort. He has been more ambulatory today and moving better than when admitted. Continues to work with PT. Reports that his pain is well-controlled at this time. Tolerating PO. 1. L-spine compression fracture s/p mech fall at home 2/2 chronic lower back pain s/p back surgery 05/01. Currently, pain is well controlled while supine and not moving much. Recs per Dr. Walker. PT/OT per Dr. Walker. 2. Chronic diastolic heart failure-compensated, cont home furosemide. 3. PAF-controlled, cont amio, warfarin being held for kyphoplasty. Plan to resume warfarin when ok per Ortho 4. COPD-cont home inhalers including Breo, Spiriva and albulterol 5. BPH-cont tamsulosin On day of discharge he was afebrile and hemodynamically stable. He was mentating at baseline and tolerating PO. Pain was controlled with PO medications and was reportedly improved in the post-op period. He was transferred to [facility] in stable condition for additional rehab efforts. Physical exam on day of discharge was unremarkable. Close PCP follow- up recommended post-rehab discharge. Post-op instructions per Ortho Spine. Total time spent on discharge = 60 minutes This includes examination of the patient, discharge planning, medication reconciliation, and communication with other providers. Discharge Instructions [address] [address] Discharge Medical Patient Name: Hunter Rogers Unit Number: [id number] Date of : 1930 Patient Status: Discharged Inpatient Attending Doctor: Nubia Beck DO DI: Medical v4 Discharge Instructions Date of Service May 03, 2017. Admission Reason for Admission: Back Pain, Fall Discharge Discharge Diagnosis / Problem: vertebral fracture s/p L2-3 kyphoplasty Discharge Goals Goal(s): Improve function, Increase independence, Prevent Disease Progression Activity Recommendations Activity Limitations: per Instructions/Follow-up section . Instructions / Follow-Up Instructions / Follow-Up Please continue all medications as listed above. Please follow all post-operative instructions given by Dr. Walker and follow-up per their instructions. It is recommended to follow-up with you primary care physician within one week of discharge from [facility] as a follow-up from this hospitalization. You will need frequent (daily or every other day) INR checks while at [facility] to monitor your response after restarting your coumadin. Goal INR is 2- 3. It was a pleasure taking care of you! Call if you have any questions or problems. You can reach a [facility] hospitalist on duty at [facility] 24 hours a day by calling [phone]. Take care of yourself. Nubia Beck DO [facility] Hospitalist Current Hospital Diet Patient's current hospital diet: AHA Diet (Heart Healthy) Discharge Diet Recommended Diet: AHA Diet (Heart Healthy) Procedures Procedures Performed: L2-L3 Kyphoplasty with Biopsy Pending Studies Studies pending at discharge: no Medical Emergencies . Who to Call and When: Medical Emergencies: If at any time you feel your situation is an emergency, please call 911 immediately. . Non-Emergent Contact Non-Emergency issues call your: Primary Care Provider . . "Provider Documentation" section prepared by Nubia Beck. . VTE Core Measure Inpt VTE Proph given/why not?: Warfarin (Coumadin) Additional Copies To Frank Mahoney D.O.
== END 2017-05-03 16:22 | DRG 478 ==
LOC: EDBD 15:57 → C.EDA 15:58 → C.MSN 21:02 → EDBEDREQSVC 21:23 → ENRESERV 22:19 → OBSVTOIN 04-30 11:40
PROVIDERS: ADMIT Internal Medicine; ATTEND Hospitalist
PROC: 0QB03ZX Excision of Lumbar Vertebra, Percutaneous Approach, Diagnostic (ICD-10-PCS; principal; 2017-05-01 13:45)
PROC: 0QS03ZZ Reposition Lumbar Vertebra, Percutaneous Approach (ICD-10-PCS; principal; 2017-05-01 13:45)
PROC: 0QU03JZ Supplement Lumbar Vertebra with Synthetic Substitute, Percutaneous Approach (ICD-10-PCS; principal; 2017-05-01 13:45)
DX: S32.020A Wedge compression fracture of second lumbar vertebra, initial encounter for closed fracture (principal); I50.32 Chronic diastolic (congestive) heart failure; S32.030A Wedge compression fracture of third lumbar vertebra, initial encounter for closed fracture; R53.1 Weakness; R13.10 Dysphagia, unspecified; R41.0 Disorientation, unspecified; R29.6 Repeated falls; W07.XXXA Fall from chair, initial encounter; Y92.009 Unspecified place in unspecified non-institutional (private) residence as the place of occurrence of the external cause; G89.29 Other chronic pain; M54.9 Dorsalgia, unspecified; I48.0 Paroxysmal atrial fibrillation; J44.9 Chronic obstructive pulmonary disease, unspecified; K21.9 Gastro-esophageal reflux disease without esophagitis; M19.90 Unspecified osteoarthritis, unspecified site; N40.0 Benign prostatic hyperplasia without lower urinary tract symptoms; Z98.890 Other specified postprocedural states; Z95.2 Presence of prosthetic heart valve; Z96.659 Presence of unspecified artificial knee joint; Z87.891 Personal history of nicotine dependence; Z79.01 Long term (current) use of anticoagulants; Z79.51 Long term (current) use of inhaled steroids; Z79.891 Long term (current) use of opiate analgesic; Z79.899 Other long term (current) drug therapy

== ENCOUNTER 2017-09-17 12:11 | Inpatient (IN) | payer OTHER ==
[~2017-09-17] VITALS: Ht 177.8 cm; Wt 89.1 kg
[~2017-09-17 12:11] MED LIST changes: +ACET-1693 PO; -ADVIN10/60 INH; -AMOX1TAB43 PO; +BACL20TA PO; +CALC200T PO; -DOCU-94 PO; -FIBER PO; -FLUT0.15 NAE; -FURO-85 PO; -FURO40TA3 PO; -GABA-112 PO; +GABA-1220 PO; -LACT1TAB4 PO; -LDDP5 TD; +LXP/10 PO; -MISCCAP80 PO; -MOMLX PO; -TRAM-10 PO; +VNTHFA/IN INH; -WARF1TAB6 PO; +WARF2TAB PO; +WARF3TAB PO
[2017-09-17] MEDS ORDERED: ALBUT/IPRATROP 3MG/0.5MG NEB 3 ML VIAL INH STA (12:25)
[2017-09-17] MEDS ORDERED: SODIUM CHLORIDE 0.9% 1000ML 1,000 ML IV STA (12:25)
[2017-09-17] MEDS ORDERED: CEFTRIAXONE SOD INJ 1 GM ADDVIAL IV STA (12:25)
[2017-09-17] MEDS ORDERED: AZITHROMYCIN IV 500 MG in DEXTROSE 5% 250ML 250 ML IV ONE (12:30)
[2017-09-17 12:47] LABS: MEAN CORPUSCULAR HGB CONC 33.2 g/dl (32-36)
[2017-09-17 12:58] LABS: HEMATOCRIT 36.8 % (42-52); HEMOGLOBIN 12.2 g/dL (14.0-18.0); MEAN CELL VOLUME 84.4 fL (80-100); RED CELL DISTRIBUTION WIDTH CV 17.6 % (11.5-14.5); RED CELL DISTRIBUTION WIDTH SD 54.9 fL (36.4-46.3); WHITE BLOOD COUNT 10.84 K/uL (4.8-10.8)
[2017-09-17 13:15] LABS: BASO % 0.2 %; BASO ABS # 0.02 K/uL (0-0.2); EOS % 0.1 %; EOS ABS # 0.01 K/uL (0-0.5); IG# 0.02 K/uL (0.00-0.02); LYMPH % 18.3 %; LYMPH ABS # 1.98 K/uL (1.2-3.4); MONO % 19.2 %; MONO ABS # 2.08 K/uL (0.11-0.59); NEUT ABS # 6.73 K/uL (1.4-6.5); PLATELET COUNT 134 K/uL (130-400)
[2017-09-17 13:18] LABS: PTT PATIENT 47.4 SECONDS (21.0-31.0)
[2017-09-17 13:28] LABS: ALKALINE PHOSPHATASE 86 U/L (45-117); ALT/SGPT 22 U/L (12-78); BLOOD UREA NITROGEN 15 mg/dl (7-18); CALCIUM 8.5 mg/dl (8.5-10.1); CARBON DIOXIDE 29 mmol/L (21-32); CKMB 0.7 ng/ml (0.5-3.6); CREATININE 1.13 mg/dl (0.60-1.40); GLUCOSE 104 mg/dl (70-99); SODIUM 135 mmol/L (136-145); TOTAL PROTEIN 7.4 gm/dl (6.4-8.2)
--- NOTE | 2017-09-17 13:33 | DIAGNOSTIC IMAGING REPORT ---
CHEST ONE VIEW PORTABLE CLINICAL HISTORY: Fever. Sepsis. COMPARISON STUDY: Chest radiograph July 06, 2017. FINDINGS: There are median sternotomy wires. Cardiomegaly is unchanged. Mild right basilar opacity is noted. There is no evidence for pulmonary edema. Left lung is grossly clear. There is no pneumothorax or pleural effusion. IMPRESSION: Mild right basilar opacity which may reflect pneumonia or atelectasis. Radiographic follow-up to ensure resolution is recommended. Electronically signed by: Chuck Barrow M.D. 09/17/2017 1:32 PM Dictated Date/Time: 09/17/2017 1:31 PM
[2017-09-17 13:48] LABS: INFLUENZA B ANTIGEN Neg for Influ B (NEG)
--- NOTE | 2017-09-17 13:49 | EMERGENCY ROOM VISIT NOTE ---
History Report prepared by Polly: Kehinde Cifuentes Under the Supervision of: Dr. Hi Diamond D.O. First contact with patient: 12:19 Stated Complaint: sob History of Present Illness The patient is an 87 year old male who presents to the Emergency Room with complaints of worsening shortness of breath that began this morning. Per EMS the patient's noted that he was not feeling well yesterday. The patient was coughing persistently throughout the day, and was coughing up a "yellow mucous." The also told EMS that he was more tired than usual. The home health nurse states that the patient was 85% on room air and came up to 89% on 4 Liters of oxygen. He is not normally on home O2. He does have a history of COPD. EMS administered a Duoneb treatment en route to the hospital which seemed to improve his shortness of breath. Source of History: patient, spouse/significant other, EMS Onset: Yesterday Position: chest Quality: other (SOB) Timing: worsening Associated Symptoms: + cough Review of Systems See HPI for pertinent positives & negatives. A total of 10 systems reviewed and were otherwise negative. Past Medical & Surgical Medical Problems: (1) A-fib (2) Arthritis (3) Asthma (4) Back pain (5) Compression fracture of L2 lumbar vertebra (6) Compression fracture of L3 lumbar vertebra (7) Conductive hearing loss (8) COPD (chronic obstructive pulmonary disease) (9) GERD (gastroesophageal reflux disease) (10) Heart failure, diastolic (11) History of left heart catheterization (12) detention current use of anticoagulant (13) Lumbar compression fracture (14) Osteoarthritis (15) Peptic ulcer disease Surgical Problems: (1) H/O foot surgery (2) H/O mitral valve replacement (3) H/O removal of cyst (4) H/O tricuspid valve repair (5) History of kyphoplasty (6) Hx of total knee arthroplasty (7) S/P MVR (mitral valve replacement) Family History Cancer FH: heart disease Hypertension Stroke Social History Smoking Status: Former Smoker Alcohol Use: none Drug Use: none Marital Status: Housing Status: lives with family Occupation Status: retired Current/Historical Medications Scheduled Albuterol Hfa (Ventolin Hfa), 2-4 PUFFS INH Q6H Amiodarone HCl (Amiodarone HCl), 200 MG PO QAM Calcium Carbonate-Vitamin D (Oscal 500/200 D-3), 1 TAB PO QAM Escitalopram Oxalate (Lexapro), 10 MG PO HS Fluticasone Furoate-Vilanterol (Breo Ellipta), 1 PUFF INH QAM Gabapentin (Neurontin), 400 MG PO TID Multiple Vitamins W/ Minerals (Vision Vitamins), 1 TAB PO QAM Omeprazole (Prilosec), 40 MG PO QAM Tamsulosin HCl (Tamsulosin HCl), 0.4 MG PO HS Tiotropium [place] (Spiriva Handihaler), 1 CAP INH DAILY Warfarin Sodium (Coumadin), 2 MG PO MWF Warfarin Sodium (Coumadin), 3 MG PO 4XWK Scheduled PRN Acetaminophen Tab (Tylenol), 650 MG PO Q6H PRN for prn Baclofen (Lioresal), 20 MG PO Q6-8H PRN for Muscle Spasms Allergies Coded Allergies: Lansoprazole (Verified Allergy, Unknown, didn't work/dr determined pt was allergic, 07/02/17) Physical Exam Vital Signs Date Time Temp Pulse Resp B/P (MAP) Pulse Ox O2 Delivery O2 Flow Rate FiO2 09/17/17 14:10 70 22 110/47 93 Nasal Cannula 4.0 09/17/17 12:36 74 09/17/17 12:15 36.9 73 18 124/54 87 Room Air 09/17/17 12:15 94 Nasal Cannula 4.0 09/17/17 12:15 87 Room Air Physical Exam CONSTITUTIONAL/VITAL SIGNS: Reviewed / noted above. GENERAL: Non-toxic in appearance. INTEGUMENTARY: Warm, dry, and [place]. HEAD: Normocephalic. EYES: without scleral icterus or trauma. ENT/OROPHARYNX: clear and moist. LYMPHADENOPATHY/NECK: Is supple without lymphadenopathy or meningismus. RESPIRATORY: Coarse breath sounds at the bases bilaterally. CARDIOVASCULAR: Regular rate and rhythm. GI/ABDOMEN: Soft and nontender. No organomegaly or pulsatile mass. No rebound or guarding. Normal bowel sounds. EXTREMITIES: Warm and well perfused. Mild pedal edema. BACK: No CVA tenderness. NEUROLOGICAL: Intact without focal deficits. PSYCHIATRIC: normal affect. MUSCULOSKELETAL: Normally developed with good muscle tone. Medical Decision & Procedures ER Provider Diagnostic Interpretation: Radiology results as stated below per my review and radiologist interpretation: CHEST ONE VIEW PORTABLE CLINICAL HISTORY: Fever. Sepsis. COMPARISON STUDY: Chest radiograph July 06, 2017. FINDINGS: There are median sternotomy wires. Cardiomegaly is unchanged. Mild right basilar opacity is noted. There is no evidence for pulmonary edema. Left lung is grossly clear. There is no pneumothorax or pleural effusion. IMPRESSION: Mild right basilar opacity which may reflect pneumonia or atelectasis. Radiographic follow-up to ensure resolution is recommended. Electronically signed by: Chuck Barrow M.D. 09/17/2017 1:32 PM Dictated Date/Time: 09/17/2017 1:31 PM Laboratory Results 09/17/17 12:35 Red Blood Count 4.36, Mean Corpuscular Volume 84.4, Mean Corpuscular Hemoglobin 28.0, Mean Corpuscular Hemoglobin Concent 33.2, Neutrophils (%) (Auto) 62.0, Lymphocytes (%) (Auto) 18.3, Monocytes (%) (Auto) 19.2, Eosinophils (%) (Auto) 0.1, Basophils (%) (Auto) 0.2, Neutrophils # (Auto) 6.73, Lymphocytes # (Auto) 1.98, Monocytes # (Auto) 2.08, Eosinophils # (Auto) 0.01, Basophils # (Auto) 0.02 09/17/17 12:35 Test 09/17/17 12:35 09/17/17 13:00 09/17/17 13:02 09/17/17 13:30 White Blood Count 10.84 K/uL (4.8-10.8) Red Blood Count 4.36 M/uL (4.7-6.1) Hemoglobin 12.2 g/dL (14.0-18.0) Hematocrit 36.8 % (42-52) Mean Corpuscular Volume 84.4 fL (80-100) Mean Corpuscular Hemoglobin 28.0 pg (25-34) Mean Corpuscular Hemoglobin Concent 33.2 g/dl (32-36) Platelet Count 134 K/uL (130-400) Neutrophils (%) (Auto) 62.0 % Lymphocytes (%) (Auto) 18.3 % Monocytes (%) (Auto) 19.2 % Eosinophils (%) (Auto) 0.1 % Basophils (%) (Auto) 0.2 % Neutrophils # (Auto) 6.73 K/uL (1.4-6.5) Lymphocytes # (Auto) 1.98 K/uL (1.2-3.4) Monocytes # (Auto) 2.08 K/uL (0.11-0.59) Eosinophils # (Auto) 0.01 K/uL (0-0.5) Basophils # (Auto) 0.02 K/uL (0-0.2) RDW Standard Deviation 54.9 fL (36.4-46.3) RDW Coefficient of Variation 17.6 % (11.5-14.5) Immature Granulocyte % (Auto) 0.2 % Immature Granulocyte # (Auto) 0.02 K/uL (0.00-0.02) Platelet Estimate NORMAL Ovalocytes 1+ Prothrombin Time 20.7 SECONDS (9.0-12.0) Prothromb Time International Ratio 2.0 (0.9-1.1) Activated Partial Thromboplast Time 47.4 SECONDS (21.0-31.0) Partial Thromboplastin Ratio 1.8 Anion Gap 6.0 mmol/L (3-11) Est Creatinine Clear Calc Drug Dose 50.8 ml/min Estimated GFR () 66.9 Estimated GFR (Non- 57.7 BUN/Creatinine Ratio 13.6 (10-20) Calcium Level 8.5 mg/dl (8.5-10.1) Total Bilirubin 0.8 mg/dl (0.2-1) Direct Bilirubin mg/dl (0-0.2) Aspartate Amino Transf (AST/SGOT) U/L (15-37) Alanine Aminotransferase (ALT/SGPT) 22 U/L (12-78) Alkaline Phosphatase 86 U/L (45-117) Total Creatine Kinase U/L (39-308) Creatine Kinase MB 0.7 ng/ml (0.5-3.6) Creatine Kinase MB Ratio (0-3.0) Troponin I < 0.015 ng/ml (0-0.045) Total Protein 7.4 gm/dl (6.4-8.2) Albumin 3.0 gm/dl (3.4-5.0) Urine Color DK YELLOW Urine Appearance CLEAR (CLEAR) Urine pH 5.0 (4.5-7.5) Urine Specific [place] 1.018 (1.000-1.030) Urine Protein NEG (NEG) Urine Glucose (UA) NEG (NEG) Urine Ketones NEG (NEG) Urine Occult Blood TRACE (NEG) Urine Nitrite NEG (NEG) Urine Bilirubin NEG (NEG) Urine Urobilinogen NEG (NEG) Urine Leukocyte Esterase NEG (NEG) Urine WBC (Auto) 1-5 /hpf (0-5) Urine RBC (Auto) 0-4 /hpf (0-4) Urine Hyaline Casts (Auto) 1-5 /lpf (0-5) Urine Epithelial Cells (Auto) 5-10 /lpf (0-5) Urine Bacteria (Auto) NEG (NEG) Influenza Type A Antigen Neg for Influ A (NEG) Influenza Type B Antigen Neg for Influ B (NEG) Lactic Acid Level 1.2 mmol/L (0.4-2.0) Laboratory results as stated above per my review. Medications Administered Medications (Trade) Dose Ordered Sig/Baldomero Route Start Time Stop Time Status Last Admin Dose Admin Sodium Chloride 1,000 ml @ 999 mls/hr Q1H1M STAT IV 09/17/17 12:25 09/17/17 13:25 DC 09/17/17 13:01 999 MLS/HR Albuterol/ Ipratropium (Duoneb) 3 ml NOW STAT INH 09/17/17 12:25 09/17/17 12:33 DC 09/17/17 13:01 3 ML Ceftriaxone Sodium (Rocephin Inj) 1 gm NOW STAT IV 09/17/17 12:25 09/17/17 12:33 DC 09/17/17 14:10 1 GM ECG Per My Interpretation Rate (beats per minute): 67 Rhythm: sinus rhythm Findings: 1st degree AV block, other (No RUDY, no PVCs) ED Course 1219: Previous medical records were reviewed. The patient was evaluated in room B9. A complete history and physical examination was performed. 1225: Ordered Rocephin 1 gm IV, Duoneb 3 mL INH, Sodium Chloride 1000 mL @ 999 mL/hr IV. 1230: Ordered Azithromycin 255 mL @ 125 mL/hr IV. 1349: I discussed the case with Alessandra Flores [facility] [address] Hospitalist CASI. She will evaluate the patient for further treatment. Medical Decision Differentials considered include acute myocardial infarction, acute coronary syndrome, myocarditis, pericarditis, pericardial effusions /tamponade, esophageal perforation, pulmonary embolism, pneumonia, pneumothorax, cardiomyopathy, congestive heart, anemia, and COPD/asthma exacerbation. This is a 79-year-old male who presents to the ED with a chief complaint of shortness of breath and a productive cough. The patient states that his symptoms started yesterday. He has become increasingly weak since that time. The patient had oxygen saturations of 85% when BLS first arrived on scene. ALS provided a nebulizer treatment in route. The patient's exam findings revealed some rhonchorous lung sounds. His mucous membranes are slightly dry. He has some mild pedal edema. The patient is afebrile here. Vital signs are normal with the exception of his pulse ox of 87% on room air. This improves with oxygen nasal cannula. CBC is unremarkable, chemistry panel was also unremarkable. Troponin is negative, urine is negative. Chest x-ray reveals a right base pneumonia. Because the patient's hypoxia, weakness and symptoms, the patient will be seen by the hospitalist for further inpatient evaluation. He was treated with IV fluids, IV Rocephin as well as IV Zithromax and was given a DuoNeb treatment here. Medication Reconcilliation Current Medication List: was personally reviewed by me Blood Pressure Screening Patient's blood pressure: Normal blood pressure Consults Time Called: 1341 Consulting Physician: Alessandra LANCE Returned Call: 1340 I discussed the case with Alessandra LANCE. She will evaluate the patient for further treatment. Impression Primary Impression: Pneumonia Additional Impression: Hypoxia Scribe Attestation The scribe's documentation has been prepared under my direction and personally reviewed by me in its entirety. I confirm that the note above accurately reflects all work, treatment, procedures, and medical decision making performed by me. Departure Information Dispostion Being Evaluated By Hospitalist Referrals Frank Mahoney D.O. (PCP) Problem Qualifiers
[2017-09-17] MEDS ORDERED: ONDANSETRON INJ 2 MG/ML 2 ML VIAL IV PRN (14:30)
[2017-09-17] MEDS ORDERED: ACETAMINOPHEN 325 MG TAB PO PRN (14:30)
[2017-09-17] MEDS ORDERED: FRS/40 PO ×2 (14:37)
[2017-09-17] MEDS ORDERED: DOCU100C31 PO (14:49)
[2017-09-17] MEDS ORDERED: CALC200S7 (14:49)
[2017-09-17] MEDS ORDERED: GUAI1TAB75 PO (14:49)
[2017-09-17] MEDS ORDERED: SENN-61 PO (14:49)
[2017-09-17] MEDS ORDERED: POLY335019 PO (14:49)
[2017-09-17] MEDS ORDERED: OXYC1TAB3 PO (14:49)
[2017-09-17] MEDS ORDERED: WARFARIN SOD 3 MG TAB PO SCH (15:00)
[2017-09-17] MEDS ORDERED: OXYCODONE HCL IR 5 MG TAB (IMMEDIATE RELEASE) PO PRN (15:00)
[2017-09-17] MEDS ORDERED: DOCUSATE SODIUM 100 MG CAP PO PRN (15:00)
[2017-09-17] MEDS ORDERED: WARFARIN SOD 2 MG TAB PO SCH (15:00)
--- NOTE | 2017-09-17 15:37 | History and Physical ---
History & Physical Date & Time of Service: Sep 17, 2017 ~ 14:00 Chief Complaint: Cough Primary Care Physician: Frank Mahoney D.O. History of Present Illness 87-year-old male who presents the ED with a chief complaint of cough. Patient reports he has had a head cold for the past week. He reports initially having sinus congestion and cough. Cough has been productive for yellow sputum. He chronically wears 2 L of oxygen. Today when therapy came to work with the patient is home, they found him to be hypoxic. He was sent to the ER for further evaluation. Patient reports feeling generally weak and fatigued today. He has chronic back pain and did not take any pain medications today and is having worsening of his pain. He denies feeling short of breath. No chest pain or palpitations. He denies lightheadedness, dizziness, diaphoresis, or syncopal events. No abdominal pain, nausea, vomiting or diarrhea. Denies any difficulty swallowing or choking on his food or liquids. He had a fever of 101 at home today. He denies any urinary symptoms. Of note, patient was recently discharged from [facility] 3 weeks ago. In the ED, patient's chest x-ray suggests a right basilar pneumonia. He was saturating 87% on room air, this improved with oxygen 4 L via nasal cannula. WBC 10.8 K, lactic acid normal. Vital signs stable. Patient was given IVF, nebulizer treatment, IV Rocephin, and IV azithromycin. Past Medical/Surgical History Medical Problems: (1) Arthritis Status: Chronic (2) Chronic back pain Status: Chronic (3) Conductive hearing loss Status: Chronic (4) COPD (chronic obstructive pulmonary disease) Status: Chronic (5) GERD (gastroesophageal reflux disease) Status: Chronic (6) Heart failure, diastolic Status: Chronic (7) retirement current use of anticoagulant Status: Chronic (8) Lumbar compression fracture Permanent Comment: L1, L2, L3, L4, L5 Status: Chronic (9) Osteoarthritis Status: Chronic (10) Paroxysmal atrial fibrillation Status: Chronic (11) Peptic ulcer disease Status: Chronic (12) Spontaneous pneumothorax Status: Resolved Surgical Problems: (1) Epigastric hernia repair Status: Chronic (2) H/O arthroscopic knee surgery Status: Chronic (3) H/O foot surgery Status: Chronic (4) H/O inguinal hernia repair Status: Chronic (5) H/O mitral valve replacement Status: Chronic (6) H/O removal of cyst Status: Resolved (7) H/O tricuspid valve repair Permanent Comment: 2016 Status: Chronic (8) History of cataract surgery Status: Chronic (9) History of kyphoplasty Status: Chronic (10) S/P MVR (mitral valve replacement) Permanent Comment: Bioprosthetic, 2016 Status: Chronic Family History Noncontributory secondary to patient's advanced age Social History Smoking Status: Former Smoker Alcohol Use: none Marital Status: Housing status: lives with family Immunizations History of Influenza Vaccine: Yes Influenza Vaccine Date: Mar 12, 2017 History of Tetanus Vaccine?: Yes Tetanus Immunization Date: Mar 02, 2014 History of Pneumococcal: Yes Pneumococcal Date: Jun 29, 2014 Allergies Coded Allergies: Lansoprazole (Verified Allergy, Unknown, didn't work/dr determined pt was allergic, 09/17/17) Home Medications Scheduled Amiodarone HCl (Amiodarone HCl), 200 MG PO QAM Baclofen (Lioresal), 20 MG PO TID Calcitonin ([place]) (Miacalcin), 1 SPRAY NA DAILY Calcium Carbonate-Vitamin D (Oscal 500/200 D-3), 1 TAB PO QAM Escitalopram Oxalate (Lexapro), 10 MG PO HS Fluticasone Furoate-Vilanterol (Breo Ellipta), 1 PUFF INH QAM Furosemide (Lasix), 40 MG PO QAM Furosemide (Lasix), 20 MG PO HS Gabapentin (Neurontin), 400 MG PO TID Guaifenesin La (Guaifenesin Er), 600 MG PO Q12H Multiple Vitamins W/ Minerals (Vision Vitamins), 1 TAB PO QAM Omeprazole (Prilosec), 40 MG PO DAILY Polyethylene Glycol 3350 (Miralax), 17 GM PO DAILY Senna (Senokot), 1 TAB PO HS Tamsulosin HCl (Tamsulosin HCl), 0.4 MG PO HS Tiotropium [place] (Spiriva Handihaler), 1 CAP INH DAILY Warfarin Sodium (Coumadin), 2 MG PO UD Warfarin Sodium (Coumadin), 3 MG PO UD Scheduled PRN Acetaminophen Tab (Tylenol), 650 MG PO Q6H PRN for prn Albuterol Hfa (Ventolin Hfa), 2-4 PUFFS INH Q6H PRN for SOB/Wheezing Docusate Sodium (Docusate Sodium), 1 CAP PO BID PRN for Constipation Oxycodone Ir (Roxicodone Ir), 5 MG PO Q4H PRN for Severe Pain Review of Systems ROS per HPI, all other systems reviewed and negative Physical Exam Vital Signs Date Time Temp Pulse Resp B/P (MAP) Pulse Ox O2 Delivery O2 Flow Rate FiO2 09/17/17 15:17 69 18 111/50 92 09/17/17 14:10 70 22 110/47 93 Nasal Cannula 4.0 09/17/17 12:36 74 09/17/17 12:15 36.9 73 18 124/54 87 Room Air 09/17/17 12:15 94 Nasal Cannula 4.0 09/17/17 12:15 87 Room Air General Appearance: WD/WN, no apparent distress Head: normocephalic, atraumatic, + abnormal shape Eyes: normal inspection, EOMI, sclerae normal ENT: hearing grossly normal, + pertinent finding (Mucous membranes moist) Neck: supple, no JVD, trachea midline Respiratory/Chest: no respiratory distress, + rhonchi (Coarse breath sounds bilaterally), + wheezing (Expiratory, bilaterally) Cardiovascular: regular rate, rhythm, normal peripheral pulses, + pertinent finding (Trace edema BLE) Abdomen/GI: normal bowel sounds, non tender, soft, no organomegaly Extremities/Musculoskelatal: normal inspection, no calf tenderness, normal capillary refill Neurologic/Psych: no motor/sensory deficits, alert, normal mood/affect, oriented x 3, + pertinent finding (Somewhat forgetful) Skin: normal color, warm/dry Diagnostics Laboratory Results Results Past 24 Hours Test 09/17/17 12:35 09/17/17 13:00 09/17/17 13:02 09/17/17 13:30 Range/Units White Blood Count 10.84 4.8-10.8 K/uL Red Blood Count 4.36 4.7-6.1 M/uL Hemoglobin 12.2 14.0-18.0 g/dL Hematocrit 36.8 42-52 % Mean Corpuscular Volume 84.4 80-100 fL Mean Corpuscular Hemoglobin 28.0 25-34 pg Mean Corpuscular Hemoglobin Concent 33.2 32-36 g/dl Platelet Count 134 130-400 K/uL Neutrophils (%) (Auto) 62.0 % Lymphocytes (%) (Auto) 18.3 % Monocytes (%) (Auto) 19.2 % Eosinophils (%) (Auto) 0.1 % Basophils (%) (Auto) 0.2 % Neutrophils # (Auto) 6.73 1.4-6.5 K/uL Lymphocytes # (Auto) 1.98 1.2-3.4 K/uL Monocytes # (Auto) 2.08 0.11-0.59 K/uL Eosinophils # (Auto) 0.01 0-0.5 K/uL Basophils # (Auto) 0.02 0-0.2 K/uL RDW Standard Deviation 54.9 36.4-46.3 fL RDW Coefficient of Variation 17.6 11.5-14.5 % Immature Granulocyte % (Auto) 0.2 % Immature Granulocyte # (Auto) 0.02 0.00-0.02 K/uL Platelet Estimate NORMAL Ovalocytes 1+ Prothrombin Time 20.7 9.0-12.0 SECONDS Prothromb Time International Ratio 2.0 0.9-1.1 Activated Partial Thromboplast Time 47.4 21.0-31.0 SECONDS Partial Thromboplastin Ratio 1.8 Sodium Level 135 136-145 mmol/L Potassium Level 3.5-5.1 mmol/L Chloride Level 100 98-107 mmol/L Carbon Dioxide Level 29 21-32 mmol/L Anion Gap 6.0 3-11 mmol/L Blood Urea Nitrogen 15 7-18 mg/dl Creatinine 1.13 0.60-1.40 mg/dl Est Creatinine Clear Calc Drug Dose 50.8 ml/min Estimated GFR () 66.9 Estimated GFR (Non- 57.7 BUN/Creatinine Ratio 13.6 10-20 Random Glucose 104 70-99 mg/dl Calcium Level 8.5 8.5-10.1 mg/dl Total Bilirubin 0.8 0.2-1 mg/dl Direct Bilirubin 0-0.2 mg/dl Aspartate Amino Transf (AST/SGOT) 15-37 U/L Alanine Aminotransferase (ALT/SGPT) 22 12-78 U/L Alkaline Phosphatase 86 45-117 U/L Total Creatine Kinase 39-308 U/L Creatine Kinase MB 0.7 0.5-3.6 ng/ml Creatine Kinase MB Ratio 0-3.0 Troponin I < 0.015 0-0.045 ng/ml Total Protein 7.4 6.4-8.2 gm/dl Albumin 3.0 3.4-5.0 gm/dl Urine Color DK YELLOW Urine Appearance CLEAR CLEAR Urine pH 5.0 4.5-7.5 Urine Specific [place] 1.018 1.000-1.030 Urine Protein NEG NEG Urine Glucose (UA) NEG NEG Urine Ketones NEG NEG Urine Occult Blood TRACE NEG Urine Nitrite NEG NEG Urine Bilirubin NEG NEG Urine Urobilinogen NEG NEG Urine Leukocyte Esterase NEG NEG Urine WBC (Auto) 1-5 0-5 /hpf Urine RBC (Auto) 0-4 0-4 /hpf Urine Hyaline Casts (Auto) 1-5 0-5 /lpf Urine Epithelial Cells (Auto) 5-10 0-5 /lpf Urine Bacteria (Auto) NEG NEG Influenza Type A Antigen Neg for Influ A NEG Influenza Type B Antigen Neg for Influ B NEG Lactic Acid Level 1.2 0.4-2.0 mmol/L Test 09/17/17 14:56 Range/Units Microbiology Results 09/17/17 Blood Culture, Received Pending 09/17/17 Blood Culture, Received Pending Diagnostic Radiology CXR IMPRESSION: Mild right basilar opacity which may reflect pneumonia or atelectasis. Radiographic follow-up to ensure resolution is recommended. 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 ASPIRATION COPD EXACERBATION -Admit to [facility] -Patient presenting with increasing cough, generalized weakness, and found to be hypoxic with in-house therapy today -Patient chronically wears 2 L of oxygen with activity and at bedtime, currently requiring 4 L oxygen via nasal cannula -Chest x-ray suggests a right basilar infiltrate -Recently discharged from [facility] for rehab -S/P Rocephin and azithromycin in the ED -Given that infiltrate is located in the right base and the patient was recently discharged from healthcare facility, will cover for aspiration and HCAP with Zosyn; check MRSA nasal swab and if positive will add vancomycin -No signs of sepsis -Sputum culture -Speech evaluation -For COPD exacerbation, will start prednisone 40 mg p.o. 5 days, around-the- clock nebulizer treatments, flutter valve to help mobilize secretions, continue home inhaled corticosteroid PAROXYSMAL ATRIAL FIBRILLATION -Rhythm controlled on amiodarone, will continue -Anticoagulated on Coumadin, INR 2.0; continue Coumadin as per home dosing and monitor INR CHRONIC DIASTOLIC CHF -Continue home dose of furosemide CHRONIC BACK PAIN -Continue back brace -Continue gabapentin, baclofen, as needed oxycodone S/P TRICUSPID VALVE REPAIR, BIOPROSTHETIC MITRAL VALVE REPLACEMENT -No acute issues DVT PROPHYLAXIS -Anticoagulant Coumadin, INR 2.0 CODE STATUS -Patient is a full code as per my discussion with him. DISPOSITION -In my clinical judgment this beneficiary meets acute admission criteria, established by [facility], that includes being hospitalized through two midnights. -PT/OT, case management consults Attending Addendum Pt was seen and examined. Agreed with CASI Aparicio exam, assessment and plan. 87 -year-old male who presents the ED with a chief complaint of cough. Patient said that for the last 2 days he has been URI associated with productive cough. Symptoms worsening. Today when therapy came to work with the patient is home, they found him to be hypoxic. He was sent to the ER for further evaluation. Pt was recently discharge from [facility]. CXR showed on admission showed mild right basilar opacity. Influenza negative. Received Rocephin and Zithromax in the ER. Will start on empirical abx with Zosyn. Follow up sputum cx and blood cx. MD Carole Resuscitation Status VTE Prophylaxis Will order VTE Prophylaxis: Yes
[2017-09-17 15:56] VITALS: BP 124/56; PULSE 70; TEMP 36.7; O2SAT 91
[2017-09-17] MEDS ORDERED: PIPERACILL/TAZOBAC CONSULT ACTIVE PRN (15:59)
[2017-09-17 16:00] VITALS: BP 124/56; PULSE 70; TEMP 36.7; O2SAT 90; BMI 28.2
[2017-09-17] MEDS ORDERED: PIPERACILL/TAZOBAC IV 3.375 GM in NSS 100 ML IV ONE (16:15)
[2017-09-17] MEDS: WARFARIN SOD 2 MG TAB PO SCH (16:52)
[2017-09-17] MEDS: GUAIFENESIN 600 MG TABCR PO SCH (16:53)
[2017-09-17] MEDS: ALBUT/IPRATROP 3MG/0.5MG NEB 3 ML VIAL INH SCH (19:13)
[2017-09-17 19:14] VITALS: PULSE 74; O2SAT 92
[2017-09-17] MEDS ORDERED: PNEUMOCOCCAL ADMINISTRATION CHARGE ONE (20:45)
[2017-09-17] MEDS ORDERED: PNEUMOCOCCAL POLYSACCHARIDES 25 MCG/0.5 ML VIAL/SYR IM. ONE (20:45)
[2017-09-17] MEDS: BACLOFEN TAB 20 MG TAB PO SCH (21:34)
[2017-09-17] MEDS: GABAPENTIN 400 MG CAP PO SCH (21:34)
[2017-09-17] MEDS: TAMSULOSIN HCL 0.4 MG CAP PO SCH (21:38)
[2017-09-17] MEDS: ESCITALOPRAM OXALATE 10 MG TAB PO SCH (21:38)
[2017-09-17] MEDS: FUROSEMIDE 20 MG TAB PO SCH (21:38)
[2017-09-17] MEDS: SENNA 8.6 MG TAB PO SCH (21:39)
[2017-09-17] MEDS: PIPERACILL/TAZOBAC IV 3.375 GM in NSS 100ML IV SCH (21:42)
[2017-09-17 23:13] VITALS: BP 93/48; PULSE 63; TEMP 36.5; O2SAT 91
[2017-09-18] VITALS (12 sets, daily range): BP systolic 109–151; BP diastolic 47–72; PULSE 57–68; TEMP 36.6; O2SAT 90–97; Ht 177.8 cm; Wt 89.1 kg
[2017-09-18] MEDS: ALBUT/IPRATROP 3MG/0.5MG NEB 3 ML VIAL INH SCH ×4 (02:27→19:02)
[2017-09-18] MEDS: GUAIFENESIN 600 MG TABCR PO SCH ×2 (03:11→15:35)
[2017-09-18] MEDS: PIPERACILL/TAZOBAC IV 3.375 GM in NSS 100ML IV SCH ×3 (05:20→22:02)
[2017-09-18] MEDS: CALCITONIN SALMON NA 200 IU/AC 3.7 ML BTL SCH (07:22)
[2017-09-18] MEDS: GABAPENTIN 400 MG CAP PO SCH ×3 (07:23→19:58)
[2017-09-18] MEDS: CEROVITE ADV FORMULA TAB PO SCH (07:23)
[2017-09-18] MEDS: BACLOFEN TAB 20 MG TAB PO SCH ×3 (07:23→19:58)
[2017-09-18] MEDS: PANTOprazole SOD 40 MG TAB PO SCH (07:23)
[2017-09-18] MEDS: AMIODARONE 200 MG TAB PO SCH (07:24)
[2017-09-18 07:29] LABS: INR 2.3 (0.9-1.1)
[2017-09-18] MEDS: FUROSEMIDE 40 MG TAB PO SCH (07:33)
[2017-09-18] MEDS: POLYETHYLENE (MIRALAX) 17 GM PACK PO SCH (07:34)
[2017-09-18 07:57] LABS: CALCIUM 8.4 mg/dl (8.5-10.1); CREATININE 0.88 mg/dl (0.60-1.40); POTASSIUM 3.9 mmol/L (3.5-5.1)
--- NOTE | 2017-09-18 13:37 | Progress Note ---
Internal Med Progress Note Date of Service: September 18, 2017. Provider Documentation: SUBJECTIVE: The patient was seen and examined in fourth floor He was admitted with them shortness of breath and cough and noted to have right lower lobe infiltration Has history of COPD and has been feeling better since admission Denies to any fever, chills, chest pain, any more shortness of breath or palpitation Feels better compared with admission status OBJECTIVE: Vital Signs-as noted below Exam: General-minimal shortness of breath at rest Has a thoracic brace on Eyes-normal ENT-normal Neck-supple Lungs-decreased breath sounds both sides with bibasilar crackles more on the right Heart-regular Abdomen-benign, soft, nontender, bowel sounds present Extremities-trace edema bilaterally Neuro-alert and awake Generally weak but no focal neuro deficit Lab data as noted below. ASSESSMENT & PLAN: Right Lower Lobe infiltration::HCAP vs. 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 COPD EXACERBATION -Patient presenting with increasing cough, generalized weakness, and found to be hypoxic on admission -Patient chronically wears 2 L of oxygen with activity and at bedtime, currently requiring 4 L oxygen via nasal cannula -Chest x-ray suggests a right basilar infiltrate -Recently discharged from [facility] for rehab -S/P Rocephin and azithromycin in the ED -Given that infiltrate is located in the right base and the patient was recently discharged from healthcare facility, will cover for aspiration and HCAP with Zosyn; check MRSA nasal swab and if positive will add vancomycin -No signs of sepsis -Sputum culture-moderate normal kareem -Speech evaluation -For COPD exacerbation, will start prednisone 40 mg p.o. 5 days, around-the- clock nebulizer treatments, flutter valve to help mobilize secretions, continue home inhaled corticosteroid -clinically better -continue current treatment PAROXYSMAL ATRIAL FIBRILLATION -Rhythm controlled on amiodarone, will continue -Anticoagulated on Coumadin, INR 2.0; continue Coumadin as per home dosing and monitor INR -INR remains therapeutic CHRONIC DIASTOLIC CHF -Continue home dose of furosemide -no acute symptoms CHRONIC BACK PAIN -Continue back brace -Continue gabapentin, baclofen, as needed oxycodone -no acute exacerbation S/P TRICUSPID VALVE REPAIR, BIOPROSTHETIC MITRAL VALVE REPLACEMENT -No acute issues DVT PROPHYLAXIS -Anticoagulant Coumadin, INR 2.0 CODE STATUS -Patient is a full code as per my discussion with him. DISPOSITION -In my clinical judgment this beneficiary meets acute admission criteria, established by [facility], that includes being hospitalized through two midnights. -PT/OT, case management consults Vital Signs: Date Time Temp Pulse Resp B/P (MAP) Pulse Ox O2 Delivery O2 Flow Rate FiO2 09/18/17 08:00 Nasal Cannula 4.0 09/18/17 07:57 65 20 97 Nasal Cannula 3.0 09/18/17 07:28 62 09/18/17 07:25 57 18 123/72 (89) 95 Nasal Cannula 3.0 09/18/17 02:26 59 20 93 Nasal Cannula 3.0 09/18/17 00:40 Nasal Cannula 4.0 09/17/17 23:13 36.5 63 19 93/48 (63) 91 4.0 09/17/17 19:14 74 20 92 Nasal Cannula 4.0 09/17/17 16:00 90 Nasal Cannula 4.0 09/17/17 16:00 36.7 70 20 124/56 90 Nasal Cannula 4.0 09/17/17 15:56 36.7 70 24 124/56 (78) 91 Nasal Cannula 4.5 09/17/17 15:17 69 18 111/50 92 09/17/17 14:10 70 22 110/47 93 Nasal Cannula 4.0 Lab Results: Results Past 24 Hours Test 09/17/17 13:30 09/17/17 14:56 09/18/17 06:33 Range/Units Lactic Acid Level 1.2 0.4-2.0 mmol/L Potassium Level 3.8 3.9 3.5-5.1 mmol/L Prothrombin Time 24.1 9.0-12.0 SECONDS Prothromb Time International Ratio 2.3 0.9-1.1 Sodium Level 134 136-145 mmol/L Chloride Level 100 98-107 mmol/L Carbon Dioxide Level 28 21-32 mmol/L Anion Gap 6.0 3-11 mmol/L Blood Urea Nitrogen 16 7-18 mg/dl Creatinine 0.88 0.60-1.40 mg/dl Est Creatinine Clear Calc Drug Dose 65.2 ml/min Estimated GFR () 88.9 Estimated GFR (Non- 76.7 BUN/Creatinine Ratio 18.3 10-20 Random Glucose 160 70-99 mg/dl Calcium Level 8.4 8.5-10.1 mg/dl Microbiology Results 4/30/18 Blood Culture, Received Pending 09/17/17 MRSA DNA Surveillance Screen - Final, Complete Specimen Negative for MRSA by DNA Probe 09/17/17 Gram Stain - Final, Resulted 09/17/17 Sputum Culture - Preliminary, Resulted MODERATE NORMAL KAREEM Present, Final ...
[2017-09-18 14:10] LABS: HEMATOCRIT 32.9 % (42-52); HEMOGLOBIN 11.1 g/dL (14.0-18.0); MEAN CELL VOLUME 83.1 fL (80-100); MEAN CORPUSCULAR HGB CONC 33.7 g/dl (32-36); PLATELET COUNT 115 K/uL (130-400); RED CELL DISTRIBUTION WIDTH CV 17.5 % (11.5-14.5); RED CELL DISTRIBUTION WIDTH SD 53.8 fL (36.4-46.3); WHITE BLOOD COUNT 7.65 K/uL (4.8-10.8)
[2017-09-18] MEDS ORDERED: WARFARIN SOD 3 MG TAB PO SCH (16:00)
[2017-09-18] MEDS ORDERED: NITROGLYCERIN 0.4 MG SL PER TAB CHARGE ONE (17:40)
[2017-09-18] MEDS ORDERED: NITROGLYCERIN 0.3 MG/1 TAB 100 TAB BTL SL PRN (17:45)
[2017-09-18] MEDS: SENNA 8.6 MG TAB PO SCH (19:58)
[2017-09-18] MEDS: TAMSULOSIN HCL 0.4 MG CAP PO SCH (19:58)
[2017-09-18] MEDS: ESCITALOPRAM OXALATE 10 MG TAB PO SCH (19:58)
[2017-09-18] MEDS: FUROSEMIDE 20 MG TAB PO SCH (19:58)
[2017-09-19] VITALS (8 sets, daily range): BP systolic 102–128; BP diastolic 54–70; PULSE 58–74; TEMP 36.4; O2SAT 91–96
[2017-09-19] MEDS: ALBUT/IPRATROP 3MG/0.5MG NEB 3 ML VIAL INH SCH ×4 (01:50→19:00)
[2017-09-19] MEDS: GUAIFENESIN 600 MG TABCR PO SCH ×2 (03:01→15:17)
[2017-09-19] MEDS: PIPERACILL/TAZOBAC IV 3.375 GM in NSS 100ML IV SCH ×3 (06:16→23:17)
[2017-09-19 07:13] LABS: INR 3.4 (0.9-1.1)
[2017-09-19 07:38] LABS: CREATININE 0.79 mg/dl (0.60-1.40); POTASSIUM 3.7 mmol/L (3.5-5.1)
[2017-09-19] MEDS: GABAPENTIN 400 MG CAP PO SCH ×3 (08:25→20:13)
[2017-09-19] MEDS: BACLOFEN TAB 20 MG TAB PO SCH ×3 (08:25→20:15)
[2017-09-19] MEDS: PANTOprazole SOD 40 MG TAB PO SCH (08:25)
[2017-09-19] MEDS: CALCITONIN SALMON NA 200 IU/AC 3.7 ML BTL SCH (08:25)
[2017-09-19] MEDS: CEROVITE ADV FORMULA TAB PO SCH (08:25)
[2017-09-19] MEDS: POLYETHYLENE (MIRALAX) 17 GM PACK PO SCH (08:25)
[2017-09-19] MEDS: FUROSEMIDE 40 MG TAB PO SCH (08:26)
[2017-09-19] MEDS: AMIODARONE 200 MG TAB PO SCH (08:26)
--- NOTE | 2017-09-19 12:48 | Progress Note ---
Internal Med Progress Note Date of Service: September 19, 2017. Provider Documentation: SUBJECTIVE: The patient was seen and examined in fourth floor He was admitted with them shortness of breath and cough and noted to have right lower lobe infiltration Has history of COPD and has been feeling better since admission Denies to any fever, chills, chest pain, any more shortness of breath or palpitation Feels better compared with admission status Has ahd some chest pain yesterday No ACS Much better today but not yet ready to be discharged OBJECTIVE: Vital Signs-as noted below Exam: General-minimal shortness of breath at rest Has a thoracic brace on Eyes-normal ENT-normal Neck-supple Lungs-decreased breath sounds both sides with bibasilar crackles more on the right Heart-regular,no murmur appreciated Abdomen-benign, soft, nontender, bowel sounds present Extremities-trace edema bilaterally Neuro-alert and awake Generally weak but no focal neuro deficit Lab data as noted below. ASSESSMENT & PLAN: Right Lower Lobe infiltration::HCAP vs. 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 COPD EXACERBATION -Patient presenting with increasing cough, generalized weakness, and found to be hypoxic on admission -Patient chronically wears 2 L of oxygen with activity and at bedtime, currently requiring 4 L oxygen via nasal cannula -Chest x-ray suggests a right basilar infiltrate -Recently discharged from [facility] for rehab -S/P Rocephin and azithromycin in the ED -Given that infiltrate is located in the right base and the patient was recently discharged from healthcare facility, will cover for aspiration and HCAP with Zosyn; check MRSA nasal swab and if positive will add vancomycin -No signs of sepsis -Sputum culture-moderate normal kareem -Speech evaluation-appreciate Input and recommendation.Dental soft diet advised -For COPD exacerbation, will start prednisone 40 mg p.o. 5 days, around-the- clock nebulizer treatments, flutter valve to help mobilize secretions, continue home inhaled corticosteroid -clinically better this AM -continue current treatment -likely discharge tomorrow PAROXYSMAL ATRIAL FIBRILLATION -Rhythm controlled on amiodarone, will continue -Anticoagulated on Coumadin, INR 2.0; continue Coumadin as per home dosing and monitor INR -INR remains therapeutic CHRONIC DIASTOLIC CHF -Continue home dose of furosemide -no acute symptoms and heart rate controlled CHRONIC BACK PAIN -Continue back brace -Continue gabapentin, baclofen, as needed oxycodone -no acute exacerbation S/P TRICUSPID VALVE REPAIR, BIOPROSTHETIC MITRAL VALVE REPLACEMENT -No acute issues DVT PROPHYLAXIS -Anticoagulant Coumadin, INR 2.0 CODE STATUS -Patient is a full code as per my discussion with him. DISPOSITION -In my clinical judgment this beneficiary meets acute admission criteria, established by [facility], that includes being hospitalized through two midnights. -PT/OT, case management consults -likely discharge tomorrow Vital Signs: Date Time Temp Pulse Resp B/P (MAP) Pulse Ox O2 Delivery O2 Flow Rate FiO2 09/19/17 08:00 Nasal Cannula 4.0 09/19/17 07:14 36.4 58 20 128/66 (86) 93 Nasal Cannula 2.0 09/19/17 07:05 65 18 95 Nasal Cannula 2.0 09/19/17 01:50 66 18 94 Nasal Cannula 2.0 09/19/17 00:30 Nasal Cannula 2.0 09/19/17 00:10 36.4 64 18 102/54 (70) 93 Room Air 09/18/17 19:58 68 119/66 (83) 09/18/17 19:02 68 20 94 Nasal Cannula 2.0 09/18/17 17:37 65 151/65 (93) 94 Nasal Cannula 2.0 09/18/17 17:20 65 145/68 (93) 09/18/17 16:00 90 Nasal Cannula 2.0 09/18/17 15:16 36.6 66 18 109/47 (67) 90 Nasal Cannula 2.0 09/18/17 14:18 68 20 94 Nasal Cannula 2.0 Lab Results: Results Past 24 Hours Test 09/18/17 18:42 09/19/17 06:28 Range/Units Troponin I < 0.015 0-0.045 ng/ml Prothrombin Time 34.9 9.0-12.0 SECONDS Prothromb Time International Ratio 3.4 0.9-1.1 Sodium Level 135 136-145 mmol/L Potassium Level 3.7 3.5-5.1 mmol/L Chloride Level 101 98-107 mmol/L Carbon Dioxide Level 30 21-32 mmol/L Anion Gap 4.0 3-11 mmol/L Blood Urea Nitrogen 17 7-18 mg/dl Creatinine 0.79 0.60-1.40 mg/dl Est Creatinine Clear Calc Drug Dose 72.6 ml/min Estimated GFR () 92.9 Estimated GFR (Non- 80.2 BUN/Creatinine Ratio 21.8 10-20 Random Glucose 105 70-99 mg/dl Calcium Level 8.0 8.5-10.1 mg/dl Magnesium Level 1.8 1.8-2.4 mg/dl
[2017-09-19] MEDS: WARFARIN SOD 2 MG TAB PO SCH (15:17)
[2017-09-19] MEDS: FUROSEMIDE 20 MG TAB PO SCH (20:14)
[2017-09-19] MEDS: ESCITALOPRAM OXALATE 10 MG TAB PO SCH (20:14)
[2017-09-19] MEDS: TAMSULOSIN HCL 0.4 MG CAP PO SCH (20:15)
[2017-09-19] MEDS: SENNA 8.6 MG TAB PO SCH (20:16)
[2017-09-20 00:01] VITALS: BP 130/72; PULSE 71; TEMP 36.4; O2SAT 93
[2017-09-20 01:59] VITALS: PULSE 68; O2SAT 96
[2017-09-20] MEDS: ALBUT/IPRATROP 3MG/0.5MG NEB 3 ML VIAL INH SCH ×3 (01:59→14:08)
[2017-09-20] MEDS: PIPERACILL/TAZOBAC IV 3.375 GM in NSS 100ML IV SCH (05:36)
[2017-09-20] MEDS: GUAIFENESIN 600 MG TABCR PO SCH (05:37)
[2017-09-20 06:55] VITALS: PULSE 65; O2SAT 96
[2017-09-20 07:07] VITALS: BP 131/69; PULSE 67; TEMP 36.7; O2SAT 98
[2017-09-20] MEDS: BACLOFEN TAB 20 MG TAB PO SCH ×2 (07:25→14:00)
[2017-09-20] MEDS: AMIODARONE 200 MG TAB PO SCH (07:26)
[2017-09-20] MEDS: FUROSEMIDE 40 MG TAB PO SCH (07:26)
[2017-09-20] MEDS: CEROVITE ADV FORMULA TAB PO SCH (07:26)
[2017-09-20] MEDS: PANTOprazole SOD 40 MG TAB PO SCH (07:26)
[2017-09-20] MEDS: GABAPENTIN 400 MG CAP PO SCH ×2 (07:26→14:02)
[2017-09-20] MEDS: CALCITONIN SALMON NA 200 IU/AC 3.7 ML BTL SCH (07:27)
[2017-09-20] MEDS: POLYETHYLENE (MIRALAX) 17 GM PACK PO SCH (07:28)
[2017-09-20] MEDS ORDERED: AMOXICILLIN/CLAVULANATE TAB 500 MG TAB PO ONE (10:45)
--- NOTE | 2017-09-20 10:50 | Progress Note ---
Internal Med Progress Note Date of Service: September 20, 2017. Provider Documentation: SUBJECTIVE: The patient was seen and examined in fourth floor He was admitted with them shortness of breath and cough and noted to have right lower lobe infiltration Has history of COPD and has been feeling better since admission Denies to any fever, chills, chest pain, any more shortness of breath or palpitation Feels better compared with admission status Has ahd some chest pain yesterday No ACS Much better today but not yet ready to be discharged 5/3 Much better today Ambulating well without any drop in oxygen saturation Cough is improved OBJECTIVE: Vital Signs-as noted below Exam: General-minimal shortness of breath at rest Has a thoracic brace on Eyes-normal ENT-normal Neck-supple Lungs-decreased breath sounds both sides with bibasilar crackles more on the right-improved a lot Heart-regular,no murmur appreciated Abdomen-benign, soft, nontender, bowel sounds present Extremities-trace edema bilaterally Neuro-alert and awake Generally weak but no focal neuro deficit Lab data as noted below. ASSESSMENT & PLAN: Right Lower Lobe infiltration::HCAP vs. 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 COPD EXACERBATION -Patient presenting with increasing cough, generalized weakness, and found to be hypoxic on admission -Patient chronically wears 2 L of oxygen with activity and at bedtime, currently requiring 4 L oxygen via nasal cannula -Chest x-ray suggests a right basilar infiltrate -Recently discharged from [facility] for rehab -S/P Rocephin and azithromycin in the ED -Given that infiltrate is located in the right base and the patient was recently discharged from healthcare facility, will cover for aspiration and HCAP with Zosyn; check MRSA nasal swab and if positive will add vancomycin -No signs of sepsis -Sputum culture-moderate normal kareem -Speech evaluation-appreciate Input and recommendation.Dental soft diet advised -For COPD exacerbation, will start prednisone 40 mg p.o. 5 days, around-the- clock nebulizer treatments, flutter valve to help mobilize secretions, continue home inhaled corticosteroid -clinically better this AM -continue current treatment -Antibiotic is changed to Augmentin -to continue for a total of 10 days PAROXYSMAL ATRIAL FIBRILLATION -Rhythm controlled on amiodarone, will continue -Anticoagulated on Coumadin, INR 2.0; continue Coumadin as per home dosing and monitor INR -INR remains therapeutic CHRONIC DIASTOLIC CHF -Continue home dose of furosemide -no acute symptoms and heart rate controlled CHRONIC BACK PAIN -Continue back brace -Continue gabapentin, baclofen, as needed oxycodone -no acute exacerbation S/P TRICUSPID VALVE REPAIR, BIOPROSTHETIC MITRAL VALVE REPLACEMENT -No acute issues DVT PROPHYLAXIS -Anticoagulant Coumadin, INR 2.0 CODE STATUS -Patient is a full code as per my discussion with him. DISPOSITION -In my clinical judgment this beneficiary meets acute admission criteria, established by [facility], that includes being hospitalized through two midnights. -PT/OT, case management consults -discharge today Vital Signs: Date Time Temp Pulse Resp B/P (MAP) Pulse Ox O2 Delivery O2 Flow Rate FiO2 09/20/17 08:00 Nasal Cannula 2.0 09/20/17 07:07 36.7 67 20 131/69 (89) 98 09/20/17 06:55 65 18 96 Nasal Cannula 2.0 09/20/17 01:59 68 18 96 Nasal Cannula 2.0 09/20/17 00:01 36.4 71 18 130/72 (91) 93 2.0 09/20/17 00:00 Nasal Cannula 2.0 09/19/17 20:00 Nasal Cannula 2.0 09/19/17 19:00 74 18 96 Nasal Cannula 2.0 09/19/17 16:00 91 Nasal Cannula 2.0 09/19/17 15:23 36.4 72 16 123/70 (87) 91 Nasal Cannula 2.0 09/19/17 14:08 69 18 94 Nasal Cannula 2.0
[2017-09-20] MEDS ORDERED: AMOX1TAB42 PO (13:56)
--- NOTE | 2017-09-20 13:59 | Discharge Instructions ---
Discharge Instructions Date of Service September 20, 2017. Admission Reason for Admission: Pneumonia Discharge Discharge Diagnosis / Problem: Right Lower Lobe Infiltration,COPD Discharge Goals Goal(s): Prevent Disease Progression Activity Recommendations Activity Limitations: resume your previous activity . Instructions / Follow-Up Instructions / Follow-Up Dr Mahoney on 09/26/17 at 1:05PM Current Hospital Diet Patient's current hospital diet: Low Sodium Diet (2gm Na) Discharge Diet Recommended Diet: Low Sodium Diet (2gm Na) (Dental soft diet advised) Pending Studies Studies pending at discharge: no Medical Emergencies . Who to Call and When: Medical Emergencies: If at any time you feel your situation is an emergency, please call 911 immediately. . Non-Emergent Contact Non-Emergency issues call your: Primary Care Provider . 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 "Provider Documentation" section prepared by Valentino Tubbs. .
[2017-09-20 14:06] VITALS: BP 131/69; TEMP 36.7; O2SAT 98
[2017-09-20 14:08] VITALS: PULSE 71; O2SAT 96
--- NOTE | 2017-09-20 16:21 | Discharge Summary ---
Discharge Summary Date of Service September 20, 2017. Discharge Summary Admission Date: Sep 17, 2017 at 14:29 Discharge Date: September 20, 2017 Discharge Disposition: Home Principal Diagnosis: Right Lower Lobe Infiltration,COPD Secondary Diagnoses/Problems: Please see H&P and Hospital Progress note Medication Reconciliation New Medications: Amoxicillin & Pot Clavulanate (Amoxicillin/Clavulanate P) 1 Tab Tab 500 MG PO BIDM for 4 Days, #8 TAB Continued Medications: Acetaminophen Tab (Tylenol) 325 Mg Tab 650 MG PO Q6H PRN for prn, TAB Albuterol Hfa (Ventolin Hfa) 200 Puffs/51422 Mcg Aers 2-4 PUFFS INH Q6H PRN for SOB/Wheezing, INHALER Amiodarone HCl (Amiodarone HCl) 200 Mg Tab 200 MG PO QAM Baclofen (Lioresal) 20 Mg Tab 20 MG PO TID Calcitonin ([place]) (Miacalcin) 200 Unit/Act Spr 1 SPRAY NA DAILY Calcium Carbonate-Vitamin D (Oscal 500/200 D-3) 1 Tab Tab 1 TAB PO QAM Docusate Sodium (Docusate Sodium) 100 Mg Cap 1 CAP PO BID PRN for Constipation for 15 Days, #30 CAP Escitalopram Oxalate (Lexapro) 10 Mg Tab 10 MG PO HS Fluticasone Furoate-Vilanterol (Breo Ellipta) 1 Inh Inh 1 PUFF INH QAM 200 MCG/ 25MCG Furosemide (Lasix) 40 Mg Tab 40 MG PO QAM, TAB Furosemide (Lasix) 40 Mg Tab 20 MG PO HS, TAB Gabapentin (Neurontin) 400 Mg Cap 400 MG PO TID Guaifenesin La (Guaifenesin Er) 600 Mg Tabcr 600 MG PO Q12H, TAB Multiple Vitamins W/ Minerals (Vision Vitamins) 1 Tab Tab 1 TAB PO QAM Omeprazole (Prilosec) 40 Mg Cap 40 MG PO DAILY Oxycodone Ir (Roxicodone Ir) 5 Mg Tab 5 MG PO Q4H PRN for Severe Pain, TAB Polyethylene Glycol 3350 (Miralax) 1 Pow Pow 17 GM PO DAILY, #527 GM Senna (Senokot) 8.6 Mg Tab 1 TAB PO HS, TAB Tamsulosin HCl (Tamsulosin HCl) 0.4 Mg Cap 0.4 MG PO HS Tiotropium Todd (Spiriva Handihaler) 30 Puff/540 Mcg Aerp 1 CAP INH DAILY, INHALER Warfarin Sodium (Coumadin) 2 Mg Tab 2 MG PO UD Mon, Wed, Sun Warfarin Sodium (Coumadin) 3 Mg Tab 3 MG PO UD SUN, TU, TH, SAT Admission Information HPI (per Admitting provider): 87-year-old male who presents the ED with a chief complaint of cough. Patient reports he has had a head cold for the past week. He reports initially having sinus congestion and cough. Cough has been productive for yellow sputum. He chronically wears 2 L of oxygen. Today when therapy came to work with the patient is home, they found him to be hypoxic. He was sent to the ER for further evaluation. Patient reports feeling generally weak and fatigued today. He has chronic back pain and did not take any pain medications today and is having worsening of his pain. He denies feeling short of breath. No chest pain or palpitations. He denies lightheadedness, dizziness, diaphoresis, or syncopal events. No abdominal pain, nausea, vomiting or diarrhea. Denies any difficulty swallowing or choking on his food or liquids. He had a fever of 101 at home today. He denies any urinary symptoms. Of note, patient was recently discharged from [facility] 3 weeks ago. In the ED, patient's chest x-ray suggests a right basilar pneumonia. He was saturating 87% on room air, this improved with oxygen 4 L via nasal cannula. WBC 10.8 K, lactic acid normal. Vital signs stable. Patient was given IVF, nebulizer treatment, IV Rocephin, and IV azithromycin. Physical Exam (per Admitting): General Appearance: WD/WN, no apparent distress Head: normocephalic, atraumatic, + abnormal shape Eyes: normal inspection, EOMI, sclerae normal ENT: hearing grossly normal, + pertinent finding (Mucous membranes moist) Neck: supple, no JVD, trachea midline Respiratory/Chest: no respiratory distress, + rhonchi (Coarse breath sounds bilaterally), + wheezing (Expiratory, bilaterally) Cardiovascular: regular rate, rhythm, normal peripheral pulses, + pertinent finding (Trace edema BLE) Abdomen/GI: normal bowel sounds, non tender, soft, no organomegaly Extremities/Musculoskelatal: normal inspection, no calf tenderness, normal capillary refill Neurologic/Psych: no motor/sensory deficits, alert, normal mood/affect, oriented x 3, + pertinent finding (Somewhat forgetful) Skin: normal color, warm/dry Hospital Course Right Lower Lobe infiltration::HCAP vs. 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 COPD EXACERBATION -Patient presenting with increasing cough, generalized weakness, and found to be hypoxic on admission -Patient chronically wears 2 L of oxygen with activity and at bedtime, currently requiring 4 L oxygen via nasal cannula -Chest x-ray suggests a right basilar infiltrate -Recently discharged from [facility] for rehab -S/P Rocephin and azithromycin in the ED -Given that infiltrate is located in the right base and the patient was recently discharged from healthcare facility, will cover for aspiration and HCAP with Zosyn; check MRSA nasal swab and if positive will add vancomycin -No signs of sepsis -Sputum culture-moderate normal kareem -Speech evaluation-appreciate Input and recommendation.Dental soft diet advised -For COPD exacerbation, will start prednisone 40 mg p.o. 5 days, around-the- clock nebulizer treatments, flutter valve to help mobilize secretions, continue home inhaled corticosteroid -clinically better this AM -continue current treatment -Antibiotic is changed to Augmentin -to continue for a total of 10 days PAROXYSMAL ATRIAL FIBRILLATION -Rhythm controlled on amiodarone, will continue -Anticoagulated on Coumadin, INR 2.0; continue Coumadin as per home dosing and monitor INR -INR remains therapeutic CHRONIC DIASTOLIC CHF -Continue home dose of furosemide -no acute symptoms and heart rate controlled CHRONIC BACK PAIN -Continue back brace -Continue gabapentin, baclofen, as needed oxycodone -no acute exacerbation S/P TRICUSPID VALVE REPAIR, BIOPROSTHETIC MITRAL VALVE REPLACEMENT -No acute issues DVT PROPHYLAXIS -Anticoagulant Coumadin, INR 2.0 CODE STATUS -Patient is a full code as per my discussion with him. DISPOSITION -In my clinical judgment this beneficiary meets acute admission criteria, established by [facility], that includes being hospitalized through two midnights. -PT/OT, case management consults -discharge today Total time spent on discharge = 35 minutes This includes examination of the patient, discharge planning, medication reconciliation, and communication with other providers. Discharge Instructions Date of Service September 20, 2017. Admission Reason for Admission: Pneumonia Discharge Discharge Diagnosis / Problem: Right Lower Lobe Infiltration,COPD Discharge Goals Goal(s): Prevent Disease Progression Activity Recommendations Activity Limitations: resume your previous activity . Instructions / Follow-Up Instructions / Follow-Up Dr Mahoney on 09/26/17 at 1:05PM Current Hospital Diet Patient's current hospital diet: Low Sodium Diet (2gm Na) Discharge Diet Recommended Diet: Low Sodium Diet (2gm Na) (Dental soft diet advised) Pending Studies Studies pending at discharge: no Medical Emergencies . Who to Call and When: Medical Emergencies: If at any time you feel your situation is an emergency, please call 911 immediately. . Non-Emergent Contact Non-Emergency issues call your: Primary Care Provider . 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 "Provider Documentation" section prepared by Valentino Tubbs. . <Electronically signed by Valentino Tubbs M.D.> Signed: 09/20/17 8070 Additional Copies To Frank Mahoney D.O.
[2017-09-20] MEDS ORDERED: AMOXICILLIN/CLAVULANATE TAB 500 MG TAB PO SCH (17:00)
== END 2017-09-20 14:27 | disposition home health service (06) | DRG 177 ==
LOC: EDBD 12:11 → C.EDB 12:12 → C.MS4W 14:29 → ENRESERV 14:51
PROVIDERS: ADMIT Internal Medicine; ATTEND Internal Medicine
DX: J69.0 Pneumonitis due to inhalation of food and vomit (principal); J96.21 Acute and chronic respiratory failure with hypoxia; J44.1 Chronic obstructive pulmonary disease with (acute) exacerbation; I50.32 Chronic diastolic (congestive) heart failure; K21.9 Gastro-esophageal reflux disease without esophagitis; I48.0 Paroxysmal atrial fibrillation; M54.9 Dorsalgia, unspecified; G89.29 Other chronic pain; Z79.01 Long term (current) use of anticoagulants; Z79.899 Other long term (current) drug therapy; Z87.891 Personal history of nicotine dependence; Z88.8 Allergy status to other drugs, medicaments and biological substances; Z95.2 Presence of prosthetic heart valve; Z99.81 Dependence on supplemental oxygen

== ENCOUNTER 2019-02-13 15:10 | Inpatient (IN) ==
--- NOTE | 2019-02-13 16:32 | XRay Report ---
XR chest 1V portable CLINICAL HISTORY: 88 years-old Male presenting with weakness. TECHNIQUE: Portable upright AP view of the chest was obtained. COMPARISON: 02/09/2019. FINDINGS: Median sternotomy wires. Prosthetic tricuspid valve. Mitral annulus repair. Atherosclerosis of the ao rtic arch. Cardiac silhouette moderately enlarged. Pulmonary vascular prominence. Minimal right basil ar opacities. No pleural effusion or pneumothorax. Osseous structures normal. IMPRESSION: 1. Cardiomegaly and volume overload. No mika pulmonary edema. 2. Minimal right basilar opacities likely atelectasis or scarring. Electronically signed by: Mil Summers M.D. 02/13/2019 4:31 PM
[2019-02-13 16:36] LABS: Basophils # (auto) 0.03 K/uL (0-0.2); Basophils % (auto) 0.5 %; Hematocrit (blood only) 36.4 % (42-52); Hemoglobin 12.1 g/dL (14.0-18.0); Immature Granulocytes # (auto) 0.01 K/uL (0.00-0.02); Immature Granulocytes % (auto) 0.2 %; Lymphocytes # (auto) 1.57 K/uL (1.2-3.4); Lymphocytes % (auto) 23.6 %; Mean Corpuscular Hemoglobin 31.3 pg (25-34); Mean Corpuscular Hgb Conc 33.2 g/dL (32-36); Mean Corpuscular Volume 94.3 fL (80-100); Mean Platelet Volume 11.8 fL (7.4-10.4); Monocytes # (auto) 1.05 K/uL (0.11-0.59); Monocytes % (auto) 15.8 %; Neutrophils % (auto) 56.9 %; Platelet Count 156 K/uL (130-400); RDW Coefficient of Variation 15.3 % (11.5-14.5); RDW Standard Deviation 52.4 fL (36.4-46.3); Red Blood Count 3.86 M/uL (4.7-6.1); White Blood Count 6.66 K/uL (4.8-10.8)
--- NOTE | 2019-02-13 16:43 | CT Scan Report ---
CT OF THE HEAD WITHOUT CONTRAST CLINICAL HISTORY: Head trauma. Anticoagulation. COMPARISON STUDY: Head CT February 09, 2019. CT DOSE: 614.27 mGy.cm TECHNIQUE: Helical axial images of the head were obtained without IV contrast. Automated exposure con trol was utilized for the study. A dose lowering technique was utilized adhering to the principles o f ALARA. FINDINGS: No acute intracranial hemorrhage, midline shift or mass effect is present. The ventricular system is stable. Basilar cisterns are patent. There are no extra axial collections. White matter hyp odensities are unchanged and suggest small vessel disease. There are no findings to suggest acute dur al sinus thrombosis or acute territorial infarct. There are no calvarial fractures. IMPRESSION: 1. No acute intracranial findings. 2. No calvarial fracture. Electronically signed by: Chuck Barrow M.D. 02/13/2019 4:41 PM
[2019-02-13 16:49] LABS: INR 2.2 (0.9-1.1); Partial Thromboplastin Ratio 1.4; Prothrombin Time 21.6 Seconds (9.0-12.0)
[2019-02-13 16:54] LABS: Albumin Level 3.2 gm/dl (3.4-5.0); BUN Creatinine Ratio 15.1 (10-20); Calcium 8.5 mg/dl (8.5-10.1); Creatinine Clr Calc Pharmacy 59.2 ml/min; Est GFR (African American) 80.9; Est GFR (Non-African American) 69.8; Potassium 3.9 mmol/L (3.5-5.1)
[2019-02-13 17:05] LABS: Albumin Globulin Ratio 0.9 (0.9-2); Bilirubin,Total 0.4 mg/dl (0.2-1); Globulin 3.5 gm/dl (2.5-4.0); Thyroid Stimulating Hormone 1.01 uIu/ml (0.300-4.500); Total Protein 6.7 gm/dl (6.4-8.2)
[2019-02-13] MEDS ORDERED: ACETAMINOPHEN 325 MG TAB PO STA (17:30)
[2019-02-13] MEDS ORDERED: SODIUM CHLORIDE 0.9% 1000ML 1,000 ML IV ONE (17:32)
[2019-02-13] MEDS ORDERED: ACETAMINOPHEN 65 ML IV ONE (18:53)
[2019-02-13] MEDS ORDERED: SODIUM CHLORIDE 0.9% 1000ML 1,000 ML IV SCH (19:00)
[2019-02-13] MEDS ORDERED: ACETAMINOPHEN 65 ML IV PRN (19:00)
--- NOTE | 2019-02-13 19:21 | Hospitalist Progress Note ---
Date of Service February 13, 2019 Assessment & Plan (1) Altered mental status: altered mental status likely from POLYPHARMACY -patient had recent falls and was evaluated in ED on 02/09/19 with Acute- appearing triquetral fracture of right wrist; patient's hand was placed in splint and discharged with pain medications -patient was in usual state of mental health when recently prescribed baclofen for muscular skeletal pain -as per patient's family members at the bedside, the baclofen was started 2 days ago. This appeared to correlate with patient's mental status of being more lethargic -patient on exam by hospitalist in the ED is awake and alert when roused from rest. however he is not oriented to time or place. as per his at the bedside, patient is more interactive and oriented to time and place besides to person -patient's also noticing some right foot spasm of the patient and this was seen at bedside but would spasm would go away on its own Physical Exam ENMT: external ear and nose normal, oropharynx normal Respiratory: normal respiratory effort, lungs clear to auscultation Cardiovascular: Rate/Rhythm: regular rate and regular rhythm Gastrointestinal (Abdomen): normal bowel sounds, soft, nontender, no hepatosplenomegaly Musculoskeletal: Head/Neck/Chest: + head abnormal to inspection (bruising of the right side of head) Neurologic: PERRL, EOMI, accommodation nl, no face palsy, no dysarthria Psychiatric: Orientation: alert and oriented to person Results & Data Vital Signs (Past 12 Hours) Vital Signs Temp Pulse Resp BP BP Pulse Ox 02/13/19 17:50 18 149/86 H 98 02/13/19 15:24 37 C 65 18 143/70 H 94 (1) Altered mental status Altered mental status type: unspecified Qualified Code(s): R41.82 - Altered mental status, unspecified
--- NOTE | 2019-02-13 19:33 | History & Physical Report ---
Date of Service February 13, 2019 Assessment & Plan (1) Altered mental status: ALTERED MENTAL STATUS likely due to POLYPHARMACY -patient had recent falls and was evaluated in ED on 02/09/19 with Acute- appearing triquetral fracture of right wrist; patient's right hand was placed in splint and discharged with pain medications -patient was in usual state of mental health when recently prescribed baclofen for muscular skeletal pain -as per patient's family members at the bedside, the baclofen was started 2 days ago. This appeared to correlate with patient's mental status of being more lethargic -patient on exam by hospitalist in the ED is awake and alert when roused from rest. however he is not oriented to time or place. as per his at the bedside, patient is more interactive and oriented to time and place besides to person -patient's also noticing some right foot spasm of the patient and this was seen at bedside but would spasm would go away on its own -would monitor patient as observation off baclofen, give IV fluids -check urine analysis, check with bladder scan if not making urine when under observation -TSH is normal, normal white blood cell count -if pass dysphagia screening, patient may have diet with aspiration precautions Right wrist fracture -s/p triquetral fracture -continue right hand brace Recent Head Trauma -as evaluated in ED on 02/09/19 after falling and trauma, has bruise to right head still present -CT Head 02/13/19. "No acute intracranial findings. 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 Prosthetic tricuspid valve. Mitral annulus repair. Atherosclerosis of the aortic arch. Cardiac silhouette moderately enlarged. Pulmonary vascular prominence. Minimal right basilar opacities. No pleural effusion or pneumothorax. Osseous structures normal. -patient does not appear to be hypervolemic -will continue Lasix as 40 mg daily for now rather than home dose of 80 mg every morning and 40 mg in afternoon for now -continue coumadin 2 mg by mouth every Mon, Wed, and Fri and 3 mg by mouth all other days History of COPD -no respiratory distress -at home is on Trelegy ellipta which is nonformulary in hospital -have ordered duonebs prn if shortness of breath or wheezing DVT prophylaxis: anticoagulated on coumadin Full Code Status : [phone] daughter [phone] Beck will be taking over the patient care starting on 02/14/19 History of Present Illness -patient had recent falls and was evaluated in ED on 02/09/19 with Acute- appearing triquetral fracture of right wrist; patient's right hand was placed in splint and discharged with pain medications -patient was in usual state of mental health when recently prescribed baclofen for muscular skeletal pain -as per patient's family members at the bedside, the baclofen was started 2 days ago. This appeared to correlate with patient's mental status of being more lethargic -patient on exam by hospitalist in the ED is awake and alert when roused from rest. however he is not oriented to time or place. as per his at the bedside, patient is more interactive and oriented to time and place besides to person -patient's also noticing some right foot spasm of the patient and this was seen at bedside but would spasm would go away on its own On review of systems:, patient reported patient with feeling hot and cold at times but did not take the temperature at home. normal body temperature currently when seen in per history of family and patient, no shortness of breath pain is musculoskeletal such as shoulders and back patient's also noting that he has not been urinating today patient's family members denies family history of medical conditions and denies that patient has any known allergies Primary Care Provider: Frank Mahoney, Allergies Allergy/AdvReac Type Severity Reaction Status Date / Time lansoprazole Allergy Unknown didn't Verified 02/13/19 16:47 work/dr determined pt was allergic Home Medications Home Medications Medication Instructions Recorded Confirmed Type Cock-Up Wrist Splint Long #1 ea 02/10/19 02/13/19 Rx albuterol sulfate 2 puff INHALATION QID 02/13/19 02/13/19 History albuterol sulfate 2.5 mg INHALATION Q4H PRN 02/13/19 02/13/19 History baclofen 10 mg PO TID 02/13/19 02/13/19 History calcium carbonate-vitamin D3 1 tab PO DAILY 02/13/19 02/13/19 History docusate sodium 100 mg PO BID 02/13/19 02/13/19 History ergocalciferol (vitamin D2) 50,000 unit PO MOTH 02/13/19 02/13/19 History [Vitamin D2] escitalopram oxalate 20 mg PO DAILY 02/13/19 02/13/19 History finasteride 5 mg PO DAILY 02/13/19 02/13/19 History xsxqoyaagxk-[id number]-kxcphaby 1 inh INHALATION DAILY 02/13/19 02/13/19 History furosemide 40 mg PO DAILY@1600 02/13/19 02/13/19 History furosemide 80 mg PO QAM 02/13/19 02/13/19 History guaifenesin [Mucinex] 600 mg PO BID 02/13/19 02/13/19 History iron,carbonyl-vitamin C [Vitron-C] 1 tab PO DAILY 02/13/19 02/13/19 History multivitamin 1 tab PO DAILY 02/13/19 02/13/19 History omeprazole 40 mg PO DAILY 02/13/19 02/13/19 History prednisone 20 mg PO DAILY 02/13/19 02/13/19 History sennosides [Senna Lax] 8.6 mg PO BID 02/13/19 02/13/19 History tamsulosin 0.4 mg PO HS 02/13/19 02/13/19 History vit C,O-Pc-pxmbu-lutein-zeaxan 1 tab PO BID 02/13/19 02/13/19 History [PreserVision AREDS-2] warfarin 2 mg PO MOWEFR 02/13/19 02/13/19 History warfarin 3 mg PO SUTUTHSA 02/13/19 02/13/19 History Past Med/Surg History Medical History GERD (gastroesophageal reflux disease) (Chronic) Arthritis (Chronic) Spontaneous pneumothorax (Resolved) COPD (chronic obstructive pulmonary disease) (Chronic) Paroxysmal atrial fibrillation (Chronic) Peptic ulcer disease (Chronic) Chronic back pain (Chronic) Osteoarthritis (Chronic) Conductive hearing loss (Chronic) shelter current use of anticoagulant (Chronic) Heart failure, diastolic (Chronic) Lumbar compression fracture (Chronic) "L1, L2, L3, L4, L5" Right lower lobe pneumonia Surgical History H/O removal of cyst (Resolved) H/O mitral valve replacement (Chronic) H/O foot surgery (Chronic) S/P MVR (mitral valve replacement) (Chronic) "Bioprosthetic, 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" History of kyphoplasty (Chronic) History of cataract surgery (Chronic) H/O arthroscopic knee surgery (Chronic) H/O inguinal hernia repair (Chronic) Family History Other Family history non-contributory Social History Preferred Language: French Feels Safe at Home: Yes Smoking Status: Never smoker Review of Systems Review of Systems: All systems reviewed & are unremarkable except as noted in HPI & below Physical Exam Eyes: PERRL, conjunctivae normal, anicteric sclerae EOM intact bilaterally Neurologic: PERRL, EOMI, accommodation nl, no face palsy, no dysarthria patient's also noticing some right foot spasm of the patient and this was seen at bedside but would spasm would go away on its own Psychiatric: patient on exam by hospitalist in the ED is awake and alert when roused from rest. however he is not oriented to time or place. as per his at the bedside, patient is more interactive and oriented to time and place besides to person Results & Data Vital Signs (Past 12 Hours) Vital Signs Temp Pulse Resp BP BP Pulse Ox 02/13/19 17:50 18 149/86 H 98 02/13/19 15:24 37 C 65 18 143/70 H 94 Code Status & VTE Plan VTE Prophylaxis Plan VTE Prophylaxis will be ordered: Yes (1) Altered mental status Altered mental status type: unspecified Qualified Code(s): R41.82 - Altered mental status, unspecified
[2019-02-13 20:00] LABS: Magnesium 2.4 mg/dl (1.8-2.4)
[2019-02-13 20:30] LABS: Appearance Urine Clear (Clear); Bacteria Urine Automated Negative (Negative); Bilirubin Urine Negative (Negative); Blood Urine Negative (Negative); Color Urine Dark Yellow; Glucose Urine UA Negative (Negative); Ketones Urine Trace (Negative); Leukocyte Esterase Urine Trace (Negative); Nitrite Urine Negative (Negative); Protein Urine Negative (Negative); Urobilinogen Urine Negative (Negative); pH Urine 6.5 (4.5-7.5)
[2019-02-13] MEDS ORDERED: HYDROmorphone INJ 0.5 MG/0.5 ML SYR IV STA (21:27)
[2019-02-13] MEDS ORDERED: INFLUENZA ADMINISTRATION CHARGE ONE (22:00)
[2019-02-13] MEDS ORDERED: PNEUMOCOCCAL POLYSACCHARIDES 25 MCG/0.5 ML VIAL/SYR IM ONE (22:00)
[2019-02-13] MEDS ORDERED: INFLUENZA VIRUS QUAD VACCINE 0.5 ML SYR IM ONE (22:00)
[2019-02-13] MEDS ORDERED: PNEUMOCOCCAL ADMINISTRATION CHARGE ONE (22:00)
[2019-02-13] MEDS: DOCUSATE SODIUM 100 MG CAP PO SCH (22:04)
[2019-02-13] MEDS: TAMSULOSIN HCL 0.4 MG CAP PO SCH (22:04)
[2019-02-13] MEDS: CEROVITE ADV FORMULA TAB PO SCH (22:04)
[2019-02-13] MEDS: SENNA 8.6 MG TAB PO SCH (22:05)
--- NOTE | 2019-02-13 23:25 | Emergency Department Note ---
Entered by Ramon Hogan acting as a scribe for History of Present Illness General Chief complaint: Altered Mental Status Time Seen by Provider: 02/13/19 15:45 Source: patient Limitations: no limitations History of Present Illness Provider complaint: fall Onset (ago): day(s) (yesterday) Location: head Radiation: non-radiation Relieved By: + none Exacerbated By: + none Associated symptoms: + headaches; no fever/chills Treatments prior to arrival: none The patient is an 88 year old male who presents to the Emergency Department after a fall that occurred yesterday. The patient did not injure anything, he does not have a headache. The patient does not have a fever. HPI limited due to altered mental status. He is been complaining of back pain is right shoulder from where he fell a couple days prior. No chest pain or shortness of breath no dysuria. No focal numbness or weakness. Family tells me that they started him on baclofen 2 days ago and he got confused before when on this. No focal numbness or weakness. History was obtained from the patient as well as the family members Home Medications Home Medications Medication Instructions Recorded Confirmed Type Cock-Up Wrist Splint Long #1 ea 02/10/19 02/13/19 Rx albuterol sulfate 2 puff INHALATION QID 02/13/19 02/13/19 History albuterol sulfate 2.5 mg INHALATION Q4H PRN 02/13/19 02/13/19 History baclofen 10 mg PO TID 02/13/19 02/13/19 History calcium carbonate-vitamin D3 1 tab PO DAILY 02/13/19 02/13/19 History docusate sodium 100 mg PO BID 02/13/19 02/13/19 History ergocalciferol (vitamin D2) 50,000 unit PO MOTH 02/13/19 02/13/19 History [Vitamin D2] escitalopram oxalate 20 mg PO DAILY 02/13/19 02/13/19 History finasteride 5 mg PO DAILY 02/13/19 02/13/19 History rcqfnbxppho-htfesbdlc-vsqgckag 1 inh INHALATION DAILY 02/13/19 02/13/19 History furosemide 40 mg PO DAILY@1600 02/13/19 02/13/19 History furosemide 80 mg PO QAM 02/13/19 02/13/19 History guaifenesin [Mucinex] 600 mg PO BID 02/13/19 02/13/19 History iron,carbonyl-vitamin C [Vitron-C] 1 tab PO DAILY 02/13/19 02/13/19 History multivitamin 1 tab PO DAILY 02/13/19 02/13/19 History omeprazole 40 mg PO DAILY 02/13/19 02/13/19 History prednisone 20 mg PO DAILY 02/13/19 02/13/19 History sennosides [Senna Lax] 8.6 mg PO BID 02/13/19 02/13/19 History tamsulosin 0.4 mg PO HS 02/13/19 02/13/19 History vit C,O-Dn-onqjb-lutein-zeaxan 1 tab PO BID 02/13/19 02/13/19 History [PreserVision AREDS-2] warfarin 2 mg PO MOWEFR 02/13/19 02/13/19 History warfarin 3 mg PO SUTUTHSA 02/13/19 02/13/19 History Allergies Allergy/AdvReac Type Severity Reaction Status Date / Time lansoprazole Allergy Unknown didn't Verified 02/13/19 16:47 work/dr determined pt was allergic Past Med/Surg History Medical History GERD (gastroesophageal reflux disease) (Chronic) Arthritis (Chronic) Spontaneous pneumothorax (Resolved) COPD (chronic obstructive pulmonary disease) (Chronic) Paroxysmal atrial fibrillation (Chronic) Peptic ulcer disease (Chronic) Chronic back pain (Chronic) Osteoarthritis (Chronic) Conductive 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 loss (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) 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) Heart failure, diastolic (Chronic) Lumbar compression fracture (Chronic) "L1, L2, L3, L4, L5" Right lower lobe pneumonia Surgical History H/O removal of cyst (Resolved) H/O mitral valve replacement (Chronic) H/O foot surgery (Chronic) S/P MVR (mitral valve replacement) (Chronic) "Bioprosthetic, 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" History of kyphoplasty (Chronic) History of cataract surgery (Chronic) H/O arthroscopic knee surgery (Chronic) H/O inguinal hernia repair (Chronic) Family History Other Family history non-contributory Social History Preferred Language: Hebrew Communication Ability: Effective Junk Removal Specialist Required: No Beliefs That Will Affect Care: None Current Living Situation: Personal Care Facility Current Living Situation Comment: [facility] Other Information That Helps Us Care for You: No Feels Safe at Home: Yes Safety Concerns: Feels Safe At This Time Smoking Status: Former smoker Hx Alcohol Use: No Hx Substance Use: No Physical Exam Vital Signs Vital Signs - 24 hr 02/13/19 15:24 02/13/19 17:50 Temperature 37 C Temperature Source Oral Sepsis Recent Fever Within 48 Hours No Sepsis Action Taken by Nursing No Action Required Pulse Rate 65 Pulse Rhythm Regular Pulse Strength Normal Respiratory Rate 18 18 Respiratory Effort / Characteristics Non-Labored Spontaneous Non-Labored Spontaneous Respiratory Depth Normal Normal Respiratory Pattern Regular Blood Pressure 143/70 H Blood Pressure [Left Arm] 149/86 H Blood Pressure Mean 94 Blood Pressure Mean [Left Arm] 107 Blood Pressure Position Lying Blood Pressure Position [Left Arm] Lying Pulse Oximetry 94 98 Oxygen Delivery Method Room Air Room Air General: Non-ill appearing older male in no acute distress. Answers some questions appropriately, other repetitively. HEENT: Normal cephalic atraumatic. Pupils are equal round and reactive to light. Extraocular movements are intact. Oropharynx is pink with moist mucous membranes. No swelling of the mouth lips or tongue. Abrasion of the right forehead. Neck: Supple with a midline trachea. No meningeal signs or stiffness, no JVD or bruits. No Stridor. Chest: Clear to auscultation bilaterally. No wheezes or rhonchi. No increased work of breathing. Heart: regular rate and rhythm. Abdomen: Soft nontender, nondistended without rebound guarding or rigidity. Extremities: No cyanosis clubbing or edema. No calf tenderness or asymmetry Spine/Back. Non tender to palpation. No CVA tenderness Skin: Good turgor without rashes. Neurologic exam: Cranial nerves two through 12 are intact. Motor and sensation are intact and symmetrical throughout. Course 1546: Medical records reviewed. The patient was seen in room A11A, a physical exam was performed. 1739: I spoke to the patient's family, they said he has been AMS since yesterday. He has been on Baclofen since yesterday which they said makes him confused. 1744: I spoke to Adele Rios PA-C under Dr. Omar Russell, about the patient's case and she agreed to accept the patient for further evaluation. 1800: The patient was accepted for further evaluation. Administered Medications Docusate Sodium (Colace) 100 mg PO BID TIO Stop: 03/15/19 20:59 Last Admin: 02/13/19 22:04 Dose: 100 mg Documented by: [id number] Sodium Chloride (Nss 1000ml) 1,000 mls @ 80 mls/hr IV .[id number] TIO Stop: 02/14/19 07:29 Last Admin: 02/13/19 21:16 Dose: 80 mls/hr Documented by: [id number] Miscellaneous (Order Awaiting Action) 1 ea N/A QS TIO Stop: 03/15/19 21:44 Last Admin: 02/13/19 21:56 Dose: Not Given Documented by: [id number] Multivitamins/Minerals (Multivitamin W/ Minerals Tab) 1 tab PO BID TIO Stop: 03/15/19 20:59 Last Admin: 02/13/19 22:04 Dose: 1 tab Documented by: [id number] Sennosides (Senokot) 8.6 mg PO BID TIO Stop: 03/15/19 20:59 Last Admin: 02/13/19 22:05 Dose: 8.6 mg Documented by: [id number] Tamsulosin HCl (Flomax) 0.4 mg PO HS TIO Stop: 03/15/19 20:59 Last Admin: 02/13/19 22:04 Dose: 0.4 mg Documented by: [id number] Discontinued Medications Acetaminophen (Tylenol) 650 mg PO NOW STA Stop: 02/13/19 17:31 Last Admin: 02/13/19 18:26 Dose: 650 mg Documented by: [id number] Hydromorphone HCl (Dilaudid) 0.5 mg IV NOW STA Stop: 02/13/19 21:28 Last Admin: 02/13/19 21:32 Dose: 0.5 mg Documented by: [id number] Sodium Chloride (Nss 1000ml) 1,000 mls @ 999 mls/hr IV .Q1H1M ONE Stop: 02/13/19 18:32 Last Infusion: 02/13/19 21:16 Dose: 0 mls/hr Documented by: [id number] Admin: 02/13/19 18:27 Dose: 999 mls/hr Documented by: [id number] Acetaminophen (Ofirmev) 65 mls @ 200 mls/hr IV NOW ONE Stop: 02/13/19 19:12 Last Admin: 02/13/19 21:15 Dose: Not Given Documented by: [id number] Medical Decision Making Differential Diagnosis Differential Diagnosis: Head injury, anticoagulation use, stroke, electrolyte or metabolic abnormality. Medical Records Attestation: I reviewed the patient's medical records. Home Medications Current Medication List: was personally reviewed by me Laboratory Data Attestation: I reviewed the patient's lab results. Result diagrams: 02/13/19 16:22 02/13/19 16:22 Lab Results 02/13/19 02/13/19 02/13/19 Range/Units 16:22 16:22 16:22 WBC 6.66 (4.8-10.8) K/uL RBC 3.86 L (4.7-6.1) M/uL Hgb 12.1 L (14.0-18.0) g/dL Hct 36.4 L (42-52) % MCV 94.3 (80-100) fL MCH 31.3 (25-34) pg MCHC 33.2 (32-36) g/dL RDW Std Deviation 52.4 H (36.4-46.3) fL RDW Coeff of Roverto 15.3 H (11.5-14.5) % Plt Count 156 (130-400) K/uL MPV 11.8 H (7.4-10.4) fL Immature Gran % (Auto) 0.2 % Neut % (Auto) 56.9 % Lymph % (Auto) 23.6 % [place] % (Auto) 15.8 % Eos % (Auto) 3.0 % Baso % (Auto) 0.5 % Immature Gran # (Auto) 0.01 (0.00-0.02) K/uL Neut # (Auto) 3.80 (1.4-6.5) K/uL Lymph # (Auto) 1.57 (1.2-3.4) K/uL [place] # (Auto) 1.05 H (0.11-0.59) K/uL Eos # (Auto) 0.20 (0-0.5) K/uL Baso # (Auto) 0.03 (0-0.2) K/uL PT 21.6 H (9.0-12.0) Seconds INR 2.2 H (0.9-1.1) APTT 38.0 H (21.0-31.0) Seconds PTT Ratio 1.4 Sodium 140 (136-145) mmol/L Potassium 3.9 (3.5-5.1) mmol/L Chloride 106 (98-107) mmol/L Carbon Dioxide 29 (21-32) mmol/L Anion Gap 5.0 (3-11) BUN 15 (7-18) mg/dl Creatinine 0.96 (0.6-1.4) mg/dl Est Cr Clr Drug Dosing 59.2 ml/min Est GFR ( Amer) 80.9 Est GFR (Non-Af Amer) 69.8 BUN/Creatinine Ratio 15.1 (10-20) Glucose 99 (70-99) mg/dl Lactate (0.4-2.0) mmol/L Calcium 8.5 (8.5-10.1) mg/dl Magnesium (1.8-2.4) mg/dl Total Bilirubin 0.4 (0.2-1) mg/dl AST 10 L (15-37) U/L ALT 12 (12-78) U/L Alkaline Phosphatase 52 (45-117) U/L Total Creatine Kinase (39-308) U/L Total Protein 6.7 (6.4-8.2) gm/dl Albumin 3.2 L (3.4-5.0) gm/dl Globulin 3.5 (2.5-4.0) gm/dl Albumin/Globulin Ratio 0.9 (0.9-2) TSH 1.010 (0.300-4.500) uIu/ml 02/13/19 02/13/19 Range/Units 16:22 17:53 WBC (4.8-10.8) K/uL RBC (4.7-6.1) M/uL Hgb (14.0-18.0) g/dL Hct (42-52) % MCV (80-100) fL MCH (25-34) pg MCHC (32-36) g/dL RDW Std Deviation (36.4-46.3) fL RDW Coeff of Roverto (11.5-14.5) % Plt Count (130-400) K/uL MPV (7.4-10.4) fL Immature Gran % (Auto) % Neut % (Auto) % Lymph % (Auto) % [place] % (Auto) % Eos % (Auto) % Baso % (Auto) % Immature Gran # (Auto) (0.00-0.02) K/uL Neut # (Auto) (1.4-6.5) K/uL Lymph # (Auto) (1.2-3.4) K/uL [place] # (Auto) (0.11-0.59) K/uL Eos # (Auto) (0-0.5) K/uL Baso # (Auto) (0-0.2) K/uL PT (9.0-12.0) Seconds INR (0.9-1.1) APTT (21.0-31.0) Seconds PTT Ratio Sodium (136-145) mmol/L Potassium (3.5-5.1) mmol/L Chloride (98-107) mmol/L Carbon Dioxide (21-32) mmol/L Anion Gap (3-11) BUN (7-18) mg/dl Creatinine (0.6-1.4) mg/dl Est Cr Clr Drug Dosing ml/min Est GFR ( Amer) Est GFR (Non-Af Amer) BUN/Creatinine Ratio (10-20) Glucose (70-99) mg/dl Lactate 0.7 (0.4-2.0) mmol/L Calcium (8.5-10.1) mg/dl Magnesium 2.4 (1.8-2.4) mg/dl Total Bilirubin (0.2-1) mg/dl AST (15-37) U/L ALT (12-78) U/L Alkaline Phosphatase (45-117) U/L Total Creatine Kinase 32 L (39-308) U/L Total Protein (6.4-8.2) gm/dl Albumin (3.4-5.0) gm/dl Globulin (2.5-4.0) gm/dl Albumin/Globulin Ratio (0.9-2) TSH (0.300-4.500) uIu/ml Imaging Data Radiologist's Impression: Radiology results as stated below per my review and the radiologist's interpretation: XR chest 1V portable CLINICAL HISTORY: 88 years-old Male presenting with weakness. TECHNIQUE: Portable upright AP view of the chest was obtained. COMPARISON: 02/09/2019. FINDINGS: Median sternotomy wires. Prosthetic tricuspid valve. Mitral annulus repair. Atherosclerosis of the aortic arch. Cardiac silhouette moderately enlarged. Pulmonary vascular prominence. Minimal right basilar opacities. No pleural effusion or pneumothorax. Osseous structures normal. IMPRESSION: 1. Cardiomegaly and volume overload. No mika pulmonary edema. 2. Minimal right basilar opacities likely atelectasis or scarring. Electronically signed by: Mil Summers M.D. 02/13/2019 4:[address] OF THE HEAD WITHOUT CONTRAST CLINICAL HISTORY: Head trauma. Anticoagulation. COMPARISON STUDY: Head CT February 09, 2019. CT DOSE: 614.27 mGy.cm TECHNIQUE: Helical axial images of the head were obtained without IV contrast. Automated exposure control was utilized for the study. A dose lowering technique was utilized adhering to the principles of ALARA. FINDINGS: No acute intracranial hemorrhage, midline shift or mass effect is present. The ventricular system is stable. Basilar cisterns are patent. There are no extra axial collections. White matter hypodensities are unchanged and suggest small vessel disease. There are no findings to suggest acute dural sinus thrombosis or acute territorial infarct. There are no calvarial fractures. IMPRESSION: 1. No acute intracranial findings. 2. No calvarial fracture. Electronically signed by: Chuck Barrow M.D. 02/13/2019 4:41 PM ECG Data Attestation: I personally reviewed and interpreted this ECG as follows: Indication: altered mental status Rate (beats per minute): 56 Rhythm: sinus bradycardia Findings: + 1st degree AV block; no acute ischemic change and no ectopy Comparison ECG Date: from (February 09, 2019) Change: the following changes noted (Rate decreased) Blood Pressure Blood Pressure Findings: Elevated blood pressure Blood Pressure Disposition: further management by hospitalist [facility] Narrative This patient comes in as described above. He was placed in room A11. He has been confused for the last 24 hours or so. He was recently fell and is on anticoagulation agent he did hit his head. He is also recently started on baclofen which is caused him confusion in the past according the family. he has no fever or chills. he is complaining of right shoulder pain from where he previously injured it and was seen by his doctor and told your muscle spasms there. I reviewed his records from his previous visit a CAT scan of his head it was negative. his shoulder x-rays were unremarkable. I did repeat his CAT scan here was unremarkable. His INR is in the mid 2 range. He has no electrolyte or metabolic abnormalities. His lactic acid is not elevated and he does not have a fever this would go against infection/sepsis. His urinalysis is unremarkable with a urine culture pending. He is confused and does perseverate and repeat. This is new for him. I think in all likelihood is related to the muscle relaxant but I do think he should be admitted/observed. His family does not think he took any extra or any other medications. I did consult the [facility] hospitalist to see him for these measures. 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 I confirm that the note above accurately ref lects all work, treatment, procedures, and medical decision making performed by me.
[2019-02-14 06:47] LABS: INR 2.5 (0.9-1.1); Prothrombin Time 24.4 Seconds (9.0-12.0)
[2019-02-14 07:06] LABS: Albumin Level 3.1 gm/dl (3.4-5.0); BUN Creatinine Ratio 15.5 (10-20); Calcium 8.4 mg/dl (8.5-10.1); Creatinine Clr Calc Pharmacy 66.1 ml/min; Est GFR (African American) 89.1; Est GFR (Non-African American) 76.9; Potassium 3.8 mmol/L (3.5-5.1)
[2019-02-14 07:07] LABS: Basophils # (auto) 0.04 K/uL (0-0.2); Basophils % (auto) 0.7 %; Eosinophils # (auto) 0.22 K/uL (0-0.5); Eosinophils % (auto) 3.8 %; Hematocrit (blood only) 35.3 % (42-52); Hemoglobin 11.7 g/dL (14.0-18.0); Immature Granulocytes # (auto) 0.01 K/uL (0.00-0.02); Immature Granulocytes % (auto) 0.2 %; Lymphocytes # (auto) 1.72 K/uL (1.2-3.4); Lymphocytes % (auto) 29.6 %; Mean Corpuscular Hemoglobin 31.5 pg (25-34); Mean Corpuscular Hgb Conc 33.1 g/dL (32-36); Mean Corpuscular Volume 94.9 fL (80-100); Mean Platelet Volume 12.8 fL (7.4-10.4); Neutrophils # (auto) 3.12 K/uL (1.4-6.5); Neutrophils % (auto) 53.7 %; Platelet Count 157 K/uL (130-400); RDW Coefficient of Variation 15.2 % (11.5-14.5); RDW Standard Deviation 52.6 fL (36.4-46.3); Red Blood Count 3.72 M/uL (4.7-6.1); White Blood Count 5.81 K/uL (4.8-10.8)
[2019-02-14 07:09] LABS: Albumin Globulin Ratio 0.9 (0.9-2); Bilirubin,Total 0.4 mg/dl (0.2-1); Globulin 3.3 gm/dl (2.5-4.0); Total Protein 6.4 gm/dl (6.4-8.2)
[2019-02-14 07:48] LABS: Appearance Urine Clear (Clear); Bilirubin Urine Negative (Negative); Blood Urine Negative (Negative); Color Urine Dark Yellow; Glucose Urine UA Negative (Negative); Ketones Urine Trace (Negative); Leukocyte Esterase Urine Negative (Negative); Nitrite Urine Negative (Negative); Protein Urine Negative (Negative); Specific Gravity Urine 1.024 (1.000-1.030); Urobilinogen Urine Positive (Negative); pH Urine 7.5 (4.5-7.5)
[2019-02-14] MEDS: DOCUSATE SODIUM 100 MG CAP PO SCH ×2 (08:30→20:33)
[2019-02-14] MEDS: CALCIUM 600MG + VIT D 400 IU TAB PO SCH (08:30)
[2019-02-14] MEDS: CEROVITE ADV FORMULA TAB PO SCH ×2 (08:31→20:33)
[2019-02-14] MEDS: FUROSEMIDE 40 MG TAB PO SCH (08:31)
[2019-02-14] MEDS: FINASTERIDE 5 MG TAB PO SCH (08:31)
[2019-02-14] MEDS: SENNA 8.6 MG TAB PO SCH ×2 (08:32→20:33)
[2019-02-14] MEDS: PANTOprazole 40 MG TAB PO SCH (08:32)
[2019-02-14] MEDS: MULTIVITAMIN TAB PO SCH (08:33)
[2019-02-14] MEDS: TROLAMINE SALICYLATE 10% CRM 255 APPLN/85 GM TUBE EXT SCH ×3 (11:49→20:34)
[2019-02-14] MEDS ORDERED: WARFARIN SOD 2 MG TAB PO SCH (16:00)
--- NOTE | 2019-02-14 17:33 | Hospitalist Progress Note ---
Date of Service February 14, 2019 Assessment & Plan (1) Medication side effects: Confusion has improved with time away from Baclofen, which has been added to allergy profile. This am he was oriented only to person, but htis afternoon when I returned he is more with it and knows the location. Will go ahead with valium trial this evening and cont BenGay and K pad for treatment of his neck pain. (2) Neck pain: Persistent soreness in lower posterior/upper bavck area s/p fall last week. Very TTP on palpation. Shoulders not affected. C-spine film from last week negative for fracture. Trial of valium as above. Cont Fede Nesbitt and K pad with massage. Of note, I did give him the option of trying nothing at all aside from Kpad and BenGay. He reported that his pain was manageable but that he would like to try the valium. (3) Fracture of triquetral bone of right wrist: Cont splint. No pain. (4) Paroxysmal atrial fibrillation: cont coumadin (5) S/P MVR (mitral valve replacement): bioprosthetic valve. Cont coumadin (6) DVT prophylaxis: coumadin full code dispo-likely to home in am or when more medically stable and back pain is managed. Nubia Beck, DO [facility] Hospitalist Subjective 88 yo M who was present with his at bedside, reports some confusion yesterday after baclofen use, which has caused iddues for him in the past. The baclofen was given in response to his report of severe upper back pain after a fall last week. He still has incredible soreness in this area, which is very TTP. Shoulders are not involved. We discussed the pros/cons of additional medications vs more conservative therapies such as BenGay and K pad with intermittent massage. We discussed that all options have potential side effects. He is otherwise doing well, walked around well with PT this morning, is tolerating food, etc. Review of Systems Review of Systems: All systems reviewed & are unremarkable except as noted in HPI & below Physical Exam Physical Exam: CONSTITUTIONAL: WNWD, vitals as above, generally well- appearing EYES: normal conjunctivae, no scleral icterus ENT: MMM RESPIRATORY: clear to auscultation bilaterally, no crackles, rales or wheezes, normal respiratory effort CARDIOVASCULAR: regular rate and rhythm, S1 and 2 heard without murmurs, gallops or rubs, no JVD, no peripheral edema GASTROINTESTINAL: normal bowel sounds, soft, nontender, nondistended MUSCULOSKELETAL: moves all extremities easily, no gross focal deficits. R wrist is in a splint. Posterior upper back area is very sore to palpation. Shoulders and lower thoracics area not affected. SKIN: warm and dry NEUROLOGIC: CN 2-12 grossly intact, normal cognition, normal speech PSYCHIATRIC: alert cooperative and oriented to person only. Results & Data Vital Signs (Past 12 Hours) Vital Signs Temp Pulse Resp BP Pulse Ox 02/14/19 15:32 36.5 C 65 18 143/62 H 94 02/14/19 07:17 36.6 C 60 18 139/66 92 Laboratory Results Short CBC 02/14/19 Range/Units 06:12 WBC 5.81 (4.8-10.8) K/uL Hgb 11.7 L (14.0-18.0) g/dL Hct 35.3 L (42-52) % Plt Count 157 (130-400) K/uL BMP 02/14/19 06:12 Sodium 142 Potassium 3.8 Chloride 109 H Carbon Dioxide 27 BUN 13 Creatinine 0.86 Glucose 97 Calcium 8.4 L Cardiac Enzymes 02/13/19 Range/Units 16:22 Total Creatine Kinase 32 L (39-308) U/L Liver Function 02/14/19 Range/Units 06:12 Total Bilirubin 0.4 (0.2-1) mg/dl AST 9 L (15-37) U/L ALT 11 L (12-78) U/L Alkaline Phosphatase 53 (45-117) U/L Albumin 3.1 L (3.4-5.0) gm/dl Urine 02/13/19 02/14/19 Range/Units 20:16 07:40 Urine Color Dark Yellow Dark Yellow Urine Appearance Clear Clear (Clear) Urine pH 6.5 7.5 (4.5-7.5) Ur Specific [place] 1.020 1.024 (1.000-1.030) Urine Protein Negative Negative (Negative) Urine Glucose (UA) Negative Negative (Negative) Medications Administered Current Inpatient Medications Albuterol (Duoneb) 3 ml NEB Q6H PRN PRN Reason: shortness of breath or wheezing Stop: 03/15/19 18:59 Diazepam (Valium) 2 mg PO BID [facility] Stop: 03/16/19 20:59 Docusate Sodium (Colace) 100 mg PO BID TIO Stop: 03/15/19 20:59 Last Admin: 02/14/19 08:30 Dose: 100 mg Documented by: Finasteride (Proscar) 5 mg PO DAILY TIO Stop: 03/16/19 08:59 Last Admin: 02/14/19 08:31 Dose: 5 mg Documented by: Furosemide (Lasix) 40 mg PO QAM TIO Stop: 03/16/19 08:59 Last Admin: 02/14/19 08:31 Dose: 40 mg Documented by: Acetaminophen (Ofirmev) 65 mls @ 200 mls/hr IV Q8H PRN PRN Reason: pain or fever Stop: 03/15/19 18:59 Last Infusion: 02/14/19 02:49 Dose: Infused Documented by: Miscellaneous (Order Awaiting Action) 1 ea N/A QS TIO Stop: 03/15/19 21:44 Last Admin: 02/14/19 16:02 Dose: Not Given Documented by: Multivitamins (Multivitamin Tab) 1 tab PO DAILY TIO Stop: 03/16/19 08:59 Last Admin: 02/14/19 08:33 Dose: 1 tab Documented by: Multivitamins/Minerals (Multivitamin W/ Minerals Tab) 1 tab PO BID TIO Stop: 03/15/19 20:59 Last Admin: 02/14/19 08:31 Dose: 1 tab Documented by: Multivitamins/Minerals (Caltrate Plus) 1 tab PO DAILY TIO Stop: 03/16/19 08:59 Last Admin: 02/14/19 08:30 Dose: 1 tab Documented by: Pantoprazole Sodium (Protonix) 40 mg PO DAILY TIO Stop: 03/16/19 08:59 Last Admin: 02/14/19 08:32 Dose: 40 mg Documented by: Sennosides (Senokot) 8.6 mg PO BID TIO Stop: 03/15/19 20:59 Last Admin: 02/14/19 08:32 Dose: 8.6 mg Documented by: Tamsulosin HCl (Flomax) 0.4 mg PO HS TIO Stop: 03/15/19 20:59 Last Admin: 02/13/19 22:04 Dose: 0.4 mg Documented by: Trolamine Salicylate (Myoflex) 1 appln EXT TID [facility] Stop: 03/16/19 10:24 Last Admin: 02/14/19 14:03 Dose: 1 appln Documented by: Warfarin Sodium (Coumadin) 2 mg PO [id number] [facility] Stop: 03/16/19 15:59 Last Admin: 02/14/19 16:00 Dose: 2 mg Documented by: Warfarin Sodium (Coumadin) 3 mg PO [id number] [facility] Stop: 03/17/19 15:59 (1) Fracture of triquetral bone of right wrist Encounter type: initial encounter Fracture alignment: displaced Fracture type: closed Qualified Code(s): S62.111A - Displaced fracture of triquetrum [cuneiform] bone, right wrist, initial encounter for closed fracture
[2019-02-14] MEDS: ALBUT/IPRATROP 3MG/0.5MG NEB 3 ML VIAL NEB PRN ×2 (19:49→23:58)
[2019-02-14] MEDS: TAMSULOSIN HCL 0.4 MG CAP PO SCH (20:33)
[2019-02-14] MEDS: diazePAM 2 MG TABLET PO SCH (20:35)
[2019-02-15] MEDS ORDERED: NITROGLYCERIN SL 0.4 MG/TAB TAB SL STA (00:39)
[2019-02-15] MEDS ORDERED: NITROGLYCERIN SL 0.4 MG/TAB TAB ONE (00:50)
[2019-02-15] MEDS ORDERED: TRAMADOL HCL 50 MG TABLET PO PRN (01:08)
[2019-02-15] MEDS ORDERED: POTASSIUM CHLORIDE 20 MEQ TABCR PO STA (01:18)
[2019-02-15 01:32] LABS: Basophils # (auto) 0.03 K/uL (0-0.2); Basophils % (auto) 0.5 %; Eosinophils # (auto) 0.23 K/uL (0-0.5); Eosinophils % (auto) 3.5 %; Hematocrit (blood only) 32.7 % (42-52); Hemoglobin 10.9 g/dL (14.0-18.0); Immature Granulocytes # (auto) 0.01 K/uL (0.00-0.02); Immature Granulocytes % (auto) 0.2 %; Lymphocytes # (auto) 2.14 K/uL (1.2-3.4); Lymphocytes % (auto) 32.2 %; Mean Corpuscular Hemoglobin 31.4 pg (25-34); Mean Corpuscular Hgb Conc 33.3 g/dL (32-36); Mean Corpuscular Volume 94.2 fL (80-100); Monocytes # (auto) 0.85 K/uL (0.11-0.59); Monocytes % (auto) 12.8 %; Neutrophils # (auto) 3.39 K/uL (1.4-6.5); Neutrophils % (auto) 50.8 %; Platelet Count 154 K/uL (130-400); RDW Coefficient of Variation 15.1 % (11.5-14.5); Red Blood Count 3.47 M/uL (4.7-6.1); White Blood Count 6.65 K/uL (4.8-10.8)
[2019-02-15 01:42] LABS: INR 2.2 (0.9-1.1); Partial Thromboplastin Ratio 1.5; Partial Thromboplastin Time 40.4 Seconds (21.0-31.0); Prothrombin Time 20.9 Seconds (9.0-12.0)
[2019-02-15 01:49] LABS: Alanine Aminotransferase 12 U/L (12-78); Albumin Level 2.8 gm/dl (3.4-5.0); Aspartate Aminotransferase 9 U/L (15-37); BUN Creatinine Ratio 18.1 (10-20); Blood Urea Nitrogen 17 mg/dl (7-18); Calcium 8.4 mg/dl (8.5-10.1); Carbon Dioxide 26 mmol/L (21-32); Chloride 107 mmol/L (98-107); Creatinine Clr Calc Pharmacy 59.8 ml/min; Est GFR (African American) 81.9; Est GFR (Non-African American) 70.7; Glucose 108 mg/dl (70-99); Lipase 84 U/L (73-393); Potassium 3.5 mmol/L (3.5-5.1); Sodium 140 mmol/L (136-145)
[2019-02-15 01:54] LABS: Albumin Globulin Ratio 0.8 (0.9-2); Alkaline Phosphatase 49 U/L (45-117); Bilirubin,Total 0.3 mg/dl (0.2-1); Globulin 3.3 gm/dl (2.5-4.0); Total Protein 6.1 gm/dl (6.4-8.2); Troponin I < 0.015 ng/ml (0-0.045)
[2019-02-15] MEDS: FUROSEMIDE 40 MG TAB PO SCH (08:00)
[2019-02-15] MEDS: FINASTERIDE 5 MG TAB PO SCH (08:00)
[2019-02-15] MEDS: CEROVITE ADV FORMULA TAB PO SCH (08:01)
[2019-02-15] MEDS: DOCUSATE SODIUM 100 MG CAP PO SCH (08:01)
[2019-02-15] MEDS: SENNA 8.6 MG TAB PO SCH (08:01)
[2019-02-15] MEDS: CALCIUM 600MG + VIT D 400 IU TAB PO SCH (08:01)
[2019-02-15] MEDS: PANTOprazole 40 MG TAB PO SCH (08:02)
[2019-02-15] MEDS: MULTIVITAMIN TAB PO SCH (08:02)
[2019-02-15] MEDS: TROLAMINE SALICYLATE 10% CRM 255 APPLN/85 GM TUBE EXT SCH (08:02)
[2019-02-15] MEDS: diazePAM 2 MG TABLET PO SCH (08:09)
--- NOTE | 2019-02-15 11:43 | Discharge Summary ---
Date of Service February 15, 2019 Admission HPI Per Admitting Provider -patient had recent falls and was evaluated in ED on 02/09/19 with Acute- appearing triquetral fracture of right wrist; patient's right hand was placed in splint and discharged with pain medications -patient was in usual state of mental health when recently prescribed baclofen for muscular skeletal pain -as per patient's family members at the bedside, the baclofen was started 2 days ago. This appeared to correlate with patient's mental status of being more lethargic -patient on exam by hospitalist in the ED is awake and alert when roused from rest. however he is not oriented to time or place. as per his at the bedside, patient is more interactive and oriented to time and place besides to person -patient's also noticing some right foot spasm of the patient and this was seen at bedside but would spasm would go away on its own On review of systems:, patient reported patient with feeling hot and cold at times but did not take the temperature at home. normal body temperature currently when seen in per history of family and patient, no shortness of breath pain is musculoskeletal such as shoulders and back patient's also noting that he has not been urinating today Admission Exam Per Admitting Provider Eyes: PERRL, conjunctivae normal, anicteric sclerae EOM intact bilaterally Neurologic: PERRL, EOMI, accommodation nl, no face palsy, no dysarthria patient's also noticing some right foot spasm of the patient and this was seen at bedside but would spasm would go away on its own Psychiatric: patient on exam by hospitalist in the ED is awake and alert when roused from rest. however he is not oriented to time or place. as per his at the bedside, patient is more interactive and oriented to time and place besides to person Principal Diagnosis Adverse medication reaction to Baclofen Musculoskeletal neck pain s/p fall-improved Discharge Data Allergies Allergy/AdvReac Type Severity Reaction Status Date / Time lansoprazole Allergy Unknown didn't Verified 02/13/19 16:47 work/dr determined pt was allergic baclofen AdvReac Severe confusion Verified 02/14/19 17:24 Consultations 02/13/19 17:56 ED Decision to Admit Stat 02/13/19 18:57 Consult Case Management - Discharge Planning Routine Ordered Studies 02/13/19 15:51 CT head/brain wo con Stat Hospital Course (1) Medication side effects: (2) Neck pain: (3) Fracture of triquetral bone of right wrist: (4) Paroxysmal atrial fibrillation: (5) S/P MVR (mitral valve replacement): 88-year-old man presented to the hospital with altered mental status after taking baclofen at home. He was admitted to the Hospitalist service and CT of the head revealed no acute intracranial findings and no evidence of calvarial fracture. The baclofen had been given after a fall approximately 1 week prior. He had been seen in the emergency room on 02/09 for this fall, also. A chest x- ray revealed pulmonary vascular prominence without mika pulmonary edema and atelectasis. Blood cultures were drawn and negative and he remained afebrile throughout the hospitalization. He had no leukocytosis and a normal comprehensive metabolic panel. TSH was within normal limits. Urinalysis was checked and negative for infection. The following day his confusion had improved according to his who was at bedside. He was still not sure of the date, however. She reported he had this same reaction to baclofen in the past. The patient reported significant neck and upper back muscle soreness after his fall the prior week. He was given BenGay and a heating pad in addition to Valium which helped to relax his muscles successfully. He was very sore on physical exam initially in this area, and his shoulders were not affected. He was also wearing a splint for a history of fracture to his triquetral bone of right wrist. This was causing him no issues. On hospital day 3 he was mentating at baseline. The Valium had improved his muscle soreness and it was not deemed necessary to continue this at home. He will continue Tylenol as needed for pain and avoid baclofen in the future. This was listed as an allergy on his profile. At time of discharge a qayh-ut-zayk examination was performed revealing a splinted right wrist, and improvement in the tenderness to palpation of his posterior lower neck and upper back area. He had clear lungs auscultation bilaterally with no evidence of rales or wheezes and a normal respiratory effort. Cardiac exam revealed regular rate and rhythm with S1 and S2 heard without evidence of murmurs gallops or rubs. No JVD or peripheral edema was present. He was moving all extremities easily and was mentating and ambulating at baseline. He was tolerating p.o. He was oriented to place and time. There were no no gross neurologic deficits noted. He had normal cognition and was alert and cooperative and oriented to person. He was discharged in stable condition with close primary care follow-up recommended. Total Time Total Time Spent Total Time Spent (In Minutes): 60 Total Time Includes: Examination of the Patient, Discharge Planning, Medication Reconciliation, Communication With Other Providers and Other Discharge Plan Discharge Items Patient Disposition: Personal Senior Care Reason For Visit: CONFUSION,BACK PAIN,POLYPHARMACY Discharge Diagnosis: Adverse medication reaction to Baclofen Musculoskeletal neck pain s/p fall-improved Condition on Discharge: Good Activity: Resume your previous activity Non-emergency contact: Primary Care Provider Call non-emergency contact if: you have any medication questions, your symptoms worsen, your pain is not controlled, your pain is worsening, your pain is unusual for you, your pain is concerning for you and you have a fever Follow-up/Referrals: Frank Mahoney DO [Primary Care Provider] - Diet: Heart Healthy Addtl Attending Provider Instructions: Please take all medications as instructed on discharge list below. Please avoid BACLOFEN moving forward as this likely caused an adverse reaction. Please follow-up with your primary care physician within 1 week to ensure you are still feeling well post-hospital discharge, and that your pain is improved. It is recommended that you use BenGay or Icy Hot sports creams that are iced-ghv-bqnekji (OTC) items as directed on the bottles in addition to heat. Continue to move and avoid prolonged periods of bedrest. OTC Tylenol is also fine for more severe pain. It was a pleasure taking care of you! Please call if you have any questions or problems. You can reach a [facility] hospitalist on duty at [facility] 24 hours a day by calling [phone]. Take care of yourself. Nubia Beck DO [facility] Hospitalist Pending Studies at Discharge: No Stand-Alone Forms: My [facility] Medications and DC Order Prescriptions: Continued Cock-Up Wrist Splint Long Misc .ROUTE .MEDSUPPLY Qty: 1 RF: 0 albuterol sulfate 2.5 mg /3 mL (0.083 %) solution for nebulization 2.5 mg inhalation Q4H PRN (Reason: Shortness Of Breath) RF: 0 albuterol sulfate 90 mcg/actuation Hfa Aerosol Inhaler 2 puff INHALATION QID RF: 0 multivitamin Tablet 1 tab PO DAILY RF: 0 furosemide 40 mg tablet 80 mg PO QAM RF: 0 furosemide 40 mg tablet 40 mg PO DAILY@1600 RF: 0 sennosides [Senna Lax] 8.6 mg Tablet 8.6 mg PO BID RF: 0 omeprazole 40 mg Capsule,Delayed Release(Dr/Ec) 40 mg PO DAILY RF: 0 tamsulosin 0.4 mg capsule 0.4 mg PO HS RF: 0 docusate sodium 100 mg Capsule 100 mg PO BID RF: 0 ergocalciferol (vitamin D2) [Vitamin D2] 50,000 unit capsule 50,000 unit PO MOTH RF: 0 warfarin 1 mg tablet 2 mg PO MOWEFR RF: 0 warfarin 1 mg tablet 3 mg PO SUTUTHSA RF: 0 finasteride 5 mg tablet 5 mg PO DAILY RF: 0 escitalopram oxalate 20 mg tablet 20 mg PO DAILY RF: 0 calcium carbonate-vitamin D3 500mg (1,250mg) -600 unit Tablet 1 tab PO DAILY RF: 0 Vitron-C 65 mg iron- 125 mg Tablet,Delayed Release (Dr/Ec) 1 tab PO DAILY RF: 0 PreserVision AREDS-2 [phone] cy-wjwm-ki-mg Capsule 1 tab PO BID RF: 0 guaifenesin [Mucinex] 600 mg Tablet Extended Release 12hr 600 mg PO BID RF: 0 essvsladbfm-vnvopuknb-gddnzlvw 100-62.5-25 mcg Blister With Device 1 inh inhalation DAILY RF: 0 prednisone 20 mg tablet 20 mg PO DAILY Qty: 0 RF: 0 Discontinued baclofen 10 mg Tablet 10 mg PO TID RF: 0 Discharge Orders: Discharge Order (Routine); Ordered 02/15/19 Ordered By: Nubia Beck Admission Data Admit Date/Time: 02/14/19 17:20 Attending Provider: Nubia Beck Admit Provider: Tucker Mcneal Primary Care Provider: Frank Mahoney Other Interventions: Discharge Summary Assessment (RN) Last Done: 02/15/19 12:25 DC Date/Time DO NOT enter until pt leaves facility: 02/15/19 13:11
[2019-02-15] MEDS ORDERED: WARFARIN SOD 3 MG TAB PO SCH (16:00)
== END 2019-02-15 13:11 | disposition home or self-care (01) | DRG 948 ==
LOC: 4W 15:10 → ED 15:10 → SUATTDRO 19:00 → 4W 19:56